=== PATIENT | female | born 1975 | race Caucasian/White ===

== ENCOUNTER 2024-11-01 15:39 | Inpatient (IN) | payer OTHER ==
[~2024-11-01] VITALS: Ht 162.6 cm; Wt 70.1 kg
--- NOTE | 2024-11-01 16:15 | ECG ---
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
--- NOTE | 2024-11-01 16:20 | ED.PDOC ---
History of Present Illness HPI Comments 49F BIBA w/ prior MHx of HTN, GERS and the c/c of generalized weakness. EMS report that the noted on the pt feeling weak for 6 months which was on/off and as the pt was taking a bath today, she had to crawl out of it. When EMS arrived on scene the pt was complaining of lower ABD pain/back pain w/ being A/Ox3 and was given a 12 lead due from missing radio pulse, BS of 89 and given 324mg of aspirin. Pt is also bloated. Denies chills, fever, N/V/D, SOB, CP. Denies any other associated symptom's, modifiers, or recent injuries or sick contact at this time. Chief Complaint: General Weakness Time Seen by MD: 16:15 Reviewed Notes: Nurses Notes, Medications, Allergies Allergies: Coded Allergies: Iodine (Verified Allergy, Unknown, 11/01/24) Penicillins (Verified Allergy, Unknown, 11/01/24) Sulfa Antibiotics (Verified Allergy, Unknown, 11/01/24) Information Source: Patient Severity: Moderate Timing: Months Duration: Since onset Prehospital treatment: None Past Medical History PAST MEDICAL HISTORY: GERD, HTN Surgical History: Denies all surgeries PHYSICIST ASTROPHYSICS History: No Pertinent PHYSICIST ASTROPHYSICS History Family History Family History: Reviewed,noncontributory to illness, Family hx of DM, Family hx of heart janice Social History Smoker: Other (Vape Use) Alcohol: Occasionally Drugs: Denies Drug Use Lives In: Home Constitutional: reports: weakness; denies: chills, diaphoresis, fatigue, fever, malaise, sweats, others EENTM: denies: blurred vision, double vision, ear bleeding, ear discharge, ear drainage, ear pain, ear ringing, eye pain, eye redness, hearing loss, mouth pain, mouth swelling, nasal discharge, nose bleeding, nose congestion, nose pain, photophobia, tearing, throat pain, throat swelling, voice changes, others Respiratory: denies: cough, hemoptysis, orthopnea, SOB at rest, shortness of breath, SOB with excertion, stridor, wheezing, others Cardiovascular: denies: chest pain, dizzy spells, diaphoresis, Dyspnea on exertion, edema, irregular heart beat, left arm pain, lightheadedness, palpitations, PND, syncope, others Gastrointestinal: reports: abdominal pain; denies: abdomen distended, blood streaked bowels, constipated, diarrhea, dysphagia, difficulty swallowing, hematemesis, melena, nausea, poor appetite, poor fluid intake, rectal bleeding, rectal pain, vomiting, others Genitourinary: denies: abnormal vagina bleeding, burning, dyspareunia, dysuria, flank pain, frequency, hematuria, incontinence, pain, , vagina discharge, urgency, others Neurological: denies: dizziness, fainting, headache, left sided numbness, left sided weakness, numbness, paresthesia, pre-existing deficit, right sided numbnes s, right sided weakness, seizure, speech problems, tingling, tremors, weakness, others Musculoskeletal: reports: back pain; denies: gout, joint pain, joint swelling, muscle pain, muscle stiffness, neck pain, others Integumetry: denies: bruises, change in color, change in hair/nails, dryness, laceration, lesions, lumps, rash, wounds, others Allergic/Immunocompromised: denies: Difficulty Healing, Frequent Infections, Hives, Itching, others Hematologic/Lymphatic: denies: anemia, blood clots, easy bleeding, easy bruising, swollen glands, others Endocrine: denies: excessive hunger, excessive sweating, excessive thirst, excessive urination, flushing, intolerance to cold, intolerance to heat, unexplained weight gain, unexplained weight loss, others Psychiatric: denies: anxiety, bipolar disorder, depression, hopeless, panic disorder, schizophrenia, sleepless, suicidal, others All Other Systems: Reviewed and Negative Physical Exam General Appearance: Moderate Distress HEENT: Pale Conjuntivae (L), Pale Conjuntivae (R), Pharynx Normal, TMs Normal Neck: Full Range of Motion, Non-Tender, Normal, Normal Inspection Respiratory: Chest Non-Tender, Lungs Clear, No Accessory Muscle Use, No Respiratory Distress, Normal Breath Sounds Cardiovascular: No Edema, No JVD, No Murmur, No Gallop, Normal Peripheral Pulses, Regular Rate/Rhythm Breast Exam: Deferred Gastrointestinal: Diffuse, No Organomegaly, No Pulsatile Mass, Normal Bowel Sounds, Soft, Tenderness Genitalia: Deferred Pelvic: Deferred Rectal: Deferred Extremities: No calf tenderness, Normal capillary refill, No pedal edema Musculoskeletal : Apperance: Normal Neurologic: Alert, 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 Was a procedure done?: No Differential Dx Considerations may include: Sepsis, metastatic cancer, electrolyte imbalance, dehydration X-Ray, Labs, Meds, VS Vital Signs Date Time Temp Pulse Resp B/P (MAP) Pulse Ox O2 Delivery O2 Flow Rate FiO2 11/01/24 19:00 127 26 84/58 (67) 96 11/01/24 18:00 123 26 94/60 (71) 95 11/01/24 17:08 128 11/01/24 16:41 124 25 96 Nasal Cannula* 2 28 11/01/24 16:41 97.6 124 25 104/66 (79) 96 97.6 11/01/24 15:39 97.7 140 24 90/60 94 97.7 11/01/24 15:39 128 Lab Test 11/01/24 18:58 11/01/24 17:14 11/01/24 16:26 Range/Units Lactic Acid Level 4.2 *H 4.1 *H 0.4-2.0 mmol/L Prothrombin Time 17.2 H 9.3-11.8 sec Prothrombin Time INR 1.71 H 0.9-1.15 Activated Partial Thromboplast Time 49.6 H 24.5-34.5 SEC White Blood Count 21.9 H 4.4-10.8 10^3/uL Red Blood Count 4.26 4.0-5.20 10^6/uL Hemoglobin 9.3 L 12.2-16.2 g/dL Hematocrit 30.0 L 36.0-46.0 % Mean Corpuscular Volume 70.6 L 80.0-100.0 fL Mean Corpuscular Hemoglobin 21.8 L 28.0-32.0 pg Mean Corpuscular Hemoglobin Concent 30.9 L 32.0-36.0 g/dL Red Cell Distribution Width 20.1 H 11.8-14.3 % Platelet Count 889 *H 140-450 10^3/uL Mean Platelet Volume 7.2 6.9-10.8 fL Neutrophils (%) (Auto) 92.6 H 37.0-80.0 % Lymphocytes (%) (Auto) 4.8 L 10.0-50.0 % Monocytes (%) (Auto) 1.9 0.0-12.0 % Eosinophils (%) (Auto) 0.6 0.0-7.0 % Basophils (%) (Auto) 0.1 0.0-2.0 % Neutrophils # (Auto) 20.3 H 1.6-8.6 10 ^3/uL Lymphocytes # (Auto) 1.0 0.4-5.4 10 ^3/uL Monocytes # (Auto) 0.4 0-1.3 10 ^3/uL Eosinophils # (Auto) 0.1 0-0.8 10 ^3/uL Basophils # (Auto) 0 0-0.2 10 ^3/uL Nucleated Red Blood Cells 0.1 % Platelet Estimate Markedly increased Hypochromasia (manual) Moderate Anisocytosis (manual) Slight Microcytosis Moderate Sodium Level 137 136-145 mmol/L Potassium Level 4.8 3.5-5.1 mmol/L Chloride Level 102 98-107 mmol/L Carbon Dioxide Level 22 20-31 mmol/L Anion Gap 13 5-15 Blood Urea Nitrogen 23 9-23 mg/dL Creatinine 2.07 H 0.550-1.02 mg/dL Glomerular Filtration Rate Calc 28 >90 mL/min BUN/Creatinine Ratio 11.1 10.0-20.0 Serum Glucose 68 L 74-106 mg/dL Calcium Level 7.8 L 8.7-10.4 mg/dL Total Bilirubin 0.2 0.2-1.0 mg/dL Aspartate Amino Transferase (AST) 29 13-40 U/L Alanine Aminotransferase (ALT) 13 7-40 U/L Alkaline Phosphatase 113 46-116 U/L Ammonia 13 11-32 umol/L Total Protein 4.1 L 5.7-8.2 g/dL Albumin 1.8 L 3.2-4.8 g/dL Current Medications Medications (Trade) Dose Ordered Sig/Greg Route Start Time Stop Time Status Last Admin Sodium Chloride 500 ml @ 500 mls/hr Q1H ONCE IV 11/01/24 16:15 11/01/24 17:14 DC 11/01/24 16:30 Sodium Chloride 1,650 ml @ 1,650 mls/hr ONCE ONCE IV 11/01/24 17:00 11/01/24 17:59 DC 11/01/24 16:55 Vancomycin HCl 250 ml @ 250 mls/hr ONCE ONCE IV 11/01/24 17:00 11/01/24 17:59 DC 11/01/24 18:08 Levofloxacin/ Dextrose 100 ml @ 100 mls/hr ONCE ONCE IV 11/01/24 17:00 11/01/24 17:59 DC 11/01/24 17:11 Dextrose 50 ml ONCE ONCE IV 11/01/24 18:00 11/01/24 18:01 DC 11/01/24 17:52 Metronidazole 100 ml @ 100 mls/hr ONCE ONCE IV 11/01/24 18:45 11/01/24 19:44 DC 11/01/24 18:45 Phytonadione 10 mg/Sodium Chloride 51 ml @ 204 mls/hr ONCE ONCE IV 11/01/24 19:00 11/01/24 19:14 DC 11/01/24 19:00 Albumin Human 50 ml @ 100 mls/hr ONCE ONCE IV 11/01/24 19:15 11/01/24 19:44 DC 11/01/24 19:10 IV Hep-Lock was established. The patient was given normal saline based on sepsis protocol secondary to the fact that the 1st lactic acid level came back at 4.1 and the 2nd lactic acid level came back at 4.2 The patient was given normal saline based on the sepsis protocol Blood cultures x2 were drawn. The patient was started on vancomycin and Levaquin following blood cultures were done. The CBC shows an elevated white blood cell count of 21.9. The patient is anemic with a hemoglobin of 9.3 and hematocrit of 30 The patient is INR is 1.71 The chemistry panel is within normal limits except for creatinine of 2.07 and BUN of 23 The ammonia level is within normal limits. The patient is hypocalcemic at 7.8 The CAT scan of the abdomen and pelvis shows: IMPRESSION: 1. Significant abnormal soft tissue gas tracking along the left psoas musculature left iliacus, left groin likely compatible with insinuating soft tissue infection. 2. Sequelae of presumed vomiting with fluid distention of the distal esophagus gas located at the gastroesophageal junction with small surgical clip in this region and given the adjacent gas, maintain elevated concern for sequelae of gastroesophageal rupture/leak. 3. Large amount of intraperitoneal free air . [id number] stool burden 4. Indeterminate possible portal venous gas versus marginal gas along the liver. Correlate with lactate levels to exclude bowel ischemia. The chest x-ray indicated no sign of any significant abnormalities. After reading the CAT scan, we did consult with We discussed the findings also with the patient as well as her and brother. We did explain to them that the patient is in more critical condition and we were not able to transfer her to [place] because she has unstable for transfer. They discussed the findings in the plan amongst themselves and wanted us to reach out to [place]. We contacted [facility] and did share the vital signs as well as the results and the patient is deemed unstable for transfer. The authorization number for admission is [id number] Dr. Martinez did come at bedside and will now be the e business consultant on this case. The patient will be admitted to our facility. An NG-tube was placed. We did add albumin as well as Flagyl IV piggyback. The patient will be admitted Critical care time involved bedside management as well as decision making and reviewing of labs and images We will continue to monitor the patient's vital signs. Images Reviewed?: Images reviewed and evaluated by me Time of 1ST Reevaluation: 16:45 Reevaluation 1ST: Unchanged Time of 2ND Reevaluation: 20:00 Reevaluation 2ND: Improved Patient Education/Counseling: Diagnosis, Treatment, Prognosis Family Education/Counseling: No Family Present SEPSIS Sepsis Screen Physician Orders Electrocardigram (11/01/24 16:13) Urinalysis (11/01/24 16:14) Heplock Iv (11/01/24 16:14) Ham Curer (11/01/24 16:14) Blood Pressure (11/01/24 16:14) Pulse Oximetry (11/01/24 16:14) Ct Ab Pel Wo Con-No Oral Or Iv (11/01/24 16:14) Blood Culture (11/01/24 16:50) 2 Large Bore Ivs (20mg Or Larg (11/01/24 16:50) Ngt/Ogt (11/01/24 ) Chest Xray 1 View (11/01/24 18:08) * Surgical Consult (11/01/24 ) Insert Grajeda Catheter QSHIFT (11/01/24 18:33) Ng To Lis (11/01/24 18:36) Type And Screen (11/01/24 18:47) Frozen Plasma (Heart Surgery) (11/01/24 18:48) Sodium Chloride 0.9% (11/01/24 19:15) Packedcell-Noactive Bleeding (11/01/24 19:01) Communication Order (11/01/24 19:03) Vital Signs Date Time Temp Pulse Resp B/P (MAP) Pulse Ox O2 Delivery O2 Flow Rate FiO2 11/01/24 19:00 127 26 84/58 (67) 96 11/01/24 18:00 123 26 94/60 (71) 95 11/01/24 17:08 128 11/01/24 16:41 124 25 96 Nasal Cannula* 2 28 11/01/24 16:41 97.6 124 25 104/66 (79) 96 97.6 11/01/24 15:39 97.7 140 24 90/60 94 97.7 11/01/24 15:39 128 Laboratory Tests Test 11/01/24 16:26 11/01/24 17:14 11/01/24 18:58 White Blood Count 21.9 10^3/uL (4.4-10.8) H Lactic Acid Level 4.1 mmol/L (0.4-2.0) *H 4.2 mmol/L (0.4-2.0) *H Medications Medications Dose Ordered Sig/Greg Route Start Time Stop Time Status Last Admin Dose Admin Albumin Human 50 ml @ 100 mls/hr ONCE ONCE IV 11/01/24 19:15 11/01/24 19:44 DC 11/01/24 19:10 Dextrose 50 ml ONCE ONCE IV 11/01/24 18:00 11/01/24 18:01 DC 11/01/24 17:52 Levofloxacin/ Dextrose 100 ml @ 100 mls/hr ONCE ONCE IV 11/01/24 17:00 11/01/24 17:59 DC 11/01/24 17:11 Metronidazole 100 ml @ 100 mls/hr ONCE ONCE IV 11/01/24 18:45 11/01/24 19:44 DC 11/01/24 18:45 Phytonadione 10 mg/Sodium Chloride 51 ml @ 204 mls/hr ONCE ONCE IV 11/01/24 19:00 11/01/24 19:14 DC 11/01/24 19:00 Sodium Chloride 500 ml @ 500 mls/hr Q1H ONCE IV 11/01/24 16:15 11/01/24 17:14 DC 11/01/24 16:30 Sodium Chloride 1,650 ml @ 1,650 mls/hr ONCE ONCE IV 11/01/24 17:00 11/01/24 17:59 DC 11/01/24 16:55 Vancomycin HCl 250 ml @ 250 mls/hr ONCE ONCE IV 11/01/24 17:00 11/01/24 17:59 DC 11/01/24 18:08 Departure 1 Departure Time of Disposition: 20:05 Impression: Primary Impression: Intractable abdominal pain Additional Impressions: Surgical abdomen Sepsis Qualified Codes: A41.9 - Sepsis, unspecified organism; R65.21 - Severe sepsis with septic shock Disposition: ADMITTED INPATIENT Admit to: Tele Condition: Fair Critical Care Note Critical Care Time?: Yes (55 min-critical care time only) Stability Stability form required: Yes Unstable for transfer: Telemetry monitoring (Telemetry monitoring required), ED Physician Assesment (Clinical assesment) Heart Score Heart Score: Heart Score Response (Comments) Value History N/A 0 EKG N/A 0 Age N/A 0 Risk Factors N/A 0 Troponin N/A 0 Total 0 I personally scribed for VIOLA CARVALHO MD ([email or web address]) on 11/01/24 at 16:20. Electronically submitted by Taj Sy ([email or web address]). VIOLA CARVALHO MD Nov 01, 2024 16:20
[2024-11-01] MEDS: SODIUM CHLORIDE 0.9% 500 ML IV ONE (16:30)
[2024-11-01 16:37] LABS: Hematocrit 30.0 % (36.0-46.0); Hemoglobin 9.3 g/dL (12.2-16.2); Mean Corpuscular Hemoglobin 21.8 pg (28.0-32.0); Mean Corpuscular Volume 70.6 fL (80.0-100.0); Nucleated Red Blood Cells % 0.1 %
[2024-11-01 16:41] VITALS: PULSE 124; RESP 25; O2SAT 96
[2024-11-01 16:48] LABS: Alanine Aminotransferase 13 U/L (7-40); Alkaline Phosphatase 113 U/L (46-116); Anion Gap 13 (5-15); BUN/Creatinine Ratio 11.1 (10.0-20.0); Carbon Dioxide 22 mmol/L (20-31); Chloride 102 mmol/L (98-107); Potassium 4.8 mmol/L (3.5-5.1); Sodium 137 mmol/L (136-145)
[2024-11-01] MEDS: SODIUM CHLORIDE 0.9% 1,650 ML IV ONE (16:55)
[2024-11-01 16:56] LABS: Albumin 1.8 g/dL (3.2-4.8); Bilirubin, Total 0.2 mg/dL (0.2-1.0); Blood Urea Nitrogen 23 mg/dL (9-23); Calcium 7.8 mg/dL (8.7-10.4); Glucose 68 mg/dL (74-106); Total Protein 4.1 g/dL (5.7-8.2)
[2024-11-01 17:11] LABS: Anisocytosis Slight
--- NOTE | 2024-11-01 17:14 | DVH ---
EXAM: CT CT AB PEL WO CON-NO ORAL OR IV INDICATION: pain TECHNIQUE: Volumetric multidetector CT images of the abdomen and pelvis were obtained without contras t. All CT scans at this facility use dose modulation, iterative reconstruction, and/or weight based d osing when appropriate to reduce radiation dose to as low as reasonably achievable. COMPARISON: None FINDINGS: [LOWER CHEST]: Small bilateral pleural effusions. The cardiac size is normal without pericardial effu lydia. [LIVER]: Diffuse hepatic steatosis. Possible portal venous gas. [GALLBLADDER AND BILIARY TREE]: Gallbladder distention. No cholelithiasis. [SPLEEN]: Unremarkable. [PANCREAS]: Unremarkable. [ADRENAL GLANDS]: Unremarkable [KIDNEYS]: No hydronephrosis. No nephroureterolithiasis. Asymmetric left perinephric edema. [BLADDER]: Decompressed [REPRODUCTIVE ORGANS]: Unremarkable. [BOWEL/MESENTERY]: Sequelae of presumed vomiting with fluid distention of the distal esophagus gas lo cated at the gastroesophageal junction with small surgical clip in this region and given the adjacent gas, maintain elevated concern for sequelae of gastroesophageal rupture/leak. Large amount of intrap eritoneal free air [id number] stool burden [ASCITES]: Small volume ascites [LYMPHADENOPATHY]: Multiple likely reactive retroperitoneal lymph nodes. [VASCULATURE]: No aneurysmal dilatation. [ABDOMINAL WALL]: Unremarkable. [MUSCULOSKELETAL]: Significant abnormal soft tissue gas tracking along the left psoas musculature lef t iliacus, left groin likely compatible with insinuating soft tissue infection. Multifocal degenerati ve change of the visualized spine. IMPRESSION: 1. Significant abnormal soft tissue gas tracking along the left psoas musculature left iliacus, left groin likely compatible with insinuating soft tissue infection. 2. Sequelae of presumed vomiting with fluid distention of the distal esophagus gas located at the gas troesophageal junction with small surgical clip in this region and given the adjacent gas, maintain e levated concern for sequelae of gastroesophageal rupture/leak. 3. Large amount of intraperitoneal free air . [id number]-afjwdzch stool burden 4. Indeterminate possible portal venous gas versus marginal gas along the liver. Correlate with lact ate levels to exclude bowel ischemia.
[2024-11-01] MEDS: DEXTROSE 50% SYRINGE 50 ML IV ONE (17:51)
[2024-11-01] MEDS: DEXTROSE (50%) 50ML SYRG IV ONE (17:52)
[2024-11-01] MEDS: VANCOMYCIN 1GM/250ML KIT 250 ML IV ONE (18:08)
[2024-11-01 18:16] LABS: Lactic Acid w/Reflex 4.1 mmol/L (0.4-2.0)
[2024-11-01 18:39] LABS: INR 1.71 (0.9-1.15); Partial Thromboplastin Time 49.6 SEC (24.5-34.5); Prothrombin Time 17.2 sec (9.3-11.8)
--- NOTE | 2024-11-01 18:47 | DVHINCON2 ---
Date of service: Nov 01, 2024 History of Present Illness 49-year-old female with a history of GERD admitted secondary to abdominal pain and back pain. Patient has had this abdominal pain for past three months. Denies any fevers or chills but reports nausea without vomiting. She also has been using Motrin for past couple of weeks for pain. Past Medical History Hypertension. GERD. Past Surgical History Laparoscopic hiatal hernia repair six years ago. Left breast lumpectomy. Family History Noncontributory Social History Denies alcohol, tobacco, IV drug use Allergies: Coded Allergies: Iodine (Verified Allergy, Unknown, 11/01/24) Penicillins (Verified Allergy, Unknown, 11/01/24) Sulfa Antibiotics (Verified Allergy, Unknown, 11/01/24) Vital Signs Vital Signs Date Time Temp Pulse Resp B/P (MAP) Pulse Ox O2 Delivery O2 Flow Rate FiO2 11/01/24 17:08 128 11/01/24 16:41 25 96 Nasal Cannula* 2 28 11/01/24 15:39 97.7 90/60 97.7 Physical Exam GEN: Age-appropriate female in no acute distress. Alert. HEENT: Normocephalic atraumatic. Moist mucous membranes. Anicteric sclerae. NG tube to low intermittent suction CV: Tachycardic but regular rhythm Respiratory: Coarse breath sounds ABD: Diffuse distention with tenderness to palpation with guarding and rebound. CT of the abdomen and pelvis: Diffuse hepatic steatosis with possible portal venous gas. Sequela of presumed vomiting with fluid distention of the distal esophagus gas located at the GE junction with small surgical clips in the region. Given the adjacent gas, concern for possible gastroesophageal rupture/leak. Large amount of intraperitoneal free air. Small volume ascites. Significant abnormal soft tissue gas tracking along the left psoas musculature, left iliacus and left groin likely compatible with soft tissue infection. Labs/Diagnostic Data Labs Test 11/01/24 17:14 11/01/24 16:26 Range/Units Lactic Acid Level 4.1 *H 0.4-2.0 mmol/L White Blood Count 21.9 H 4.4-10.8 10^3/uL Red Blood Count 4.26 4.0-5.20 10^6/uL Hemoglobin 9.3 L 12.2-16.2 g/dL Hematocrit 30.0 L 36.0-46.0 % Mean Corpuscular Volume 70.6 L 80.0-100.0 fL Mean Corpuscular Hemoglobin 21.8 L 28.0-32.0 pg Mean Corpuscular Hemoglobin Concent 30.9 L 32.0-36.0 g/dL Red Cell Distribution Width 20.1 H 11.8-14.3 % Platelet Count 889 *H 140-450 10^3/uL Mean Platelet Volume 7.2 6.9-10.8 fL Neutrophils (%) (Auto) 92.6 H 37.0-80.0 % Lymphocytes (%) (Auto) 4.8 L 10.0-50.0 % Monocytes (%) (Auto) 1.9 0.0-12.0 % Eosinophils (%) (Auto) 0.6 0.0-7.0 % Basophils (%) (Auto) 0.1 0.0-2.0 % Neutrophils # (Auto) 20.3 H 1.6-8.6 10 ^3/uL Lymphocytes # (Auto) 1.0 0.4-5.4 10 ^3/uL Monocytes # (Auto) 0.4 0-1.3 10 ^3/uL Eosinophils # (Auto) 0.1 0-0.8 10 ^3/uL Basophils # (Auto) 0 0-0.2 10 ^3/uL Nucleated Red Blood Cells 0.1 % Platelet Estimate Markedly increased Hypochromasia (manual) Moderate Anisocytosis (manual) Slight Microcytosis Moderate Sodium Level 137 136-145 mmol/L Potassium Level 4.8 3.5-5.1 mmol/L Chloride Level 102 98-107 mmol/L Carbon Dioxide Level 22 20-31 mmol/L Anion Gap 13 5-15 Blood Urea Nitrogen 23 9-23 mg/dL Creatinine 2.07 H 0.550-1.02 mg/dL Glomerular Filtration Rate Calc 28 >90 mL/min BUN/Creatinine Ratio 11.1 10.0-20.0 Serum Glucose 68 L 74-106 mg/dL Calcium Level 7.8 L 8.7-10.4 mg/dL Total Bilirubin 0.2 0.2-1.0 mg/dL Aspartate Amino Transferase (AST) 29 13-40 U/L Alanine Aminotransferase (ALT) 13 7-40 U/L Alkaline Phosphatase 113 46-116 U/L Ammonia 13 11-32 umol/L Total Protein 4.1 L 5.7-8.2 g/dL Albumin 1.8 L 3.2-4.8 g/dL Assessment 1. Perforated viscus 2. Left iliopsoas infection possible abscess 3. Septic shock 4. FLORIN Plan/Recommendation 1. I discussed the patient's condition and concern for perforation to the patient and her and recommended urgent expiratory laparotomy. However they want to discuss the surgery prior to making their final decision. Informed consent: The surgery and its risks including but not limited to infection, bleeding requiring possible blood transfusion with the risk of hepatitis or HIV infection, possible perioperative [place] or stroke, possible bowel resection or colostomy/ileostomy were explained to the patient and her . All questions were answered to her satisfaction. She expressed verbal understanding. At this time she wants to discuss it prior to making a final decision. Plan discussed with: Patient MARIUM CLEMENS MD Nov 01, 2024 18:47
--- NOTE | 2024-11-01 18:58 | DVH ---
EXAM: XY CHEST XRAY 1 VIEW HISTORY: confirm ng placement TECHNIQUE: 1 view of the chest COMPARISON: None FINDINGS/IMPRESSION: LUNGS: No pleural effusion, consolidation, or pneumothorax . Atelectasis in bilateral lung bases. Seq uelae of fluid administration. MEDIASTINUM: Unremarkable BONES: No acute osseous abnormality OTHER: Enteric tube extending into the stomach. Intraperitoneal free air.
[2024-11-01] MEDS: phytonadione 10 MG in SODIUM CHL 0.9% 50 ML IV ONE (19:00)
[2024-11-01] MEDS: ALBUMIN 25% 50 ML IV ONE (19:10)
[2024-11-01] MEDS: SODIUM CHLORIDE 0.9% 1,000 ML IV ONE (19:15)
[2024-11-01] MEDS: phytonadione 1 ML ONE (19:52)
[2024-11-01] MEDS ORDERED: NITROGLYCERIN 0.4 MG SL TAB SL PRN ×2 (20:00)
[2024-11-01] MEDS ORDERED: MORPHINE SULFATE INJ 2 MG/ml SYRG IV PRN ×3 (20:00→21:15)
[2024-11-01 20:45] LABS: Urine Protein, UAD 3+ (Negative); Urine WBC Clumps PRESENT /hpf (None Seen)
[2024-11-01] MEDS ORDERED: ROCURONIUM 10MG/ML 10ML VIAL IV ONE (21:14)
[2024-11-01] MEDS ORDERED: VANCOMYCIN PER PHARMACY 0 MG IV SCH (21:15)
[2024-11-01] MEDS ORDERED: MIDAZOLAM HCL 2MG/2ML 2ml VIAL (1mg/ml) ONE (21:16)
[2024-11-01] MEDS ORDERED: fentaNYL CITRATE 100 MCG/2 ML VL ONE ×3 (21:16→23:40)
[2024-11-01 21:19] VITALS: BP 86/57; PULSE 116; RESP 33; TEMP 97.2
--- NOTE | 2024-11-01 21:21 | DVHHP2 ---
History of Present Illness Reason for Visit: Abdominal pain History of Present Illness 49-year-old female presents for evaluation of abdominal pain. She reports a three month history of intermittent abdominal pain which would normally subside. She she states that over the past two days the pain has been more intense with associated bloating and chills. No nausea or vomiting. Denies diarrhea. Past Medical History Hypertension and GERD Past Surgical History Denies Family History Noncontributory Smoke: No ALCOHOL: occassional Drugs: None Lives: with Family Review of Systems Review of Systems Review of systems are currently negative otherwise addressed in HPI. Allergies: Coded Allergies: Iodine (Verified Allergy, Unknown, 11/01/24) Penicillins (Verified Allergy, Unknown, 11/01/24) Sulfa Antibiotics (Verified Allergy, Unknown, 11/01/24) Medications Current Medications Medications Dose Ordered Sig/Greg Route Start Time Stop Time Status Last Admin Dose Admin Nitroglycerin 0.4 mg Q5MINP PRN SL 11/01/24 20:00 Morphine Sulfate 2 mg Q30M PRN IV 11/01/24 20:00 Levofloxacin/ Dextrose 100 ml @ 100 mls/hr DAILY IV 11/02/24 10:00 UNV Vancomycin HCl 0 ml @ 0 mls/hr UD IV 11/01/24 21:15 UNV Metronidazole 100 ml @ 100 mls/hr Q8HR IV 11/01/24 22:00 UNV Pantoprazole Sodium 40 mg DAILY IV 11/02/24 10:00 UNV Ondansetron HCl 4 mg Q4HP PRN IV 11/01/24 21:15 UNV Morphine Sulfate 2 mg Q4HPRN PRN IV 11/01/24 21:15 UNV Exam Vital Signs Vital Signs Date Time Temp Pulse Resp B/P (MAP) Pulse Ox O2 Delivery O2 Flow Rate FiO2 11/01/24 19:30 Nasal Cannula* 2 28 11/01/24 19:00 127 26 84/58 (67) 96 11/01/24 16:41 97.6 97.6 Exam Gen: 49-year-old female in mild distress Skin: Warm, dry, normal color and texture, no rash. HEENT: Normocephalic atraumatic, mucous membranes moist and pink. Neck: Cervical and supraclavicular nodes normal without enlargement, trachea is midline, thyroid gland is normal without masses. Pulmonary: Clear to auscultation and percussion bilaterally. Cardiac: Sinus tachycardia Abdomen: Soft, diffuse tenderness, distended, absent bowel sounds, no guarding, no rigidity, no organomegaly. Extremities: No cyanosis, clubbing, no edema Neuro: Cranial nerves II through XII grossly intact, normal affect and speech, no focal motor deficits. Labs/Xrays ORDERING PHYSICIAN: VIOLA CARVALHO MD PROCEDURE(s): CXR1 - CHEST XRAY 1 VIEW REASON: confirm ng placement ORDER NUMBER(s): [id number], ACCESSION NUMBER(s): [id number] EXAM: XY CHEST XRAY 1 VIEW HISTORY: confirm ng placement TECHNIQUE: 1 view of the chest COMPARISON: None FINDINGS/IMPRESSION: LUNGS: No pleural effusion, consolidation, or pneumothorax . Atelectasis in bilateral lung bases. Sequelae of fluid administration. MEDIASTINUM: Unremarkable BONES: No acute osseous abnormality OTHER: Enteric tube extending into the stomach. Intraperitoneal free air. RING PHYSICIAN: VIOLA CARVALHO MD PROCEDURE(s): ABPL - CT AB PEL WO CON-NO ORAL OR IV REASON: pain ORDER NUMBER(s): [id number], ACCESSION NUMBER(s): [id number] EXAM: CT CT AB PEL WO CON-NO ORAL OR IV INDICATION: pain TECHNIQUE: Volumetric multidetector CT images of the abdomen and pelvis were obtained without contrast. All CT scans at this facility use dose modulation, iterative reconstruction, and/or weight based dosing when appropriate to reduce radiation dose to as low as reasonably achievable. COMPARISON: None FINDINGS: [LOWER CHEST]: Small bilateral pleural effusions. The cardiac size is normal without pericardial effusion. [LIVER]: Diffuse hepatic steatosis. Possible portal venous gas. [GALLBLADDER AND BILIARY TREE]: Gallbladder distention. No cholelithiasis. [SPLEEN]: Unremarkable. [PANCREAS]: Unremarkable. [ADRENAL GLANDS]: Unremarkable [KIDNEYS]: No hydronephrosis. No nephroureterolithiasis. Asymmetric left perinephric edema. [BLADDER]: Decompressed [REPRODUCTIVE ORGANS]: Unremarkable. [BOWEL/MESENTERY]: Sequelae of presumed vomiting with fluid distention of the d istal esophagus gas located at the gastroesophageal junction with small surgical clip in this region and given the adjacent gas, maintain elevated concern for sequelae of gastroesophageal rupture/leak. Large amount of intraperitoneal free air [id number] stool burden [ASCITES]: Small volume ascites [LYMPHADENOPATHY]: Multiple likely reactive retroperitoneal lymph nodes. [VASCULATURE]: No aneurysmal dilatation. [ABDOMINAL WALL]: Unremarkable. [MUSCULOSKELETAL]: Significant abnormal soft tissue gas tracking along the left psoas musculature left iliacus, left groin likely compatible with insinuating soft tissue infection. Multifocal degenerative change of the visualized spine. IMPRESSION: 1. Significant abnormal soft tissue gas tracking along the left psoas musculature left iliacus, left groin likely compatible with insinuating soft tissue infection. 2. Sequelae of presumed vomiting with fluid distention of the distal esophagus gas located at the gastroesophageal junction with small surgical clip in this region and given the adjacent gas, maintain elevated concern for sequelae of gastroesophageal rupture/leak. 3. Large amount of intraperitoneal free air . [id number] stool burden 4. Indeterminate possible portal venous gas versus marginal gas along the liver. Correlate with lactate levels to exclude bowel ischemia. ATED BY: GODWIN ALVES MD Labs Test 11/01/24 20:15 11/01/24 18:58 11/01/24 17:14 11/01/24 16:26 Range/Units Urine Color Dark-brown Yellow Urine Clarity Ex.turbid Clear Urine pH 6.5 5.0-9.0 Urine Specific [place] 1.012 1.001-1.035 Urine Protein 3+ H Negative Urine Ketones Negative Negative Urine Blood 3+ H Negative /uL Urine Nitrite Negative Negative Urine Bilirubin Negative Negative Urine Urobilinogen Normal Negative mg/dL Urine Leukocyte Esterase 3+ Negative /uL Urine RBC 61 0 - 4 /hpf Urine WBC Clumps Present None Seen /hpf Urine Microscopic WBC 522 H 0-5 /HPF Urine Squamous Epithelial Cells None seen <5 /hpf Urine Bacteria None seen None Seen /hpf Urine Mucus Many None Seen Urine Glucose Normal Normal mg/dL Lactic Acid Level 4.2 *H 0.4-2.0 mmol/L Prothrombin Time 17.2 H 9.3-11.8 sec Prothrombin Time INR 1.71 H 0.9-1.15 Activated Partial Thromboplast Time 49.6 H 24.5-34.5 SEC White Blood Count 21.9 H 4.4-10.8 10^3/uL Red Blood Count 4.26 4.0-5.20 10^6/uL Hemoglobin 9.3 L 12.2-16.2 g/dL Hematocrit 30.0 L 36.0-46.0 % Mean Corpuscular Volume 70.6 L 80.0-100.0 fL Mean Corpuscular Hemoglobin 21.8 L 28.0-32.0 pg Mean Corpuscular Hemoglobin Concent 30.9 L 32.0-36.0 g/dL Red Cell Distribution Width 20.1 H 11.8-14.3 % Platelet Count 889 *H 140-450 10^3/uL Mean Platelet Volume 7.2 6.9-10.8 fL Neutrophils (%) (Auto) 92.6 H 37.0-80.0 % Lymphocytes (%) (Auto) 4.8 L 10.0-50.0 % Monocytes (%) (Auto) 1.9 0.0-12.0 % Eosinophils (%) (Auto) 0.6 0.0-7.0 % Basophils (%) (Auto) 0.1 0.0-2.0 % Neutrophils # (Auto) 20.3 H 1.6-8.6 10 ^3/uL Lymphocytes # (Auto) 1.0 0.4-5.4 10 ^3/uL Monocytes # (Auto) 0.4 0-1.3 10 ^3/uL Eosinophils # (Auto) 0.1 0-0.8 10 ^3/uL Basophils # (Auto) 0 0-0.2 10 ^3/uL Nucleated Red Blood Cells 0.1 % Platelet Estimate Markedly increased Hypochromasia (manual) Moderate Anisocytosis (manual) Slight Microcytosis Moderate Sodium Level 137 136-145 mmol/L Potassium Level 4.8 3.5-5.1 mmol/L Chloride Level 102 98-107 mmol/L Carbon Dioxide Level 22 20-31 mmol/L Anion Gap 13 5-15 Blood Urea Nitrogen 23 9-23 mg/dL Creatinine 2.07 H 0.550-1.02 mg/dL Glomerular Filtration Rate Calc 28 >90 mL/min BUN/Creatinine Ratio 11.1 10.0-20.0 Serum Glucose 68 L 74-106 mg/dL Calcium Level 7.8 L 8.7-10.4 mg/dL Total Bilirubin 0.2 0.2-1.0 mg/dL Aspartate Amino Transferase (AST) 29 13-40 U/L Alanine Aminotransferase (ALT) 13 7-40 U/L Alkaline Phosphatase 113 46-116 U/L Ammonia 13 11-32 umol/L Total Protein 4.1 L 5.7-8.2 g/dL Albumin 1.8 L 3.2-4.8 g/dL SEPSIS Sepsis Screen Date sepsis recognized/suspect: Nov 01, 2024 Time Sepsis recognized/suspect: 1929 Recent Procedure: No On Antibiotic Therapy: No Respiratory Rate >20: Yes Heart Rate >90: Yes Temp<36 C (96.8 F) or >38.3 C: No SBP <90 or MAP <65 mmHG: Yes New Acute Mental Status Change: No Is the patient on CPAP, BIPAP,: No Physician Orders Electrocardigram (11/01/24 16:13) Heplock Iv (11/01/24 16:14) Small Equipment Operator (11/01/24 16:14) Blood Pressure (11/01/24 16:14) Pulse Oximetry (11/01/24 16:14) Ct Ab Pel Wo Con-No Oral Or Iv (11/01/24 16:14) Blood Culture (11/01/24 16:50) 2 Large Bore Ivs (20mg Or Larg (11/01/24 16:50) Ngt/Ogt (11/01/24 ) Chest Xray 1 View (11/01/24 18:08) * Surgical Consult (11/01/24 ) Insert Grajeda Catheter QSHIFT (11/01/24 18:33) Ng To Lis (11/01/24 18:36) Type And Screen (11/01/24 18:47) Frozen Plasma (Heart Surgery) (11/01/24 18:48) Sodium Chloride 0.9% (11/01/24 19:15) Communication Order (11/01/24 19:03) Admit (11/01/24 19:58) Nitroglycerin Sublingual (Ntrostat Subli (11/01/24 20:00) Stat Ekg For Chest Pain (11/01/24 19:58) Notify Of Changes From Base (11/01/24 19:58) Associate Music Professor For 24 Hours (11/01/24 19:58) Emergency Dysrhythmia Protocol (11/01/24 19:58) Rhythm Strips Once Every Shift (11/01/24 19:58) Oxygen By Nasal Cannula (11/01/24 19:58) Admit (11/01/24 19:58) Morphine Sulfate Injection (11/01/24 20:00) Stat Ekg For Chest Pain (11/01/24 19:58) Notify Md Of Changes From Base (11/01/24 19:58) Associate Music Professor For 24 Hours (11/01/24 19:58) Emergency Dysrhythmia Protocol (11/01/24 19:58) Rhythm Strips Once Every Shift (11/01/24 19:58) Oxygen By Nasal Cannula (11/01/24 19:58) Levofloxacin 500mg (Levaquin 500mg/ 100m (11/02/24 10:00) Vancomycin Per Pharmacy (11/01/24 21:15) Metronidazole 500mg/100ml (Flagyl 500mg/ (11/01/24 22:00) Sodium Chloride 0.9% (11/01/24 21:15) Pantoprazole (Protonix) (11/02/24 10:00) Ondansetron Hcl (Zofran) (11/01/24 21:15) Complete Blood Count (11/02/24 04:00) Comprehensive Metabolic Panel (11/02/24 04:00) Npo (Nothing By Mouth) Diet (11/02/24 Breakfast) Condition: Unstable (11/01/24 21:11) Maintain Bed Rest (11/01/24 21:11) Morphine Sulfate Injection (11/01/24 21:15) Sequential Compression Device (11/01/24 ) Vital Signs Date Time Temp Pulse Resp B/P (MAP) Pulse Ox O2 Delivery O2 Flow Rate FiO2 11/01/24 19:30 Nasal Cannula* 2 28 11/01/24 19:00 127 26 84/58 (67) 96 11/01/24 18:00 123 26 94/60 (71) 95 11/01/24 17:08 128 11/01/24 16:41 124 25 96 Nasal Cannula* 2 28 11/01/24 16:41 97.6 124 25 104/66 (79) 96 97.6 11/01/24 15:39 97.7 140 24 90/60 94 97.7 11/01/24 15:39 128 Laboratory Tests Test 11/01/24 16:26 11/01/24 17:14 11/01/24 18:58 White Blood Count 21.9 10^3/uL (4.4-10.8) H Lactic Acid Level 4.1 mmol/L (0.4-2.0) *H 4.2 mmol/L (0.4-2.0) *H Medications Medications Dose Ordered Sig/Greg Route Start Time Stop Time Status Last Admin Dose Admin Albumin Human 50 ml @ 100 mls/hr ONCE ONCE IV 11/01/24 19:15 11/01/24 19:44 DC 11/01/24 19:10 100 MLS/HR Dextrose 50 ml ONCE ONCE IV 11/01/24 18:00 11/01/24 18:01 DC 11/01/24 17:52 50 ML Levofloxacin/ Dextrose 100 ml @ 100 mls/hr ONCE ONCE IV 11/01/24 17:00 11/01/24 17:59 DC 11/01/24 17:11 100 MLS/HR Metronidazole 100 ml @ 100 mls/hr ONCE ONCE IV 11/01/24 18:45 11/01/24 19:44 DC 11/01/24 18:45 100 MLS/HR Phytonadione 10 mg/Sodium Chloride 51 ml @ 204 mls/hr ONCE ONCE IV 11/01/24 19:00 11/01/24 19:14 DC 11/01/24 19:00 204 MLS/HR Sodium Chloride 500 ml @ 500 mls/hr Q1H ONCE IV 11/01/24 16:15 11/01/24 17:14 DC 11/01/24 16:30 500 MLS/HR Sodium Chloride 1,650 ml @ 1,650 mls/hr ONCE ONCE IV 11/01/24 17:00 11/01/24 17:59 DC 11/01/24 16:55 1,650 MLS/HR Vancomycin HCl 250 ml @ 250 mls/hr ONCE ONCE IV 11/01/24 17:00 11/01/24 17:59 DC 11/01/24 18:08 250 MLS/HR Assessment/Plan Assessment/Plan Assessment Perforated this is Septic shock ? Left iliopsoas abscess Acute kidney injury UTI Plan Admit the patient to ICU to the hospitalist Patient is currently taken to the operating room. Levaquin/vancomycin Maintenance IV fluids Surgical consultation Continue treatment per orders. Total critical care time excluding procedures performed this 55 minutes. Plan discussed with: Patient My Orders Orders - BERNARD LEONARDO AGACNP Procedure Category Date Status Time Admit ADMIT 11/01/24 Transmitted 19:58 Nitroglycerin [facility] 11/01/24 In Process Sublingual (Ntrostat 20:00 Stat Ekg For Chest [facility] 11/01/24 In Process Pain 19:58 Notify Md Of Changes [facility] 11/01/24 In Process From Base 19:58 Associate Music Professor For [facility] 11/01/24 In Process 24 Hours 19:58 Emergency Dysrhythmia [facility] 11/01/24 In Process Protocol 19:58 Rhythm Strips Once [facility] 11/01/24 In Process Every Shift 19:58 Oxygen By Nasal RT 11/01/24 Transmitted Cannula 19:58 Admit ADMIT 11/01/24 Transmitted 19:58 Morphine Sulfate [facility] 11/01/24 In Process Injection 20:00 Stat Ekg For Chest [facility] 11/01/24 In Process Pain 19:58 Notify Md Of Changes [facility] 11/01/24 In Process From Base 19:58 Associate Music Professor For [facility] 11/01/24 In Process 24 Hours 19:58 Emergency Dysrhythmia [facility] 11/01/24 In Process Protocol 19:58 Rhythm Strips Once [facility] 11/01/24 In Process Every Shift 19:58 Oxygen By Nasal RT 11/01/24 Transmitted Cannula 19:58 Levofloxacin 500mg [facility] 11/02/24 Logged (Levaquin 500mg/ 100m 10:00 Vancomycin Per [facility] 11/01/24 Logged Pharmacy 21:15 Metronidazole [facility] 11/01/24 Logged 500mg/100ml (Flagyl 22:00 Sodium Chloride 0.9% [facility] 11/01/24 Logged 21:15 Pantoprazole [facility] 11/02/24 Logged (Protonix) 10:00 Ondansetron Hcl [facility] 11/01/24 Logged (Zofran) 21:15 Complete Blood Count LAB 11/02/24 Verified 04:00 Comprehensive LAB 11/02/24 Verified Metabolic Panel 04:00 Npo (Nothing By DIET 11/02/24 Transmitted Mouth) Diet Breakfast Condition: Unstable [facility] 11/01/24 In Process 21:11 Maintain Bed Rest [facility] 11/01/24 In Process 21:11 Morphine Sulfate [facility] 11/01/24 Logged Injection 21:15 Sequential [facility] 11/01/24 In Process Compression Device Date of Service: Nov 01, 2024 Billing Provider: BERNARD LEONARDO Common Visit Codes: [id number] CARE 30-74 MIN BERNARD LEONARDO Nov 01, 2024 21:21
[2024-11-01] MEDS ORDERED: HYDROmorphone HCL 2 MG/ML VL/or syr ONE (22:28)
[2024-11-02] VITALS (114 sets, daily range): BP systolic 72–117; BP diastolic 35–72; PULSE 111–157; RESP 12–49; TEMP 96.3–99.7; O2SAT 94–100
[2024-11-02] MEDS ORDERED: fentaNYL CITRATE 100 MCG/2 ML VL ONE (00:49)
[2024-11-02] MEDS: fentaNYL Drip 2500mCg/250mlNS 250 ML IV SCH (01:15)
[2024-11-02] MEDS: DEXMEDETOMIDINE HCL IN D5W 100 ML IV SCH (01:15)
--- NOTE | 2024-11-02 01:16 | DVHOP2 ---
Operative Report - 2 Report Details Date: 11/02/24 Preop Diagnosis: 1. septic shock with perforated viscus 2. FLORIN Postop Diagnosis: 1. Septic shock from perforation of the rectosigmoid colon with extensive adhesions Surgeon: Marium Martinez MD Garbage Collection Supervisor: None Anesthesiologist: Dr. Sahu Anesthesia: General Drains: 15 [place] Marcos drains x2 Consent: The surgery and its risks including but not limited to infection, bleeding requiring possible blood transfusion with the risk of hepatitis or HIV infection, possible bowel resection with colostomy or ileostomy, possible perioperative DC or stroke were explained to the patient and her . All questions were answered to her satisfaction. She expressed verbal understanding and wished to proceed with the surgery. Complications: None Estimated Blood Loss: 100 mL Fluids: 3700 mL of crystalloid placed 100 mL of 25% albumin plus 2 units of FFP Name of Procedure Performed 1. Exploratory laparotomy with rectosigmoid resection with colostomy 2. Extensive lysis of adhesions 3. Ileal resection with a primary anastomosis Procedure Details Procedure Details: Once the patient was placed into the OR, it was noted that her Grajeda was drain ing fecal material suspicious for possible colovesical fistula. After induction of general anesthesia, patient's abdomen was prepped and draped in standard surgical fashion. A midline incision was made incision was taken through the abdominal wall down to the fascia. The midline fascia was then purulent fluid was then aspirated away as quickly as possible. The stomach appeared very distended. NG tube was palpated in the body of the stomach and was decompressed. There was no obvious perforation of the stomach or the pylorus or the duodenum. The cecum was very dilated and full of rigid stool. The ascending, transverse and descending colon were all appeared viable without obvious perforation. However in the pelvis, the sigmoid colon was fixed to the pelvis and the perforation was noted in the mid sigmoid colon. The terminal ileum was also adherent to the sigmoid colon and there was no identifiable plane of dissection free up the terminal ileum. During the dissection there was a perforation of the ileum. PAUL staplers were used to staple and resect this segment of the ileum. The mesentery was then divided using an energy device. A adry-br-vdbr anastomosis was then performed using a 75 mm PAUL stapler and the newly created enterotomy was then closed using a 60 mm TA stapler. A single 3-0 silk suture was used to reinforce the cross staple line. The anastomosis was w idely patent. The newly created mesenteric defect was then closed using running 2-0 Vicryl sutures. Attention was turned back towards the sigmoid colon. The anti mesenteric portion of the sigmoid colon was basically stuck to pelvis and it was then possible to remove this portion without getting into the bowel. So the sigmoid colon was then opened and the impacted stool was evacuated. This made the dissection somewhat easier. The sigmoid colon was then resected and sent off to pathology. The open end of the rectal stump was then closed using a PAUL stapler. 2-0 Prolene sutures were used to suman the edges of the rectal staple line. Small intestine was then examined from the ligament of Treitz all the way down to the cecum. There was no obvious perforation noted in this area. Abdominal cavity was then irrigated with 7 L of warm irrigation. Fifteen [place] Marcos drains were placed one along the left gutter and placed through the stab incision in the left lower quadrant. This was secured to the skin using 3- 0 nylon sutures. The right-sided 15 [place] Marcos drain was placed 1st into the pelvis and up along the right gutter. This was also secured to the skin using 3-0 nylon sutures. We will circular incision was made in the left side of the abdomen for the colostomy. The descending colon was then mobilized medially by taking down the white line of Toldt. A cruciate incision was made at the colostomy site big enough to place two my fingers easily. In the descending colon stump was then placed through this opening. Midline fascia was then closed using running looped 0 PDS sutures. Surgical site was irrigated and skin incision was then closed using yadira. Colostomy was then matured by taking down the staple line. The mucosa appeared viable. The colostomy was then matured using 2-0 and 3-0 Vicryl sutures. There was no narrowing at the fascial level. The surgical site was cleaned and dried and dressings were applied. Sponge, needle, instrument count at the end of the case were reported to be correct by the nursing staff. The patient remained critical throughout surgery and was transferred to the ICU intubated in critical condition. Specimen: Sigmoid colon and segment of ileum Condition Critical Disposition Still a Patient MARIUM MARTINEZ MD Nov 02, 2024 01:16
[2024-11-02] MEDS: MIDAZOLAM DRIP 50 mg/50mL 50 ML IV SCH (01:50)
[2024-11-02] MEDS: MIDAZOLAM DRIP 50 mg/50mL 50 ML IV ONE (01:51)
[2024-11-02 01:57] LABS: Base Excess -9.6 mmol/L (-2.0-3.0)
[2024-11-02 01:59] LABS: Hematocrit 27.5 % (36.0-46.0); Hemoglobin 8.3 g/dL (12.2-16.2); Mean Corpuscular Hemoglobin 22.2 pg (28.0-32.0); Mean Corpuscular Volume 74.1 fL (80.0-100.0); Nucleated Red Blood Cells % 0.0 %
[2024-11-02 02:16] LABS: INR 1.36 (0.9-1.15); Partial Thromboplastin Time 45.3 SEC (24.5-34.5); Prothrombin Time 14.0 sec (9.3-11.8)
[2024-11-02 02:33] LABS: Alanine Aminotransferase 17 U/L (7-40); Alkaline Phosphatase 81 U/L (46-116); Anion Gap 11 (5-15); BUN/Creatinine Ratio 7.3 (10.0-20.0); Blood Urea Nitrogen 12 mg/dL (9-23); Potassium 4.8 mmol/L (3.5-5.1); Sodium 138 mmol/L (136-145)
[2024-11-02 02:34] LABS: Albumin 2.3 g/dL (3.2-4.8); Bilirubin, Total 0.3 mg/dL (0.2-1.0); Calcium 6.9 mg/dL (8.7-10.4); Carbon Dioxide 17 mmol/L (20-31); Chloride 110 mmol/L (98-107); Glucose 52 mg/dL (74-106); Total Protein 4.2 g/dL (5.7-8.2)
--- NOTE | 2024-11-02 03:09 | DVH ---
CHEST RADIOGRAPH Indication: INTUBATION Technique: Single frontal view of the chest was obtained COMPARISON: XY CHEST XRAY 1 VIEW on DOS: 11/01/24 FINDINGS: Lines and Tubes: Status post interval intubation. Endotracheal tube tip projects approximately 3.1 c m above the level of the jacob. Enteric catheter terminates within the left upper quadrant, presumab ly within the gastric lumen. Lungs: Mildly progressive right basilar pulmonary airspace disease. Pleura: No effusion. No pneumothorax. Interval resolution of pneumoperitoneum. Cardiomediastinal contours: Unremarkable Bones: Unremarkable IMPRESSION: 1. Interval progression in right basilar pulmonary airspace disease. 2. Interval resolution of pneumoperitoneum. 3. Endotracheal tube and enteric catheter as above.
[2024-11-02] MEDS: SODIUM BICARB 8.4% 50Meq/50ml SYR Vial IV ONE (03:20)
[2024-11-02] MEDS: NOREPINEPHRINE 8 MG/250ML KIT 250 ML IV SCH (06:00)
[2024-11-02 07:06] LABS: Base Excess -3.8 mmol/L (-2.0-3.0)
[2024-11-02] MEDS: NOREPINEPHRINE 8 MG/250ML KIT 250 ML IV ONE (08:06)
[2024-11-02] MEDS: ALBUMIN 25% 100 ML IV ONE (08:07)
[2024-11-02] MEDS: SODIUM CHLORIDE 0.9% 1,000 ML IV ONE (08:07)
[2024-11-02 09:08] LABS: Hemoglobin 11.1 g/dL (12.2-16.2); Mean Corpuscular Volume 76.7 fL (80.0-100.0); Nucleated Red Blood Cells % 0.1 %
[2024-11-02 09:09] LABS: Hematocrit 35.5 % (36.0-46.0); Mean Corpuscular Hemoglobin 24.0 pg (28.0-32.0)
[2024-11-02 09:27] LABS: Alanine Aminotransferase 21 U/L (7-40); Alkaline Phosphatase 99 U/L (46-116); Anion Gap 16 (5-15); BUN/Creatinine Ratio 11.8 (10.0-20.0); Bilirubin, Total 0.5 mg/dL (0.2-1.0); Blood Urea Nitrogen 22 mg/dL (9-23); Potassium 4.8 mmol/L (3.5-5.1)
[2024-11-02 09:30] LABS: Albumin 2.4 g/dL (3.2-4.8); Calcium 7.1 mg/dL (8.7-10.4); Carbon Dioxide 20 mmol/L (20-31); Chloride 109 mmol/L (98-107); Sodium 145 mmol/L (136-145); Total Protein 4.4 g/dL (5.7-8.2)
[2024-11-02 09:32] LABS: Glucose 28 mg/dL (74-106)
[2024-11-02 09:40] LABS: Anisocytosis Slight
[2024-11-02] MEDS: DEXTROSE 50% SYRINGE 50 ML IV ONE (09:41)
[2024-11-02 09:43] LABS: Giant Platelets Few
[2024-11-02] MEDS ORDERED: DEXTROSE (50%) 50ML SYRG IV PRN (09:45)
[2024-11-02] MEDS: DEXTROSE (50%) 50ML SYRG IV ONE (09:45)
[2024-11-02] MEDS: PANTOPRAZOLE 40 MG/10 ML VIAL INJ IV SCH (09:49)
[2024-11-02 09:50] LABS: INR 1.31 (0.9-1.15); Partial Thromboplastin Time 37.5 SEC (24.5-34.5); Prothrombin Time 13.5 sec (9.3-11.8)
[2024-11-02] MEDS: CALCIUM GLUC 1,000mg/50ml-NS 50 ML IV ONE (11:04)
[2024-11-02] MEDS: D5W/SOD CHLO 0.9% 1,000 ML IV SCH (11:06)
[2024-11-02] MEDS ORDERED: SUCCINYLCHOLINE 20mg/ml 100mg/5ml SYRINGE IV ONE (11:45)
[2024-11-02] MEDS: ACCU-CHEK COMFORT CURVE STRIP VI SCH (12:53)
--- NOTE | 2024-11-02 13:01 | DVH ---
ULTRASOUND ABDOMEN: REASON FOR EXAM: History of wt loss. Heavy alcohol use. Elevated liver function tests. TECHNIQUE: Real-time sector scans in the transverse and longitudinal planes were obtained through th e abdomen. FINDINGS: The left lobe of the liver and midline structures are not seen due to abdominal bandages. T he liver is borderline enlarged at 17.3 cm in length. The liver is diffusely echogenic. There is hep atopetal flow in the portal vein. There is no intrahepatic biliary ductal dilatation. The common bi le duct measures 15 mm. There is sludge in the gallbladder. No gallstone is identified. There is n o gallbladder wall thickening . There is pericholecystic fluid. There is no sonographic Cisneros's sig n, however, the patient is intubated. The spleen is normal in size. The visualized portion of the pancreas is unremarkable. The right kidney measures 10.0 cm. The left kidney measures 9.1 cm. There is no hydronephrosis or n ephrolithiasis. There is no evidence of focal renal mass or cyst. The visualized portions of the abdominal aorta demonstrate no evidence of aneurysmal dilatation. The visualized inferior vena cava is unremarkable. Trace free fluid in the abdomen. There are small bilateral pleural effusions. IMPRESSION: The liver is diffusely echogenic which may be secondary to steatosis or another diffuse hepatic proce ss. Correlate clinically and with liver function tests. Enlargement of the common bile duct measuring up to 15 mm. Recommend ERCP or MRCP to evaluate the dis ata common bile duct for possible biliary ductal stone or other obstruction. Gallbladder sludge. Small amount of free fluid in the abdomen. Small bilateral pleural effusions.
[2024-11-02] MEDS: THIAMINE 100mg/ml INJ (200mg/2ml VIAL) IV ONE (13:39)
--- NOTE | 2024-11-02 15:43 | DVHPNRES ---
Progress Note Date Seen: Nov 02, 2024 Resident Creating Document: THIAGO NEGRON RESIDENT Medical Necessity Reason Pt with a Central, PICC or Fol: Yes Subjective Review of Systems This is a 49-year-old female with past medical history of hypertension, GERD, ethyl alcohol abuse, status post surgery for hiatal hernia presented to the ED with a chief complaint of severe abdominal pain. The patient states that she has intermittent abdominal pain for last 3 months, altered bowel habit and occasional nausea and vomiting but for past 2 days the pain getting worse with associated bloating and chills that prompted this visit. She also has been using Motrin for past couple weeks for pain. According to the the patient lost significant went about 50 lb in last 10 months, not following with any doctor for last couple of years, last lab was done few years ago and she was almost bed-bound since May 2023. In the ED CT abdomen pelvis without contrast demonstrated . Significant abnormal soft tissue gas tracking along the left psoas musculature left iliacus, left groin likely compatible with insinuating soft tissue infection. Sequelae of presumed vomiting with fluid distention of the distal esophagus gas located at the gastroesophageal junction with small surgical clip in this region and given the adjacent gas, maintain elevated concern for sequelae of gastroesophageal rupture/leak. Large amount of intraperitoneal free air . [id number] stool burden. Indeterminate possible portal venous gas versus marginal gas along the liver. The patient was emergently taken to the OR and underwent Exploratory laparotomy with rectosigmoid resection with colostomy, Extensive lysis of adhesions and Ileal resection with a primary anastomosis. The patient was seen and examined on the bedside ICU. She is on mechanical ventilation with FiO2 30%, tidal volume 450 mL, peep 5 and respiratory rate 16. Overnight T-max is 99.5, tachycardic heart rate raise to 155, blood pressure 110/62 and patient is on Levophed 22, Versed 2 and started fentanyl. Last 12 hours urine output is 100 mL, gastric minimal gastric drainage, drain I, 25 mL, drain II, 50 mL and both are serosanguineous. Patient is not stable for transfer to [place]. Objective vital signs Vital Sign Date Time Temp Pulse Resp B/P (MAP) Pulse Ox O2 Delivery O2 Flow Rate FiO2 11/02/24 14:10 127 16 110/63 (79) 99 30 11/02/24 14:07 99.1 210.4 11/02/24 14:00 Mechanical Ventilator+ 11/01/24 19:30 2 Total Intake and Output 11/01/24 11/01/24 11/02/24 15:00 23:00 07:00 Intake Total 2550 ml 575.00 ml Output Total 200 ml 570 ml Balance 2350 ml 5.00 ml medications Current Medications Medications Dose Ordered Sig/Greg Route Start Time Stop Time Status Last Admin Dose Admin Vancomycin HCl 0 ml @ 0 mls/hr UD IV 11/01/24 21:15 Metronidazole 100 ml @ 100 mls/hr Q8H IV 11/02/24 03:00 11/02/24 11:43 100 MLS/HR Pantoprazole Sodium 40 mg DAILY IV 11/02/24 10:00 11/02/24 09:49 40 MG Ondansetron HCl 4 mg Q4HP PRN IV 11/01/24 21:15 Midazolam HCl 50 ml @ 1 mls/hr Q24H IV 11/02/24 01:15 11/02/24 11:04 2 MLS/HR Fentanyl Citrate 250 ml @ 2.5 mls/hr Q24H IV 11/02/24 01:15 11/02/24 14:00 2.5 MLS/HR Norepinephrine Bitartrate 250 ml @ 3.75 mls/hr Q24H IV 11/02/24 01:45 11/02/24 11:04 41.25 MLS/HR Levofloxacin 50 ml @ 50 mls/hr DAILY IV 11/03/24 10:00 Diagnostic Test (Pha) 1 strip Q6HR 11/02/24 12:00 11/02/24 12:53 1 STRIP Dextrose 50 ml UD PRN IV 11/02/24 09:45 Dextrose/Sodium Chloride 1,000 ml @ 100 mls/hr Q10H IV 11/02/24 10:15 11/02/24 11:06 100 MLS/HR Thiamine HCl 100 mg DAILY IV 11/03/24 10:00 Examination General: RASS -3, afebrile, mucosae are moist Cardiovascular: Normal S1 and S2. No murmurs, gallops or rubs Respiratory: Mechanically assisted ventilation, equal bilateral airway entree. Clear lung sounds on auscultation Abdomen: Soft, nontender, no organomegaly, sluggish bowel sounds, Surgical wound on the midline and colostomy on the left side functioning. MSK/skin: Mobilization of limbs cannot be evaluated. Skin is dry and warm. Neurological: Orientation cannot be assessed. No apparent motor no sensitive deficits. Pupils are isocoric and reactive. laboratory and microbiology Laboratory Tests 11/02/24 08:49 Test 11/02/24 08:49 Range/Units Serum Glucose 28 *L 74-106 mg/dL Microbiology Date/Time Source Procedure Growth Status 11/02/24 01:00 Nose MRSA Screen - Final Complete Labs and/or images reviewed: Labs reviewed by me, Image(s) reviewed by me Problem List/Assessment/Plan Problem List/Assessment/Plan Assessment and plan: NEURO: Acute metabolic encephalopathy secondary to septic shock Status post intubation RASS score: -3 CARDIOVASCULAR: Septic shock secondary to perforation of the hollow viscus Sinus tachycardia secondary to pain versus withdrawal - Patient is on Levophed at 22 - EKG demonstrated sinus tachycardia - Pending echo PULMONARY: Possible right lower lobe pneumonia Mild bilateral pleural effusion. - Chest x-ray showed atelectasis in bilateral lung bases - Blood culture, respiratory cultures are pending - continue IV levofloxacin, IV vancomycin and IV metronidazole GASTROINTESTINAL: Septic shock secondary to perforation of the hollow viscus, status post exploratory laparotomy Rule out colonic malignancy Transaminitis and coagulopathy secondary to hepatic steatosis Rule out cirrhosis Enlarged CBD, rule out choledocholithiasis or biliary stenosis Alcohol abuse disorder - patient is on 5% DA with NS at 100 mL/hours - IV thiamine 100 mg daily - CT abdomen pelvis without contrast showed large amount of intraperitoneal free air . [id number] stool burden. Indeterminate possible portal venous gas versus marginal gas along the liver - U/S of the abdomen showed The liver is diffusely echogenic which may be secondary to steatosis or another diffuse hepatic process. Enlargement of the common bile duct measuring up to 15 mm. Gallbladder sludge. Small amount of free fluid in the abdomen. - Patient underwent Exploratory laparotomy with rectosigmoid resection with colostomy, Extensive lysis of adhesions and Ileal resection with a primary anastomosis. GENITOURINARY: FLORIN secondary to septic shock/ VMN Acute complicated cystitis - U/A was consistent with UTI - Pending urine bacterial culture ENDOCRINE: Hypoglycemia METABOLIC: Moderate protein calorie malnutrition Hypocalcemia Anion gap metabolic acidosis with respiratory compensation HEME: Acute on chronic microcytic hypochromic anemia Reactive thrombocytosis secondary to infection INFECTIOUS DISEASE: Sepsis with septic shock secondary to perforation of the hollow viscus, status post exploratory laparotomy Possible right lower lobe pneumonia Acute complicated cystitis - Pending cultures - Continue IV levofloxacin, IV vancomycin and IV metronidazole DIET: NPO DVT prophylax: SCD GI prophylaxis: Protonix Bowel regimen: Code status: Full Code LINES/DRAINS/ACCESS: ETT: Intubated on 11/01/2024 IV access: Peripheral line Drips: Levophed, Versed, fentanyl Grajeda catheter: Placed on 11/01/2024 DISPOSITION: ICU Patient's status discussed with Critical care time spent more than 86 minutes, including patient care, chart review, and updating the family. Excluding any procedures. Case discussed with Dr. Soto Plan discussed with: Other (, RN) My Orders My Orders Orders - THIAGO NEGRON RESIDENT Procedure Category Date Status Time Levofloxacin 250mg PHA 11/03/24 In Process (Levaquin 250mg) 10:00 Glucose Blood PHA 11/02/24 In Process (Accu-Chek Comfort 12:00 Dextrose 50% Syringe PHA 11/02/24 In Process 09:45 Thiamine Inj PHA 11/03/24 In Process 10:00 Carbohydrate Antigen LAB 11/02/24 In Process 19-9 Ca 125 (Serial) LAB 11/02/24 In Process 11:41 Abdomen Complete US 11/02/24 Resulted Sonogram 11:44 Comprehensive LAB 11/02/24 In Process Hepatitis Panel 11:44 *Dr. [facility] CONS 11/02/24 Transmitted -[place] 14:22 Electrocardigram EKG 11/02/24 Logged 15:00 Echo 2d Mode Cardiac US 11/02/24 Logged DOP 15:21 Dietary Evaluation Review Comments: 1) If patient remains NPO > 7 days, consider EN/TPN to meet at least 75% of estimated energy needs 2) If gut is preferred, consider Jevity 1.2 @ 40 mL/hr goal rate as tolerated. Flush with 200 mL free H2O Q6H. TF regimen will provide 1152 kcals, 53g Pro, and 1575 mL free H2O (including flushes) per 24 hrs. Goal rate matias meet ~90% estimated daily energy needs and ~65% estimated daily protein needs. 3) Advance to 2g Na diet when medically feasible, pending ST approval 4) Follow-up with cardiology and pulmonology 5) Continue to monitor I&O, labs, and skin integrity Expected Outcomes/Goals: 1) patient to receive nutritional support within 7 days of NPO status 2) labs to improve 3) diet to advance 4) f/u in 2-3 dayas THIAGO NEGRON RESIDENT Nov 02, 2024 15:43
[2024-11-02] MEDS: VANCOMYCIN 750MG KIT 100 ML IV ONE (16:57)
[2024-11-02 17:56] LABS: Hepatitis A Total Antibody Positive (Negative); Hepatitis B Surface Antigen Negative (Negative); Hepatitis C Antibody Negative (Negative)
--- NOTE | 2024-11-02 19:16 | DVHSR ---
APPROVED REPORT EXAM: Two-dimensional and M-mode echocardiogram with Doppler and color Doppler. Blood Pressure: 110/63 mmHg INDICATION Septic shock RISK FACTORS Height: 5'4', Weight: 112 DIMENSIONS LVDd3.5 (3.8-5.7cm)LA (2D)1.8 (1.9-4.0cm)Aortic Root2.7 (2.0-3.7cm) LVDs2.2 (2.5-4.0cm)LA (MM) (1.9-4.0cm)Aortic Cusp Exc2.0 (1.5-2.0cm) EF (%) 67.0 (55-70%)Rt. Atrium3.3 (1.9-4.0cm)Asc. Aorta2.5 cm IVSd1.0 (0.7-1.1cm)RV (D) (1.8-2.4cm) PWd0.7 (0.7-1.1cm) Mitral Valve MitralMitral Stenosis E/A ratio0.02D MVAcm2 Aortic Valve Aortic ValveAortic Stenosis LVOT Diameter2.1 (1.8-2.4cm)Doppler AVAcm2 Pulmonic Valve V20.87m/s Tricuspid Valve TR Velocity2.64m/s [id number] Other Information Quality : Technically LimitedRhythm : Technically limited study due to body habitus and on vent. Conclusion Technically good study. Sinus tachycardia. Concentric LVH. Aortic root appears to be within normal limits however there is dilation of the sinu ses of Valsalva. The mitral aortic and tricuspid appear to be structurally normal. The pulmonic is normal. Left ventricular function is preserved at 60% with normal RV function. Doppler reveals mild TR. Mild MR. RVSP of 30 mmHg. No pericardial effusion. There appears to be a echodensity in the RV that is suggestive of a large papillary muscle. Given th e hyperdynamic condition it is unlikely to be a thrombus. Can not rule out vegetation. Clinical cor relation is highly recommended. Consider ROBBIE if clinically indicated.
[2024-11-03] VITALS (117 sets, daily range): BP systolic 58–112; BP diastolic 49–73; PULSE 97–133; RESP 16–59; TEMP 90.9–98.1; O2SAT 96–100
[2024-11-03 04:04] LABS: Hematocrit 28.4 % (36.0-46.0); Hemoglobin 8.8 g/dL (12.2-16.2); Mean Corpuscular Hemoglobin 23.5 pg (28.0-32.0); Mean Corpuscular Volume 76.0 fL (80.0-100.0); Nucleated Red Blood Cells % 0.1 %
[2024-11-03 04:08] LABS: Alanine Aminotransferase 19 U/L (7-40); Alkaline Phosphatase 96 U/L (46-116); Anion Gap 12 (5-15); BUN/Creatinine Ratio 10.6 (10.0-20.0); Potassium 3.9 mmol/L (3.5-5.1); Sodium 145 mmol/L (136-145)
[2024-11-03 04:12] LABS: Albumin 1.7 g/dL (3.2-4.8); Bilirubin, Total 0.2 mg/dL (0.2-1.0); Blood Urea Nitrogen 25 mg/dL (9-23); Calcium 6.7 mg/dL (8.7-10.4); Carbon Dioxide 20 mmol/L (20-31); Chloride 113 mmol/L (98-107); Glucose 156 mg/dL (74-106); Total Protein 3.2 g/dL (5.7-8.2)
--- NOTE | 2024-11-03 05:52 | DVH ---
CHEST RADIOGRAPH Indication: S/P mechanical ventilation Technique: Single frontal view of the chest was obtained Comparison: XY CHEST PORTABLE on DOS: 11/02/24 FINDINGS: Lines and Tubes: The endotracheal tube terminates 5.0 cm above the jacob. There is a left chest tub e overlying the left lower thorax similar to prior study. Enteric tube terminates in the stomach. Lungs: Decreased right basilar opacities. Bilateral perihilar opacities and left basilar opacities n oted. Pleura: No effusion. No pneumothorax. Cardiomediastinal contours: Stable. Bones: No acute osseous abnormality. IMPRESSION: 1. Decreased right basilar opacities. There are perihilar and left basilar opacities which may refle ct atelectasis.
[2024-11-03] MEDS ORDERED: MEROPENEM 500MG IVPB 50 ML IV ONE (07:00)
[2024-11-03 07:13] LABS: Base Excess -5.7 mmol/L (-2.0-3.0)
--- NOTE | 2024-11-03 07:35 | ECG ---
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
--- NOTE | 2024-11-03 08:11 | DVHPN2 ---
Progress Note - Dictate Date Seen: Nov 03, 2024 Medical Necessity Reason Pt with a Central, PICC or Fol: Yes Subjective E: no major events o/n. weaning down on pressors. HR better controlled. vital signs Vital Sign Date Time Temp Pulse Resp B/P (MAP) Pulse Ox O2 Delivery O2 Flow Rate FiO2 11/03/24 07:46 112 16 101/62 (75) 100 30 11/03/24 06:38 97.5 207.5 11/03/24 06:00 Mechanical Ventilator+ 11/01/24 19:30 2 Total Intake and Output 11/02/24 11/02/24 11/03/24 15:00 23:00 07:00 Intake Total 1048.50 ml 1373.50 ml 1090.25 ml Output Total 135 ml 55 ml Balance 1048.50 ml 1238.50 ml 1035.25 ml medications Current Medications Medications Dose Ordered Sig/Greg Route Start Time Stop Time Status Last Admin Dose Admin Vancomycin HCl 0 ml @ 0 mls/hr UD IV 11/01/24 21:15 Metronidazole 100 ml @ 100 mls/hr Q8H IV 11/02/24 03:00 11/03/24 02:42 100 MLS/HR Pantoprazole Sodium 40 mg DAILY IV 11/02/24 10:00 11/02/24 09:49 40 MG Ondansetron HCl 4 mg Q4HP PRN IV 11/01/24 21:15 Midazolam HCl 50 ml @ 1 mls/hr Q24H IV 11/02/24 01:15 11/03/24 06:17 2 MLS/HR Fentanyl Citrate 250 ml @ 2.5 mls/hr Q24H IV 11/02/24 01:15 11/02/24 14:00 2.5 MLS/HR Norepinephrine Bitartrate 250 ml @ 3.75 mls/hr Q24H IV 11/02/24 01:45 11/03/24 04:38 33.75 MLS/HR Diagnostic Test (Pha) 1 strip Q6HR 11/02/24 12:00 11/03/24 06:17 1 STRIP Dextrose 50 ml UD PRN IV 11/02/24 09:45 Dextrose/Sodium Chloride 1,000 ml @ 100 mls/hr Q10H IV 11/02/24 10:15 11/03/24 06:15 100 MLS/HR Thiamine HCl 100 mg DAILY IV 11/03/24 10:00 Meropenem 50 ml @ 17 mls/hr Q12HR IV 11/03/24 22:00 Future Hold objective N: sedated. fentanyl added CV: HR has come down to 100-110s from 130 to 140s. BP holding. levophed down to 18 from 22 RESP: intubated on vent. min settings unchanged. GI: scant output from NGT. colostomy looks edematous but viable. no output yet. min output from 2 drains. : worsening renal function with 50 mL output. urine no longer looking feculent. H/ID: WBC trending down with abx. incision appears clean. laboratory and microbiology Laboratory Tests 11/03/24 03:39 Test 11/03/24 03:39 Range/Units Serum Glucose 156 H 74-106 mg/dL Assessment/Plan A: 1. POD #2 s/p ex lap with sigmoidectomy for perforation and poss colovesicle fistula and ileal resection with anastamosis 2. septic shock slowly improving. 3. FLORIN worsening P: 1. PICC/TPN 2. nephro consult pending 3. start TF once there is colostomy output Dietary Evaluation Review Comments: 1) If patient remains NPO > 7 days, consider EN/TPN to meet at least 75% of estimated energy needs 2) If gut is preferred, consider Jevity 1.2 @ 40 mL/hr goal rate as tolerated. Flush with 200 mL free H2O Q6H. TF regimen will provide 1152 kcals, 53g Pro, and 1575 mL free H2O (including flushes) per 24 hrs. Goal rate matias meet ~90% estimated daily energy needs and ~65% estimated daily protein needs. 3) Advance to 2g Na diet when medically feasible, pending ST approval 4) Follow-up with cardiology and pulmonology 5) Continue to monitor I&O, labs, and skin integrity Expected Outcomes/Goals: 1) patient to receive nutritional support within 7 days of NPO status 2) labs to improve 3) diet to advance 4) f/u in 2-3 dayas Plan discussed with: MARIUM Pollock MD Nov 03, 2024 08:11
[2024-11-03] MEDS: SODIUM BICARB 8.4% 50Meq/50ml SYR Vial IV ONE (09:31)
[2024-11-03] MEDS: ENOXAPARIN SOD 30 MG/0.3 ML SYRINGE SC SCH (09:32)
[2024-11-03] MEDS: THIAMINE 100mg/ml INJ (200mg/2ml VIAL) IV SCH (10:12)
--- NOTE | 2024-11-03 11:48 | DVH ---
Bilateral Upper Extremity Venous Duplex Date: 11/03/2024 10:07 AM Clinical History: arm swelling Comparison: US ECHO 2D MODE CARDIAC DOP on DOS: 11/02/24, MRI UPPER EXT JOINT WO on DOS: 04/16/23 Findings: Duplex Doppler evaluation of the venous systems of the right and left lower neck and upper extremitie s including color Doppler and spectral/pulsed waveform analysis was performed. RIGHT SIDE: The internal jugular vein demonstrates appropriate compressibility and waveform variability. The subclavian vein is patent on color Doppler evaluation without intraluminal thrombus and demonstra jamila waveform variability. The visualized portion of the brachiocephalic vein is patent on color Doppler evaluation without intr aluminal thrombus and demonstrates waveform variability. The axillary vein demonstrates appropriate compressibility and waveform variability. The brachial veins demonstrate appropriate compressibility and patency on Doppler evaluation. The basilic vein demonstrates appropriate compressibility and patency on Doppler evaluation. The cephalic vein demonstrates appropriate compressibility and patency on Doppler evaluation. LEFT SIDE: LEFT INTERNAL JUGULAR VEIN NOT VISUALIZED. The subclavian vein is not visualized due to line in place. Thrombus in the cephalic vein. The axillary vein demonstrates appropriate compressibility and waveform variability. The brachial veins demonstrate appropriate compressibility and patency on Doppler evaluation. The basilic vein demonstrates appropriate compressibility and patency on Doppler evaluation. Cephalic vein and basilic vein are not visualized. IMPRESSION: No right DVT noted. Left upper extremity DVT. END IMPRESSION: If clinical concern/symptoms persist or worsen, short-interval follow-up study is suggested.
[2024-11-03] MEDS: BUMETANIDE 2.5mg/10ml (0.25 mg/ml) INJ IV ONE (12:06)
--- NOTE | 2024-11-03 12:14 | MEDREC ---
[facility] ASP Intervention Section I [facility] ASP Intervention: Duplication of therapy (Please consider D/C metronidazole once meropenem is active at 2200 on 11/03) HEIDI RAMOS [facility] RESIDENT Nov 03, 2024 12:14
[2024-11-03 12:59] LABS: Urine Budding Yeast MANY /hpf (None Seen); Urine Protein, UAD 2+ (Negative); Urine WBC Clumps PRESENT /hpf (None Seen)
[2024-11-03 13:08] LABS: Protein, Urine 460.8 mg/dL (1-14); Protein, Urine 490.8 mg/dL (1-14)
[2024-11-03] MEDS: D5W/SOD CHLO 0.9% 1,000 ML IV SCH (13:30)
--- NOTE | 2024-11-03 14:05 | DVH ---
INDICATION: central line placed TECHNIQUE: Single frontal view of the chest was obtained COMPARISON: XY CHEST PORTABLE on DOS: 11/03/24, XY CHEST PORTABLE on DOS: 11/02/24, XY CHEST XRAY 1 VIEW on DOS: 11/01/24, XY CHEST PORTABLE on DOS: 11/03/24 FINDINGS: Lines and Tubes: The endotracheal tube terminates 5.0 cm above the jacob. There is a left chest tub e overlying the left lower thorax similar to prior study. Enteric tube terminates in the stomach. Lungs: Decreased right basilar opacities. Bilateral perihilar opacities and left basilar opacities n oted. Pleura: No effusion. No pneumothorax. Cardiomediastinal contours: Stable. Bones: No acute osseous abnormality. IMPRESSION: No interval change
[2024-11-03] MEDS: NOREPINEPHRINE BITARTRATE 32 MG in SODIUM CHL 0.9% 218 ML IV SCH (15:20)
--- NOTE | 2024-11-03 16:25 | DVHNC2 ---
Central Line Recorder of insertion practice: Automobile Relocation Engineer Indication: Hypotension, CVP monitoring Room prepared for procedure: Yes Automobile Relocation Engineer performed hand hygien: Yes Maximal sterile barrier precau: Mask/Eye shield, Sterile gown, Cap, Sterlie gloves, Large sterlie drape Skin Preparation: Chlorhexidine gluconate, Providine iodine Skin preparation completely dr: Yes Insertion site: Right, Internal jugular Central line catheter type: [id number] dialysis Number of lumens: 3 Central line exchanged over a: No Antiseptic ointment applied to: Yes Post Assessment: Chest X-Ray, No Pneumothorax Notes A time out was performed. My hands were washed immediately prior to the procedure. I wore a surgical cap, mask with protective eyewear, full gown and sterile gloves throughout the procedure. The patient was placed in Trendelenburg position. RIGHT chest region was prepped using chlorhexidine scrub and draped in sterile fashion using a full drape and sterile probe cover and sterile gel employed. The medial and lateral heads of the sternocleidomastoid muscle were identified as was the carotid pulse. The Internal Jugular vein was identified using the ultrasound. Anesthesia was achieved over the vein using 1% lidocaine. Using real-time out of plane guidance, the introducer needle was inserted into the Internal Jugular vein under direct ultrasound visualization. Venous blood was withdrawn. The syringe was removed and a guidewire was advanced into the introducer needle. The guidewire was visualized in the Internal Jugular Vein by ultrasound. A small incision was made at the skin joana face with a scalpel and the introducer needle was exchanged for a dilator over the guidewire. After appropriate dilation was obtained, the dilator was exchanged over the wire for a _ central venous catheter. The wire was removed and the catheter was sutured in place at _ cm. A sterile sorbaview shield was placed over the catheter at the insertion site. The patient tolerated the procedure without any hemodynamic compromise. At time of procedure completion, all ports aspirated and flushed properly. Post-procedure chest x-ray is pending at this time. Estimated blood loss is 5 ml Date of Service: Nov 03, 2024 Billing Provider: BERNARD ARMAS MD Common Visit Codes: PROCEDURE ONLY Procedure Codes: 21353-UTUMMO NON-TUNNEL CV CATH THIAGO NEGRON RESIDENT Nov 03, 2024 16:25 BERNARD ARMAS MD Nov 04, 2024 14:04
[2024-11-03] MEDS ORDERED: TPN PER PHARMACY 0 ML IV SCH (16:30)
--- NOTE | 2024-11-03 16:36 | DVHPNRES ---
Progress Note Date Seen: Nov 03, 2024 Resident Creating Document: THIAGO NEGRON RESIDENT Medical Necessity Reason Pt with a Central, PICC or Fol: Yes Subjective Review of Systems The patient was seen and examined on the bedside ICU. She is on mechanical ventilation with FiO2 30%, tidal volume 450 mL, peep 5 and respiratory rate 16. Overnight T-max is 98.1, tachycardic heart rate raise to 123, blood pressure 87/61 and patient is on Levophed 20, Versed and fentanyl. Last 12 hours urine output is 45 mL, gastric minimal gastric drainage, drain I, 25 mL, drain II, 25 mL and both are serosanguineous. Patient is not stable for transfer to [place]. Patient is not stable for transfer to [place]. Objective vital signs Vital Sign Date Time Temp Pulse Resp B/P (MAP) Pulse Ox O2 Delivery O2 Flow Rate FiO2 11/03/24 16:00 30 11/03/24 16:00 16 100 Mechanical Ventilator+ 11/03/24 16:00 124 11/03/24 15:52 96/63 (74) 11/03/24 14:38 97.9 208.2 11/01/24 19:30 2 Total Intake and Output 11/02/24 11/02/24 11/03/24 15:00 23:00 07:00 Intake Total 1048.50 ml 1373.50 ml 1228.50 ml Output Total 135 ml 55 ml Balance 1048.50 ml 1238.50 ml 1173.50 ml medications Current Medications Medications Dose Ordered Sig/Greg Route Start Time Stop Time Status Last Admin Dose Admin Vancomycin HCl 0 ml @ 0 mls/hr UD IV 11/01/24 21:15 Pantoprazole Sodium 40 mg DAILY IV 11/02/24 10:00 11/03/24 09:31 40 MG Ondansetron HCl 4 mg Q4HP PRN IV 11/01/24 21:15 Midazolam HCl 50 ml @ 1 mls/hr Q24H IV 11/02/24 01:15 11/03/24 06:17 2 MLS/HR Fentanyl Citrate 250 ml @ 2.5 mls/hr Q24H IV 11/02/24 01:15 11/02/24 14:00 2.5 MLS/HR Diagnostic Test (Pha) 1 strip Q6HR 11/02/24 12:00 11/03/24 18:01 11/03/24 12:06 1 STRIP Dextrose 50 ml UD PRN IV 11/02/24 09:45 11/03/24 18:01 Thiamine HCl 100 mg DAILY IV 11/03/24 10:00 11/03/24 10:12 100 MG Meropenem 50 ml @ 17 mls/hr Q12HR IV 11/03/24 22:00 Future Hold Enoxaparin Sodium 30 mg DAILY SC 11/03/24 10:00 11/03/24 09:32 30 MG Norepinephrine Bitartrate 32 mg/ Sodium Chloride 250 ml @ 0.938 mls/ hr Q24H IV 11/03/24 14:45 11/03/24 15:20 9.375 MLS/HR Sodium Chloride 1,000 ml @ 100 mls/hr Q10H IV 11/03/24 16:30 Amino Acids 0 ml @ 0 mls/hr PER PHARMACY IV 11/03/24 16:30 Amino Acids/ Electrolytes/ Dextrose 1,000 ml @ 41 mls/hr DAILY@2200 IV 11/03/24 22:00 Diagnostic Test (Pha) 1 strip Q6HR 11/04/24 00:00 Insulin Human Regular FOLLOW SLIDING SCALE Q6HR SC 11/04/24 00:00 Dextrose 50 ml UD IV 11/04/24 00:00 Examination Examination General: RASS -3, afebrile, mucosae are moist Cardiovascular: Normal S1 and S2. No murmurs, gallops or rubs Respiratory: Mechanically assisted ventilation, equal bilateral airway entree. Clear lung sounds on auscultation Abdomen: Soft, nontender, no organomegaly, sluggish bowel sounds, Surgical wound on the midline and colostomy on the left side. MSK/skin: Mobilization of limbs cannot be evaluated. Skin is dry and warm. Neurological: Orientation cannot be assessed. No apparent motor no sensitive deficits. Pupils are isocoric and reactive. laboratory and microbiology Laboratory Tests 11/03/24 03:39 Test 11/03/24 03:39 Range/Units Serum Glucose 156 H 74-106 mg/dL Microbiology Date/Time Source Procedure Growth Status 11/02/24 01:14 Trachea Gram Stain - Final Resulted 11/02/24 01:14 Trachea Respiratory Culture - Preliminary Resulted 11/01/24 17:14 Blood Blood Culture - Preliminary Resulted Labs and/or images reviewed: Labs reviewed by me, Image(s) reviewed by me Problem List/Assessment/Plan Problem List/Assessment/Plan Assessment and plan: NEURO: Acute metabolic encephalopathy secondary to septic shock Status post intubation RASS score: -3 CARDIOVASCULAR: Septic shock secondary to perforation of the hollow viscus Sinus tachycardia secondary to pain versus withdrawal - Patient is on Levophed at 22 - EKG demonstrated sinus tachycardia - echo showed EF 60%, echo density in RV suggestive of large papillary muscle, can not rule out vegetation. PULMONARY: Possible right lower lobe pneumonia Mild bilateral pleural effusion. - Chest x-ray showed atelectasis in bilateral lung bases - Blood culture showed Gram-negative rods and respiratory cultures are pending - continue IV vancomycin and IV meropenem GASTROINTESTINAL: Septic shock secondary to perforation of the hollow viscus, status post exploratory laparotomy Rule out colonic malignancy Transaminitis and coagulopathy secondary to hepatic steatosis Rule out cirrhosis Enlarged CBD, rule out choledocholithiasis or biliary stenosis Alcohol abuse disorder - patient is on NS at 100 mL/hours - IV thiamine 100 mg daily - CT abdomen pelvis without contrast showed large amount of intraperitoneal free air . [id number] stool burden. Indeterminate possible portal venous gas versus marginal gas along the liver - U/S of the abdomen showed The liver is diffusely echogenic which may be secondary to steatosis or another diffuse hepatic process. Enlargement of the common bile duct measuring up to 15 mm. Gallbladder sludge. Small amount of free fluid in the abdomen. - Patient underwent Exploratory laparotomy with rectosigmoid resection with colostomy, Extensive lysis of adhesions and Ileal resection with a primary anastomosis. GENITOURINARY: FLORIN secondary to septic shock/ VMN Acute complicated cystitis - U/A was consistent with UTI - Pending urine bacterial culture ENDOCRINE: Hypoglycemia METABOLIC: Moderate protein calorie malnutrition Hypocalcemia metabolic acidosis with respiratory compensation HEME: Acute on chronic microcytic hypochromic anemia Reactive thrombocytosis secondary to infection INFECTIOUS DISEASE: Sepsis with septic shock secondary to perforation of the hollow viscus, status post exploratory laparotomy Possible right lower lobe pneumonia Acute complicated cystitis - Blood culture showed Gram-negative rods, other cultures are pending - continue IV vancomycin and IV meropenem DIET: TPN DVT prophylax: Lovenox GI prophylaxis: Protonix Bowel regimen: Code status: Full Code LINES/DRAINS/ACCESS: ETT: Intubated on 11/01/2024 IV access: Peripheral line Drips: Levophed, Versed, fentanyl Grajeda catheter: Placed on 11/01/2024 DISPOSITION: ICU Patient's status discussed with Critical care time spent more than 86 minutes, including patient care, chart review, and updating the family. Excluding any procedures. Case discussed with Dr. Armas Plan discussed with: Other (, RN) My Orders My Orders Orders - THIAGO NEGRON RESIDENT Procedure Category Date Status Time Meropenem 500mg Ivpb PHA 11/03/24 In Process (Merrem 500mg/Ns) 22:00 Blood Culture ZAFAR 11/03/24 In Process 13:22 Enoxaparin Sodium PHA 11/03/24 In Process (Lovenox) 10:00 Bi Lat Upper Dvt US 11/03/24 Resulted 09:00 Sodium Chloride 0.9% PHA 11/03/24 In Process 16:30 Tpn Per Pharmacy PHA 11/03/24 In Process 16:30 Amino Acid Infusion PHA 11/03/24 In Process In D10w (Clinimix 4. 22:00 Glucose Blood PHA 11/04/24 In Process (Accu-Chek Comfort 00:00 Insulin R (Human) PHA 11/04/24 In Process (Insulin R) 00:00 Dextrose 50% Syringe PHA 11/04/24 In Process 00:00 Dietary Evaluation Review Comments: 1) If patient remains NPO > 7 days, consider EN/TPN to meet at least 75% of estimated energy needs 2) If gut is preferred, consider Jevity 1.2 @ 40 mL/hr goal rate as tolerated. Flush with 200 mL free H2O Q6H. TF regimen will provide 1152 kcals, 53g Pro, and 1575 mL free H2O (including flushes) per 24 hrs. Goal rate matias meet ~90% estimated daily energy needs and ~65% estimated daily protein needs. 3) Advance to 2g Na diet when medically feasible, pending ST approval 4) Follow-up with cardiology and pulmonology 5) Continue to monitor I&O, labs, and skin integrity Expected Outcomes/Goals: 1) patient to receive nutritional support within 7 days of NPO status 2) labs to improve 3) diet to advance 4) f/u in 2-3 dayas Date of Service: Nov 03, 2024 Billing Provider: BERNARD ARMAS MD Common Visit Codes: 46555-[id number] CARE 30-74 MIN, [id number] CARE-EACH +30MIN THIAGO NEGRON RESIDENT Nov 03, 2024 16:36 BERNARD ARMAS MD Nov 04, 2024 14:03
[2024-11-03] MEDS: SODIUM CHLORIDE 0.9% 1,000 ML IV SCH (17:57)
--- NOTE | 2024-11-03 20:04 | DVHCONRES ---
Date Seen: Nov 03, 2024 Resident Creating Document: CHELO WINTER RESIDENT History of Present Illness 49-year-old female with past medical history of hypertension, GERD, alcohol use disorder, hiatal hernia status post surgery presented with complaints of abdominal pain which is severe, associated with nausea and vomiting and chills. Patient had CT scan done in the hospital which revealed Significant abnormal soft tissue gas tracking along the left psoas musculature left iliacus, left groin likely compatible with insinuating soft tissue infection, Sequelae of presumed vomiting with fluid distention of the distal esophagus gas located at the gastroesophageal junction with small surgical clip in this region and given the adjacent gas, maintain elevated concern for sequelae of gastroesophageal rupture/leak, Large amount of intraperitoneal free air, [id number] stool burden and Indeterminate possible portal venous gas versus marginal gas along the liver. The patient was emergently taken to the OR and underwent Exploratory laparotomy with rectosigmoid resection with colostomy, Extensive lysis of adhesions and Ileal resection with a primary anastomosis. Patient was transferred to ICU on ventilator and was found to be in septic shock. Nephrology was consulted for FLORIN and clearance for PICC line insertion Patient seen and examined at bedside Currently sedated and intubated On norepinephrine @ 18 Patient was started on 5% D5 NS at 100 cc/hour. Input output 3630/190 ml with a net positive of + 3.4 lt 30ml urine output since last night Past Medical History As described in the HPI Family History: Patient reports no known family medical history. Allergies: Coded Allergies: Iodine (Verified Allergy, Unknown, 11/01/24) Penicillins (Verified Allergy, Unknown, 11/01/24) Sulfa Antibiotics (Verified Allergy, Unknown, 11/01/24) Current Medications Current Medications Medications (Trade) Dose Ordered Sig/Greg Route PRN Reason Start Time Stop Time Status Last Admin Levofloxacin 50 ml @ 50 mls/hr DAILY IV 11/03/24 10:00 11/03/24 06:44 DC Thiamine HCl 100 mg DAILY IV 11/03/24 10:00 11/03/24 10:12 Meropenem 50 ml @ 17 mls/hr Q12HR IV 11/03/24 22:00 Future Hold Enoxaparin Sodium (Lovenox) 30 mg DAILY SC 11/03/24 10:00 11/03/24 09:32 Dextrose/Sodium Chloride 1,000 ml @ 125 mls/hr Q8H IV 11/03/24 11:30 11/03/24 16:22 DC 11/03/24 13:30 Norepinephrine Bitartrate 32 mg/ Sodium Chloride 250 ml @ 0.938 mls/ hr Q24H IV 11/03/24 14:45 11/03/24 15:20 Sodium Chloride 1,000 ml @ 100 mls/hr Q10H IV 11/03/24 16:30 11/03/24 17:57 Amino Acids 0 ml @ 0 mls/hr PER PHARMACY IV 11/03/24 16:30 Amino Acids/ Electrolytes/ Dextrose 1,000 ml @ 41 mls/hr DAILY@2200 IV 11/03/24 22:00 Diagnostic Test (Pha) (Accu-Chek Comfort Curve T) 1 strip Q6HR 11/04/24 00:00 Insulin Human Regular (InsuLIN R) FOLLOW SLIDING SCALE Q6HR SC 11/04/24 00:00 Dextrose 50 ml UD IV 11/04/24 00:00 Review of Systems ROS could not be done as pt is sedated and intubated Vital Signs Vital Signs Date Time Temp Pulse Resp B/P (MAP) Pulse Ox O2 Delivery O2 Flow Rate FiO2 11/03/24 18:53 98.1 128 16 91/62 (72) 100 208.6 11/03/24 18:32 30 11/03/24 18:00 Mechanical Ventilator+ 11/01/24 19:30 2 Physical Exam Examination General Appearance: Sedated and intubated, lin catheter present HEENT: EOMI Respiratory: Clear to auscultation, Normal air movement Cardiovascular: Regular rate, Normal S1, Normal S2 Abdominal: Normal bowel sounds Extremities: No cyanosis, No edema, Normal pulses, No tenderness/swelling Skin: No rashes, No breakdown Neuro : Sedated and intubated Labs/Diagnostic Data Labs Test 11/03/24 18:09 11/03/24 09:50 11/03/24 07:04 11/03/24 03:39 Range/Units POC Glucose 137 H 70-106 mg/dl Urine Color [place] H Yellow Urine Clarity Ex.turbid Clear Urine pH 6.0 5.0-9.0 Urine Specific [place] 1.017 1.001-1.035 Urine Protein 2+ H Negative Urine Ketones Negative Negative Urine Blood 3+ H Negative /uL Urine Nitrite Negative Negative Urine Bilirubin Negative Negative Urine Urobilinogen Normal Negative mg/dL Urine Leukocyte Esterase 3+ Negative /uL Urine RBC 676 0 - 4 /hpf Urine WBC Clumps Present None Seen /hpf Urine Microscopic WBC 2141 H 0-5 /HPF Urine Squamous Epithelial Cells Few <5 /hpf Urine Bacteria None seen None Seen /hpf Urine Mucus Few None Seen Urine Yeast (Budding) Many None Seen /hpf Urine Creatinine 78.12 30.0-125.0 mg/dL Urine Protein/Creatinine Ratio 5.90 Urine Sodium 83 40-220 mmol/L Urine Glucose Normal Normal mg/dL Urine Total Protein 460.8 H 1-14 mg/dL Blood Gas Specimen Type Arterial Blood Gas Sample Site Right radial Blood Gas Patient Temperature 37.0 Arterial Blood Date Drawn [id number] Arterial Blood pH 7.337 L 7.350-7.450 Arterial Blood Partial Pressure CO2 37.4 32.0-45.0 mmHg Arterial Blood Partial Pressure O2 99.3 83.0-108.0 mmHg Arterial Blood HCO3 19.6 L 21.0-28.0 mmol/L Arterial Blood Oxygen Saturation 96.7 94.0-98.0 % Arterial Blood Base Excess -5.7 L -2.0-3.0 mmol/L Arterial Blood Oxyhemoglobin 95.2 94.0-98.0 % Arterial Blood Carboxyhemoglobin 1.3 0.5-1.5 % Arterial Blood Methemoglobin 0.3 0.0-1.5 % Renard Test Yes Blood Gas Total Hemoglobin 8.60 L 12.0-16.0 g/dL Blood Gas Set Respiration Rate 16.0 Blood Gas Modality Vent - ac FiO2 % 30.0 Blood Gas Tidal Volume 450.0 Blood Gas PEEP or CPAP 5.0 White Blood Count 17.2 H 4.4-10.8 10^3/uL Red Blood Count 3.74 L 4.0-5.20 10^6/uL Hemoglobin 8.8 #L 12.2-16.2 g/dL Hematocrit 28.4 #L 36.0-46.0 % Mean Corpuscular Volume 76.0 L 80.0-100.0 fL Mean Corpuscular Hemoglobin 23.5 L 28.0-32.0 pg Mean Corpuscular Hemoglobin Concent 30.9 L 32.0-36.0 g/dL Red Cell Distribution Width 21.3 H 11.8-14.3 % Platelet Count 286 140-450 10^3/uL Mean Platelet Volume 7.5 6.9-10.8 fL Neutrophils (%) (Auto) 87.8 H 37.0-80.0 % Lymphocytes (%) (Auto) 9.2 L 10.0-50.0 % Monocytes (%) (Auto) 2.7 0.0-12.0 % Eosinophils (%) (Auto) 0.3 0.0-7.0 % Basophils (%) (Auto) 0.0 0.0-2.0 % Neutrophils # (Auto) 15.1 H 1.6-8.6 10 ^3/uL Lymphocytes # (Auto) 1.6 0.4-5.4 10 ^3/uL Monocytes # (Auto) 0.5 0-1.3 10 ^3/uL Eosinophils # (Auto) 0 0-0.8 10 ^3/uL Basophils # (Auto) 0 0-0.2 10 ^3/uL Nucleated Red Blood Cells 0.1 % Sodium Level 145 136-145 mmol/L Potassium Level 3.9 3.5-5.1 mmol/L Chloride Level 113 H 98-107 mmol/L Carbon Dioxide Level 20 20-31 mmol/L Anion Gap 12 5-15 Blood Urea Nitrogen 25 H 9-23 mg/dL Creatinine 2.36 H 0.550-1.02 mg/dL Glomerular Filtration Rate Calc 24 >90 mL/min BUN/Creatinine Ratio 10.6 10.0-20.0 Serum Glucose 156 H 74-106 mg/dL Calcium Level 6.7 L 8.7-10.4 mg/dL Total Bilirubin 0.2 0.2-1.0 mg/dL Aspartate Amino Transferase (AST) 56 H 13-40 U/L Alanine Aminotransferase (ALT) 19 7-40 U/L Alkaline Phosphatase 96 46-116 U/L Total Protein 3.2 L 5.7-8.2 g/dL Albumin 1.7 L 3.2-4.8 g/dL Random Vancomycin Level 21.4 H 5-10 ug/mL Test 11/02/24 13:24 11/02/24 08:49 11/02/24 01:44 11/01/24 18:58 Range/Units Plasma/Serum Blood Alcohol 3.2 <10 mg/dL Hepatitis A Antibody Total Positive H Negative Hepatitis B Surface Antigen Negative Negative Hepatitis B Surface Antibody Positive H Negative Hepatitis B Core Total Antibody Negative Negative Hepatitis C Antibody Negative Negative Platelet Estimate Marked Large Platelets Moderate Giant Platelets Few Hypochromasia (manual) Slight Anisocytosis (manual) Slight Microcytosis Slight Prothrombin Time 13.5 H 9.3-11.8 sec Prothrombin Time INR 1.31 H 0.9-1.15 Activated Partial Thromboplast Time 37.5 H 24.5-34.5 SEC Carcinoembryonic Antigen 11.30 <=5.0 ng/mL Lactic Acid Level 4.2 *H 0.4-2.0 mmol/L Test 11/01/24 16:26 Range/Units Ammonia 13 11-32 umol/L Microbiology Date/Time Source Procedure Growth Status 11/02/24 01:14 Trachea Gram Stain - Final Resulted 11/02/24 01:14 Trachea Respiratory Culture - Preliminary Resulted 11/01/24 17:14 Blood Blood Culture - Preliminary Resulted Assessment Assessment/plan # Acute kidney injury, unknown baseline function , hemodynamically mediated, ?ATN due to septic shock -Input output 3630/190 ml with a net positive of + 3.4 lt 30ml urine output since last night FeNA 1.7% worsening creatinine levels from 1.86 to 2.36 # asymptomatic hypocalcemia Corrected calcium 8.5 # Septic Shock # Perforation of the hollow viscus, status post exploratory laparotomy # Acute complicated cystitis Plan/Recommendation Plan Monitor kidney function including electrolytes Strict input and output Continue IV fluids 5% D5 NS at 100 cc/hour Ordered urine studies including urine sodium, urine creatinine, urine protein Bumex 3 mg IV once to evaluate response of kidneys to diuretics. Patient is cleared to have PICC line placement from Nephrology standpoint of view Patient's family updated about the patient's condition and possible need for dialysis if kidney function deteriorates further. Case discussion with Dr Huerta Plan discussed with: Patient, Other CHELO WINTER RESIDENT Nov 03, 2024 20:04
[2024-11-03] MEDS: ALBUMIN 25% 100 ML IV ONE (21:49)
[2024-11-03] MEDS ORDERED: MEROPENEM 500MG IVPB 50 ML IV SCH (22:00)
[2024-11-03] MEDS: AMINO ACID INFUSION IN D10W 1,000 ML IV SCH (22:13)
[2024-11-04] VITALS (122 sets, daily range): BP systolic 93–117; BP diastolic 60–76; PULSE 87–121; RESP 15–17; TEMP 97.2–98.2; O2SAT 97–100
[2024-11-04] MEDS: InsuLIN REG 1unit/0.01ml Soln (100units/ml) SC SCH
[2024-11-04] MEDS ORDERED: DEXTROSE (50%) 50ML SYRG IV SCH
[2024-11-04] MEDS: ACCU-CHEK COMFORT CURVE STRIP VI SCH (00:01)
[2024-11-04 03:40] LABS: Hematocrit 22.6 % (36.0-46.0); Hemoglobin 7.1 g/dL (12.2-16.2); Mean Corpuscular Hemoglobin 23.8 pg (28.0-32.0); Mean Corpuscular Volume 75.2 fL (80.0-100.0); Nucleated Red Blood Cells % 0.0 %
[2024-11-04 04:02] LABS: Alanine Aminotransferase 16 U/L (7-40); Alkaline Phosphatase 92 U/L (46-116); Anion Gap 11 (5-15); BUN/Creatinine Ratio 12.1 (10.0-20.0); Carbon Dioxide 22 mmol/L (20-31); Potassium 3.5 mmol/L (3.5-5.1); Triglycerides 128 mg/dL (< 150)
[2024-11-04 04:03] LABS: Bilirubin, Total 0.3 mg/dL (0.2-1.0)
[2024-11-04 04:06] LABS: Albumin 1.9 g/dL (3.2-4.8); Blood Urea Nitrogen 31 mg/dL (9-23); Calcium 7.1 mg/dL (8.7-10.4); Chloride 116 mmol/L (98-107); Glucose 134 mg/dL (74-106); Magnesium 1.6 mg/dL (1.6-2.6); Sodium 149 mmol/L (136-145); Total Protein 3.4 g/dL (5.7-8.2)
--- NOTE | 2024-11-04 05:44 | DVH ---
CHEST RADIOGRAPH Indication: On mechanical ventilation Technique: Single frontal view of the chest was obtained COMPARISON: XY CHEST PORTABLE on DOS: 11/03/24, XY CHEST PORTABLE on DOS: 11/03/24, XY CHEST PORTABLE on DOS: 11/02/24, XY CHEST XRAY 1 VIEW on DOS: 11/01/24 FINDINGS: Lines and Tubes: Endotracheal tube, enteric catheter and right central venous catheter in satisfactor y position Lungs: Congestion Pleura: No effusion. No pneumothorax. Cardiomediastinal contours: Unremarkable Bones: Unremarkable IMPRESSION: Lines and tubes in satisfactory position. No significant interval change.
[2024-11-04] MEDS: ALBUMIN 25% 100 ML IV SCH (06:08)
[2024-11-04 07:19] LABS: Base Excess -6.7 mmol/L (-2.0-3.0)
--- NOTE | 2024-11-04 09:29 | DVHPN2 ---
Progress Note Date Seen: Nov 04, 2024 Medical Necessity Reason Pt with a Central, PICC or Fol: Yes Objective vital signs Vital Sign Date Time Temp Pulse Resp B/P (MAP) Pulse Ox O2 Delivery O2 Flow Rate FiO2 11/04/24 07:24 99 16 99/65 (76) 100 30 11/04/24 06:39 97.5 207.5 11/04/24 06:00 Mechanical Ventilator+ Total Intake and Output 11/03/24 11/03/24 11/04/24 15:00 23:00 07:00 Intake Total 1212.25 ml 891.928 ml 786.815 ml Output Total 120 ml 310 ml Balance 1212.25 ml 771.928 ml 476.815 ml medications Current Medications Medications Dose Ordered Sig/Greg Route Start Time Stop Time Status Last Admin Dose Admin Vancomycin HCl 0 ml @ 0 mls/hr UD IV 11/01/24 21:15 Ondansetron HCl 4 mg Q4HP PRN IV 11/01/24 21:15 Midazolam HCl 50 ml @ 1 mls/hr Q24H IV 11/02/24 01:15 11/03/24 06:17 2 MLS/HR Fentanyl Citrate 250 ml @ 2.5 mls/hr Q24H IV 11/02/24 01:15 11/02/24 14:00 2.5 MLS/HR Thiamine HCl 100 mg DAILY IV 11/03/24 10:00 11/03/24 10:12 100 MG Meropenem 50 ml @ 17 mls/hr Q12HR IV 11/03/24 22:00 Hold Norepinephrine Bitartrate 32 mg/ Sodium Chloride 250 ml @ 0.938 mls/ hr Q24H IV 11/03/24 14:45 11/03/24 15:20 9.375 MLS/HR Sodium Chloride 1,000 ml @ 100 mls/hr Q10H IV 11/03/24 16:30 11/04/24 02:33 100 MLS/HR Amino Acids 0 ml @ 0 mls/hr PER PHARMACY IV 11/03/24 16:30 Amino Acids/ Electrolytes/ Dextrose 1,000 ml @ 41 mls/hr DAILY@2200 IV 11/03/24 22:00 11/03/24 22:13 41 MLS/HR Diagnostic Test (Pha) 1 strip Q6HR 11/04/24 00:00 11/04/24 06:08 1 STRIP Insulin Human Regular FOLLOW SLIDING SCALE Q6HR SC 11/04/24 00:00 Dextrose 50 ml UD IV 11/04/24 00:00 Albumin Human 100 ml @ 100 mls/hr Q8H IV 11/04/24 05:00 11/04/24 13:59 11/04/24 06:08 100 MLS/HR Furosemide 60 mg BIDD IV 11/04/24 08:45 Pantoprazole Sodium 40 mg BID IV 11/04/24 09:15 Fat Emulsion Intravenous 50 ml/ Potassium Acetate 20 meq/Calcium Gluconate 4.65 meq/Magnesium Sulfate 8 meq/ Multivitamins 10 ml/Chromium/ Copper/Manganese/ Zinc 1 ml/Amino Acids/Dextrose 783 ml @ 33 mls/hr [id number] IV 11/04/24 22:00 11/05/24 21:59 laboratory and microbiology Laboratory Tests 11/04/24 03:06 Test 11/04/24 03:06 Range/Units Serum Glucose 134 H 74-106 mg/dL Problem List/Assessment/Plan Problem List/Assessment/Plan 11/04/[address] CLEMENS, COLOSTOMY VIABLE AND WITHOUT FUNCTION, WOUND CLEAN AND WELL APPROXIMATED, RAMBO DRAINAGE SEROUS, ANEMIC, ABDOMEN NON DISTENDED, Plan discussed with: Other Dietary Evaluation Review Comments: 1) If patient remains NPO > 7 days, consider EN/TPN to meet at least 75% of estimated energy needs 2) If gut is preferred, consider Jevity 1.2 @ 40 mL/hr goal rate as tolerated. Flush with 200 mL free H2O Q6H. TF regimen will provide 1152 kcals, 53g Pro, and 1575 mL free H2O (including flushes) per 24 hrs. Goal rate matias meet ~90% estimated daily energy needs and ~65% estimated daily protein needs. 3) Advance to 2g Na diet when medically feasible, pending ST approval 4) Follow-up with cardiology and pulmonology 5) Continue to monitor I&O, labs, and skin integrity Expected Outcomes/Goals: 1) patient to receive nutritional support within 7 days of NPO status 2) labs to improve 3) diet to advance 4) f/u in 2-3 dayas CIRO REYNA MD Nov 04, 2024 09:29
[2024-11-04] MEDS: FUROSEMIDE 100 MG/10ML VIAL IV SCH (09:44)
[2024-11-04] MEDS: PANTOPRAZOLE 40 MG/10 ML VIAL INJ IV SCH (09:45)
[2024-11-04] MEDS: MAGNESIUM SULFATE 1GM/100ML 100 ML IV ONE (09:46)
--- NOTE | 2024-11-04 10:04 | DVHPN2 ---
Progress Note Date Seen: Nov 04, 2024 Resident Creating Document: CHELO WINTER RESIDENT Medical Necessity Reason Pt with a Central, PICC or Fol: Yes Subjective Review of Systems History of Present Illness 49-year-old female with past medical history of hypertension, GERD, alcohol use disorder, hiatal hernia status post surgery presented with complaints of abdominal pain which is severe, associated with nausea and vomiting and chills. Patient had CT scan done in the hospital which revealed Significant abnormal soft tissue gas tracking along the left psoas musculature left iliacus, left groin likely compatible with insinuating soft tissue infection, Sequelae of presumed vomiting with fluid distention of the distal esophagus gas located at the gastroesophageal junction with small surgical clip in this region and given the adjacent gas, maintain elevated concern for sequelae of gastroesophageal rupture/leak, Large amount of intraperitoneal free air, [id number] stool burden and Indeterminate possible portal venous gas versus marginal gas along the liver. The patient was emergently taken to the OR and underwent Exploratory laparotomy with rectosigmoid resection with colostomy, Extensive lysis of adhesions and Ileal resection with a primary anastomosis. Patient was transferred to ICU on ventilator and was found to be in septic shock. Nephrology was consulted for FLORIN and clearance for PICC line insertion 11/04/24 Patient seen and examined at bedside Currently sedated and intubated On norepinephrine @ 13 Input output +3L/0.43lt with a net positive of +2.59 lt Objective vital signs Vital Sign Date Time Temp Pulse Resp B/P (MAP) Pulse Ox O2 Delivery O2 Flow Rate FiO2 11/04/24 07:24 99 16 99/65 (76) 100 30 11/04/24 06:39 97.5 207.5 11/04/24 06:00 Mechanical Ventilator+ Total Intake and Output 11/03/24 11/03/24 11/04/24 15:00 23:00 07:00 Intake Total 1212.25 ml 891.928 ml 786.815 ml Output Total 120 ml 310 ml Balance 1212.25 ml 771.928 ml 476.815 ml medications Current Medications Medications Dose Ordered Sig/Greg Route Start Time Stop Time Status Last Admin Dose Admin Vancomycin HCl 0 ml @ 0 mls/hr UD IV 11/01/24 21:15 Ondansetron HCl 4 mg Q4HP PRN IV 11/01/24 21:15 Midazolam HCl 50 ml @ 1 mls/hr Q24H IV 11/02/24 01:15 11/03/24 06:17 2 MLS/HR Fentanyl Citrate 250 ml @ 2.5 mls/hr Q24H IV 11/02/24 01:15 11/02/24 14:00 2.5 MLS/HR Thiamine HCl 100 mg DAILY IV 11/03/24 10:00 11/03/24 10:12 100 MG Meropenem 50 ml @ 17 mls/hr Q12HR IV 11/03/24 22:00 Hold Norepinephrine Bitartrate 32 mg/ Sodium Chloride 250 ml @ 0.938 mls/ hr Q24H IV 11/03/24 14:45 11/03/24 15:20 9.375 MLS/HR Sodium Chloride 1,000 ml @ 100 mls/hr Q10H IV 11/03/24 16:30 11/04/24 02:33 100 MLS/HR Amino Acids 0 ml @ 0 mls/hr PER PHARMACY IV 11/03/24 16:30 Amino Acids/ Electrolytes/ Dextrose 1,000 ml @ 41 mls/hr DAILY@2200 IV 11/03/24 22:00 11/03/24 22:13 41 MLS/HR Diagnostic Test (Pha) 1 strip Q6HR 11/04/24 00:00 11/04/24 06:08 1 STRIP Insulin Human Regular FOLLOW SLIDING SCALE Q6HR SC 11/04/24 00:00 Dextrose 50 ml UD IV 11/04/24 00:00 Albumin Human 100 ml @ 100 mls/hr Q8H IV 11/04/24 05:00 11/04/24 13:59 11/04/24 06:08 100 MLS/HR Furosemide 60 mg BIDD IV 11/04/24 08:45 Pantoprazole Sodium 40 mg BID IV 11/04/24 09:15 Fat Emulsion Intravenous 50 ml/ Potassium Acetate 20 meq/Calcium Gluconate 4.65 meq/Magnesium Sulfate 8 meq/ Multivitamins 10 ml/Chromium/ Copper/Manganese/ Zinc 1 ml/Amino Acids/Dextrose 783 ml @ 33 mls/hr [id number] IV 11/04/24 22:00 11/05/24 21:59 Examination Physical Exam Examination General Appearance: Sedated and intubated, lin catheter present HEENT: EOMI Respiratory: Clear to auscultation, Normal air movement Cardiovascular: Regular rate, Normal S1, Normal S2 Abdominal: Normal bowel sounds Extremities: bilateral pedal edema Skin: No rashes, No breakdown Neuro : Sedated and intubated laboratory and microbiology Laboratory Tests 11/04/24 03:06 Test 11/04/24 03:06 Range/Units Serum Glucose 134 H 74-106 mg/dL Microbiology Date/Time Source Procedure Growth Status 11/02/24 01:14 Trachea Gram Stain - Final Resulted 11/02/24 01:14 Trachea Respiratory Culture - Preliminary Resulted 11/01/24 17:14 Blood Blood Culture - Preliminary Resulted Labs and/or images reviewed: Labs reviewed by me, Image(s) reviewed by me Problem List/Assessment/Plan Problem List/Assessment/Plan Assessment Assessment/plan # Acute kidney injury, unknown baseline function , hemodynamically mediated, ?ATN due to septic shock -Input output urine output improved to 430 ml in last 24 hrs FeNA 1.7% worsening creatinine levels from 2.36 to 2.57 # asymptomatic hypocalcemia # Septic Shock # Perforation of the hollow viscus, status post exploratory laparotomy # Acute complicated cystitis Plan/Recommendation Plan Monitor kidney function including electrolytes Strict input and output Ordered urine studies including urine sodium, urine creatinine, urine protein IV lasix 60mg BID as patient is diuretic responsive consider adding IV albumin considering patient is having 3rd space loss of fluids. Patient's family updated about the patient's condition and possible need for dialysis if kidney function deteriorates further. Case discussion with Dr Huerta Plan discussed with: Other Dietary Evaluation Review Comments: 1) If patient remains NPO > 7 days, consider EN/TPN to meet at least 75% of estimated energy needs 2) If gut is preferred, consider Jevity 1.2 @ 40 mL/hr goal rate as tolerated. Flush with 200 mL free H2O Q6H. TF regimen will provide 1152 kcals, 53g Pro, and 1575 mL free H2O (including flushes) per 24 hrs. Goal rate matias meet ~90% estimated daily energy needs and ~65% estimated daily protein needs. 3) Advance to 2g Na diet when medically feasible, pending ST approval 4) Follow-up with cardiology and pulmonology 5) Continue to monitor I&O, labs, and skin integrity Expected Outcomes/Goals: 1) patient to receive nutritional support within 7 days of NPO status 2) labs to improve 3) diet to advance 4) f/u in 2-3 dayas CHELO WINTER RESIDENT Nov 04, 2024 10:04
[2024-11-04 10:37] LABS: Nucleated Red Blood Cells % 0.0 %
[2024-11-04 10:40] LABS: Hematocrit 22.3 % (36.0-46.0); Mean Corpuscular Hemoglobin 23.3 pg (28.0-32.0); Mean Corpuscular Volume 76.0 fL (80.0-100.0)
[2024-11-04 10:49] LABS: Hemoglobin 6.8 g/dL (12.2-16.2)
[2024-11-04 12:05] LABS: INR 1.41 (0.9-1.15); Prothrombin Time 14.4 sec (9.3-11.8)
[2024-11-04 12:07] LABS: Partial Thromboplastin Time 90.3 SEC (24.5-34.5)
[2024-11-04] MEDS: SODIUM CHLORIDE 0.9% 1,000 ML IV SCH (14:34)
[2024-11-04] MEDS: VANCOMYCIN 500mg/100mL 100 ML IV ONE (15:13)
--- NOTE | 2024-11-04 17:04 | DVHPNRES ---
Progress Note Date Seen: Nov 04, 2024 Resident Creating Document: THIAGO NEGRON RESIDENT Medical Necessity Reason Pt with a Central, PICC or Fol: Yes Subjective Review of Systems The patient was seen and examined on the bedside ICU. She is on mechanical ventilation with FiO2 30%, tidal volume 450 mL, peep 5 and respiratory rate 16. Overnight T-max is 98.1, tachycardic heart rate raise to 123, blood pressure 87/61 and patient is on Levophed , Versed and fentanyl. Last 12 hours urine output is 45o mL, gastric minimal gastric drainage, drain I, 25 mL, drain II, 25 mL and both are serosanguineous. CBC showed dropped hemoglobin to 6.8 and 1 unit PRBC given. Patient is not stable for transfer to [place]. Objective vital signs Vital Sign Date Time Temp Pulse Resp B/P (MAP) Pulse Ox O2 Delivery O2 Flow Rate FiO2 11/04/24 16:34 98.1 95 16 107/72 98.1 11/04/24 16:09 100 30 11/04/24 06:00 Mechanical Ventilator+ Total Intake and Output 11/03/24 11/03/24 11/04/24 15:00 23:00 07:00 Intake Total 1212.25 ml 891.928 ml 786.815 ml Output Total 120 ml 310 ml Balance 1212.25 ml 771.928 ml 476.815 ml medications Current Medications Medications Dose Ordered Sig/Greg Route Start Time Stop Time Status Last Admin Dose Admin Vancomycin HCl 0 ml @ 0 mls/hr UD IV 11/01/24 21:15 Ondansetron HCl 4 mg Q4HP PRN IV 11/01/24 21:15 Midazolam HCl 50 ml @ 1 mls/hr Q24H IV 11/02/24 01:15 11/04/24 15:38 2 MLS/HR Fentanyl Citrate 250 ml @ 2.5 mls/hr Q24H IV 11/02/24 01:15 11/04/24 09:49 2.5 MLS/HR Thiamine HCl 100 mg DAILY IV 11/03/24 10:00 11/04/24 09:45 100 MG Meropenem 50 ml @ 17 mls/hr Q12HR IV 11/03/24 22:00 Hold Norepinephrine Bitartrate 32 mg/ Sodium Chloride 250 ml @ 0.938 mls/ hr Q24H IV 11/03/24 14:45 11/03/24 15:20 9.375 MLS/HR Amino Acids 0 ml @ 0 mls/hr PER PHARMACY IV 11/03/24 16:30 Amino Acids/ Electrolytes/ Dextrose 1,000 ml @ 41 mls/hr DAILY@2200 IV 11/03/24 22:00 11/04/24 21:59 11/03/24 22:13 41 MLS/HR Diagnostic Test (Pha) 1 strip Q6HR 11/04/24 00:00 11/04/24 11:29 1 STRIP Insulin Human Regular FOLLOW SLIDING SCALE Q6HR SC 11/04/24 00:00 Dextrose 50 ml UD IV 11/04/24 00:00 Furosemide 60 mg BIDD IV 11/04/24 08:45 11/04/24 09:44 60 MG Pantoprazole Sodium 40 mg BID IV 11/04/24 09:15 11/04/24 09:45 40 MG Fat Emulsion Intravenous 50 ml/ Potassium Acetate 20 meq/Calcium Gluconate 4.65 meq/Magnesium Sulfate 8 meq/ Multivitamins 10 ml/Chromium/ Copper/Manganese/ Zinc 1 ml/Amino Acids/Dextrose 783 ml @ 33 mls/hr [id number] IV 11/04/24 22:00 11/05/24 21:59 Sodium Chloride 1,000 ml @ 60 mls/hr [id number] IV 11/04/24 14:00 Examination Examination General: RASS -3, afebrile, mucosae are moist Cardiovascular: Normal S1 and S2. No murmurs, gallops or rubs Respiratory: Mechanically assisted ventilation, equal bilateral airway entree. Clear lung sounds on auscultation Abdomen: Soft, nontender, no organomegaly, sluggish bowel sounds, Surgical wound on the midline and colostomy on the left side. MSK/skin: Mobilization of limbs cannot be evaluated. Skin is dry and warm. Neurological: Orientation cannot be assessed. No apparent motor no sensitive deficits. Pupils are isocoric and reactive. laboratory and microbiology Laboratory Tests 11/04/24 10:13 11/04/24 03:06 Test 11/04/24 03:06 Range/Units Serum Glucose 134 H 74-106 mg/dL Microbiology Date/Time Source Procedure Growth Status 11/03/24 14:05 Blood Blood Culture - Preliminary NO GROWTH AFTER 24 HOURS OF INCUBATION. Resulted 11/02/24 01:14 Trachea Gram Stain - Final Resulted 11/02/24 01:14 Trachea Respiratory Culture - Preliminary Resulted Labs and/or images reviewed: Labs reviewed by me, Image(s) reviewed by me Problem List/Assessment/Plan Problem List/Assessment/Plan Assessment and plan: NEURO: Acute metabolic encephalopathy secondary to septic shock Status post intubation RASS score: -3 CARDIOVASCULAR: Septic shock secondary to perforation of the hollow viscus Sinus tachycardia secondary to pain versus withdrawal - Patient is on Levophed at 22 - EKG demonstrated sinus tachycardia - echo showed EF 60%, echo density in RV suggestive of large papillary muscle, can not rule out vegetation. PULMONARY: Possible right lower lobe pneumonia Mild bilateral pleural effusion. - Chest x-ray showed atelectasis in bilateral lung bases - Blood culture showed Gram-negative rods and respiratory cultures are pending - continue IV vancomycin and IV meropenem GASTROINTESTINAL: Septic shock secondary to perforation of the hollow viscus, status post exploratory laparotomy Rule out colonic malignancy Transaminitis and coagulopathy secondary to hepatic steatosis Rule out cirrhosis Enlarged CBD, rule out choledocholithiasis or biliary stenosis Alcohol abuse disorder - patient is on NS at 100 mL/hours - IV thiamine 100 mg daily - CT abdomen pelvis without contrast showed large amount of intraperitoneal free air . [id number] stool burden. Indeterminate possible portal venous gas versus marginal gas along the liver - U/S of the abdomen showed The liver is diffusely echogenic which may be secondary to steatosis or another diffuse hepatic process. Enlargement of the common bile duct measuring up to 15 mm. Gallbladder sludge. Small amount of free fluid in the abdomen. - Patient underwent Exploratory laparotomy with rectosigmoid resection with colostomy, Extensive lysis of adhesions and Ileal resection with a primary anastomosis. GENITOURINARY: FLORIN secondary to septic shock/ VMN Acute complicated cystitis - U/A was consistent with UTI - Pending urine bacterial culture ENDOCRINE: Hypoglycemia METABOLIC: Moderate protein calorie malnutrition Hypocalcemia metabolic acidosis with respiratory compensation HEME: Acute on chronic microcytic hypochromic anemia Reactive thrombocytosis secondary to infection Coagulopathy Acute DVT of left upper arm - Hold anticoagulant due to low hemoglobin - 2 unit PRBC and 1 FFP given since surgery - monitor H&H INFECTIOUS DISEASE: Sepsis with septic shock secondary to perforation of the hollow viscus, status post exploratory laparotomy Possible right lower lobe pneumonia Acute complicated cystitis - Blood culture showed Gram-negative rods, other cultures are pending - continue IV vancomycin and IV meropenem DIET: TPN DVT prophylax: Hold lovenox GI prophylaxis: Protonix Bowel regimen: Code status: Full Code LINES/DRAINS/ACCESS: ETT: Intubated on 11/01/2024 IV access: Peripheral line Drips: Levophed, Versed, fentanyl Grajeda catheter: Placed on 11/01/2024 DISPOSITION: ICU Patient's status discussed with Critical care time spent more than 81 minutes, including patient care, chart review, and updating the family. Excluding any procedures. Case discussed with Dr. Armas Plan discussed with: Spouse, Other (RN) My Orders My Orders Orders - THIAGO NEGRON RESIDENT Procedure Category Date Status Time Chest Portable XY 11/04/24 Resulted 04:00 Abg W/ Co-Ox RT 11/04/24 Logged 04:00 Pantoprazole PHA 11/04/24 In Process (Protonix) 09:15 Amino Acid PHA 11/04/24 In Process Infusion... W/Fat 22:00 Comprehensive LAB 11/05/24 Verified Metabolic Panel 05:00 Phosphorus LAB 11/05/24 Verified 05:00 Magnesium LAB 11/05/24 Verified 05:00 Tpn Per Pharmacy [facility] 11/04/24 In Process 22:00 Hemoglobin & LAB 11/04/24 Logged Hematocrit 18:30 PTPTT LAB 11/04/24 Logged 18:30 Dietary Evaluation Review Comments: 1) If patient remains NPO > 7 days, consider EN/TPN to meet at least 75% of estimated energy needs 2) If gut is preferred, consider Jevity 1.2 @ 40 mL/hr goal rate as tolerated. Flush with 200 mL free H2O Q6H. TF regimen will provide 1152 kcals, 53g Pro, and 1575 mL free H2O (including flushes) per 24 hrs. Goal rate matias meet ~90% estimated daily energy needs and ~65% estimated daily protein needs. 3) Advance to 2g Na diet when medically feasible, pending ST approval 4) Follow-up with cardiology and pulmonology 5) Continue to monitor I&O, labs, and skin integrity Expected Outcomes/Goals: 1) patient to receive nutritional support within 7 days of NPO status 2) labs to improve 3) diet to advance 4) f/u in 2-3 dayas Date of Service: Nov 04, 2024 Billing Provider: BERNARD ARMAS MD Common Visit Codes: 92991-BIIBWOJF CARE 30-74 MIN, 73699-[id number] CARE-EACH +30MIN THIAGO NEGRON RESIDENT Nov 04, 2024 17:04 BERNARD ARMAS MD Nov 05, 2024 10:39
[2024-11-04 18:43] LABS: Hematocrit 27.3 % (36.0-46.0); Hemoglobin 8.8 g/dL (12.2-16.2)
[2024-11-04 19:04] LABS: INR 1.36 (0.9-1.15); Prothrombin Time 14.0 sec (9.3-11.8)
[2024-11-04 19:06] LABS: Partial Thromboplastin Time 81.6 SEC (24.5-34.5)
--- NOTE | 2024-11-04 21:18 | PRN ---
Misceleneous Note Note Note evaluated the patient at the request of ICU nursing staff. s/p PRBC massive drop in platelet ?pancreatic cancer +ve 19-9 elevated possible hypercoagulable state Urine Culture can be considered ? stool contamination DIC to rule out high risk of dic, rule out persistant sepsis/bacterimia ?uremia causing coagulupathy poor renal clearance of lovenox consumptive coagulopathy HIT likely clinically PF4 might help No heparin or lmw heparin strictly peripheral schistocytes LDH high h haptoglobin low follow ptt/inr/apt t (consider deranged apt due to lmw heparin ) fibrinogen low d dimer high close follow up hnh transfuse threshold 7 or higher if active bleeding. RENEE LEIGH RESIDENT Nov 04, 2024 21:18
[2024-11-04 21:33] LABS: INR 1.35 (0.9-1.15); Prothrombin Time 13.9 sec (9.3-11.8)
[2024-11-04 21:39] LABS: Partial Thromboplastin Time 76.9 SEC (24.5-34.5)
[2024-11-04] MEDS: TPN PER PHARMACY IV NR (21:46)
[2024-11-04 23:21] LABS: INR 1.33 (0.9-1.15); Prothrombin Time 13.7 sec (9.3-11.8)
[2024-11-05] VITALS (119 sets, daily range): BP systolic 80–115; BP diastolic 49–77; PULSE 86–102; RESP 15–35; TEMP 97.7–99.1; O2SAT 96–100
[2024-11-05 00:32] LABS: Fibrinogen 208.0 mg/dL (177-375)
[2024-11-05] MEDS: SODIUM CHLORIDE 0.9% 500 ML IV ONE (01:40)
--- NOTE | 2024-11-05 02:59 | DVH ---
Bilateral lower extremity venous duplex Clinical History: r/o DVT Comparison: US BI LAT UPPER DVT on DOS: 11/03/24 Technique: Duplex Doppler evaluation of the deep venous systems of both lower extremities from the common femora l veins to the popliteal veins including color Doppler and spectral/pulsed waveform analysis was perf ormed. Findings: RIGHT SIDE: The common femoral vein demonstrates appropriate compressibility and waveform variability. There is compressibility/patency of the great saphenous vein at the proximal thigh. The femoral vein demonstrates appropriate compressibility and waveform variability. The deep femoral vein demonstrates appropriate compressibility and waveform variability. The popliteal vein demonstrates appropriate compressibility and waveform variability. There is normal compressibility at the tibioperoneal trunk. LEFT SIDE: The common femoral vein demonstrates appropriate compressibility and waveform variability. There is compressibility/patency of the great saphenous vein at the proximal thigh. The femoral vein demonstrates appropriate compressibility and waveform variability. The deep femoral vein demonstrates appropriate compressibility and waveform variability. The popliteal vein demonstrates appropriate compressibility and waveform variability. There is normal compressibility at the tibioperoneal trunk. Impression: 1. No right or left femoropopliteal venous thrombosis.
[2024-11-05 03:27] LABS: Hemoglobin 9.2 g/dL (12.2-16.2); Mean Corpuscular Volume 79.5 fL (80.0-100.0); Nucleated Red Blood Cells % 0.0 %
[2024-11-05 03:32] LABS: Hematocrit 28.6 % (36.0-46.0); Mean Corpuscular Hemoglobin 25.6 pg (28.0-32.0)
[2024-11-05 03:47] LABS: Alanine Aminotransferase 13 U/L (7-40); Alkaline Phosphatase 88 U/L (46-116); Anion Gap 8 (5-15); BUN/Creatinine Ratio 10.6 (10.0-20.0); Bilirubin, Total 0.4 mg/dL (0.2-1.0); Blood Urea Nitrogen 22 mg/dL (9-23); Carbon Dioxide 24 mmol/L (20-31)
[2024-11-05 03:53] LABS: Albumin 2.2 g/dL (3.2-4.8); Calcium 7.4 mg/dL (8.7-10.4); Chloride 115 mmol/L (98-107); Glucose 126 mg/dL (74-106); Magnesium 1.5 mg/dL (1.6-2.6); Potassium 2.8 mmol/L (3.5-5.1); Sodium 147 mmol/L (136-145); Total Protein 3.7 g/dL (5.7-8.2)
[2024-11-05] MEDS: POTASSIUM CHL 20MEQ/100ML 100 ML IV SCH (04:55)
[2024-11-05] MEDS: MAGNESIUM SULFATE 1GM/100ML 100 ML IV ONE (05:00)
--- NOTE | 2024-11-05 05:49 | DVH ---
CHEST RADIOGRAPH Indication: On mechanical ventilation Technique: Single frontal view of the chest was obtained Comparison: XY CHEST PORTABLE on DOS: 11/04/24 FINDINGS: Lines and Tubes: The endotracheal tube terminates 4.8 cm above the jacob. The enteric tube terminate s in the stomach. There is a right central venous catheter with its tip terminating in the superior v micha cava. Left chest tube is unchanged. Lungs: Pulmonary vascular congestion is unchanged. Pleura: No effusion. No pneumothorax. Cardiomediastinal contours: Unremarkable Bones: No acute osseous abnormality. IMPRESSION: 1. Support tubes, unchanged. 2. Pulmonary vascular congestion is unchanged.
[2024-11-05] MEDS ORDERED: POTASSIUM CHL 20MEQ/100ML 100 ML IV ONE (07:30)
[2024-11-05 07:34] LABS: Base Excess -4.9 mmol/L (-2.0-3.0)
[2024-11-05] MEDS ORDERED: MAGNESIUM SULFATE 1GM/100ML 100 ML IV ONE (09:00)
[2024-11-05] MEDS ORDERED: POTASSIUM PHOSPHATE 44 MEQ in D5W 5% 250 ML IV ONE (09:00)
[2024-11-05 09:22] LABS: INR 1.3 (0.9-1.15); Partial Thromboplastin Time 61.6 SEC (24.5-34.5); Prothrombin Time 13.4 sec (9.3-11.8)
[2024-11-05] MEDS ORDERED: VASOPRESSIN 20 UNITS in SODIUM CHL 0.9% 99 ML IV SCH (10:30)
[2024-11-05] MEDS: FUROSEMIDE 100 MG/10ML VIAL IV SCH (10:43)
[2024-11-05 10:49] LABS: Potassium 2.8 mmol/L (3.5-5.1)
[2024-11-05] MEDS: MEROPENEM 500MG IVPB 50 ML IV SCH (10:52)
[2024-11-05 10:54] LABS: Magnesium 1.5 mg/dL (1.6-2.6)
--- NOTE | 2024-11-05 12:12 | DVHCONRES ---
Date Seen: Nov 05, 2024 Resident Creating Document: KAELYN OLIVAREZ Jr., MD Referring Physician nicolette Reason for Consultation ischemic toes on pressors History of Present Illness 49-year-old female with past medical history of hypertension, GERD, alcohol use disorder, hiatal hernia status post surgery presented with complaints of abdominal pain which is severe, associated with nausea and vomiting and chills. Patient had CT scan done in the hospital which revealed Significant abnormal soft tissue gas tracking along the left psoas musculature left iliacus, left groin likely compatible with insinuating soft tissue infection, Sequelae of presumed vomiting with fluid distention of the distal esophagus gas located at the gastroesophageal junction with small surgical clip in this region and given the adjacent gas, maintain elevated concern for sequelae of gastroesophageal rupture/leak, Large amount of intraperitoneal free air, [id number] stool burden and Indeterminate possible portal venous gas versus marginal gas along the liver. The patient was emergently taken to the OR and underwent Exploratory laparotomy with rectosigmoid resection with colostomy, Extensive lysis of adhesions and Ileal resection with a primary anastomosis. Postoperatively the patient remains on pressors and ventilator in critical condition. Asked to see the patient today due to ischemic changes bluish discoloration of the distal toes. Past Medical History hypertension, GERD, alcohol use disorder, hiatal hernia Past Surgical History Exploratory laparotomy bowel resection, hiatal hernia repair Family History: Patient reports no known family medical history. Social History History of smoking and alcohol use Allergies: Coded Allergies: Iodine (Verified Allergy, Unknown, 11/01/24) Penicillins (Verified Allergy, Unknown, 11/01/24) Sulfa Antibiotics (Verified Allergy, Unknown, 11/01/24) Current Medications Current Medications Medications (Trade) Dose Ordered Sig/Greg Route PRN Reason Start Time Stop Time Status Last Admin Fat Emulsion Intravenous 50 ml/ Potassium Acetate 20 meq/Calcium Gluconate 4.65 meq/Magnesium Sulfate 8 meq/ Multivitamins 10 ml/Chromium/ Copper/Manganese/ Zinc 1 ml/Amino Acids/Dextrose 783 ml @ 33 mls/hr [id number] IV 11/04/24 22:00 11/05/24 21:59 11/04/24 21:46 Sodium Chloride 1,000 ml @ 60 mls/hr [id number] IV 11/04/24 14:00 11/05/24 06:35 Potassium Chloride 100 ml @ 50 mls/hr Q2H IV 11/05/24 04:15 11/05/24 10:14 DC 11/05/24 06:35 Meropenem 50 ml @ 17 mls/hr Q12HR IV 11/05/24 10:00 11/05/24 10:52 Furosemide (Lasix Injection) 40 mg DAILY IV 11/05/24 10:00 11/05/24 10:43 Fat Emulsion Intravenous 100 ml/Potassium Acetate 30 meq/ Potassium Phosphate 22 meq/ Calcium Gluconate 4.65 meq/ Magnesium Sulfate 16 meq/ Multivitamins 10 ml/Chromium/ Copper/Manganese/ Zinc 1 ml/Amino Acids/Dextrose 995 ml @ 42 mls/hr [id number] IV 11/05/24 22:00 11/06/24 21:59 Vasopressin 20 units/Sodium Chloride 100 ml @ 9 mls/hr [id number] IV 11/05/24 10:30 11/05/24 11:43 DC Dextrose 1,000 ml @ 30 mls/hr Q24H IV 11/05/24 11:15 Review of Systems Chart reviewed Vital Signs Vital Signs Date Time Temp Pulse Resp B/P (MAP) Pulse Ox O2 Delivery O2 Flow Rate FiO2 11/05/24 10:43 94/60 11/05/24 10:10 93 16 100 30 11/05/24 09:54 98.4 209.1 11/05/24 08:20 Mechanical Ventilator+ 11/05/24 01:18 30.0 Physical Exam Patient is intubated. Lower extremities palpable femoral pulses, Doppler signals in the popliteal arteries bilaterally, weakly dopplerable signals in bilateral posterior tibials. The toes are bluish in discoloration throughout both sides. Discoloration extends to the metatarsophalangeal joints bilaterally. Feet are warm otherwise Labs/Diagnostic Data Labs Test 11/05/24 07:29 11/05/24 07:26 11/05/24 05:46 11/05/24 02:53 Range/Units Prothrombin Time 13.4 H 9.3-11.8 sec Prothrombin Time INR 1.30 H 0.9-1.15 Activated Partial Thromboplast Time 61.6 H 24.5-34.5 SEC Blood Gas Specimen Type Arterial Blood Gas Sample Site Left radial Blood Gas Patient Temperature 37.0 Arterial Blood Date Drawn [id number] Arterial Blood pH 7.339 L 7.350-7.450 Arterial Blood Partial Pressure CO2 38.8 32.0-45.0 mmHg Arterial Blood Partial Pressure O2 109.9 H 83.0-108.0 mmHg Arterial Blood HCO3 20.4 L 21.0-28.0 mmol/L Arterial Blood Oxygen Saturation 97.6 94.0-98.0 % Arterial Blood Base Excess -4.9 L -2.0-3.0 mmol/L Arterial Blood Oxyhemoglobin 97.0 94.0-98.0 % Arterial Blood Carboxyhemoglobin 0.3 L 0.5-1.5 % Arterial Blood Methemoglobin 0.3 0.0-1.5 % Renard Test Modified Blood Gas Total Hemoglobin 10.50 L 12.0-16.0 g/dL Blood Gas Set Respiration Rate 16.0 Blood Gas Modality Vent - ac Blood Gas Spontaneous Rate 16 FiO2 % 30.0 Blood Gas Tidal Volume 450.0 Blood Gas PEEP or CPAP 5.0 POC Glucose 129 H 70-106 mg/dl White Blood Count 13.5 H 4.4-10.8 10^3/uL Red Blood Count 3.60 L 4.0-5.20 10^6/uL Hemoglobin 9.2 L 12.2-16.2 g/dL Hematocrit 28.6 L 36.0-46.0 % Mean Corpuscular Volume 79.5 #L 80.0-100.0 fL Mean Corpuscular Hemoglobin 25.6 L 28.0-32.0 pg Mean Corpuscular Hemoglobin Concent 32.2 32.0-36.0 g/dL Red Cell Distribution Width 22.4 H 11.8-14.3 % Platelet Count 62 L 140-450 10^3/uL Mean Platelet Volume 8.2 6.9-10.8 fL Neutrophils (%) (Auto) 86.2 H 37.0-80.0 % Lymphocytes (%) (Auto) 10.9 10.0-50.0 % Monocytes (%) (Auto) 1.7 0.0-12.0 % Eosinophils (%) (Auto) 1.1 0.0-7.0 % Basophils (%) (Auto) 0.1 0.0-2.0 % Neutrophils # (Auto) 11.6 H 1.6-8.6 10 ^3/uL Lymphocytes # (Auto) 1.5 0.4-5.4 10 ^3/uL Monocytes # (Auto) 0.2 0-1.3 10 ^3/uL Eosinophils # (Auto) 0.1 0-0.8 10 ^3/uL Basophils # (Auto) 0 0-0.2 10 ^3/uL Nucleated Red Blood Cells 0.0 % Sodium Level 147 H 136-145 mmol/L Potassium Level 2.8 L 3.5-5.1 mmol/L Chloride Level 115 H 98-107 mmol/L Carbon Dioxide Level 24 20-31 mmol/L Anion Gap 8 5-15 Blood Urea Nitrogen 22 9-23 mg/dL Creatinine 2.07 H 0.550-1.02 mg/dL Glomerular Filtration Rate Calc 28 >90 mL/min BUN/Creatinine Ratio 10.6 10.0-20.0 Serum Glucose 126 H 74-106 mg/dL Calcium Level 7.4 L 8.7-10.4 mg/dL Phosphorus Level 1.8 L 2.4-5.1 mg/dL Magnesium Level 1.5 L 1.6-2.6 mg/dL Total Bilirubin 0.4 0.2-1.0 mg/dL Aspartate Amino Transferase (AST) 36 13-40 U/L Alanine Aminotransferase (ALT) 13 7-40 U/L Alkaline Phosphatase 88 46-116 U/L Total Protein 3.7 L 5.7-8.2 g/dL Albumin 2.2 L 3.2-4.8 g/dL Random Vancomycin Level 17.0 H 5-10 ug/mL Test 11/04/24 22:41 11/04/24 03:06 11/03/24 09:50 11/02/24 13:24 Range/Units Fibrinogen 208 177-375 mg/dL D-Dimer, Quantitative 6.93 H 0.0-0.49 mg/L FEU Lactate Dehydrogenase 163 120-246 U/L Triglycerides Level 128 < 150 mg/dL Urine Color [place] H Yellow Urine Clarity Ex.turbid Clear Urine pH 6.0 5.0-9.0 Urine Specific [place] 1.017 1.001-1.035 Urine Protein 2+ H Negative Urine Ketones Negative Negative Urine Blood 3+ H Negative /uL Urine Nitrite Negative Negative Urine Bilirubin Negative Negative Urine Urobilinogen Normal Negative mg/dL Urine Leukocyte Esterase 3+ Negative /uL Urine RBC 676 0 - 4 /hpf Urine WBC Clumps Present None Seen /hpf Urine Microscopic WBC 2141 H 0-5 /HPF Urine Squamous Epithelial Cells Few <5 /hpf Urine Bacteria None seen None Seen /hpf Urine Mucus Few None Seen Urine Yeast (Budding) Many None Seen /hpf Urine Creatinine 78.12 30.0-125.0 mg/dL Urine Protein/Creatinine Ratio 5.90 Urine Sodium 83 40-220 mmol/L Urine Glucose Normal Normal mg/dL Urine Total Protein 460.8 H 1-14 mg/dL CA 19-9 Antigen 36 H 0-35 U/mL CA 125 Antigen 24.2 0.0-38.1 U/mL Plasma/Serum Blood Alcohol 3.2 <10 mg/dL Hepatitis A Antibody Total Positive H Negative Hepatitis B Surface Antigen Negative Negative Hepatitis B Surface Antibody Positive H Negative Hepatitis B Core Total Antibody Negative Negative Hepatitis C Antibody Negative Negative Test 11/02/24 08:49 11/02/24 01:44 11/01/24 18:58 11/01/24 16:26 Range/Units Platelet Estimate Marked Large Platelets Moderate Giant Platelets Few Hypochromasia (manual) Slight Anisocytosis (manual) Slight Microcytosis Slight Carcinoembryonic Antigen 11.30 <=5.0 ng/mL Lactic Acid Level 4.2 *H 0.4-2.0 mmol/L Ammonia 13 11-32 umol/L Microbiology Date/Time Source Procedure Growth Status 11/03/24 14:05 Blood Blood Culture - Preliminary NO GROWTH AFTER 24 HOURS OF INCUBATION. Resulted 11/02/24 01:14 Trachea Gram Stain - Final Complete 11/02/24 01:14 Respiratory Culture - Final Staphylococcus aureus Presumptive Cherelle albicans Complete Assessment 49-year-old female critically ill and septic shock status post exploratory laparotomy bowel resection on pressors. At this point supportive care weaning off pressors as possible. Keep feet warm at all times. Discussed with family at length regarding prognosis as well as possibility of amputations of toes in the future at this point in time we will continue to monitor very closely. No acute indication for surgical intervention. Arterial Doppler had been ordered. Plan/Recommendation 49-year-old female critically ill and septic shock status post exploratory laparotomy bowel resection on pressors. At this point supportive care weaning off pressors as possible. Keep feet warm at all times. Discussed with family at length regarding prognosis as well as possibility of amputations of toes in the future at this point in time we will continue to monitor very closely. No acute indication for surgical intervention. Arterial Doppler had been ordered. Plan discussed with: Spouse KAELYN OLIVAREZ Jr., MD Nov 05, 2024 12:12
[2024-11-05] MEDS: D5W 5% 1,000 ML IV SCH (12:27)
[2024-11-05] MEDS ORDERED: ARTIFICIAL TEARS 15ml EACHEYE ONE (12:30)
[2024-11-05] MEDS: POTASSIUM PHOSPHATE 22 MEQ in SODIUM CHL 0.9% 100 ML IV ONE (12:42)
[2024-11-05 13:13] LABS: Potassium 3.8 mmol/L (3.5-5.1)
[2024-11-05 13:20] LABS: Magnesium 1.7 mg/dL (1.6-2.6)
--- NOTE | 2024-11-05 13:56 | DVH ---
Indication: Rule out PAD Technique: Real- time ultrasound images of the bilateral lower extremity with grayscale, color, and spectral wave Doppler. 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 Triphasic waveform mid right SFA. Monophasic waveform right poplitea l artery. Biphasic waveform right posterior tibial artery. Triphasic waveform in the left SFA stent. Monophasic waveform left popliteal artery. Monophasic waveform left anterior tibial artery. Bilateral lower extremity soft tissue edema. Peak systolic velocities are as follows (in cm/s): Right: Common femoral artery: 77 Profunda femoris: 67 Proximal superficial femoral: 87 Mid superficial femoral artery: 89 Distal superficial femoral artery: 59 Popliteal artery: 53 Posterior tibial artery: 26 Dorsalis pedis artery: 36 Left: Common femoral artery: 98 Profunda femoris: 59 Proximal superficial femoral: 101 Mid superficial femoral artery: 104 Distal superficial femoral artery: 106 Popliteal artery: 65 Posterior tibial artery: 33 Anterior tibial artery: 53 Dorsalis pedis artery: 12 Impression: Monophasic waveform with diminished velocity in the left dorsalis pedis artery consistent with hemody namically significant stenosis. Monophasic waveform in the right popliteal artery may indicate hemodynamically significant stenosis.
--- NOTE | 2024-11-05 15:47 | DVHPNRES ---
Progress Note Date Seen: Nov 05, 2024 Resident Creating Document: THIAGO NEGRON RESIDENT Medical Necessity Reason Pt with a Central, PICC or Fol: Yes Subjective Review of Systems Patient was seen and examined on the bedside ICU. She is on mechanical ventilation with FiO2 30%, tidal volume 450 mL, peep 5 and respiratory rate 16. Overnight T-max is 98.8, tachycardic , blood pressure 87/61 and patient is on Levophed , Versed and fentanyl. Last 12 hours urine output is 1700 mL, gastric minimal gastric drainage, drain I,5 mL, drain II,10 mL and both are serosanguineous. H&H is stable . Bilateral peripheral ischemic toes in the lower limb and duplex arterial scan demonstrated bilateral hemodynamically significant stenosis in left dorsalis pedis and right popliteal artery. Patient is unstable for transfer to [place]. Objective vital signs Vital Sign Date Time Temp Pulse Resp B/P (MAP) Pulse Ox O2 Delivery O2 Flow Rate FiO2 11/05/24 14:01 95 16 91/59 (70) 100 30 11/05/24 09:54 98.4 209.1 11/05/24 08:20 Mechanical Ventilator+ 11/05/24 01:18 30.0 Total Intake and Output 11/04/24 11/04/24 11/05/24 15:00 23:00 07:00 Intake Total 1336.504 ml 869.063 ml 512.814 ml Output Total 45 ml 1715 ml Balance 1336.504 ml 824.063 ml -1202.186 ml medications Current Medications Medications Dose Ordered Sig/Greg Route Start Time Stop Time Status Last Admin Dose Admin Vancomycin HCl 0 ml @ 0 mls/hr UD IV 11/01/24 21:15 Ondansetron HCl 4 mg Q4HP PRN IV 11/01/24 21:15 Midazolam HCl 50 ml @ 1 mls/hr Q24H IV 11/02/24 01:15 11/05/24 02:35 2 MLS/HR Fentanyl Citrate 250 ml @ 2.5 mls/hr Q24H IV 11/02/24 01:15 11/04/24 09:49 2.5 MLS/HR Thiamine HCl 100 mg DAILY IV 11/03/24 10:00 11/05/24 10:42 100 MG Norepinephrine Bitartrate 32 mg/ Sodium Chloride 250 ml @ 0.938 mls/ hr Q24H IV 11/03/24 14:45 11/04/24 18:03 5.625 MLS/HR Amino Acids 0 ml @ 0 mls/hr PER PHARMACY IV 11/03/24 16:30 Diagnostic Test (Pha) 1 strip Q6HR 11/04/24 00:00 11/05/24 12:43 1 STRIP Insulin Human Regular FOLLOW SLIDING SCALE Q6HR SC 11/04/24 00:00 Dextrose 50 ml UD IV 11/04/24 00:00 Pantoprazole Sodium 40 mg BID IV 11/04/24 09:15 11/05/24 10:31 40 MG Fat Emulsion Intravenous 50 ml/ Potassium Acetate 20 meq/Calcium Gluconate 4.65 meq/Magnesium Sulfate 8 meq/ Multivitamins 10 ml/Chromium/ Copper/Manganese/ Zinc 1 ml/Amino Acids/Dextrose 783 ml @ 33 mls/hr [id number] IV 11/04/24 22:00 11/05/24 21:59 11/04/24 21:46 33 MLS/HR Sodium Chloride 1,000 ml @ 60 mls/hr [id number] IV 11/04/24 14:00 11/05/24 06:35 60 MLS/HR Meropenem 50 ml @ 17 mls/hr Q12HR IV 11/05/24 10:00 11/05/24 10:52 17 MLS/HR Furosemide 40 mg DAILY IV 11/05/24 10:00 11/05/24 10:43 40 MG Fat Emulsion Intravenous 100 ml/Potassium Acetate 30 meq/ Potassium Phosphate 22 meq/ Calcium Gluconate 4.65 meq/ Magnesium Sulfate 16 meq/ Multivitamins 10 ml/Chromium/ Copper/Manganese/ Zinc 1 ml/Amino Acids/Dextrose 995 ml @ 42 mls/hr [id number] IV 11/05/24 22:00 11/06/24 21:59 Dextrose 1,000 ml @ 30 mls/hr Q24H IV 11/05/24 11:15 11/05/24 12:27 30 MLS/HR Artificial Tears 1 drop Q6HP PRN EACHEYE 11/05/24 12:30 Examination Examination General: RASS -3, afebrile, mucosae are moist Cardiovascular: Normal S1 and S2. No murmurs, gallops or rubs Respiratory: Mechanically assisted ventilation, equal bilateral airway entree. Clear lung sounds on auscultation Abdomen: Soft, nontender, no organomegaly, sluggish bowel sounds, Surgical wound on the midline and colostomy on the left side. MSK/skin: Mobilization of limbs cannot be evaluated. Skin is dry and cold. Bilateral ischemic toes in the lower extremities Neurological: Orientation cannot be assessed. No apparent motor no sensitive deficits. Pupils are isocoric and reactive. laboratory and microbiology Laboratory Tests 11/05/24 10:21 11/05/24 02:53 Test 11/05/24 02:53 Range/Units Serum Glucose 126 H 74-106 mg/dL Microbiology Date/Time Source Procedure Growth Status 11/03/24 14:05 Blood Blood Culture - Preliminary NO GROWTH AFTER 48 HOURS OF INCUBATION. Resulted 11/02/24 01:14 Trachea Gram Stain - Final Complete 11/02/24 01:14 Respiratory Culture - Final Staphylococcus aureus Presumptive Cherelle albicans Complete Labs and/or images reviewed: Labs reviewed by me, Image(s) reviewed by me Problem List/Assessment/Plan Problem List/Assessment/Plan Assessment and plan: NEURO: Acute metabolic encephalopathy secondary to septic shock Status post intubation RASS score: -3 CARDIOVASCULAR: Septic shock secondary to perforation of the hollow viscus Sinus tachycardia secondary to pain versus withdrawal Bilateral peripheral arterial disease - Patient is on Levophed - EKG demonstrated sinus tachycardia - echo showed EF 60%, echo density in RV suggestive of large papillary muscle, can not rule out vegetation. - Duplex scan of the lower extremity revealed bilateral hemodynamically significant stenosis in left dorsalis pedis and right popliteal artery PULMONARY: Possible right lower lobe pneumonia Mild bilateral pleural effusion. - Chest x-ray showed atelectasis in bilateral lung bases - Blood culture showed Bacteroides and respiratory cultures Staph aureus and presumptive Cherelle albicans - Follow up blood culture revealed no growth in 24 hours of incubation. - continue IV vancomycin and IV meropenem GASTROINTESTINAL: Septic shock secondary to perforation of the hollow viscus, status post exploratory laparotomy Rule out colonic malignancy Transaminitis and coagulopathy secondary to hepatic steatosis Rule out cirrhosis Enlarged CBD, rule out choledocholithiasis or biliary stenosis Alcohol abuse disorder - TPN as per pharmacy - IV thiamine 100 mg daily - CT abdomen pelvis without contrast showed large amount of intraperitoneal free air . [id number] stool burden. Indeterminate possible portal venous gas versus marginal gas along the liver - U/S of the abdomen showed The liver is diffusely echogenic which may be secondary to steatosis or another diffuse hepatic process. Enlargement of the common bile duct measuring up to 15 mm. Gallbladder sludge. Small amount of free fluid in the abdomen. - Patient underwent Exploratory laparotomy with rectosigmoid resection with colostomy, Extensive lysis of adhesions and Ileal resection with a primary anastomosis. - Abdominal fluid culture demonstrated, prevotella, Pseudomonas, E coli, Streptococcus mitis - continue IV vancomycin and IV meropenem GENITOURINARY: FLORIN secondary to septic shock/ VMN Acute complicated cystitis - U/A was consistent with UTI - Pending urine bacterial culture ENDOCRINE: Hypoglycemia METABOLIC: Moderate protein calorie malnutrition Hypocalcemia metabolic acidosis with respiratory compensation HEME: Acute on chronic microcytic hypochromic anemia Reactive thrombocytosis secondary to infection Coagulopathy Acute DVT of left upper arm - Hold anticoagulant due to low hemoglobin - 2 unit PRBC and 1 FFP given since surgery - monitor H&H INFECTIOUS DISEASE: Sepsis with septic shock secondary to perforation of the hollow viscus, status post exploratory laparotomy Possible right lower lobe pneumonia Acute complicated cystitis - Blood culture showed Gram-negative rods, other cultures are pending - continue IV vancomycin and IV meropenem DIET: TPN DVT prophylax: Hold lovenox GI prophylaxis: Protonix Bowel regimen: Code status: Full Code LINES/DRAINS/ACCESS: ETT: Intubated on 11/01/2024 IV access: Right IJ placed on 04/12/2024 Drips: Levophed, Versed, fentanyl Grajeda catheter: Placed on 11/01/2024 DISPOSITION: ICU Patient's status discussed with Critical care time spent more than 81 minutes, including patient care, chart review, and updating the family. Excluding any procedures. Case discussed with Dr. Armas Plan discussed with: Spouse, Other (RN) My Orders My Orders Orders - THIAGO NEGRON RESIDENT Procedure Category Date Status Time Communication Order ORDERS 11/04/24 Transmitted 19:08 Chest Portable XY 11/05/24 Resulted 04:00 Abg W/ Co-Ox RT 11/05/24 Logged 04:00 Communication Order ORDERS 11/05/24 Transmitted 07:11 Meropenem 500mg Ivpb PHA 11/05/24 In Process (Merrem 500mg/50ml 10:00 Comprehensive LAB 11/06/24 Verified Metabolic Panel 04:00 Magnesium LAB 11/06/24 Verified 04:00 Phosphorus LAB 11/06/24 Verified 04:00 Amino Acid PHA 11/05/24 In Process Infusion... W/Fat 22:00 Tpn Per Pharmacy EDISON 11/05/24 In Process 22:00 D5w 5% (Dextrose 5%) PHA 11/05/24 In Process 11:15 Bilat Low Ext Art US 11/05/24 Resulted Duplex 11:19 Artificial Tear 15ml PHA 11/05/24 In Process Opthalmic (Tears Na 12:30 Dietary Evaluation Review Comments: 1) If patient remains NPO > 7 days, consider EN/TPN to meet at least 75% of estimated energy needs 2) If gut is preferred, consider Jevity 1.2 @ 40 mL/hr goal rate as tolerated. Flush with 200 mL free H2O Q6H. TF regimen will provide 1152 kcals, 53g Pro, and 1575 mL free H2O (including flushes) per 24 hrs. Goal rate matias meet ~90% estimated daily energy needs and ~65% estimated daily protein needs. 3) Advance to 2g Na diet when medically feasible, pending ST approval 4) Follow-up with cardiology and pulmonology 5) Continue to monitor I&O, labs, and skin integrity Expected Outcomes/Goals: 1) patient to receive nutritional support within 7 days of NPO status 2) labs to improve 3) diet to advance 4) f/u in 2-3 dayas Date of Service: Nov 05, 2024 Billing Provider: BERNARD ARMAS MD Common Visit Codes: 04840-[id number] CARE 30-74 MIN, [id number] CARE-EACH +30MIN THIAGO NEGRON RESIDENT Nov 05, 2024 15:47 BERNARD ARMAS MD Nov 07, 2024 15:36
[2024-11-05] MEDS: LACTATED RINGER'S 1,000 ML IV ONE (16:04)
--- NOTE | 2024-11-05 16:23 | DVHPN2 ---
Progress Note Date Seen: Nov 05, 2024 Medical Necessity Reason Pt with a Central, PICC or Fol: Yes Objective vital signs Vital Sign Date Time Temp Pulse Resp B/P (MAP) Pulse Ox O2 Delivery O2 Flow Rate FiO2 11/05/24 16:17 30 11/05/24 16:16 16 100 Mechanical Ventilator+ 11/05/24 16:04 97 92/60 (71) 11/05/24 09:54 98.4 209.1 11/05/24 01:18 30.0 Total Intake and Output 11/04/24 11/04/24 11/05/24 14:59 22:59 06:59 Intake Total 1376.504 ml 936.438 ml 452.814 ml Output Total 45 ml 1715 ml Balance 1376.504 ml 891.438 ml -1262.186 ml medications Current Medications Medications Dose Ordered Sig/Greg Route Start Time Stop Time Status Last Admin Dose Admin Vancomycin HCl 0 ml @ 0 mls/hr UD IV 11/01/24 21:15 Ondansetron HCl 4 mg Q4HP PRN IV 11/01/24 21:15 Midazolam HCl 50 ml @ 1 mls/hr Q24H IV 11/02/24 01:15 11/05/24 02:35 2 MLS/HR Fentanyl Citrate 250 ml @ 2.5 mls/hr Q24H IV 11/02/24 01:15 11/04/24 09:49 2.5 MLS/HR Thiamine HCl 100 mg DAILY IV 11/03/24 10:00 11/05/24 10:42 100 MG Norepinephrine Bitartrate 32 mg/ Sodium Chloride 250 ml @ 0.938 mls/ hr Q24H IV 11/03/24 14:45 11/04/24 18:03 5.625 MLS/HR Amino Acids 0 ml @ 0 mls/hr PER PHARMACY IV 11/03/24 16:30 Diagnostic Test (Pha) 1 strip Q6HR 11/04/24 00:00 11/05/24 12:43 1 STRIP Insulin Human Regular FOLLOW SLIDING SCALE Q6HR SC 11/04/24 00:00 Dextrose 50 ml UD IV 11/04/24 00:00 Pantoprazole Sodium 40 mg BID IV 11/04/24 09:15 11/05/24 10:31 40 MG Fat Emulsion Intravenous 50 ml/ Potassium Acetate 20 meq/Calcium Gluconate 4.65 meq/Magnesium Sulfate 8 meq/ Multivitamins 10 ml/Chromium/ Copper/Manganese/ Zinc 1 ml/Amino Acids/Dextrose 783 ml @ 33 mls/hr [id number] IV 11/04/24 22:00 11/05/24 21:59 11/04/24 21:46 33 MLS/HR Sodium Chloride 1,000 ml @ 60 mls/hr [id number] IV 11/04/24 14:00 11/05/24 06:35 60 MLS/HR Meropenem 50 ml @ 17 mls/hr Q12HR IV 11/05/24 10:00 11/05/24 10:52 17 MLS/HR Furosemide 40 mg DAILY IV 11/05/24 10:00 11/05/24 10:43 40 MG Fat Emulsion Intravenous 100 ml/Potassium Acetate 30 meq/ Potassium Phosphate 22 meq/ Calcium Gluconate 4.65 meq/ Magnesium Sulfate 16 meq/ Multivitamins 10 ml/Chromium/ Copper/Manganese/ Zinc 1 ml/Amino Acids/Dextrose 995 ml @ 42 mls/hr [id number] IV 11/05/24 22:00 11/06/24 21:59 Dextrose 1,000 ml @ 30 mls/hr Q24H IV 11/05/24 11:15 11/05/24 12:27 30 MLS/HR Artificial Tears 1 drop Q6HP PRN EACHEYE 11/05/24 12:30 laboratory and microbiology Laboratory Tests 11/05/24 10:21 11/05/24 02:53 Test 11/05/24 02:53 Range/Units Serum Glucose 126 H 74-106 mg/dL Problem List/Assessment/Plan Problem List/Assessment/Plan 11/04/[address] CLEMENS, COLOSTOMY VIABLE AND WITHOUT FUNCTION, WOUND CLEAN AND WELL APPROXIMATED, RAMBO DRAINAGE SEROUS, ANEMIC, ABDOMEN NON DISTENDED, 11/05/24 family members at bedside, wound clean and well approximated, stoma viable without function, drain clear serous, husbands questions answered. remains sedated and intubated on levophed and is tachycardic, ordered bolus of LR over next hour, needs more IV fluid Plan discussed with: Other Dietary Evaluation Review Comments: 1) If patient remains NPO > 7 days, consider EN/TPN to meet at least 75% of estimated energy needs 2) If gut is preferred, consider Jevity 1.2 @ 40 mL/hr goal rate as tolerated. Flush with 200 mL free H2O Q6H. TF regimen will provide 1152 kcals, 53g Pro, and 1575 mL free H2O (including flushes) per 24 hrs. Goal rate matias meet ~90% estimated daily energy needs and ~65% estimated daily protein needs. 3) Advance to 2g Na diet when medically feasible, pending ST approval 4) Follow-up with cardiology and pulmonology 5) Continue to monitor I&O, labs, and skin integrity Expected Outcomes/Goals: 1) patient to receive nutritional support within 7 days of NPO status 2) labs to improve 3) diet to advance 4) f/u in 2-3 dayCIRO Lopes MD Nov 05, 2024 16:23
[2024-11-05] MEDS: ARTIFICIAL TEARS 15ml EACHEYE PRN (16:41)
--- NOTE | 2024-11-05 18:44 | DVHPN2 ---
Progress Note Date Seen: Nov 05, 2024 Resident Creating Document: CHELO WINTER RESIDENT Medical Necessity Reason Pt with a Central, PICC or Fol: Yes Subjective Review of Systems Subjective Review of Systems History of Present Illness 49-year-old female with past medical history of hypertension, GERD, alcohol use disorder, hiatal hernia status post surgery presented with complaints of abdominal pain which is severe, associated with nausea and vomiting and chills. Patient had CT scan done in the hospital which revealed Significant abnormal soft tissue gas tracking along the left psoas musculature left iliacus, left groin likely compatible with insinuating soft tissue infection, Sequelae of presumed vomiting with fluid distention of the distal esophagus gas located at the gastroesophageal junction with small surgical clip in this region and given the adjacent gas, maintain elevated concern for sequelae of gastroesophageal rupture/leak, Large amount of intraperitoneal free air, [id number] stool burden and Indeterminate possible portal venous gas versus marginal gas along the liver. The patient was emergently taken to the OR and underwent Exploratory laparotomy with rectosigmoid resection with colostomy, Extensive lysis of adhesions and Ileal resection with a primary anastomosis. Patient was transferred to ICU on ventilator and was found to be in septic shock. Nephrology was consulted for FLORIN and clearance for PICC line insertion 11/05/24 Patient seen and examined at bedside Currently sedated and intubated On norepinephrine drip Input output +2.7LtL/1,7lt with a net positive of +1 lt Objective vital signs Vital Sign Date Time Temp Pulse Resp B/P (MAP) Pulse Ox O2 Delivery O2 Flow Rate FiO2 11/05/24 18:21 30 11/05/24 18:20 16 99 Mechanical Ventilator+ 11/05/24 18:20 92 11/05/24 17:30 98.4 94/65 (75) 209.1 11/05/24 01:18 30.0 Total Intake and Output 11/04/24 11/04/24 11/05/24 15:00 23:00 07:00 Intake Total 1336.504 ml 869.063 ml 512.814 ml Output Total 45 ml 1715 ml Balance 1336.504 ml 824.063 ml -1202.186 ml medications Current Medications Medications Dose Ordered Sig/Greg Route Start Time Stop Time Status Last Admin Dose Admin Vancomycin HCl 0 ml @ 0 mls/hr UD IV 11/01/24 21:15 Ondansetron HCl 4 mg Q4HP PRN IV 11/01/24 21:15 Midazolam HCl 50 ml @ 1 mls/hr Q24H IV 11/02/24 01:15 11/05/24 02:35 2 MLS/HR Fentanyl Citrate 250 ml @ 2.5 mls/hr Q24H IV 11/02/24 01:15 11/04/24 09:49 2.5 MLS/HR Thiamine HCl 100 mg DAILY IV 11/03/24 10:00 11/05/24 10:42 100 MG Norepinephrine Bitartrate 32 mg/ Sodium Chloride 250 ml @ 0.938 mls/ hr Q24H IV 11/03/24 14:45 11/05/24 16:43 5.625 MLS/HR Amino Acids 0 ml @ 0 mls/hr PER PHARMACY IV 11/03/24 16:30 Diagnostic Test (Pha) 1 strip Q6HR 11/04/24 00:00 11/05/24 17:52 1 STRIP Insulin Human Regular FOLLOW SLIDING SCALE Q6HR SC 11/04/24 00:00 11/05/24 17:56 2 UNITS Dextrose 50 ml UD IV 11/04/24 00:00 Pantoprazole Sodium 40 mg BID IV 11/04/24 09:15 11/05/24 10:31 40 MG Fat Emulsion Intravenous 50 ml/ Potassium Acetate 20 meq/Calcium Gluconate 4.65 meq/Magnesium Sulfate 8 meq/ Multivitamins 10 ml/Chromium/ Copper/Manganese/ Zinc 1 ml/Amino Acids/Dextrose 783 ml @ 33 mls/hr [id number] IV 11/04/24 22:00 11/05/24 21:59 11/04/24 21:46 33 MLS/HR Meropenem 50 ml @ 17 mls/hr Q12HR IV 11/05/24 10:00 11/05/24 10:52 17 MLS/HR Furosemide 40 mg DAILY IV 11/05/24 10:00 11/05/24 10:43 40 MG Fat Emulsion Intravenous 100 ml/Potassium Acetate 30 meq/ Potassium Phosphate 22 meq/ Calcium Gluconate 4.65 meq/ Magnesium Sulfate 16 meq/ Multivitamins 10 ml/Chromium/ Copper/Manganese/ Zinc 1 ml/Amino Acids/Dextrose 995 ml @ 42 mls/hr [id number] IV 11/05/24 22:00 9/5/25 21:59 Dextrose 1,000 ml @ 30 mls/hr Q24H IV 11/05/24 11:15 11/05/24 12:27 30 MLS/HR Artificial Tears 1 drop Q6HP PRN EACHEYE 11/05/24 12:30 11/05/24 16:41 1 DROP Examination Examination General Appearance: Sedated and intubated, lin catheter present HEENT: EOMI Respiratory: Clear to auscultation, Normal air movement Cardiovascular: Regular rate, Normal S1, Normal S2 Abdominal: Normal bowel sounds Extremities: bilateral pedal edema Skin: No rashes, No breakdown Neuro : Sedated and intubated laboratory and microbiology Laboratory Tests 11/05/24 10:21 11/05/24 02:53 Test 11/05/24 02:53 Range/Units Serum Glucose 126 H 74-106 mg/dL Microbiology Date/Time Source Procedure Growth Status 11/03/24 14:05 Blood Blood Culture - Preliminary NO GROWTH AFTER 48 HOURS OF INCUBATION. Resulted 11/02/24 01:14 Trachea Gram Stain - Final Complete 11/02/24 01:14 Respiratory Culture - Final Staphylococcus aureus Presumptive Cherelle albicans Complete Labs and/or images reviewed: Labs reviewed by me, Image(s) reviewed by me Problem List/Assessment/Plan Problem List/Assessment/Plan Assessment Assessment/plan # Acute kidney injury, unknown baseline function , hemodynamically mediated, ?ATN due to septic shock Input output +2.7LtL/1,7lt with a net positive of +1 lt FeNA 1.7% improving creatinine levels from 2.57 to 2.07 POCUS IVC done : size of 1.3 cm # hypernatremia # asymptomatic hypocalcemia # Septic Shock # Perforation of the hollow viscus, status post exploratory laparotomy # Acute complicated cystitis Plan Monitor kidney function including electrolytes Strict input and output Ordered urine studies including urine sodium, urine creatinine, urine protein Discontinue IV Lasix continue IV fluids through TPN as per primary team We agree with continuing D5 @ 30 cc/hr. Improving Kidney function. Patient's family updated about the patient's condition and possible need for dialysis if kidney function deteriorates further. Case discussion with Dr Huerta Plan discussed with: Patient, Other Dietary Evaluation Review Comments: 1) If patient remains NPO > 7 days, consider EN/TPN to meet at least 75% of estimated energy needs 2) If gut is preferred, consider Jevity 1.2 @ 40 mL/hr goal rate as tolerated. Flush with 200 mL free H2O Q6H. TF regimen will provide 1152 kcals, 53g Pro, and 1575 mL free H2O (including flushes) per 24 hrs. Goal rate matias meet ~90% estimated daily energy needs and ~65% estimated daily protein needs. 3) Advance to 2g Na diet when medically feasible, pending ST approval 4) Follow-up with cardiology and pulmonology 5) Continue to monitor I&O, labs, and skin integrity Expected Outcomes/Goals: 1) patient to receive nutritional support within 7 days of NPO status 2) labs to improve 3) diet to advance 4) f/u in 2-3 dayCHELO Wesley RESIDENT Nov 05, 2024 18:44
[2024-11-05] MEDS: TPN PER PHARMACY IV NR (22:06)
[2024-11-06] VITALS (117 sets, daily range): BP systolic 79–108; BP diastolic 52–73; PULSE 93–108; RESP 16–23; TEMP 98.2–99.3; O2SAT 99–100
[2024-11-06 03:58] LABS: Nucleated Red Blood Cells % 0.1 %
[2024-11-06 04:00] LABS: Hematocrit 29.7 % (36.0-46.0); Hemoglobin 9.9 g/dL (12.2-16.2); Mean Corpuscular Hemoglobin 26.0 pg (28.0-32.0); Mean Corpuscular Volume 78.3 fL (80.0-100.0)
[2024-11-06 04:11] LABS: INR 1.29 (0.9-1.15); Partial Thromboplastin Time 48.7 SEC (24.5-34.5); Prothrombin Time 13.3 sec (9.3-11.8)
[2024-11-06 04:57] LABS: Alanine Aminotransferase 13 U/L (7-40); Alkaline Phosphatase 100 U/L (46-116); Anion Gap 8 (5-15); BUN/Creatinine Ratio 14.2 (10.0-20.0); Bilirubin, Total 0.3 mg/dL (0.2-1.0); Carbon Dioxide 24 mmol/L (20-31); Magnesium 1.6 mg/dL (1.6-2.6)
[2024-11-06 04:58] LABS: Albumin 2.3 g/dL (3.2-4.8); Blood Urea Nitrogen 25 mg/dL (9-23); Calcium 7.9 mg/dL (8.7-10.4); Chloride 113 mmol/L (98-107); Glucose 141 mg/dL (74-106); Potassium 3.4 mmol/L (3.5-5.1); Sodium 145 mmol/L (136-145); Total Protein 4.0 g/dL (5.7-8.2)
[2024-11-06] MEDS: MAGNESIUM SULFATE 1GM/100ML 100 ML IV ONE (05:44)
--- NOTE | 2024-11-06 05:50 | DVH ---
CHEST RADIOGRAPH Indication: On mechanical ventilation Technique: Single frontal view of the chest was obtained COMPARISON: XY CHEST PORTABLE on DOS: 11/05/24, XY CHEST PORTABLE on DOS: 11/04/24, XY CHEST PORTABLE on DOS: 11/03/24, XY CHEST PORTABLE on DOS: 11/03/24, XY CHEST PORTABLE on DOS: 11/02/24, XY CHEST PORTABLE on DOS: 11/04/24 FINDINGS: Lines and Tubes: Endotracheal tube, enteric catheter and right central venous catheter in satisfactor y position Lungs: Congestion Pleura: No effusion. No pneumothorax. Cardiomediastinal contours: Unremarkable Bones: Unremarkable IMPRESSION: Lines and tubes in satisfactory position. No significant interval change.
[2024-11-06] MEDS: POTASSIUM CHL 20MEQ/100ML 100 ML IV ONE (05:51)
[2024-11-06 07:06] LABS: Base Excess -4.4 mmol/L (-2.0-3.0)
[2024-11-06] MEDS: POTASSIUM PHOSPHATE 26.4 MEQ in SODIUM CHL 0.9% 100 ML IV ONE (08:28)
[2024-11-06] MEDS ORDERED: POTASSIUM PHOSPHATE 22 MEQ in SODIUM CHL 0.9% 100 ML IV ONE (09:00)
--- NOTE | 2024-11-06 09:16 | DVHPN2 ---
Progress Note Date Seen: Nov 06, 2024 Medical Necessity Reason Pt with a Central, PICC or Fol: Yes Objective vital signs Vital Sign Date Time Temp Pulse Resp B/P (MAP) Pulse Ox O2 Delivery O2 Flow Rate FiO2 11/06/24 09:10 98.6 98 16 86/57 (67) 100 209.5 11/06/24 08:27 30 11/06/24 08:00 Mechanical Ventilator+ 11/05/24 01:18 30.0 Total Intake and Output 11/05/24 11/05/24 11/06/24 15:00 23:00 07:00 Intake Total 814.814 ml 590.000 ml 710.504 ml Output Total 1200 ml 560 ml Balance 814.814 ml -610.000 ml 150.504 ml medications Current Medications Medications Dose Ordered Sig/Greg Route Start Time Stop Time Status Last Admin Dose Admin Vancomycin HCl 0 ml @ 0 mls/hr UD IV 11/01/24 21:15 Ondansetron HCl 4 mg Q4HP PRN IV 11/01/24 21:15 Midazolam HCl 50 ml @ 1 mls/hr Q24H IV 11/02/24 01:15 11/05/24 02:35 2 MLS/HR Fentanyl Citrate 250 ml @ 2.5 mls/hr Q24H IV 11/02/24 01:15 11/05/24 22:04 5 MLS/HR Thiamine HCl 100 mg DAILY IV 11/03/24 10:00 11/06/24 08:08 100 MG Norepinephrine Bitartrate 32 mg/ Sodium Chloride 250 ml @ 0.938 mls/ hr Q24H IV 11/03/24 14:45 11/05/24 16:43 5.625 MLS/HR Amino Acids 0 ml @ 0 mls/hr PER PHARMACY IV 11/03/24 16:30 Diagnostic Test (Pha) 1 strip Q6HR 11/04/24 00:00 11/06/24 05:43 1 STRIP Insulin Human Regular FOLLOW SLIDING SCALE Q6HR SC 11/04/24 00:00 11/06/24 05:43 2 UNITS Dextrose 50 ml UD IV 11/04/24 00:00 Pantoprazole Sodium 40 mg BID IV 11/04/24 09:15 11/06/24 08:07 40 MG Meropenem 50 ml @ 17 mls/hr Q12HR IV 11/05/24 10:00 11/06/24 08:08 17 MLS/HR Fat Emulsion Intravenous 100 ml/Potassium Acetate 30 meq/ Potassium Phosphate 22 meq/ Calcium Gluconate 4.65 meq/ Magnesium Sulfate 16 meq/ Multivitamins 10 ml/Chromium/ Copper/Manganese/ Zinc 1 ml/Amino Acids/Dextrose 995 ml @ 42 mls/hr [id number] IV 11/05/24 22:00 11/06/24 21:59 11/05/24 22:06 42 MLS/HR Dextrose 1,000 ml @ 30 mls/hr Q24H IV 11/05/24 11:15 11/05/24 12:27 30 MLS/HR Artificial Tears 1 drop Q6HP PRN EACHEYE 11/05/24 12:30 11/05/24 16:41 1 DROP laboratory and microbiology Laboratory Tests 11/06/24 03:00 Test 11/06/24 03:00 Range/Units Serum Glucose 141 H 74-106 mg/dL Problem List/Assessment/Plan Problem List/Assessment/Plan 11/04/[address] CLEMENS, COLOSTOMY VIABLE AND WITHOUT FUNCTION, WOUND CLEAN AND WELL APPROXIMATED, RAMBO DRAINAGE SEROUS, ANEMIC, ABDOMEN NON DISTENDED, 11/05/24 family members at bedside, wound clean and well approximated, stoma viable without function, drain clear serous, husbands questions answered. remains sedated and intubated on levophed and is tachycardic, ordered bolus of LR over next hour, needs more IV fluid 11/06/24 wound clean and well approximated, abdomen non distended soft, drainage clear serous. colostomy viable with flatus present in appliance. remains intubated and sedated Plan discussed with: Patient Dietary Evaluation Review Comments: 1) If patient remains NPO > 7 days, consider EN/TPN to meet at least 75% of estimated energy needs 2) If gut is preferred, consider Jevity 1.2 @ 40 mL/hr goal rate as tolerated. Flush with 200 mL free H2O Q6H. TF regimen will provide 1152 kcals, 53g Pro, and 1575 mL free H2O (including flushes) per 24 hrs. Goal rate matias meet ~90% estimated daily energy needs and ~65% estimated daily protein needs. 3) Advance to 2g Na diet when medically feasible, pending ST approval 4) Follow-up with cardiology and pulmonology 5) Continue to monitor I&O, labs, and skin integrity Expected Outcomes/Goals: 1) patient to receive nutritional support within 7 days of NPO status 2) labs to improve 3) diet to advance 4) f/u in 2-3 dayas CIRO REYNA MD Nov 06, 2024 09:16
[2024-11-06] MEDS: VANCOMYCIN 500mg/100mL 100 ML IV ONE (10:40)
--- NOTE | 2024-11-06 11:56 | DVHPN2 ---
Progress Note Date Seen: Nov 06, 2024 Resident Creating Document: CHELO WINTER RESIDENT Medical Necessity Reason Pt with a Central, PICC or Fol: Yes Subjective Review of Systems Review of Systems History of Present Illness 49-year-old female with past medical history of hypertension, GERD, alcohol use disorder, hiatal hernia status post surgery presented with complaints of abdominal pain which is severe, associated with nausea and vomiting and chills. Patient had CT scan done in the hospital which revealed Significant abnormal soft tissue gas tracking along the left psoas musculature left iliacus, left groin likely compatible with insinuating soft tissue infection, Sequelae of presumed vomiting with fluid distention of the distal esophagus gas located at the gastroesophageal junction with small surgical clip in this region and given the adjacent gas, maintain elevated concern for sequelae of gastroesophageal rupture/leak, Large amount of intraperitoneal free air, [id number] stool burden and Indeterminate possible portal venous gas versus marginal gas along the liver. The patient was emergently taken to the OR and underwent Exploratory laparotomy with rectosigmoid resection with colostomy, Extensive lysis of adhesions and Ileal resection with a primary anastomosis. Patient was transferred to ICU on ventilator and was found to be in septic shock. Nephrology was consulted for FLORIN and clearance for PICC line insertion 11/05/24 Patient seen and examined at bedside Currently sedated and intubated On norepinephrine drip Input output +2.1LtL/1.7lt with a net positive of +375 ml Objective vital signs Vital Sign Date Time Temp Pulse Resp B/P (MAP) Pulse Ox O2 Delivery O2 Flow Rate FiO2 11/06/24 11:39 30 11/06/24 11:39 98 11/06/24 11:39 16 100 Mechanical Ventilator+ 11/06/24 11:25 98.6 98/68 (78) 209.5 11/05/24 01:18 30.0 Total Intake and Output 11/05/24 11/05/24 11/06/24 15:00 23:00 07:00 Intake Total 814.814 ml 590.000 ml 710.504 ml Output Total 1200 ml 560 ml Balance 814.814 ml -610.000 ml 150.504 ml medications Current Medications Medications Dose Ordered Sig/Greg Route Start Time Stop Time Status Last Admin Dose Admin Vancomycin HCl 0 ml @ 0 mls/hr UD IV 11/01/24 21:15 Ondansetron HCl 4 mg Q4HP PRN IV 11/01/24 21:15 Midazolam HCl 50 ml @ 1 mls/hr Q24H IV 11/02/24 01:15 11/05/24 02:35 2 MLS/HR Fentanyl Citrate 250 ml @ 2.5 mls/hr Q24H IV 11/02/24 01:15 11/05/24 22:04 5 MLS/HR Thiamine HCl 100 mg DAILY IV 11/03/24 10:00 11/06/24 08:08 100 MG Norepinephrine Bitartrate 32 mg/ Sodium Chloride 250 ml @ 0.938 mls/ hr Q24H IV 11/03/24 14:45 11/05/24 16:43 5.625 MLS/HR Amino Acids 0 ml @ 0 mls/hr PER PHARMACY IV 11/03/24 16:30 Diagnostic Test (Pha) 1 strip Q6HR 11/04/24 00:00 11/06/24 10:42 1 STRIP Insulin Human Regular FOLLOW SLIDING SCALE Q6HR SC 11/04/24 00:00 11/06/24 10:53 2 UNITS Dextrose 50 ml UD IV 11/04/24 00:00 Pantoprazole Sodium 40 mg BID IV 11/04/24 09:15 11/06/24 08:07 40 MG Meropenem 50 ml @ 17 mls/hr Q12HR IV 11/05/24 10:00 11/06/24 08:08 17 MLS/HR Fat Emulsion Intravenous 100 ml/Potassium Acetate 30 meq/ Potassium Phosphate 22 meq/ Calcium Gluconate 4.65 meq/ Magnesium Sulfate 16 meq/ Multivitamins 10 ml/Chromium/ Copper/Manganese/ Zinc 1 ml/Amino Acids/Dextrose 995 ml @ 42 mls/hr [id number] IV 11/05/24 22:00 11/06/24 21:59 11/05/24 22:06 42 MLS/HR Dextrose 1,000 ml @ 30 mls/hr Q24H IV 11/05/24 11:15 11/05/24 12:27 30 MLS/HR Artificial Tears 1 drop Q6HP PRN EACHEYE 11/05/24 12:30 11/05/24 16:41 1 DROP Fat Emulsion Intravenous 150 ml/Potassium Acetate 30 meq/ Potassium Phosphate 30 meq/ Calcium Gluconate 2.3 meq/Magnesium Sulfate 20 meq/ Multivitamins 10 ml/Chromium/ Copper/Manganese/ Zinc 1 ml/Amino Acids/Dextrose 1,192.7644 ml @ 49 mls/hr [id number] IV 11/06/24 22:00 11/07/24 21:59 Examination Examination General Appearance: Sedated and intubated, lin catheter present HEENT: EOMI Respiratory: Clear to auscultation, Normal air movement Cardiovascular: Regular rate, Normal S1, Normal S2 Abdominal: Normal bowel sounds Extremities: bilateral pedal edema Skin: No rashes, No breakdown Neuro : Sedated and intubated laboratory and microbiology Laboratory Tests 11/06/24 03:00 Test 11/06/24 03:00 Range/Units Serum Glucose 141 H 74-106 mg/dL Microbiology Date/Time Source Procedure Growth Status 11/03/24 14:05 Blood Blood Culture - Preliminary NO GROWTH AFTER 48 HOURS OF INCUBATION. Resulted 11/02/24 01:14 Trachea Gram Stain - Final Complete 11/02/24 01:14 Respiratory Culture - Final Staphylococcus aureus Presumptive Cherelle albicans Complete Labs and/or images reviewed: Labs reviewed by me, Image(s) reviewed by me Problem List/Assessment/Plan Problem List/Assessment/Plan Assessment Assessment/plan # Acute kidney injury, unknown baseline function , hemodynamically mediated, ?ATN due to septic shock Input output +2.1LtL/1.7lt with a net positive of +375 ml FeNA 1.7% improving creatinine levels from 2.07 to 1.76 # Hypernatremia, improving # Hypophosphatemia # Asymptomatic hypocalcemia # Septic Shock # Perforation of the hollow viscus, status post exploratory laparotomy # Acute complicated cystitis Plan Monitor kidney function including electrolytes Strict input and output Ordered urine studies including urine sodium, urine creatinine, urine protein Discontinue IV Lasix continue IV fluids through TPN as per primary team We agree with continuing D5 @ 30 cc/hr. Improving Kidney function. Potassium replacement IV done by the primary team Patient's family updated about the patient's condition and possible need for dialysis if kidney function deteriorates further. Case discussion with Dr Huerta Plan discussed with: Patient, Other Dietary Evaluation Review Comments: 1) If patient remains NPO > 7 days, consider EN/TPN to meet at least 75% of estimated energy needs 2) If gut is preferred, consider Jevity 1.2 @ 40 mL/hr goal rate as tolerated. Flush with 200 mL free H2O Q6H. TF regimen will provide 1152 kcals, 53g Pro, and 1575 mL free H2O (including flushes) per 24 hrs. Goal rate matias meet ~90% estimated daily energy needs and ~65% estimated daily protein needs. 3) Advance to 2g Na diet when medically feasible, pending ST approval 4) Follow-up with cardiology and pulmonology 5) Continue to monitor I&O, labs, and skin integrity Expected Outcomes/Goals: 1) patient to receive nutritional support within 7 days of NPO status 2) labs to improve 3) diet to advance 4) f/u in 2-3 dayCHELO Wesley RESIDENT Nov 06, 2024 11:56
--- NOTE | 2024-11-06 17:49 | DVHPNRES ---
Progress Note Date Seen: Nov 06, 2024 Resident Creating Document: THIAGO NEGRON RESIDENT Medical Necessity Reason Pt with a Central, PICC or Fol: Yes Subjective Review of Systems Patient was seen and examined on the bedside ICU. She is on mechanical ventilation with FiO2 30%, tidal volume 450 mL, peep 5 and respiratory rate 16. Overnight T-max is 98.8, tachycardic , blood pressure 87/61 and patient is on Levophed , Versed and fentanyl. Last 12 hours urine output is 2600 mL, gastric minimal gastric drainage, drain I,5 mL, drain II,10 mL and both are serosanguineous. H&H is stable . Bilateral peripheral ischemic toes in the lower limb and duplex arterial scan demonstrated bilateral hemodynamically significant stenosis in left dorsalis pedis and right popliteal artery. Patient is unstable for transfer to [place]. Objective vital signs Vital Sign Date Time Temp Pulse Resp B/P (MAP) Pulse Ox O2 Delivery O2 Flow Rate FiO2 11/06/24 17:32 30 11/06/24 17:32 97 11/06/24 17:32 16 100 Mechanical Ventilator+ 11/06/24 17:25 98.8 93/61 (72) 209.8 11/05/24 01:18 30.0 Total Intake and Output 11/05/24 11/05/24 11/06/24 15:00 23:00 07:00 Intake Total 814.814 ml 590.000 ml 710.504 ml Output Total 1200 ml 560 ml Balance 814.814 ml -610.000 ml 150.504 ml medications Current Medications Medications Dose Ordered Sig/Greg Route Start Time Stop Time Status Last Admin Dose Admin Vancomycin HCl 0 ml @ 0 mls/hr UD IV 11/01/24 21:15 Ondansetron HCl 4 mg Q4HP PRN IV 11/01/24 21:15 Midazolam HCl 50 ml @ 1 mls/hr Q24H IV 11/02/24 01:15 11/05/24 02:35 2 MLS/HR Fentanyl Citrate 250 ml @ 2.5 mls/hr Q24H IV 11/02/24 01:15 11/05/24 22:04 5 MLS/HR Thiamine HCl 100 mg DAILY IV 11/03/24 10:00 11/06/24 08:08 100 MG Norepinephrine Bitartrate 32 mg/ Sodium Chloride 250 ml @ 0.938 mls/ hr Q24H IV 11/03/24 14:45 11/05/24 16:43 5.625 MLS/HR Amino Acids 0 ml @ 0 mls/hr PER PHARMACY IV 11/03/24 16:30 Diagnostic Test (Pha) 1 strip Q6HR 11/04/24 00:00 11/06/24 17:11 1 STRIP Insulin Human Regular FOLLOW SLIDING SCALE Q6HR SC 11/04/24 00:00 11/06/24 17:18 2 UNITS Dextrose 50 ml UD IV 11/04/24 00:00 Pantoprazole Sodium 40 mg BID IV 11/04/24 09:15 11/06/24 08:07 40 MG Meropenem 50 ml @ 17 mls/hr Q12HR IV 11/05/24 10:00 11/06/24 08:08 17 MLS/HR Fat Emulsion Intravenous 100 ml/Potassium Acetate 30 meq/ Potassium Phosphate 22 meq/ Calcium Gluconate 4.65 meq/ Magnesium Sulfate 16 meq/ Multivitamins 10 ml/Chromium/ Copper/Manganese/ Zinc 1 ml/Amino Acids/Dextrose 995 ml @ 42 mls/hr [id number] IV 11/05/24 22:00 11/06/24 21:59 11/05/24 22:06 42 MLS/HR Dextrose 1,000 ml @ 30 mls/hr Q24H IV 11/05/24 11:15 11/05/24 12:27 30 MLS/HR Artificial Tears 1 drop Q6HP PRN EACHEYE 11/05/24 12:30 11/05/24 16:41 1 DROP Fat Emulsion Intravenous 150 ml/Potassium Acetate 30 meq/ Potassium Phosphate 30 meq/ Calcium Gluconate 2.3 meq/Magnesium Sulfate 20 meq/ Multivitamins 10 ml/Chromium/ Copper/Manganese/ Zinc 1 ml/Amino Acids/Dextrose 1,192.7644 ml @ 49 mls/hr [id number] IV 11/06/24 22:00 11/07/24 21:59 Examination Examination General: RASS -3, afebrile, mucosae are moist Cardiovascular: Normal S1 and S2. No murmurs, gallops or rubs Respiratory: Mechanically assisted ventilation, equal bilateral airway entree. Clear lung sounds on auscultation Abdomen: Soft, nontender, no organomegaly, sluggish bowel sounds, Surgical wound on the midline and colostomy on the left side. MSK/skin: Mobilization of limbs cannot be evaluated. Skin is dry and cold. Bilateral ischemic toes in the lower extremities Neurological: Orientation cannot be assessed. No apparent motor no sensitive deficits. Pupils are isocoric and reactive. laboratory and microbiology Laboratory Tests 11/06/24 03:00 Test 11/06/24 03:00 Range/Units Serum Glucose 141 H 74-106 mg/dL Microbiology Date/Time Source Procedure Growth Status 11/03/24 14:05 Blood Blood Culture - Preliminary NO GROWTH AFTER 72 HOURS OF INCUBATION. Resulted 11/02/24 01:14 Trachea Gram Stain - Final Complete 11/02/24 01:14 Respiratory Culture - Final Staphylococcus aureus Presumptive Cherelle albicans Complete Labs and/or images reviewed: Labs reviewed by me, Image(s) reviewed by me Problem List/Assessment/Plan Problem List/Assessment/Plan Assessment and plan: NEURO: Acute metabolic encephalopathy secondary to septic shock Status post intubation RASS score: -3 CARDIOVASCULAR: Septic shock secondary to perforation of the hollow viscus Sinus tachycardia secondary to pain versus withdrawal Bilateral peripheral arterial disease - Patient is on Levophed - EKG demonstrated sinus tachycardia - echo showed EF 60%, echo density in RV suggestive of large papillary muscle, can not rule out vegetation. - Duplex scan of the lower extremity revealed bilateral hemodynamically significant stenosis in left dorsalis pedis and right popliteal artery PULMONARY: Possible right lower lobe pneumonia Mild bilateral pleural effusion. - Chest x-ray showed atelectasis in bilateral lung bases - Blood culture showed Bacteroides and respiratory cultures Staph aureus and presumptive Cherelle albicans - Follow up blood culture revealed no growth in 24 hours of incubation. - continue IV vancomycin and IV meropenem GASTROINTESTINAL: Septic shock secondary to perforation of the hollow viscus, status post exploratory laparotomy Rule out colonic malignancy Transaminitis and coagulopathy secondary to hepatic steatosis Rule out cirrhosis Enlarged CBD, rule out choledocholithiasis or biliary stenosis Alcohol abuse disorder - TPN as per pharmacy - IV thiamine 100 mg daily - CT abdomen pelvis without contrast showed large amount of intraperitoneal free air . egof-bo-ismntibm stool burden. Indeterminate possible portal venous gas versus marginal gas along the liver - U/S of the abdomen showed The liver is diffusely echogenic which may be secondary to steatosis or another diffuse hepatic process. Enlargement of the common bile duct measuring up to 15 mm. Gallbladder sludge. Small amount of free fluid in the abdomen. - Patient underwent Exploratory laparotomy with rectosigmoid resection with colostomy, Extensive lysis of adhesions and Ileal resection with a primary anastomosis. - Abdominal fluid culture demonstrated, prevotella, Pseudomonas, E coli, Streptococcus mitis - continue IV vancomycin and IV meropenem GENITOURINARY: FLORIN secondary to septic shock/ VMN Acute complicated cystitis - U/A was consistent with UTI - Pending urine bacterial culture ENDOCRINE: Hypoglycemia METABOLIC: Moderate protein calorie malnutrition Hypocalcemia metabolic acidosis with respiratory compensation HEME: Acute on chronic microcytic hypochromic anemia Reactive thrombocytosis secondary to infection Coagulopathy Acute DVT of left upper arm - Hold anticoagulant due to low hemoglobin - 2 unit PRBC and 1 FFP given since surgery - monitor H&H INFECTIOUS DISEASE: Sepsis with septic shock secondary to perforation of the hollow viscus, status post exploratory laparotomy Possible right lower lobe pneumonia Acute complicated cystitis - Blood culture showed Gram-negative rods, other cultures are pending - continue IV vancomycin and IV meropenem DIET: TPN DVT prophylax: Hold lovenox GI prophylaxis: Protonix Bowel regimen: Code status: Full Code LINES/DRAINS/ACCESS: ETT: Intubated on 11/01/2024 IV access: Right IJ placed on 04/12/2024 Drips: Levophed, Versed, fentanyl Grajeda catheter: Placed on 11/01/2024 DISPOSITION: ICU Patient's status discussed with Critical care time spent more than 81 minutes, including patient care, chart review, and updating the family. Excluding any procedures. Case discussed with Dr. Soto Plan discussed with: Spouse, Daughter, Other (RN) My Orders My Orders Orders - THIAGO NEGRON RESIDENT Procedure Category Date Status Time Chest Portable XY 11/06/24 Resulted 04:00 Abg W/ Co-Ox RT 11/06/24 Logged 04:00 Amino Acid PHA 11/06/24 In Process Infusion... W/Fat 22:00 Comprehensive LAB 11/07/24 Verified Metabolic Panel 04:00 Magnesium LAB 11/07/24 Verified 04:00 Phosphorus LAB 11/07/24 Verified 04:00 Tpn Per Pharmacy [facility] 11/06/24 In Process 22:00 Complete Blood Count LAB 11/07/24 Verified 04:00 Chest Portable XY 11/07/24 Logged 04:00 Dietary Evaluation Review Comments: 1) If patient remains NPO > 7 days, consider EN/TPN to meet at least 75% of estimated energy needs 2) If gut is preferred, consider Jevity 1.2 @ 40 mL/hr goal rate as tolerated. Flush with 200 mL free H2O Q6H. TF regimen will provide 1152 kcals, 53g Pro, and 1575 mL free H2O (including flushes) per 24 hrs. Goal rate matias meet ~90% estimated daily energy needs and ~65% estimated daily protein needs. 3) Advance to 2g Na diet when medically feasible, pending ST approval 4) Follow-up with cardiology and pulmonology 5) Continue to monitor I&O, labs, and skin integrity Expected Outcomes/Goals: 1) patient to receive nutritional support within 7 days of NPO status 2) labs to improve 3) diet to advance 4) f/u in 2-3 THIAGO Celaya RESIDENT Nov 06, 2024 17:49
[2024-11-06] MEDS: TPN PER PHARMACY IV NR (22:25)
[2024-11-07] VITALS (115 sets, daily range): BP systolic 78–126; BP diastolic 46–86; PULSE 84–122; RESP 14–47; TEMP 84–99; O2SAT 99–100
[2024-11-07 04:03] LABS: Hematocrit 30.0 % (36.0-46.0); Hemoglobin 10.0 g/dL (12.2-16.2); Mean Corpuscular Hemoglobin 26.0 pg (28.0-32.0); Mean Corpuscular Volume 78.1 fL (80.0-100.0); Nucleated Red Blood Cells % 0.3 %
[2024-11-07 04:58] LABS: Alanine Aminotransferase 11 U/L (7-40); Alkaline Phosphatase 91 U/L (46-116); Anion Gap 7 (5-15); BUN/Creatinine Ratio 19.0 (10.0-20.0); Carbon Dioxide 25 mmol/L (20-31); Magnesium 1.8 mg/dL (1.6-2.6); Potassium 3.8 mmol/L (3.5-5.1); Sodium 143 mmol/L (136-145)
[2024-11-07 05:14] LABS: Albumin 2.2 g/dL (3.2-4.8); Bilirubin, Total 0.2 mg/dL (0.2-1.0); Blood Urea Nitrogen 28 mg/dL (9-23); Calcium 8.1 mg/dL (8.7-10.4); Chloride 111 mmol/L (98-107); Glucose 147 mg/dL (74-106); Total Protein 4.0 g/dL (5.7-8.2)
--- NOTE | 2024-11-07 05:49 | DVH ---
CHEST RADIOGRAPH Indication: intubated Technique: Single frontal view of the chest was obtained COMPARISON: XY CHEST PORTABLE on DOS: 11/06/24, XY CHEST PORTABLE on DOS: 11/05/24, XY CHEST PORTABLE on DOS: 11/04/24, XY CHEST PORTABLE on DOS: 11/03/24, XY CHEST PORTABLE on DOS: 11/03/24 FINDINGS: Lines and Tubes: Unchanged. Lungs: Stable mild diffuse increased prominence of the pulmonary vasculature. Pleura: No effusion. No pneumothorax. Cardiomediastinal contours: Unremarkable Bones: Unremarkable IMPRESSION: 1. Stable mild pulmonary vascular congestion. 2. Lines and tubes unchanged.
[2024-11-07] MEDS: VANCOMYCIN 500mg/100mL 100 ML IV ONE (09:35)
--- NOTE | 2024-11-07 10:35 | DVHPN2 ---
Progress Note Date Seen: Nov 07, 2024 Medical Necessity Reason Pt with a Central, PICC or Fol: Yes Objective vital signs Vital Sign Date Time Temp Pulse Resp B/P (MAP) Pulse Ox O2 Delivery O2 Flow Rate FiO2 11/07/24 10:01 97 16 90/57 (68) 100 30 11/07/24 09:37 Mechanical Ventilator+ 11/07/24 09:25 98.6 209.5 Total Intake and Output 11/06/24 11/06/24 11/07/24 15:00 23:00 07:00 Intake Total 744.900 ml 515.503 ml 789.063 ml Output Total 510 ml 465 ml Balance 744.900 ml 5.503 ml 324.063 ml medications Current Medications Medications Dose Ordered Sig/Greg Route Start Time Stop Time Status Last Admin Dose Admin Vancomycin HCl 0 ml @ 0 mls/hr UD IV 11/01/24 21:15 Ondansetron HCl 4 mg Q4HP PRN IV 11/01/24 21:15 Midazolam HCl 50 ml @ 1 mls/hr Q24H IV 11/02/24 01:15 11/06/24 20:09 1 MLS/HR Fentanyl Citrate 250 ml @ 2.5 mls/hr Q24H IV 11/02/24 01:15 11/05/24 22:04 5 MLS/HR Thiamine HCl 100 mg DAILY IV 11/03/24 10:00 11/07/24 07:32 100 MG Norepinephrine Bitartrate 32 mg/ Sodium Chloride 250 ml @ 0.938 mls/ hr Q24H IV 11/03/24 14:45 11/05/24 16:43 5.625 MLS/HR Amino Acids 0 ml @ 0 mls/hr PER PHARMACY IV 11/03/24 16:30 Diagnostic Test (Pha) 1 strip Q6HR 11/04/24 00:00 11/07/24 05:44 1 STRIP Insulin Human Regular FOLLOW SLIDING SCALE Q6HR SC 11/04/24 00:00 11/07/24 05:52 2 UNITS Dextrose 50 ml UD IV 11/04/24 00:00 Pantoprazole Sodium 40 mg BID IV 11/04/24 09:15 11/07/24 07:32 40 MG Meropenem 50 ml @ 17 mls/hr Q12HR IV 11/05/24 10:00 11/07/24 07:32 17 MLS/HR Dextrose 1,000 ml @ 30 mls/hr Q24H IV 11/05/24 11:15 11/06/24 22:45 30 MLS/HR Artificial Tears 1 drop Q6HP PRN EACHEYE 11/05/24 12:30 11/05/24 16:41 1 DROP Fat Emulsion Intravenous 150 ml/Potassium Acetate 30 meq/ Potassium Phosphate 30 meq/ Calcium Gluconate 2.3 meq/Magnesium Sulfate 20 meq/ Multivitamins 10 ml/Chromium/ Copper/Manganese/ Zinc 1 ml/Amino Acids/Dextrose 1,192.7644 ml @ 49 mls/hr [id number] IV 11/06/24 22:00 11/07/24 21:59 11/06/24 22:25 49 MLS/HR laboratory and microbiology Laboratory Tests 11/07/24 03:08 Test 11/07/24 03:08 Range/Units Serum Glucose 147 H 74-106 mg/dL Problem List/Assessment/Plan Problem List/Assessment/Plan 11/04/[address] CLEMENS, COLOSTOMY VIABLE AND WITHOUT FUNCTION, WOUND CLEAN AND WELL APPROXIMATED, RAMBO DRAINAGE SEROUS, ANEMIC, ABDOMEN NON DISTENDED, 11/05/24 family members at bedside, wound clean and well approximated, stoma viable without function, drain clear serous, husbands questions answered. remains sedated and intubated on levophed and is tachycardic, ordered bolus of LR over next hour, needs more IV fluid 11/06/24 wound clean and well approximated, abdomen non distended soft, drainage clear serous. colostomy viable with flatus present in appliance. remains intubated and sedated 11/07/24 unchanged clinically, remains intubated and sedated wound ok, drainage clear, stoma viable no stool. Plan discussed with: Other Dietary Evaluation Review Comments: 1) If patient remains NPO > 7 days, consider EN/TPN to meet at least 75% of estimated energy needs 2) If gut is preferred, consider Jevity 1.2 @ 40 mL/hr goal rate as tolerated. Flush with 200 mL free H2O Q6H. TF regimen will provide 1152 kcals, 53g Pro, and 1575 mL free H2O (including flushes) per 24 hrs. Goal rate matias meet ~90% estimated daily energy needs and ~65% estimated daily protein needs. 3) Advance to 2g Na diet when medically feasible, pending ST approval 4) Follow-up with cardiology and pulmonology 5) Continue to monitor I&O, labs, and skin integrity Expected Outcomes/Goals: 1) patient to receive nutritional support within 7 days of NPO status 2) labs to improve 3) diet to advance 4) f/u in 2-3 dayas CIRO REYNA MD Nov 07, 2024 10:35
--- NOTE | 2024-11-07 13:41 | DVHPN2 ---
Progress Note - Dictate Date Seen: Nov 07, 2024 Medical Necessity Reason Pt with a Central, PICC or Fol: Yes vital signs Vital Sign Date Time Temp Pulse Resp B/P (MAP) Pulse Ox O2 Delivery O2 Flow Rate FiO2 11/07/24 12:41 99.0 99 16 95/63 (74) 100 210.2 11/07/24 11:47 30 11/07/24 11:47 Mechanical Ventilator+ Total Intake and Output 11/06/24 11/06/24 11/07/24 15:00 23:00 07:00 Intake Total 744.900 ml 515.503 ml 789.063 ml Output Total 510 ml 465 ml Balance 744.900 ml 5.503 ml 324.063 ml medications Current Medications Medications Dose Ordered Sig/Greg Route Start Time Stop Time Status Last Admin Dose Admin Vancomycin HCl 0 ml @ 0 mls/hr UD IV 11/01/24 21:15 Ondansetron HCl 4 mg Q4HP PRN IV 11/01/24 21:15 Midazolam HCl 50 ml @ 1 mls/hr Q24H IV 11/02/24 01:15 11/06/24 20:09 1 MLS/HR Fentanyl Citrate 250 ml @ 2.5 mls/hr Q24H IV 11/02/24 01:15 11/05/24 22:04 5 MLS/HR Thiamine HCl 100 mg DAILY IV 11/03/24 10:00 11/07/24 07:32 100 MG Norepinephrine Bitartrate 32 mg/ Sodium Chloride 250 ml @ 0.938 mls/ hr Q24H IV 11/03/24 14:45 11/05/24 16:43 5.625 MLS/HR Amino Acids 0 ml @ 0 mls/hr PER PHARMACY IV 11/03/24 16:30 Diagnostic Test (Pha) 1 strip Q6HR 11/04/24 00:00 11/07/24 12:17 1 STRIP Insulin Human Regular FOLLOW SLIDING SCALE Q6HR SC 11/04/24 00:00 11/07/24 12:18 2 UNITS Dextrose 50 ml UD IV 11/04/24 00:00 Pantoprazole Sodium 40 mg BID IV 11/04/24 09:15 11/07/24 07:32 40 MG Meropenem 50 ml @ 17 mls/hr Q12HR IV 11/05/24 10:00 11/07/24 07:32 17 MLS/HR Dextrose 1,000 ml @ 30 mls/hr Q24H IV 11/05/24 11:15 11/06/24 22:45 30 MLS/HR Artificial Tears 1 drop Q6HP PRN EACHEYE 11/05/24 12:30 11/05/24 16:41 1 DROP Fat Emulsion Intravenous 150 ml/Potassium Acetate 30 meq/ Potassium Phosphate 30 meq/ Calcium Gluconate 2.3 meq/Magnesium Sulfate 20 meq/ Multivitamins 10 ml/Chromium/ Copper/Manganese/ Zinc 1 ml/Amino Acids/Dextrose 1,192.7644 ml @ 49 mls/hr [id number] IV 11/06/24 22:00 11/07/24 21:59 11/06/24 22:25 49 MLS/HR Fat Emulsion Intravenous 150 ml/Potassium Acetate 30 meq/ Potassium Phosphate 22 meq/ Calcium Gluconate 2.3 meq/Magnesium Sulfate 20 meq/ Multivitamins 10 ml/Chromium/ Copper/Manganese/ Zinc 1 ml/Amino Acids/Dextrose 1,340.9462 ml @ 56 mls/hr [id number] IV 11/07/24 22:00 11/08/24 21:59 laboratory and microbiology Laboratory Tests 11/07/24 03:08 Test 11/07/24 03:08 Range/Units Serum Glucose 147 H 74-106 mg/dL Assessment/Plan Covering for Dr. Coe Impression Acute hypoxemic respiratory failure S/p exploratory laparotomy Perforated bowel S/p colostomy Patient seen and examined in ICU Events On mechanical ventilation S/p intubation PEEP 5, FiO2 30% S/p ex lap and colostomy Labs and imaging reviewed BUN/Creatinine mildly elevated ABG reviewed pH 7.32, pCO2 40, pO2 107 Management Vent support Titrate to maintain sats 90% or above Sedation holiday daily If patient follows commands, proceed to weaning trial Pressure support 09/05, extubate when ready Continue antibiotics F/u cultures Bronchodilators Monitor renal function Monitor electrolytes Supplement as needed Pressors as needed for hemodynamic support To maintain a mean arterial pressure of 65 mmHg DVT prophylaxis Critical care time 35 minutes Dietary Evaluation Review Comments: 1) If patient remains NPO > 7 days, consider EN/TPN to meet at least 75% of estimated energy needs 2) If gut is preferred, consider Jevity 1.2 @ 40 mL/hr goal rate as tolerated. Flush with 200 mL free H2O Q6H. TF regimen will provide 1152 kcals, 53g Pro, and 1575 mL free H2O (including flushes) per 24 hrs. Goal rate matias meet ~90% estimated daily energy needs and ~65% estimated daily protein needs. 3) Advance to 2g Na diet when medically feasible, pending ST approval 4) Follow-up with cardiology and pulmonology 5) Continue to monitor I&O, labs, and skin integrity Expected Outcomes/Goals: 1) patient to receive nutritional support within 7 days of NPO status 2) labs to improve 3) diet to advance 4) f/u in 2-3 dayas Plan discussed with: Other (Rn) MICHAEL TOMPKINS MD Nov 07, 2024 13:41
--- NOTE | 2024-11-07 15:02 | DVHPN2 ---
Progress Note Date Seen: Nov 07, 2024 Medical Necessity Reason Pt with a Central, PICC or Fol: Yes Subjective Review of Systems: Deferred Objective vital signs Vital Sign Date Time Temp Pulse Resp B/P (MAP) Pulse Ox O2 Delivery O2 Flow Rate FiO2 11/07/24 14:11 100 16 87/58 (68) 100 30 11/07/24 13:47 Mechanical Ventilator+ 11/07/24 13:41 99.0 210.2 Total Intake and Output 11/06/24 11/06/24 11/07/24 15:00 23:00 07:00 Intake Total 744.900 ml 515.503 ml 789.063 ml Output Total 510 ml 465 ml Balance 744.900 ml 5.503 ml 324.063 ml medications Current Medications Medications Dose Ordered Sig/Greg Route Start Time Stop Time Status Last Admin Dose Admin Vancomycin HCl 0 ml @ 0 mls/hr UD IV 11/01/24 21:15 Ondansetron HCl 4 mg Q4HP PRN IV 11/01/24 21:15 Midazolam HCl 50 ml @ 1 mls/hr Q24H IV 11/02/24 01:15 11/06/24 20:09 1 MLS/HR Fentanyl Citrate 250 ml @ 2.5 mls/hr Q24H IV 11/02/24 01:15 11/05/24 22:04 5 MLS/HR Thiamine HCl 100 mg DAILY IV 11/03/24 10:00 11/07/24 07:32 100 MG Norepinephrine Bitartrate 32 mg/ Sodium Chloride 250 ml @ 0.938 mls/ hr Q24H IV 11/03/24 14:45 11/05/24 16:43 5.625 MLS/HR Amino Acids 0 ml @ 0 mls/hr PER PHARMACY IV 11/03/24 16:30 Diagnostic Test (Pha) 1 strip Q6HR 11/04/24 00:00 11/07/24 12:17 1 STRIP Insulin Human Regular FOLLOW SLIDING SCALE Q6HR SC 11/04/24 00:00 11/07/24 12:18 2 UNITS Dextrose 50 ml UD IV 11/04/24 00:00 Pantoprazole Sodium 40 mg BID IV 11/04/24 09:15 11/07/24 07:32 40 MG Meropenem 50 ml @ 17 mls/hr Q12HR IV 11/05/24 10:00 9/6/25 07:32 17 MLS/HR Dextrose 1,000 ml @ 30 mls/hr Q24H IV 11/05/24 11:15 11/06/24 22:45 30 MLS/HR Artificial Tears 1 drop Q6HP PRN EACHEYE 11/05/24 12:30 11/05/24 16:41 1 DROP Fat Emulsion Intravenous 150 ml/Potassium Acetate 30 meq/ Potassium Phosphate 30 meq/ Calcium Gluconate 2.3 meq/Magnesium Sulfate 20 meq/ Multivitamins 10 ml/Chromium/ Copper/Manganese/ Zinc 1 ml/Amino Acids/Dextrose 1,192.7644 ml @ 49 mls/hr [id number] IV 11/06/24 22:00 11/07/24 21:59 11/06/24 22:25 49 MLS/HR Fat Emulsion Intravenous 150 ml/Potassium Acetate 30 meq/ Potassium Phosphate 22 meq/ Calcium Gluconate 2.3 meq/Magnesium Sulfate 20 meq/ Multivitamins 10 ml/Chromium/ Copper/Manganese/ Zinc 1 ml/Amino Acids/Dextrose 1,340.9462 ml @ 56 mls/hr [id number] IV 11/07/24 22:00 11/08/24 21:59 Examination: GENERAL:Abnormal, LUNGS:Abnormal laboratory and microbiology Laboratory Tests 11/07/24 03:08 Test 11/07/24 03:08 Range/Units Serum Glucose 147 H 74-106 mg/dL Microbiology Date/Time Source Procedure Growth Status 11/03/24 14:05 Blood Blood Culture - Preliminary NO GROWTH AFTER 72 HOURS OF INCUBATION. Resulted 11/02/24 01:14 Trachea Gram Stain - Final Complete 11/02/24 01:14 Respiratory Culture - Final Staphylococcus aureus Presumptive Cherelle albicans Complete Problem List/Assessment/Plan Problem List/Assessment/Plan Acute kidney injury due to shock hemodynamic acute gastric perforation s/p exlap acute respiratory failure sepsis anemia hypernatremia Lei resolving UOP improved keep monitor fluid balances avoid hypotension replace electrolytes rest of care per primary team Plan discussed with: Other Dietary Evaluation Review Comments: 1) If patient remains NPO > 7 days, consider EN/TPN to meet at least 75% of estimated energy needs 2) If gut is preferred, consider Jevity 1.2 @ 40 mL/hr goal rate as tolerated. Flush with 200 mL free H2O Q6H. TF regimen will provide 1152 kcals, 53g Pro, and 1575 mL free H2O (including flushes) per 24 hrs. Goal rate matias meet ~90% estimated daily energy needs and ~65% estimated daily protein needs. 3) Advance to 2g Na diet when medically feasible, pending ST approval 4) Follow-up with cardiology and pulmonology 5) Continue to monitor I&O, labs, and skin integrity Expected Outcomes/Goals: 1) patient to receive nutritional support within 7 days of NPO status 2) labs to improve 3) diet to advance 4) f/u in 2-3 dayas Critical Care Time (mins): 33 MARIA ANTONIA KRISHNAMURTHY MD Nov 07, 2024 15:02
--- NOTE | 2024-11-07 16:11 | DVHPN2 ---
Progress Note Date Seen: Nov 07, 2024 Medical Necessity Reason Pt with a Central, PICC or Fol: Yes Subjective Patient reports: No new complaints (Remain intubated and sedated) Changes from previous H/P or p: No Changes Objective vital signs Vital Sign Date Time Temp Pulse Resp B/P (MAP) Pulse Ox O2 Delivery O2 Flow Rate FiO2 11/07/24 16:03 94 16 92/59 (70 100 30 11/07/24 15:46 Mechanical Ventilator+ 11/07/24 15:41 98.4 209.1 Total Intake and Output 11/06/24 11/06/24 11/07/24 15:00 23:00 07:00 Intake Total 744.900 ml 515.503 ml 789.063 ml Output Total 510 ml 465 ml Balance 744.900 ml 5.503 ml 324.063 ml medications Current Medications Medications Dose Ordered Sig/Greg Route Start Time Stop Time Status Last Admin Dose Admin Vancomycin HCl 0 ml @ 0 mls/hr UD IV 11/01/24 21:15 Ondansetron HCl 4 mg Q4HP PRN IV 11/01/24 21:15 Midazolam HCl 50 ml @ 1 mls/hr Q24H IV 11/02/24 01:15 11/06/24 20:09 1 MLS/HR Fentanyl Citrate 250 ml @ 2.5 mls/hr Q24H IV 11/02/24 01:15 11/05/24 22:04 5 MLS/HR Thiamine HCl 100 mg DAILY IV 11/03/24 10:00 11/07/24 07:32 100 MG Norepinephrine Bitartrate 32 mg/ Sodium Chloride 250 ml @ 0.938 mls/ hr Q24H IV 11/03/24 14:45 11/05/24 16:43 5.625 MLS/HR Amino Acids 0 ml @ 0 mls/hr PER PHARMACY IV 11/03/24 16:30 Diagnostic Test (Pha) 1 strip Q6HR 11/04/24 00:00 11/07/24 12:17 1 STRIP Insulin Human Regular FOLLOW SLIDING SCALE Q6HR SC 11/04/24 00:00 11/07/24 12:18 2 UNITS Dextrose 50 ml UD IV 11/04/24 00:00 Pantoprazole Sodium 40 mg BID IV 11/04/24 09:15 11/07/24 07:32 40 MG Meropenem 50 ml @ 17 mls/hr Q12HR IV 11/05/24 10:00 11/07/24 07:32 17 MLS/HR Artificial Tears 1 drop Q6HP PRN EACHEYE 11/05/24 12:30 11/05/24 16:41 1 DROP Fat Emulsion Intravenous 150 ml/Potassium Acetate 30 meq/ Potassium Phosphate 30 meq/ Calcium Gluconate 2.3 meq/Magnesium Sulfate 20 meq/ Multivitamins 10 ml/Chromium/ Copper/Manganese/ Zinc 1 ml/Amino Acids/Dextrose 1,192.7644 ml @ 49 mls/hr [id number] IV 11/06/24 22:00 11/07/24 21:59 11/06/24 22:25 49 MLS/HR Fat Emulsion Intravenous 150 ml/Potassium Acetate 30 meq/ Potassium Phosphate 22 meq/ Calcium Gluconate 2.3 meq/Magnesium Sulfate 20 meq/ Multivitamins 10 ml/Chromium/ Copper/Manganese/ Zinc 1 ml/Amino Acids/Dextrose 1,340.9462 ml @ 56 mls/hr [id number] IV 11/07/24 22:00 11/08/24 21:59 Examination: GENERAL:Normal, HEENT:Normal, NECK:Normal, CVS:Normal, ABDOMEN:Abnormal (Positive colostomy with a clear liquid), MSK:Normal, SKIN:Normal, NEURO:Abnormal (TBI nondistended) laboratory and microbiology Laboratory Tests 11/07/24 03:08 Test 11/07/24 03:08 Range/Units Serum Glucose 147 H 74-106 mg/dL Microbiology Date/Time Source Procedure Growth Status 11/03/24 14:05 Blood Blood Culture - Preliminary NO GROWTH AFTER 72 HOURS OF INCUBATION. Resulted 11/02/24 01:14 Trachea Gram Stain - Final Complete 11/02/24 01:14 Respiratory Culture - Final Staphylococcus aureus Presumptive Cherelle albicans Complete Labs and/or images reviewed: Labs reviewed by me, Image(s) reviewed by me Problem List/Assessment/Plan Plan discussed with: Spouse My Orders My Orders NEURO: Acute metabolic encephalopathy secondary to septic shock Status post intubation RASS score: -3 CARDIOVASCULAR: Septic shock secondary to perforation of the hollow viscus Sinus tachycardia secondary to pain versus withdrawal Bilateral peripheral arterial disease - Patient is on Levophed - EKG demonstrated sinus tachycardia - echo showed EF 60%, echo density in RV suggestive of large papillary muscle, can not rule out vegetation. - Duplex scan of the lower extremity revealed bilateral hemodynamically significant stenosis in left dorsalis pedis and right popliteal artery - patient will need eventual vascular surgery evaluation for angiogram PULMONARY: Possible right lower lobe pneumonia Mild bilateral pleural effusion. - Chest x-ray showed atelectasis in bilateral lung bases - Blood culture showed Bacteroides and respiratory cultures Staph aureus and presumptive Cherelle albicans - no growth to date - continue IV vancomycin and IV meropenem GASTROINTESTINAL: Septic shock secondary to perforation of the hollow viscus, status post exploratory laparotomy Rule out colonic malignancy Transaminitis and coagulopathy secondary to hepatic steatosis Rule out cirrhosis Enlarged CBD, rule out choledocholithiasis or biliary stenosis Alcohol abuse disorder - TPN as per pharmacy - IV thiamine 100 mg daily - CT abdomen pelvis without contrast showed large amount of intraperitoneal free air . [id number] stool burden. Indeterminate possible portal venous gas versus marginal gas along the liver - U/S of the abdomen showed The liver is diffusely echogenic which may be secondary to steatosis or another diffuse hepatic process. Enlargement of the common bile duct measuring up to 15 mm. Gallbladder sludge. Small amount of free fluid in the abdomen. - Patient underwent Exploratory laparotomy with rectosigmoid resection with colostomy, Extensive lysis of adhesions and Ileal resection with a primary anastomosis. - Abdominal fluid culture demonstrated, prevotella, Pseudomonas, E coli, Streptococcus mitis - continue IV vancomycin and IV meropenem GENITOURINARY: FLORIN secondary to septic shock/ VMN Acute complicated cystitis - U/A was consistent with UTI - waiting for ucx ENDOCRINE: Hypoglycemia METABOLIC: Moderate protein calorie malnutrition Hypocalcemia metabolic acidosis with respiratory compensation HEME: Acute on chronic microcytic hypochromic anemia Reactive thrombocytosis secondary to infection Coagulopathy Acute DVT of left upper arm - Hold anticoagulant due to low hemoglobin - 2 unit PRBC and 1 FFP given since surgery - hemoglobin 10 stable - monitor H&H INFECTIOUS DISEASE: Sepsis with septic shock secondary to perforation of the hollow viscus, status post exploratory laparotomy Possible right lower lobe pneumonia Acute complicated cystitis - Blood culture showed Gram-negative rods, other cultures are pending - continue IV vancomycin and IV meropenem DIET: TPN DVT prophylax: Hold lovenox GI prophylaxis: Protonix Bowel regimen: Code status: Full Code LINES/DRAINS/ACCESS: ETT: Intubated on 11/01/2024 IV access: Right IJ placed on 04/12/2024 Drips: Levophed, Versed, fentanyl Grajeda catheter: Placed on 11/01/2024 Dietary Evaluation Review Comments: 1) If patient remains NPO > 7 days, consider EN/TPN to meet at least 75% of estimated energy needs 2) If gut is preferred, consider Jevity 1.2 @ 40 mL/hr goal rate as tolerated. Flush with 200 mL free H2O Q6H. TF regimen will provide 1152 kcals, 53g Pro, and 1575 mL free H2O (including flushes) per 24 hrs. Goal rate matias meet ~90% estimated daily energy needs and ~65% estimated daily protein needs. 3) Advance to 2g Na diet when medically feasible, pending ST approval 4) Follow-up with cardiology and pulmonology 5) Continue to monitor I&O, labs, and skin integrity Expected Outcomes/Goals: 1) patient to receive nutritional support within 7 days of NPO status 2) labs to improve 3) diet to advance 4) f/u in 2-3 dayas Date of Service: Nov 07, 2024 Billing Provider: ALEKSANDRA LÓPEZ MD Common Visit Codes: [id number] CARE 30-74 MIN ALEKSANDRA LÓPEZ MD Nov 07, 2024 16:11
--- NOTE | 2024-11-07 17:21 | DVH ---
Date: 11/07/2024 05:00 PM Examination: XY KUB ABDOMEN SINGLE VIEW History: post x lap Comparison: US ABDOMEN COMPLETE SONOGRAM on DOS: 11/02/24, CT CT AB PEL WO CON-NO ORAL OR IV on DOS: TECHNIQUE: Frontal views of the abdomen was obtained. FINDINGS: Postop changes of the abdomen are noted closure yadira in the right paramidline. Drainage catheters are noted in the right pelvis along the left pericolic gutter. Enteric tube is noted in the stomach below the left diaphragm Bowel gas pattern is unremarkable. No findings of obstruction. The lung bases are unremarkable. No acute osseous abnormality identified. IMPRESSION: 1. Postoperative changes as above. 2. No findings of obstruction.
[2024-11-07] MEDS: TPN PER PHARMACY IV NR (21:23)
[2024-11-08] VITALS (114 sets, daily range): BP systolic 72–117; BP diastolic 41–76; PULSE 91–116; RESP 13–39; TEMP 98.4–99; O2SAT 97–100
[2024-11-08 04:24] LABS: Alanine Aminotransferase 11 U/L (7-40); Alkaline Phosphatase 88 U/L (46-116); Anion Gap 6 (5-15); BUN/Creatinine Ratio 28.1 (10.0-20.0); Carbon Dioxide 26 mmol/L (20-31); Magnesium 1.9 mg/dL (1.6-2.6); Potassium 4.1 mmol/L (3.5-5.1); Sodium 143 mmol/L (136-145)
[2024-11-08 04:33] LABS: Hematocrit 27.0 % (36.0-46.0); Nucleated Red Blood Cells % 0.1 %
[2024-11-08 04:34] LABS: Hemoglobin 8.8 g/dL (12.2-16.2); Mean Corpuscular Hemoglobin 25.6 pg (28.0-32.0); Mean Corpuscular Volume 78.4 fL (80.0-100.0)
[2024-11-08 04:45] LABS: Albumin 1.8 g/dL (3.2-4.8); Bilirubin, Total 0.2 mg/dL (0.2-1.0); Blood Urea Nitrogen 34 mg/dL (9-23); Calcium 7.9 mg/dL (8.7-10.4); Chloride 111 mmol/L (98-107); Glucose 145 mg/dL (74-106); Total Protein 3.4 g/dL (5.7-8.2)
[2024-11-08 05:25] LABS: Anisocytosis Slight
--- NOTE | 2024-11-08 05:36 | DVH ---
CHEST RADIOGRAPH Indication: intubated Technique: Single frontal view of the chest was obtained Comparison: XY CHEST PORTABLE on DOS: 11/07/24, XY CHEST PORTABLE on DOS: 11/06/24, XY CHEST PORTABLE on DOS: 11/05/24 IMPRESSION: Endotracheal tube approximately 3 cm from the jacob. Enteric tube tip within the region of the stom ach. Right IJ catheter tip in the region of the superior vena cava. Postsurgical changes left upper a bdomen. Likely small bilateral pleural effusions. No pneumothorax.
--- NOTE | 2024-11-08 11:02 | DVHPN2 ---
Progress Note Date Seen: Nov 08, 2024 Medical Necessity Reason Pt with a Central, PICC or Fol: Yes Objective vital signs Vital Sign Date Time Temp Pulse Resp B/P (MAP) Pulse Ox O2 Delivery O2 Flow Rate FiO2 11/08/24 10:07 103 16 103/65 (78) 100 30 11/08/24 09:41 98.8 209.8 11/08/24 09:40 Mechanical Ventilator+ 11/08/24 00:21 30.0 Total Intake and Output 11/07/24 11/07/24 11/08/24 15:00 23:00 07:00 Intake Total 758.063 ml 353.000 ml 554.940 ml Output Total 435 ml 525 ml Balance 758.063 ml -82.000 ml 29.940 ml medications Current Medications Medications Dose Ordered Sig/Greg Route Start Time Stop Time Status Last Admin Dose Admin Vancomycin HCl 0 ml @ 0 mls/hr UD IV 11/01/24 21:15 Ondansetron HCl 4 mg Q4HP PRN IV 11/01/24 21:15 Midazolam HCl 50 ml @ 1 mls/hr Q24H IV 11/02/24 01:15 11/07/24 23:55 2 MLS/HR Fentanyl Citrate 250 ml @ 2.5 mls/hr Q24H IV 11/02/24 01:15 11/07/24 16:19 5 MLS/HR Thiamine HCl 100 mg DAILY IV 11/03/24 10:00 11/08/24 07:14 100 MG Norepinephrine Bitartrate 32 mg/ Sodium Chloride 250 ml @ 0.938 mls/ hr Q24H IV 11/03/24 14:45 11/08/24 06:52 5.625 MLS/HR Amino Acids 0 ml @ 0 mls/hr PER PHARMACY IV 11/03/24 16:30 Diagnostic Test (Pha) 1 strip Q6HR 11/04/24 00:00 11/08/24 10:58 1 STRIP Insulin Human Regular FOLLOW SLIDING SCALE Q6HR SC 11/04/24 00:00 11/08/24 10:58 2 UNITS Dextrose 50 ml UD IV 11/04/24 00:00 Pantoprazole Sodium 40 mg BID IV 11/04/24 09:15 11/08/24 07:14 40 MG Meropenem 50 ml @ 17 mls/hr Q12HR IV 11/05/24 10:00 11/08/24 07:14 17 MLS/HR Artificial Tears 1 drop Q6HP PRN EACHEYE 11/05/24 12:30 11/05/24 16:41 1 DROP Fat Emulsion Intravenous 150 ml/Potassium Acetate 30 meq/ Potassium Phosphate 22 meq/ Calcium Gluconate 2.3 meq/Magnesium Sulfate 20 meq/ Multivitamins 10 ml/Chromium/ Copper/Manganese/ Zinc 1 ml/Amino Acids/Dextrose 1,340.9462 ml @ 56 mls/hr [id number] IV 11/07/24 22:00 11/08/24 21:59 11/07/24 21:23 56 MLS/HR laboratory and microbiology Laboratory Tests 11/08/24 03:40 Test 11/08/24 03:40 Range/Units Serum Glucose 145 H 74-106 mg/dL Problem List/Assessment/Plan Problem List/Assessment/Plan 11/04/[address] CLEMENS, COLOSTOMY VIABLE AND WITHOUT FUNCTION, WOUND CLEAN AND WELL APPROXIMATED, RAMBO DRAINAGE SEROUS, ANEMIC, ABDOMEN NON DISTENDED, 11/05/24 family members at bedside, wound clean and well approximated, stoma viable without function, drain clear serous, husbands questions answered. remains sedated and intubated on levophed and is tachycardic, ordered bolus of LR over next hour, needs more IV fluid 11/06/24 wound clean and well approximated, abdomen non distended soft, drainage clear serous. colostomy viable with flatus present in appliance. remains intubated and sedated 11/07/24 unchanged clinically, remains intubated and sedated wound ok, drainage clear, stoma viable no stool.discussed with office executive to initiate weaning, stop sedation, Plan discussed with: Spouse Dietary Evaluation Review Comments: 1) If patient remains NPO > 7 days, consider EN/TPN to meet at least 75% of estimated energy needs 2) If gut is preferred, consider Jevity 1.2 @ 40 mL/hr goal rate as tolerated. Flush with 200 mL free H2O Q6H. TF regimen will provide 1152 kcals, 53g Pro, and 1575 mL free H2O (including flushes) per 24 hrs. Goal rate matias meet ~90% estimated daily energy needs and ~65% estimated daily protein needs. 3) Advance to 2g Na diet when medically feasible, pending ST approval 4) Follow-up with cardiology and pulmonology 5) Continue to monitor I&O, labs, and skin integrity Expected Outcomes/Goals: 1) patient to receive nutritional support within 7 days of NPO status 2) labs to improve 3) diet to advance 4) f/u in 2-3 dayas CIRO REYNA MD Nov 08, 2024 11:02
--- NOTE | 2024-11-08 11:48 | DVHPN2 ---
Progress Note Date Seen: Nov 08, 2024 Medical Necessity Reason Pt with a Central, PICC or Fol: Yes The following are medically ne: PICC Line Subjective Review of Systems: Deferred Objective vital signs Vital Sign Date Time Temp Pulse Resp B/P (MAP) Pulse Ox O2 Delivery O2 Flow Rate FiO2 11/08/24 11:46 102 11/08/24 11:46 16 100 Mechanical Ventilator+ 30 30 11/08/24 11:41 99.0 92/58 (69) 210.2 11/08/24 00:21 30.0 Total Intake and Output 11/07/24 11/07/24 11/08/24 15:00 23:00 07:00 Intake Total 758.063 ml 353.000 ml 554.940 ml Output Total 435 ml 525 ml Balance 758.063 ml -82.000 ml 29.940 ml medications Current Medications Medications Dose Ordered Sig/Greg Route Start Time Stop Time Status Last Admin Dose Admin Vancomycin HCl 0 ml @ 0 mls/hr UD IV 11/01/24 21:15 Ondansetron HCl 4 mg Q4HP PRN IV 11/01/24 21:15 Midazolam HCl 50 ml @ 1 mls/hr Q24H IV 11/02/24 01:15 11/07/24 23:55 2 MLS/HR Fentanyl Citrate 250 ml @ 2.5 mls/hr Q24H IV 11/02/24 01:15 11/07/24 16:19 5 MLS/HR Thiamine HCl 100 mg DAILY IV 11/03/24 10:00 11/08/24 07:14 100 MG Norepinephrine Bitartrate 32 mg/ Sodium Chloride 250 ml @ 0.938 mls/ hr Q24H IV 11/03/24 14:45 11/08/24 06:52 5.625 MLS/HR Amino Acids 0 ml @ 0 mls/hr PER PHARMACY IV 11/03/24 16:30 Diagnostic Test (Pha) 1 strip Q6HR 11/04/24 00:00 11/08/24 10:58 1 STRIP Insulin Human Regular FOLLOW SLIDING SCALE Q6HR SC 11/04/24 00:00 11/08/24 10:58 2 UNITS Dextrose 50 ml UD IV 11/04/24 00:00 Pantoprazole Sodium 40 mg BID IV 11/04/24 09:15 11/08/24 07:14 40 MG Meropenem 50 ml @ 17 mls/hr Q12HR IV 11/05/24 10:00 11/08/24 07:14 17 MLS/HR Artificial Tears 1 drop Q6HP PRN EACHEYE 11/05/24 12:30 11/05/24 16:41 1 DROP Fat Emulsion Intravenous 150 ml/Potassium Acetate 30 meq/ Potassium Phosphate 22 meq/ Calcium Gluconate 2.3 meq/Magnesium Sulfate 20 meq/ Multivitamins 10 ml/Chromium/ Copper/Manganese/ Zinc 1 ml/Amino Acids/Dextrose 1,340.9462 ml @ 56 mls/hr [id number] IV 11/07/24 22:00 11/08/24 21:59 11/07/24 21:23 56 MLS/HR Examination: GENERAL:Abnormal, LUNGS:Abnormal laboratory and microbiology Laboratory Tests 11/08/24 03:40 Test 11/08/24 03:40 Range/Units Serum Glucose 145 H 74-106 mg/dL Microbiology Date/Time Source Procedure Growth Status 11/03/24 14:05 Blood Blood Culture - Preliminary NO GROWTH AFTER 72 HOURS OF INCUBATION. Resulted 11/02/24 01:14 Trachea Gram Stain - Final Complete 11/02/24 01:14 Respiratory Culture - Final Staphylococcus aureus Presumptive Cherelle albicans Complete Problem List/Assessment/Plan Problem List/Assessment/Plan Acute kidney injury due to shock hemodynamic acute gastric perforation s/p exlap acute respiratory failure sepsis anemia hypernatremia Lei resolving will sign off case no new recs UOP improved keep monitor fluid balances avoid hypotension replace electrolytes rest of care per primary team Plan discussed with: Other (nurse) Dietary Evaluation Review Comments: 1) If patient remains NPO > 7 days, consider EN/TPN to meet at least 75% of estimated energy needs 2) If gut is preferred, consider Jevity 1.2 @ 40 mL/hr goal rate as tolerated. Flush with 200 mL free H2O Q6H. TF regimen will provide 1152 kcals, 53g Pro, and 1575 mL free H2O (including flushes) per 24 hrs. Goal rate matias meet ~90% estimated daily energy needs and ~65% estimated daily protein needs. 3) Advance to 2g Na diet when medically feasible, pending ST approval 4) Follow-up with cardiology and pulmonology 5) Continue to monitor I&O, labs, and skin integrity Expected Outcomes/Goals: 1) patient to receive nutritional support within 7 days of NPO status 2) labs to improve 3) diet to advance 4) f/u in 2-3 dayMARIA ANTONIA Bolanos MD Nov 08, 2024 11:48
--- NOTE | 2024-11-08 13:17 | DVHPN2 ---
Progress Note - Dictate Date Seen: Nov 08, 2024 Medical Necessity Reason Pt with a Central, PICC or Fol: Yes The following are medically ne: PICC Line vital signs Vital Sign Date Time Temp Pulse Resp B/P (MAP) Pulse Ox O2 Delivery O2 Flow Rate FiO2 11/08/24 12:41 99.0 101 16 108/69 (82) 100 210.2 11/08/24 11:46 Mechanical Ventilator+ 30 30 11/08/24 00:21 30.0 Total Intake and Output 11/07/24 11/07/24 11/08/24 15:00 23:00 07:00 Intake Total 758.063 ml 353.000 ml 554.940 ml Output Total 435 ml 525 ml Balance 758.063 ml -82.000 ml 29.940 ml medications Current Medications Medications Dose Ordered Sig/Greg Route Start Time Stop Time Status Last Admin Dose Admin Vancomycin HCl 0 ml @ 0 mls/hr UD IV 11/01/24 21:15 Ondansetron HCl 4 mg Q4HP PRN IV 11/01/24 21:15 Midazolam HCl 50 ml @ 1 mls/hr Q24H IV 11/02/24 01:15 11/07/24 23:55 2 MLS/HR Fentanyl Citrate 250 ml @ 2.5 mls/hr Q24H IV 11/02/24 01:15 11/07/24 16:19 5 MLS/HR Thiamine HCl 100 mg DAILY IV 11/03/24 10:00 11/08/24 07:14 100 MG Norepinephrine Bitartrate 32 mg/ Sodium Chloride 250 ml @ 0.938 mls/ hr Q24H IV 11/03/24 14:45 11/08/24 06:52 5.625 MLS/HR Amino Acids 0 ml @ 0 mls/hr PER PHARMACY IV 11/03/24 16:30 Diagnostic Test (Pha) 1 strip Q6HR 11/04/24 00:00 11/08/24 10:58 1 STRIP Insulin Human Regular FOLLOW SLIDING SCALE Q6HR SC 11/04/24 00:00 11/08/24 10:58 2 UNITS Dextrose 50 ml UD IV 11/04/24 00:00 Pantoprazole Sodium 40 mg BID IV 11/04/24 09:15 11/08/24 07:14 40 MG Meropenem 50 ml @ 17 mls/hr Q12HR IV 11/05/24 10:00 11/08/24 07:14 17 MLS/HR Artificial Tears 1 drop Q6HP PRN EACHEYE 11/05/24 12:30 11/05/24 16:41 1 DROP Fat Emulsion Intravenous 150 ml/Potassium Acetate 30 meq/ Potassium Phosphate 22 meq/ Calcium Gluconate 2.3 meq/Magnesium Sulfate 20 meq/ Multivitamins 10 ml/Chromium/ Copper/Manganese/ Zinc 1 ml/Amino Acids/Dextrose 1,340.9462 ml @ 56 mls/hr [id number] IV 11/07/24 22:00 11/08/24 21:59 11/07/24 21:23 56 MLS/HR laboratory and microbiology Laboratory Tests 11/08/24 03:40 Test 11/08/24 03:40 Range/Units Serum Glucose 145 H 74-106 mg/dL Assessment/Plan Covering for Dr. Coe Impression Acute hypoxemic respiratory failure S/p exploratory laparotomy Perforated bowel S/p colostomy Patient seen and examined in ICU Events On mechanical ventilation S/p intubation PEEP 5, FiO2 30% S/p ex lap and colostomy Labs and imaging reviewed BUN/Creatinine mildly elevated ABG reviewed Management Vent support Titrate to maintain sats 90% or above Sedation holiday daily If patient follows commands, proceed to weaning trial Pressure support 09/05, extubate when ready Continue antibiotics F/u cultures Bronchodilators Monitor renal function Monitor electrolytes Supplement as needed Pressors as needed for hemodynamic support To maintain a mean arterial pressure of 65 mmHg DVT prophylaxis Critical care time 35 minutes Dietary Evaluation Review Comments: 1) If patient remains NPO > 7 days, consider EN/TPN to meet at least 75% of estimated energy needs 2) If gut is preferred, consider Jevity 1.2 @ 40 mL/hr goal rate as tolerated. Flush with 200 mL free H2O Q6H. TF regimen will provide 1152 kcals, 53g Pro, and 1575 mL free H2O (including flushes) per 24 hrs. Goal rate matias meet ~90% estimated daily energy needs and ~65% estimated daily protein needs. 3) Advance to 2g Na diet when medically feasible, pending ST approval 4) Follow-up with cardiology and pulmonology 5) Continue to monitor I&O, labs, and skin integrity Expected Outcomes/Goals: 1) patient to receive nutritional support within 7 days of NPO status 2) labs to improve 3) diet to advance 4) f/u in 2-3 dayas Plan discussed with: Other (Rn) MICHAEL TOMPKINS MD Nov 08, 2024 13:17
--- NOTE | 2024-11-08 13:40 | DVHPN2 ---
Progress Note Date Seen: Nov 08, 2024 Medical Necessity Reason Pt with a Central, PICC or Fol: Yes The following are medically ne: PICC Line Subjective Patient reports: No new complaints (Patient is intubated sedated on pressor support. Patient is is at bedside. Updated) Changes from previous H/P or p: Changes Objective vital signs Vital Sign Date Time Temp Pulse Resp B/P (MAP) Pulse Ox O2 Delivery O2 Flow Rate FiO2 11/08/24 12:41 99.0 101 16 108/69 (82) 100 210.2 11/08/24 11:46 Mechanical Ventilator+ 30 30 11/08/24 00:21 30.0 Total Intake and Output 11/07/24 11/07/24 11/08/24 15:00 23:00 07:00 Intake Total 758.063 ml 353.000 ml 554.940 ml Output Total 435 ml 525 ml Balance 758.063 ml -82.000 ml 29.940 ml medications Current Medications Medications Dose Ordered Sig/Greg Route Start Time Stop Time Status Last Admin Dose Admin Vancomycin HCl 0 ml @ 0 mls/hr UD IV 11/01/24 21:15 Ondansetron HCl 4 mg Q4HP PRN IV 11/01/24 21:15 Midazolam HCl 50 ml @ 1 mls/hr Q24H IV 11/02/24 01:15 11/07/24 23:55 2 MLS/HR Fentanyl Citrate 250 ml @ 2.5 mls/hr Q24H IV 11/02/24 01:15 11/07/24 16:19 5 MLS/HR Thiamine HCl 100 mg DAILY IV 11/03/24 10:00 11/08/24 07:14 100 MG Norepinephrine Bitartrate 32 mg/ Sodium Chloride 250 ml @ 0.938 mls/ hr Q24H IV 11/03/24 14:45 11/08/24 06:52 5.625 MLS/HR Amino Acids 0 ml @ 0 mls/hr PER PHARMACY IV 11/03/24 16:30 Diagnostic Test (Pha) 1 strip Q6HR 11/04/24 00:00 11/08/24 10:58 1 STRIP Insulin Human Regular FOLLOW SLIDING SCALE Q6HR SC 11/04/24 00:00 11/08/24 10:58 2 UNITS Dextrose 50 ml UD IV 11/04/24 00:00 Pantoprazole Sodium 40 mg BID IV 11/04/24 09:15 11/08/24 07:14 40 MG Meropenem 50 ml @ 17 mls/hr Q12HR IV 11/05/24 10:00 11/08/24 07:14 17 MLS/HR Artificial Tears 1 drop Q6HP PRN EACHEYE 11/05/24 12:30 11/05/24 16:41 1 DROP Fat Emulsion Intravenous 150 ml/Potassium Acetate 30 meq/ Potassium Phosphate 22 meq/ Calcium Gluconate 2.3 meq/Magnesium Sulfate 20 meq/ Multivitamins 10 ml/Chromium/ Copper/Manganese/ Zinc 1 ml/Amino Acids/Dextrose 1,340.9462 ml @ 56 mls/hr [id number] IV 11/07/24 22:00 11/08/24 21:59 11/07/24 21:23 56 MLS/HR Examination Patient is 49 years old woman, well nourished well developed. Intubated and sedated HEENT-atraumatic, normocephalic Heart-regular rate and rhythm Lungs-Clear to auscultate bilaterally Abdomen soft, nontender, nondistended. Positive sedative colostomy. Surgical site healing Skeletal-no edema cyanosis Neuro-intermittent distended laboratory and microbiology Laboratory Tests 11/08/24 03:40 Test 11/08/24 03:40 Range/Units Serum Glucose 145 H 74-106 mg/dL Microbiology Date/Time Source Procedure Growth Status 11/03/24 14:05 Blood Blood Culture - Preliminary NO GROWTH AFTER 72 HOURS OF INCUBATION. Resulted 11/02/24 01:14 Trachea Gram Stain - Final Complete 11/02/24 01:14 Respiratory Culture - Final Staphylococcus aureus Presumptive Cherelle albicans Complete Problem List/Assessment/Plan Problem List/Assessment/Plan NEURO: Acute metabolic encephalopathy secondary to septic shock Status post intubation PULM regular appreciated Ventilator management per pulmonology Daily SAT, SBT CARDIOVASCULAR: Septic shock secondary to perforation of the hollow viscus Sinus tachycardia secondary to pain versus withdrawal Bilateral peripheral arterial disease - Patient is on Levophed - EKG demonstrated sinus tachycardia - echo showed EF 60%, echo density in RV suggestive of large papillary muscle, can not rule out vegetation. - Duplex scan of the lower extremity revealed bilateral hemodynamically significant stenosis in left dorsalis pedis and right popliteal artery - patient will need eventual vascular surgery evaluation for angiogram PULMONARY: Possible right lower lobe pneumonia Mild bilateral pleural effusion. - Chest x-ray showed atelectasis in bilateral lung bases - Blood culture showed Bacteroides and respiratory cultures Staph aureus and presumptive Cherelle albicans - repeat blood culture no growth to date - continue IV vancomycin and IV meropenem GASTROINTESTINAL: Septic shock secondary to perforation of the hollow viscus, status post exploratory laparotomy Rule out colonic malignancy Transaminitis and coagulopathy secondary to hepatic steatosis Rule out cirrhosis Enlarged CBD, rule out choledocholithiasis or biliary stenosis Alcohol abuse disorder - TPN as per pharmacy - IV thiamine 100 mg daily - CT abdomen pelvis without contrast showed large amount of intraperitoneal free air . [id number] stool burden. Indeterminate possible portal venous gas versus marginal gas along the liver - U/S of the abdomen showed The liver is diffusely echogenic which may be secondary to steatosis or another diffuse hepatic process. Enlargement of the common bile duct measuring up to 15 mm. Gallbladder sludge. Small amount of free fluid in the abdomen. - Patient underwent Exploratory laparotomy with rectosigmoid resection with colostomy, Extensive lysis of adhesions and Ileal resection with a primary anastomosis. - Abdominal fluid culture demonstrated, prevotella, Pseudomonas, E coli, Streptococcus mitis - continue IV vancomycin and IV meropenem GENITOURINARY: FLORIN secondary to septic shock/ VMN Acute complicated cystitis - U/A was consistent with UTI - waiting for ucx FLORIN has resolving ENDOCRINE: Hypoglycemia METABOLIC: Moderate protein calorie malnutrition Hypocalcemia metabolic acidosis with respiratory compensation HEME: Acute on chronic microcytic hypochromic anemia Reactive thrombocytosis secondary to infection Coagulopathy Acute DVT of left upper arm - Hold anticoagulant due to low hemoglobin - 2 unit PRBC and 1 FFP given since surgery - hemoglobin slight drop today. No gross bleeding - monitor H&H INFECTIOUS DISEASE: Sepsis with septic shock secondary to perforation of the hollow viscus, status post exploratory laparotomy Possible right lower lobe pneumonia Acute complicated cystitis - Blood culture showed Gram-negative rods, other cultures are pending - continue IV vancomycin and IV meropenem DIET: TPN DVT prophylax: Hold lovenox GI prophylaxis: Protonix Bowel regimen: Code status: Full Code Plan discussed with: Spouse Dietary Evaluation Review Comments: 1) If patient remains NPO > 7 days, consider EN/TPN to meet at least 75% of estimated energy needs 2) If gut is preferred, consider Jevity 1.2 @ 40 mL/hr goal rate as tolerated. Flush with 200 mL free H2O Q6H. TF regimen will provide 1152 kcals, 53g Pro, and 1575 mL free H2O (including flushes) per 24 hrs. Goal rate matias meet ~90% estimated daily energy needs and ~65% estimated daily protein needs. 3) Advance to 2g Na diet when medically feasible, pending ST approval 4) Follow-up with cardiology and pulmonology 5) Continue to monitor I&O, labs, and skin integrity Expected Outcomes/Goals: 1) patient to receive nutritional support within 7 days of NPO status 2) labs to improve 3) diet to advance 4) f/u in 2-3 dayas Date of Service: Nov 08, 2024 Billing Provider: ALEKSANDRA LÓPEZ MD Common Visit Codes: 80636-[id number] CARE 30-74 MIN ALEKSANDRA LÓPEZ MD Nov 08, 2024 13:40
[2024-11-08] MEDS: MEROPENEM 1GM IVPB 50 ML IV SCH (15:37)
[2024-11-08] MEDS: VANCOMYCIN 750MG KIT 100 ML IV ONE (16:45)
[2024-11-08] MEDS: TPN PER PHARMACY IV NR (21:27)
[2024-11-09] VITALS (116 sets, daily range): BP systolic 71–117; BP diastolic 41–75; PULSE 96–117; RESP 15–18; TEMP 97.3–99; O2SAT 89–100
[2024-11-09 03:48] LABS: Hematocrit 26.6 % (36.0-46.0); Hemoglobin 8.8 g/dL (12.2-16.2); Mean Corpuscular Hemoglobin 25.8 pg (28.0-32.0); Mean Corpuscular Volume 78.4 fL (80.0-100.0); Nucleated Red Blood Cells % 0.0 %
[2024-11-09 04:13] LABS: Alanine Aminotransferase 12 U/L (7-40); Alkaline Phosphatase 105 U/L (46-116); Anion Gap 6 (5-15); BUN/Creatinine Ratio 34.2 (10.0-20.0); Carbon Dioxide 26 mmol/L (20-31); Magnesium 2.1 mg/dL (1.6-2.6); Potassium 4.3 mmol/L (3.5-5.1); Sodium 143 mmol/L (136-145)
[2024-11-09 04:21] LABS: Albumin 2.0 g/dL (3.2-4.8); Bilirubin, Total 0.2 mg/dL (0.2-1.0); Blood Urea Nitrogen 38 mg/dL (9-23); Calcium 8.5 mg/dL (8.7-10.4); Chloride 111 mmol/L (98-107); Glucose 137 mg/dL (74-106); Total Protein 3.8 g/dL (5.7-8.2)
--- NOTE | 2024-11-09 05:02 | DVH ---
CHEST RADIOGRAPH Indication: Intubated Technique: Single frontal view of the chest was obtained COMPARISON: XY CHEST PORTABLE on DOS: 11/08/24, XY CHEST PORTABLE on DOS: 11/07/24, XY CHEST PORTABLE on DOS: 11/06/24, XY CHEST PORTABLE on DOS: 11/05/24, XY CHEST PORTABLE on DOS: 11/04/24 FINDINGS: Lines and Tubes: Endotracheal tube, enteric catheter right central venous catheter in satisfactory po sition. Lungs: Bilateral lower lobe airspace disease Pleura: No effusion. No pneumothorax. Cardiomediastinal contours: Unremarkable Bones: Unremarkable IMPRESSION: Lines and tubes in satisfactory position. No significant interval change.
[2024-11-09 08:09] LABS: Base Excess -2.0 mmol/L (-2.0-3.0)
--- NOTE | 2024-11-09 08:18 | DVHPN2 ---
Progress Note Date Seen: Nov 09, 2024 Medical Necessity Reason Pt with a Central, PICC or Fol: Yes The following are medically ne: PICC Line Objective vital signs Vital Sign Date Time Temp Pulse Resp B/P (MAP) Pulse Ox O2 Delivery O2 Flow Rate FiO2 11/09/24 07:27 98.4 106 16 117/75 (89) 100 209.1 11/09/24 06:30 30 11/09/24 06:00 Mechanical Ventilator+ 11/08/24 00:21 30.0 Total Intake and Output 11/08/24 11/08/24 11/09/24 15:00 23:00 07:00 Intake Total 612.188 ml 367.504 ml 530.816 ml Output Total 695 ml 555 ml Balance 612.188 ml -327.496 ml -24.184 ml medications Current Medications Medications Dose Ordered Sig/Greg Route Start Time Stop Time Status Last Admin Dose Admin Vancomycin HCl 0 ml @ 0 mls/hr UD IV 11/01/24 21:15 Ondansetron HCl 4 mg Q4HP PRN IV 11/01/24 21:15 Midazolam HCl 50 ml @ 1 mls/hr Q24H IV 11/02/24 01:15 11/07/24 23:55 2 MLS/HR Fentanyl Citrate 250 ml @ 2.5 mls/hr Q24H IV 11/02/24 01:15 11/07/24 16:19 5 MLS/HR Thiamine HCl 100 mg DAILY IV 11/03/24 10:00 11/08/24 07:14 100 MG Norepinephrine Bitartrate 32 mg/ Sodium Chloride 250 ml @ 0.938 mls/ hr Q24H IV 11/03/24 14:45 11/08/24 06:52 5.625 MLS/HR Amino Acids 0 ml @ 0 mls/hr PER PHARMACY IV 11/03/24 16:30 Diagnostic Test (Pha) 1 strip Q6HR 11/04/24 00:00 11/09/24 05:54 1 STRIP Insulin Human Regular FOLLOW SLIDING SCALE Q6HR SC 11/04/24 00:00 11/09/24 05:36 2 UNITS Dextrose 50 ml UD IV 11/04/24 00:00 Pantoprazole Sodium 40 mg BID IV 11/04/24 09:15 11/08/24 21:27 40 MG Artificial Tears 1 drop Q6HP PRN EACHEYE 11/05/24 12:30 11/09/24 07:48 1 DROP Meropenem 50 ml @ 17 mls/hr Q8H IV 11/08/24 16:00 11/09/24 07:48 17 MLS/HR Fat Emulsion Intravenous 150 ml/Potassium Acetate 20 meq/ Potassium Phosphate 22 meq/ Magnesium Sulfate 22 meq/ Multivitamins 10 ml/Chromium/ Copper/Manganese/ Zinc 1 ml/Amino Acids/Dextrose/ Purified Water 1,531.5 ml @ 64 mls/hr [id number] IV 11/08/24 22:00 11/09/24 21:59 11/08/24 21:27 64 MLS/HR laboratory and microbiology Laboratory Tests 11/09/24 03:18 Test 11/09/24 03:18 Range/Units Serum Glucose 137 H 74-106 mg/dL Problem List/Assessment/Plan Problem List/Assessment/Plan 11/04/[address] CLEMENS, COLOSTOMY VIABLE AND WITHOUT FUNCTION, WOUND CLEAN AND WELL APPROXIMATED, RAMBO DRAINAGE SEROUS, ANEMIC, ABDOMEN NON DISTENDED, 11/05/24 family members at bedside, wound clean and well approximated, stoma viable without function, drain clear serous, husbands questions answered. remains sedated and intubated on levophed and is tachycardic, ordered bolus of LR over next hour, needs more IV fluid 11/06/24 wound clean and well approximated, abdomen non distended soft, drainage clear serous. colostomy viable with flatus present in appliance. remains intubated and sedated 11/07/24 unchanged clinically, remains intubated and sedated wound ok, drainage clear, stoma viable no stool.discussed with carpet winder to initiate weaning, stop sedation, 11/09/24 hemodynamically stable, sedation was stopped yesterday, abdomen non distended, soft, RAMBO drainage clear, OK to wean off ventilator Plan discussed with: Patient Dietary Evaluation Review Comments: 1) If patient remains NPO > 7 days, consider EN/TPN to meet at least 75% of estimated energy needs 2) If gut is preferred, consider Jevity 1.2 @ 40 mL/hr goal rate as tolerated. Flush with 200 mL free H2O Q6H. TF regimen will provide 1152 kcals, 53g Pro, and 1575 mL free H2O (including flushes) per 24 hrs. Goal rate matias meet ~90% estimated daily energy needs and ~65% estimated daily protein needs. 3) Advance to 2g Na diet when medically feasible, pending ST approval 4) Follow-up with cardiology and pulmonology 5) Continue to monitor I&O, labs, and skin integrity Expected Outcomes/Goals: 1) patient to receive nutritional support within 7 days of NPO status 2) labs to improve 3) diet to advance 4) f/u in 2-3 dayCIRO Lopes MD Nov 09, 2024 08:18
--- NOTE | 2024-11-09 11:23 | DVHPN2 ---
Progress Note - Dictate Date Seen: Nov 09, 2024 Medical Necessity Reason Pt with a Central, PICC or Fol: Yes The following are medically ne: PICC Line Subjective E: no major events o/n. weaning down on pressors. HR better controlled. vital signs Vital Sign Date Time Temp Pulse Resp B/P (MAP) Pulse Ox O2 Delivery O2 Flow Rate FiO2 11/09/24 10:13 106 16 104/67 (79) 100 30 11/09/24 10:00 Mechanical Ventilator+ 11/09/24 07:27 98.4 209.1 11/08/24 00:21 30.0 Total Intake and Output 11/08/24 11/08/24 11/09/24 15:00 23:00 07:00 Intake Total 612.188 ml 367.504 ml 530.816 ml Output Total 695 ml 555 ml Balance 612.188 ml -327.496 ml -24.184 ml medications Current Medications Medications Dose Ordered Sig/Greg Route Start Time Stop Time Status Last Admin Dose Admin Vancomycin HCl 0 ml @ 0 mls/hr UD IV 11/01/24 21:15 Ondansetron HCl 4 mg Q4HP PRN IV 11/01/24 21:15 Midazolam HCl 50 ml @ 1 mls/hr Q24H IV 11/02/24 01:15 11/07/24 23:55 2 MLS/HR Fentanyl Citrate 250 ml @ 2.5 mls/hr Q24H IV 11/02/24 01:15 11/07/24 16:19 5 MLS/HR Thiamine HCl 100 mg DAILY IV 11/03/24 10:00 11/09/24 10:28 100 MG Norepinephrine Bitartrate 32 mg/ Sodium Chloride 250 ml @ 0.938 mls/ hr Q24H IV 11/03/24 14:45 11/08/24 06:52 5.625 MLS/HR Amino Acids 0 ml @ 0 mls/hr PER PHARMACY IV 11/03/24 16:30 Diagnostic Test (Pha) 1 strip Q6HR 11/04/24 00:00 11/09/24 05:54 1 STRIP Insulin Human Regular FOLLOW SLIDING SCALE Q6HR SC 11/04/24 00:00 11/09/24 05:36 2 UNITS Dextrose 50 ml UD IV 11/04/24 00:00 Pantoprazole Sodium 40 mg BID IV 11/04/24 09:15 11/09/24 10:28 40 MG Artificial Tears 1 drop Q6HP PRN EACHEYE 11/05/24 12:30 11/09/24 07:48 1 DROP Meropenem 50 ml @ 17 mls/hr Q8H IV 11/08/24 16:00 11/09/24 07:48 17 MLS/HR Fat Emulsion Intravenous 150 ml/Potassium Acetate 20 meq/ Potassium Phosphate 22 meq/ Magnesium Sulfate 22 meq/ Multivitamins 10 ml/Chromium/ Copper/Manganese/ Zinc 1 ml/Amino Acids/Dextrose/ Purified Water 1,531.5 ml @ 64 mls/hr [id number] IV 11/08/24 22:00 11/09/24 21:59 11/08/24 21:27 64 MLS/HR Fat Emulsion Intravenous 150 ml/Potassium Acetate 20 meq/ Potassium Phosphate 22 meq/ Magnesium Sulfate 22 meq/ Multivitamins 10 ml/Chromium/ Copper/Manganese/ Zinc 1 ml/Amino Acids/Dextrose/ Purified Water 1,581.5 ml @ 66 mls/hr [id number] IV 11/09/24 22:00 11/10/24 21:59 objective N: sedation turned off. CV: levophed down to 8. RESP: intubated on vent. min settings unchanged. GI: scant output from NGT. colostomy looks edematous but viable. no output yet. min output from 2 drains. removed L drain. mild erythema of lower abdominal wall/anasarca. will start TF. : renal function improving and with good UOP. H/ID: WBC trending down with abx. incision appears clean. laboratory and microbiology Laboratory Tests 11/09/24 03:18 Test 11/09/24 03:18 Range/Units Serum Glucose 137 H 74-106 mg/dL Assessment/Plan A: 1. POD #7 s/p ex lap with sigmoidectomy for perforation and poss colovesicle fistula and ileal resection with anastamosis 2. showing slow improvement P: 1. start TF. Dietary Evaluation Review Comments: 1) If patient remains NPO > 7 days, consider EN/TPN to meet at least 75% of estimated energy needs 2) If gut is preferred, consider Jevity 1.2 @ 40 mL/hr goal rate as tolerated. Flush with 200 mL free H2O Q6H. TF regimen will provide 1152 kcals, 53g Pro, and 1575 mL free H2O (including flushes) per 24 hrs. Goal rate matias meet ~90% estimated daily energy needs and ~65% estimated daily protein needs. 3) Advance to 2g Na diet when medically feasible, pending ST approval 4) Follow-up with cardiology and pulmonology 5) Continue to monitor I&O, labs, and skin integrity Expected Outcomes/Goals: 1) patient to receive nutritional support within 7 days of NPO status 2) labs to improve 3) diet to advance 4) f/u in 2-3 dayas Plan discussed with: Spouse MARIUM CLEMENS MD Nov 09, 2024 11:23
[2024-11-09] MEDS: FUROSEMIDE 20 MG/2 ML VIAL IV ONE (12:17)
[2024-11-09] MEDS: VANCOMYCIN 500mg/100mL 100 ML IV ONE (16:00)
--- NOTE | 2024-11-09 19:26 | DVHPNRES ---
Progress Note Date Seen: Nov 09, 2024 Resident Creating Document: THIAGO NEGRON RESIDENT Medical Necessity Reason Pt with a Central, PICC or Fol: Yes The following are medically ne: PICC Line Subjective Review of Systems Patient was seen and examined on the bedside ICU. She is on mechanical ventilation with FiO2 30%, tidal volume 450 mL, peep 5 and respiratory rate 16. Overnight T-max is 99.0, and patient is on Levophed , Versed and fentanyl. Last 12 hours urine output is 900 mL, minimal gastric drainage, drainage total 20 ml and serosanguineous. H&H is stable . Bilateral peripheral ischemic toes in the lower limb and duplex arterial scan demonstrated bilateral hemodynamically significant stenosis in left dorsalis pedis and right popliteal artery. Dr. Martinez started tube feeding at 20 mL/hours and pending histopathology report. P atient is unstable for transfer to [place]. Objective vital signs Vital Sign Date Time Temp Pulse Resp B/P (MAP) Pulse Ox O2 Delivery O2 Flow Rate FiO2 11/09/24 18:57 97.5 109 16 95/64 (74) 91 207.5 11/09/24 18:06 30 11/09/24 17:35 Mechanical Ventilator+ 11/08/24 00:21 30.0 Total Intake and Output 11/08/24 11/08/24 11/09/24 15:00 23:00 07:00 Intake Total 612.188 ml 367.504 ml 599.516 ml Output Total 695 ml 555 ml Balance 612.188 ml -327.496 ml 44.516 ml medications Current Medications Medications Dose Ordered Sig/Greg Route Start Time Stop Time Status Last Admin Dose Admin Vancomycin HCl 0 ml @ 0 mls/hr UD IV 11/01/24 21:15 Ondansetron HCl 4 mg Q4HP PRN IV 11/01/24 21:15 Midazolam HCl 50 ml @ 1 mls/hr Q24H IV 11/02/24 01:15 11/07/24 23:55 2 MLS/HR Fentanyl Citrate 250 ml @ 2.5 mls/hr Q24H IV 11/02/24 01:15 11/07/24 16:19 5 MLS/HR Thiamine HCl 100 mg DAILY IV 11/03/24 10:00 11/09/24 10:28 100 MG Norepinephrine Bitartrate 32 mg/ Sodium Chloride 250 ml @ 0.938 mls/ hr Q24H IV 11/03/24 14:45 11/08/24 06:52 5.625 MLS/HR Amino Acids 0 ml @ 0 mls/hr PER PHARMACY IV 11/03/24 16:30 Diagnostic Test (Pha) 1 strip Q6HR 11/04/24 00:00 11/09/24 17:53 1 STRIP Insulin Human Regular FOLLOW SLIDING SCALE Q6HR SC 11/04/24 00:00 11/09/24 18:00 2 UNITS Dextrose 50 ml UD IV 11/04/24 00:00 Pantoprazole Sodium 40 mg BID IV 11/04/24 09:15 11/09/24 10:28 40 MG Artificial Tears 1 drop Q6HP PRN EACHEYE 11/05/24 12:30 11/09/24 07:48 1 DROP Meropenem 50 ml @ 17 mls/hr Q8H IV 11/08/24 16:00 11/09/24 17:06 17 MLS/HR Fat Emulsion Intravenous 150 ml/Potassium Acetate 20 meq/ Potassium Phosphate 22 meq/ Magnesium Sulfate 22 meq/ Multivitamins 10 ml/Chromium/ Copper/Manganese/ Zinc 1 ml/Amino Acids/Dextrose/ Purified Water 1,531.5 ml @ 64 mls/hr [id number] IV 11/08/24 22:00 11/09/24 21:59 11/08/24 21:27 64 MLS/HR Fat Emulsion Intravenous 150 ml/Potassium Acetate 20 meq/ Potassium Phosphate 22 meq/ Magnesium Sulfate 22 meq/ Multivitamins 10 ml/Chromium/ Copper/Manganese/ Zinc 1 ml/Amino Acids/Dextrose/ Purified Water 1,581.5 ml @ 66 mls/hr [id number] IV 11/09/24 22:00 11/10/24 21:59 Enteral Nutritional Formula 1,000 ml 20ML/HR GT 11/09/24 11:30 Examination Examination General: RASS -3, afebrile, mucosae are moist Cardiovascular: Normal S1 and S2. No murmurs, gallops or rubs Respiratory: Mechanically assisted ventilation, equal bilateral airway entree. Clear lung sounds on auscultation Abdomen: Soft, nontender, no organomegaly, sluggish bowel sounds, Surgical wound on the midline and colostomy on the left side. MSK/skin: Mobilization of limbs cannot be evaluated. Skin is dry and cold. Bilateral ischemic toes in the lower extremities Neurological: Orientation cannot be assessed. No apparent motor no sensitive deficits. Pupils are isocoric and reactive. laboratory and microbiology Laboratory Tests 11/09/24 03:18 Test 11/09/24 03:18 Range/Units Serum Glucose 137 H 74-106 mg/dL Microbiology Date/Time Source Procedure Growth Status 11/03/24 14:05 Blood Blood Culture - Final NO GROWTH AFTER 5 DAYS OF INCUBATION. Complete 11/02/24 01:14 Trachea Gram Stain - Final Complete 11/02/24 01:14 Respiratory Culture - Final Staphylococcus aureus Presumptive Chreelle albicans Complete Labs and/or images reviewed: Labs reviewed by me, Image(s) reviewed by me Problem List/Assessment/Plan Problem List/Assessment/Plan Assessment and plan: NEURO: Acute metabolic encephalopathy secondary to septic shock Status post intubation RASS score: -3 CARDIOVASCULAR: Septic shock secondary to perforation of the hollow viscus Sinus tachycardia secondary to pain versus withdrawal Bilateral peripheral arterial disease - Patient is on Levophed - EKG demonstrated sinus tachycardia - echo showed EF 60%, echo density in RV suggestive of large papillary muscle, can not rule out vegetation. - Duplex scan of the lower extremity revealed bilateral hemodynamically significant stenosis in left dorsalis pedis and right popliteal artery PULMONARY: Possible right lower lobe pneumonia Mild bilateral pleural effusion. - Chest x-ray showed atelectasis in bilateral lung bases - Blood culture showed Bacteroides and respiratory cultures Staph aureus and presumptive Cherelle albicans - Follow up blood culture revealed no growth in 24 hours of incubation. - continue IV vancomycin and IV meropenem GASTROINTESTINAL: Septic shock secondary to perforation of the hollow viscus, status post exploratory laparotomy Rule out colonic malignancy Transaminitis and coagulopathy secondary to hepatic steatosis Rule out cirrhosis Enlarged CBD, rule out choledocholithiasis or biliary stenosis Alcohol abuse disorder - TPN as per pharmacy - IV thiamine 100 mg daily - CT abdomen pelvis without contrast showed large amount of intraperitoneal free air . [id number] stool burden. Indeterminate possible portal venous gas versus marginal gas along the liver - U/S of the abdomen showed The liver is diffusely echogenic which may be secondary to steatosis or another diffuse hepatic process. Enlargement of the common bile duct measuring up to 15 mm. Gallbladder sludge. Small amount of free fluid in the abdomen. - Patient underwent Exploratory laparotomy with rectosigmoid resection with colostomy, Extensive lysis of adhesions and Ileal resection with a primary anastomosis. - Abdominal fluid culture demonstrated, prevotella, Pseudomonas, E coli, Streptococcus mitis - continue IV vancomycin and IV meropenem GENITOURINARY: FLORIN secondary to septic shock/ VMN Acute complicated cystitis - U/A was consistent with UTI - Pending urine bacterial culture ENDOCRINE: Hypoglycemia METABOLIC: Moderate protein calorie malnutrition Hypocalcemia metabolic acidosis with respiratory compensation HEME: Acute on chronic microcytic hypochromic anemia Thrombocytopenia improving Coagulopathy Acute DVT of left upper arm - Hold anticoagulant due to low hemoglobin - 2 unit PRBC and 1 FFP given since surgery - monitor H&H INFECTIOUS DISEASE: Sepsis with septic shock secondary to perforation of the hollow viscus, status post exploratory laparotomy Possible right lower lobe pneumonia Acute complicated cystitis - Blood culture showed Gram-negative rods, other cultures are pending - continue IV vancomycin and IV meropenem DIET: TPN, tube feeding DVT prophylax: Hold lovenox GI prophylaxis: Protonix Bowel regimen: Code status: Full Code LINES/DRAINS/ACCESS: ETT: Intubated on 11/01/2024 IV access: Right IJ placed on 04/12/2024 Drips: Levophed, Versed, fentanyl Grajeda catheter: Placed on 11/01/2024 DISPOSITION: ICU Patient's status discussed with Critical care time spent more than 81 minutes, including patient care, chart review, and updating the family. Excluding any procedures. Case discussed with Dr. Armas Plan discussed with: Spouse, Other (Sister, RN) My Orders My Orders Orders - THIAGO NEGRON RESIDENT Procedure Category Date Status Time Chest Portable XY 11/09/24 Resulted 04:00 Amino Acid PHA 11/09/24 In Process Infusion... W/Fat 22:00 Comprehensive LAB 11/10/24 Verified Metabolic Panel 04:00 Magnesium LAB 11/10/24 Verified 04:00 Phosphorus LAB 11/10/24 Verified 04:00 Tpn Per Pharmacy [facility] 11/09/24 In Process 22:00 Cpap Trial For Am ORDERS 11/09/24 Transmitted 13:56 Dietary Evaluation Review Comments: 1) If patient remains NPO > 7 days, consider EN/TPN to meet at least 75% of estimated energy needs 2) If gut is preferred, consider Jevity 1.2 @ 40 mL/hr goal rate as tolerated. Flush with 200 mL free H2O Q6H. TF regimen will provide 1152 kcals, 53g Pro, and 1575 mL free H2O (including flushes) per 24 hrs. Goal rate matias meet ~90% estimated daily energy needs and ~65% estimated daily protein needs. 3) Advance to 2g Na diet when medically feasible, pending ST approval 4) Follow-up with cardiology and pulmonology 5) Continue to monitor I&O, labs, and skin integrity Expected Outcomes/Goals: 1) patient to receive nutritional support within 7 days of NPO status 2) labs to improve 3) diet to advance 4) f/u in 2-3 dayas Date of Service: Nov 09, 2024 Billing Provider: BERNARD ARMAS MD Common Visit Codes: [id number] CARE 30-74 MIN, [id number] CARE-EACH +30MIN THIAGO NEGRON RESIDENT Nov 09, 2024 19:26 BERNARD ARMAS MD Nov 10, 2024 14:19
[2024-11-09] MEDS: TPN PER PHARMACY IV NR (21:44)
[2024-11-10] VITALS (121 sets, daily range): BP systolic 84–125; BP diastolic 49–86; PULSE 107–125; RESP 12–56; TEMP 97.7–99.7; O2SAT 90–100
[2024-11-10 04:11] LABS: Nucleated Red Blood Cells % 0.0 %
[2024-11-10 04:13] LABS: Hematocrit 25.0 % (36.0-46.0); Hemoglobin 8.2 g/dL (12.2-16.2); Mean Corpuscular Hemoglobin 25.9 pg (28.0-32.0); Mean Corpuscular Volume 78.7 fL (80.0-100.0)
[2024-11-10 04:27] LABS: Alanine Aminotransferase 16 U/L (7-40); Anion Gap 7 (5-15); BUN/Creatinine Ratio 39.8 (10.0-20.0); Calcium 9.3 mg/dL (8.7-10.4); Carbon Dioxide 26 mmol/L (20-31); Magnesium 2.1 mg/dL (1.6-2.6); Potassium 4.0 mmol/L (3.5-5.1); Sodium 142 mmol/L (136-145)
[2024-11-10 04:44] LABS: Albumin 2.5 g/dL (3.2-4.8); Alkaline Phosphatase 132 U/L (46-116); Bilirubin, Total < 0.2 mg/dL (0.2-1.0); Blood Urea Nitrogen 37 mg/dL (9-23); Chloride 109 mmol/L (98-107); Glucose 136 mg/dL (74-106); Total Protein 4.8 g/dL (5.7-8.2)
[2024-11-10 05:16] LABS: Anisocytosis Slight
--- NOTE | 2024-11-10 05:29 | DVH ---
CHEST RADIOGRAPH Indication: On mechanical ventilation Technique: Single frontal view of the chest was obtained COMPARISON: XY CHEST PORTABLE on DOS: 11/09/24, XY CHEST PORTABLE on DOS: 11/08/24, XY CHEST PORTABLE on DOS: 11/07/24, XY CHEST PORTABLE on DOS: 11/06/24, XY CHEST PORTABLE on DOS: 11/05/24, XY CHEST PORTABLE on DOS: 11/09/24 FINDINGS: Lines and Tubes: Endotracheal tube, enteric catheter right central venous catheter in satisfactory po sition. Lungs: Bilateral lower lobe airspace disease Pleura: No effusion. No pneumothorax. Cardiomediastinal contours: Unremarkable Bones: Unremarkable IMPRESSION: Lines and tubes in satisfactory position. No significant interval change.
[2024-11-10 07:33] LABS: Base Excess 0.4 mmol/L (-2.0-3.0)
[2024-11-10] MEDS: VANCOMYCIN 500mg/100mL 100 ML IV ONE (17:52)
[2024-11-10] MEDS: METOCLOPRAMIDE HCL 5MG/ml INJ 2ml VIAL IV SCH (17:52)
--- NOTE | 2024-11-10 19:09 | DVHPNRES ---
Progress Note Date Seen: Nov 10, 2024 Resident Creating Document: THIAGO NEGRON RESIDENT Medical Necessity Reason Pt with a Central, PICC or Fol: Yes The following are medically ne: PICC Line Subjective Review of Systems Patient was seen and examined on the bedside ICU. She is on mechanical ventilation with FiO2 30%, tidal volume 450 mL, peep 5 and respiratory rate 16. Overnight T-max is 98.6, and patient is on Levophed , Versed and fentanyl. Last 12 hours urine output is 900 mL, minimal gastric drainage, drainage total 20 ml and serosanguineous. H&H is stable . Dr. Martinez started tube feeding at 20 mL/hours today but the patient was not able to tolerate tube feeding, started scheduled dose of Reglan. Patient is off sedation since last 2 days but still not ready for CPAP trial just opening eyes not following any commands, breathing exercise done today. scheduled for CPAP trial again tomorrow. If the patient is not waking up by tomorrow we will do CT head without contrast to rule out acute intracranial pathology. Patient is unstable for transfer to [place]. Objective vital signs Vital Sign Date Time Temp Pulse Resp B/P (MAP) Pulse Ox O2 Delivery O2 Flow Rate FiO2 11/10/24 18:00 115 11/10/24 18:00 30 11/10/24 18:00 16 100 Mechanical Ventilator+ 11/10/24 16:07 100/63 (75) 11/10/24 14:58 98.8 209.8 Total Intake and Output 11/09/24 11/09/24 11/10/24 15:00 23:00 07:00 Intake Total 584.65 ml 507.178 ml 650.504 ml Output Total 750 ml 635 ml Balance 584.65 ml -242.822 ml 15.504 ml medications Current Medications Medications Dose Ordered Sig/Greg Route Start Time Stop Time Status Last Admin Dose Admin Vancomycin HCl 0 ml @ 0 mls/hr UD IV 11/01/24 21:15 Ondansetron HCl 4 mg Q4HP PRN IV 11/01/24 21:15 Midazolam HCl 50 ml @ 1 mls/hr Q24H IV 11/02/24 01:15 11/07/24 23:55 2 MLS/HR Fentanyl Citrate 250 ml @ 2.5 mls/hr Q24H IV 11/02/24 01:15 11/07/24 16:19 5 MLS/HR Thiamine HCl 100 mg DAILY IV 11/03/24 10:00 11/10/24 09:16 100 MG Norepinephrine Bitartrate 32 mg/ Sodium Chloride 250 ml @ 0.938 mls/ hr Q24H IV 11/03/24 14:45 11/10/24 05:50 2.813 MLS/HR Amino Acids 0 ml @ 0 mls/hr PER PHARMACY IV 11/03/24 16:30 Diagnostic Test (Pha) 1 strip Q6HR 11/04/24 00:00 11/10/24 18:19 1 STRIP Insulin Human Regular FOLLOW SLIDING SCALE Q6HR SC 11/04/24 00:00 11/10/24 18:19 2 UNITS Dextrose 50 ml UD IV 11/04/24 00:00 Pantoprazole Sodium 40 mg BID IV 11/04/24 09:15 11/10/24 09:16 40 MG Artificial Tears 1 drop Q6HP PRN EACHEYE 11/05/24 12:30 11/09/24 07:48 1 DROP Meropenem 50 ml @ 17 mls/hr Q8H IV 11/08/24 16:00 11/10/24 17:53 17 MLS/HR Fat Emulsion Intravenous 150 ml/Potassium Acetate 20 meq/ Potassium Phosphate 22 meq/ Magnesium Sulfate 22 meq/ Multivitamins 10 ml/Chromium/ Copper/Manganese/ Zinc 1 ml/Amino Acids/Dextrose/ Purified Water 1,581.5 ml @ 66 mls/hr [id number] IV 11/09/24 22:00 11/10/24 21:59 11/09/24 21:44 66 MLS/HR Enteral Nutritional Formula 1,000 ml 20ML/HR GT 11/09/24 11:30 Fat Emulsion Intravenous 200 ml/Potassium Acetate 24 meq/ Potassium Phosphate 13.2 meq/Magnesium Sulfate 22 meq/ Multivitamins 10 ml/Chromium/ Copper/Manganese/ Zinc 1 ml/Amino Acids/Dextrose/ Purified Water 1,631.5 ml @ 67 mls/hr [id number] IV 11/10/24 22:00 11/11/24 21:59 Metoclopramide HCl 5 mg Q8H IV 11/10/24 15:30 11/10/24 17:52 5 MG Enoxaparin Sodium 70 mg Q12HR SC 11/10/24 22:00 Examination Examination General: RASS -3, afebrile, mucosae are moist Cardiovascular: Normal S1 and S2. No murmurs, gallops or rubs Respiratory: Mechanically assisted ventilation, equal bilateral airway entree. Clear lung sounds on auscultation Abdomen: Soft, nontender, no organomegaly, sluggish bowel sounds, Surgical wound on the midline and colostomy on the left side. MSK/skin: Mobilization of limbs cannot be evaluated. Skin is dry and cold. Bilateral ischemic toes in the lower extremities Neurological: Orientation cannot be assessed. No apparent motor no sensitive deficits. Pupils are isocoric and reactive. laboratory and microbiology Laboratory Tests 11/10/24 03:28 Test 11/10/24 03:28 Range/Units Serum Glucose 136 H 74-106 mg/dL Microbiology Date/Time Source Procedure Growth Status 11/03/24 14:05 Blood Blood Culture - Final NO GROWTH AFTER 5 DAYS OF INCUBATION. Complete 11/02/24 01:14 Trachea Gram Stain - Final Complete 11/02/24 01:14 Respiratory Culture - Final Staphylococcus aureus Presumptive Cherelle albicans Complete Labs and/or images reviewed: Labs reviewed by me, Image(s) reviewed by me Problem List/Assessment/Plan Problem List/Assessment/Plan Assessment and plan: NEURO: Acute metabolic encephalopathy secondary to septic shock Status post intubation RASS score: -3 CARDIOVASCULAR: Septic shock secondary to perforation of the hollow viscus Sinus tachycardia secondary to pain versus withdrawal Bilateral peripheral arterial disease - Patient is on Levophed - EKG demonstrated sinus tachycardia - echo showed EF 60%, echo density in RV suggestive of large papillary muscle, can not rule out vegetation. - Duplex scan of the lower extremity revealed bilateral hemodynamically significant stenosis in left dorsalis pedis and right popliteal artery PULMONARY: Possible right lower lobe pneumonia Mild bilateral pleural effusion. - Chest x-ray showed atelectasis in bilateral lung bases - Blood culture showed Bacteroides and respiratory cultures Staph aureus and presumptive Cherelle albicans - Follow up blood culture revealed no growth in 24 hours of incubation. - continue IV vancomycin and IV meropenem GASTROINTESTINAL: Septic shock secondary to perforation of the hollow viscus, status post exploratory laparotomy Rule out colonic malignancy Transaminitis and coagulopathy secondary to hepatic steatosis Rule out cirrhosis Enlarged CBD, rule out choledocholithiasis or biliary stenosis Alcohol abuse disorder - TPN as per pharmacy - IV thiamine 100 mg daily - CT abdomen pelvis without contrast showed large amount of intraperitoneal free air . [id number] stool burden. Indeterminate possible portal venous gas versus marginal gas along the liver - U/S of the abdomen showed The liver is diffusely echogenic which may be secondary to steatosis or another diffuse hepatic process. Enlargement of the common bile duct measuring up to 15 mm. Gallbladder sludge. Small amount of free fluid in the abdomen. - Patient underwent Exploratory laparotomy with rectosigmoid resection with colostomy, Extensive lysis of adhesions and Ileal resection with a primary anastomosis. - Abdominal fluid culture demonstrated, prevotella, Pseudomonas, E coli, Streptococcus mitis - continue IV vancomycin and IV meropenem GENITOURINARY: FLORIN secondary to septic shock/ VMN Acute complicated cystitis - U/A was consistent with UTI - Pending urine bacterial culture ENDOCRINE: Hypoglycemia METABOLIC: Moderate protein calorie malnutrition Hypocalcemia metabolic acidosis with respiratory compensation HEME: Acute on chronic microcytic hypochromic anemia Thrombocytopenia improving Coagulopathy Acute DVT of left upper arm - Hold anticoagulant due to low hemoglobin - 2 unit PRBC and 1 FFP given since surgery - monitor H&H INFECTIOUS DISEASE: Sepsis with septic shock secondary to perforation of the hollow viscus, status post exploratory laparotomy Possible right lower lobe pneumonia Acute complicated cystitis - Blood culture showed Gram-negative rods, other cultures are pending - continue IV vancomycin and IV meropenem DIET: TPN, tube feeding DVT prophylax: Hold lovenox GI prophylaxis: Protonix Bowel regimen: Code status: Full Code LINES/DRAINS/ACCESS: ETT: Intubated on 11/01/2024 IV access: Right IJ placed on 04/12/2024 Drips: Levophed, Versed, fentanyl Grajeda catheter: Placed on 11/01/2024 DISPOSITION: ICU Patient's status discussed with Critical care time spent more than 81 minutes, including patient care, chart review, and updating the family. Excluding any procedures. Case discussed with Dr. Armas Plan discussed with: Spouse, Other (RN) My Orders My Orders Orders - THIAGO NEGRON RESIDENT Procedure Category Date Status Time Chest Portable XY 11/10/24 Resulted 04:00 Abg W/ Co-Ox RT 11/10/24 Logged 04:00 Respiratory Misc. RT 11/10/24 Transmitted Order 08:00 Amino Acid PHA 11/10/24 In Process Infusion... W/Fat 22:00 Comprehensive LAB 11/11/24 Verified Metabolic Panel 04:00 Magnesium LAB 11/11/24 Verified 04:00 Phosphorus LAB 11/11/24 Verified 04:00 Tpn Per Pharmacy [facility] 11/10/24 In Process 22:00 Metoclopramide PHA 11/10/24 In Process Injection (Reglan 15:30 Enoxaparin Sodium PHA 11/10/24 In Process (Lovenox) 22:00 Dietary Evaluation Review Comments: 1) If patient remains NPO > 7 days, consider EN/TPN to meet at least 75% of estimated energy needs 2) If gut is preferred, consider Jevity 1.2 @ 40 mL/hr goal rate as tolerated. Flush with 200 mL free H2O Q6H. TF regimen will provide 1152 kcals, 53g Pro, and 1575 mL free H2O (including flushes) per 24 hrs. Goal rate matias meet ~90% estimated daily energy needs and ~65% estimated daily protein needs. 3) Advance to 2g Na diet when medically feasible, pending ST approval 4) Follow-up with cardiology and pulmonology 5) Continue to monitor I&O, labs, and skin integrity Expected Outcomes/Goals: 1) patient to receive nutritional support within 7 days of NPO status 2) labs to improve 3) diet to advance 4) f/u in 2-3 dayas Date of Service: Nov 10, 2024 Billing Provider: BERNARD ARMAS MD Common Visit Codes: [id number] CARE 30-74 MIN, [id number] CARE-EACH +30MIN THIAGO NEGRON RESIDENT Nov 10, 2024 19:08 BERNARD ARMAS MD Nov 11, 2024 14:38
--- NOTE | 2024-11-10 19:34 | DVH ---
ABDOMEN, (KUB) ONE VIEW REASON FOR EXAM: R/O OBSTRUCTION COMPARISON: XY KUB ABDOMEN SINGLE VIEW on DOS: 11/07/24, US ABDOMEN COMPLETE SONOGRAM on DOS: 11/02/24, C T CT AB PEL WO CON-NO ORAL OR IV on DOS: 11/01/24 TECHNIQUE: A single view of the abdomen is obtained. FINDINGS: Surgical clips project over the epigastric region. Skin yadira project over the midline of the abdomen and pelvis. There is an enteric tube with the tip and side hole projecting over the st omach. The bowel gas pattern is nonobstructive. The colonic stool burden is small. There is no supine evidence of pneumoperitoneum. IMPRESSION: Nonobstructive bowel gas pattern.
[2024-11-10] MEDS: ENOXAPARIN SOD 80 MG/0.8ML SYRINGE SC SCH (21:44)
[2024-11-10] MEDS: TPN PER PHARMACY IV NR (21:45)
[2024-11-11] VITALS (114 sets, daily range): BP systolic 91–129; BP diastolic 54–85; PULSE 103–131; RESP 16–26; TEMP 97.7–99.7; O2SAT 98–100
[2024-11-11 04:27] LABS: Nucleated Red Blood Cells % 0.0 %
[2024-11-11 04:33] LABS: Hematocrit 23.5 % (36.0-46.0); Hemoglobin 7.8 g/dL (12.2-16.2); Mean Corpuscular Hemoglobin 26.0 pg (28.0-32.0); Mean Corpuscular Volume 78.4 fL (80.0-100.0)
[2024-11-11 04:35] LABS: Alanine Aminotransferase 22 U/L (7-40); Anion Gap 7 (5-15); BUN/Creatinine Ratio 48.5 (10.0-20.0); Calcium 9.1 mg/dL (8.7-10.4); Carbon Dioxide 26 mmol/L (20-31); Magnesium 2.1 mg/dL (1.6-2.6); Potassium 4.0 mmol/L (3.5-5.1); Sodium 143 mmol/L (136-145)
[2024-11-11 05:01] LABS: Albumin 2.5 g/dL (3.2-4.8); Alkaline Phosphatase 169 U/L (46-116); Bilirubin, Total < 0.2 mg/dL (0.2-1.0); Blood Urea Nitrogen 33 mg/dL (9-23); Chloride 110 mmol/L (98-107); Glucose 134 mg/dL (74-106); Total Protein 4.8 g/dL (5.7-8.2)
[2024-11-11 05:47] LABS: Anisocytosis Slight
--- NOTE | 2024-11-11 07:04 | DVH ---
CHEST RADIOGRAPH Indication: Mechanical ventilation Technique: Single frontal view of the chest was obtained Comparison: XY CHEST PORTABLE on DOS: 11/10/24 FINDINGS: Lines and Tubes: The endotracheal tube terminates 3.6 cm above the jacob. Right central venous hesham ter terminates in the superior vena cava. The enteric tube courses below the left hemidiaphragm and tip terminates in the stomach. Lungs: Similar bilateral lower lobe airspace disease. Pleura: No effusion. No pneumothorax. Cardiomediastinal contours: Unremarkable Bones: No acute osseous abnormality. IMPRESSION: 1. Support tubes in appropriate position. 2. Bilateral lower lobe airspace disease.
[2024-11-11 07:06] LABS: Base Excess -0.5 mmol/L (-2.0-3.0)
--- NOTE | 2024-11-11 09:17 | MEDREC ---
[facility] ASP Intervention Section I [facility] ASP Intervention: Deescalate AB based on CS (MRSA nares negative. Trachea culture shows susceptibility to oxacillin, which confirms MSSA infection. In addition, vancomycin ZAFAR is 2 g/mL the upper limit of vancomycins efficacy. Please consider verifying penicillin allergy, then de-escalate vancomycin to beta-lactams (like nafcillin, or cefazolin) as they are more effective than vancomycin for MSSA infections ), Duplication of therapy (Please consider D/C metronidazole once meropenem is active at 2200 on 11/03) HEIDI RAMOS HAZARD [facility] RESIDENT Nov 11, 2024 09:17
--- NOTE | 2024-11-11 11:48 | DVH ---
EXAM: CT HEAD WITHOUT CONTRAST INDICATION: rule out stroke TECHNIQUE: CT of the head without intravenous contrast. Coronal and sagittal reformatted images are s ubmitted. Radiation Dose : 1. Head: CT Dose: CTDI volume is 53.72 mGy. Dose-length product is 1185.29 mGy*cm The dose indicators for CT are the volume Computed Tomography (CT) Dose Index (CTDIvol) and the Dose Length Product (DLP), and are measured in units of mGy and mGy-cm, respectively. These indicators are not patient dose, but values generated from the CT scanner acquisition factors. The report includes radiation exposure data for exposures received during this examination. All CT scans at this medical facility are performed using dose modulation techniques as appropriate to a performed exam including the following: Automated exposure control was utilized; adjustment of the MA and/or KV according to patient size; and use of iterative reconstruction technique. COMPARISON: None FINDINGS: There some beam hardening artifact in the posterior fossa which limits evaluation. There is no evidence of acute intracranial hemorrhage, extra-axial collection, mass effect, midline s hift, herniation or hydrocephalus. The ventricles, sulci and cisterns are age appropriate. The campbell-white differentiation is intact. The visualized paranasal sinuses and mastoid air cells are clear. No depressed calvarial fracture. The surrounding soft tissues are unremarkable. Partially imaged life-support tubes noted. IMPRESSION: 1. No evidence of acute intracranial abnormality.
[2024-11-11] MEDS: VANCOMYCIN 500mg/100mL 100 ML IV SCH (12:00)
--- NOTE | 2024-11-11 18:05 | DVHPNRES ---
Progress Note Date Seen: Nov 11, 2024 Resident Creating Document: THIAGO NEGRON RESIDENT Medical Necessity Reason Pt with a Central, PICC or Fol: Yes The following are medically ne: PICC Line Subjective Review of Systems Patient was seen and examined on the bedside ICU. She is on mechanical ventilation with FiO2 30%, tidal volume 450 mL, peep 5 and respiratory rate 16. Overnight T-max is 98.6, and patient is on Levophed , Versed and fentanyl. Last 12 hours urine output is 900 mL, minimal gastric drainage, drainage total 20 ml and serosanguineous. H&H is stable . Dr. Martinez started tube feeding at 20 mL/hours today but the patient was not able to tolerate tube feeding, started scheduled dose of Reglan. Patient is off sedation since last 2 days but still not ready for CPAP trial just opening eyes not following any commands, breathing exercise done today. scheduled for CPAP trial again tomorrow. If the patient is not waking up by tomorrow we will do CT head without contrast to rule out acute intracranial pathology. Patient is unstable for transfer to [place]. 11/11/24: Patient was seen and examined on the bedside ICU. She is on mechanical ventilation with FiO2 30%, tidal volume 450 mL, peep 5 and respiratory rate 16. No overnight events, minimal drain and good urine output. Of sedation since last 3 days but patient still not waking up. CT head without contrast was unremarkable, ordered MRI of the head without contrast and consulted Neurology. Histopathology of the resected bowel showed moderately differentiated adenocarcinoma of the ileum, rectum and rectosigmoid junction. P atient is unstable for transfer to [place]. Objective vital signs Vital Sign Date Time Temp Pulse Resp B/P (MAP) Pulse Ox O2 Delivery O2 Flow Rate FiO2 11/11/24 16:22 97.9 111 23 116/74 (88) 100 208.2 11/11/24 16:00 30 11/11/24 16:00 Mechanical Ventilator+ Total Intake and Output 11/10/24 11/10/24 11/11/24 15:00 23:00 07:00 Intake Total 543.938 ml 493.000 ml 686.315 ml Output Total 650 ml 805 ml Balance 543.938 ml -157.000 ml -118.685 ml medications Current Medications Medications Dose Ordered Sig/Greg Route Start Time Stop Time Status Last Admin Dose Admin Vancomycin HCl 0 ml @ 0 mls/hr UD IV 11/01/24 21:15 Ondansetron HCl 4 mg Q4HP PRN IV 11/01/24 21:15 Midazolam HCl 50 ml @ 1 mls/hr Q24H IV 11/02/24 01:15 11/07/24 23:55 2 MLS/HR Fentanyl Citrate 250 ml @ 2.5 mls/hr Q24H IV 11/02/24 01:15 11/07/24 16:19 5 MLS/HR Thiamine HCl 100 mg DAILY IV 11/03/24 10:00 11/11/24 09:05 100 MG Norepinephrine Bitartrate 32 mg/ Sodium Chloride 250 ml @ 0.938 mls/ hr Q24H IV 11/03/24 14:45 11/10/24 05:50 2.813 MLS/HR Amino Acids 0 ml @ 0 mls/hr PER PHARMACY IV 11/03/24 16:30 Diagnostic Test (Pha) 1 strip Q6HR 11/04/24 00:00 11/11/24 12:01 1 STRIP Insulin Human Regular FOLLOW SLIDING SCALE Q6HR SC 11/04/24 00:00 11/11/24 12:01 2 UNITS Dextrose 50 ml UD IV 11/04/24 00:00 Pantoprazole Sodium 40 mg BID IV 11/04/24 09:15 11/11/24 09:06 40 MG Artificial Tears 1 drop Q6HP PRN EACHEYE 11/05/24 12:30 11/09/24 07:48 1 DROP Meropenem 50 ml @ 17 mls/hr Q8H IV 11/08/24 16:00 11/11/24 15:55 17 MLS/HR Enteral Nutritional Formula 1,000 ml 20ML/HR GT 11/09/24 11:30 Fat Emulsion Intravenous 200 ml/Potassium Acetate 24 meq/ Potassium Phosphate 13.2 meq/Magnesium Sulfate 22 meq/ Multivitamins 10 ml/Chromium/ Copper/Manganese/ Zinc 1 ml/Amino Acids/Dextrose/ Purified Water 1,631.5 ml @ 67 mls/hr [id number] IV 11/10/24 22:00 11/11/24 21:59 11/10/24 21:45 67 MLS/HR Metoclopramide HCl 5 mg Q8H IV 11/10/24 15:30 11/11/24 15:55 5 MG Enoxaparin Sodium 70 mg Q12HR SC 11/10/24 22:00 11/11/24 09:05 70 MG Fat Emulsion Intravenous 100 ml/Potassium Acetate 24 meq/ Potassium Phosphate 8.8 meq/ Magnesium Sulfate 22 meq/ Multivitamins 10 ml/Chromium/ Copper/Manganese/ Zinc 1 ml/Amino Acids/Dextrose/ Purified Water 1,480.5 ml @ 62 mls/hr [id number] IV 11/11/24 22:00 11/12/24 21:59 Vancomycin HCl 100 ml @ 200 mls/hr Q12H IV 11/11/24 12:00 11/11/24 12:00 200 MLS/HR Examination Examination General: RASS -3, afebrile, mucosae are moist Cardiovascular: Normal S1 and S2. No murmurs, gallops or rubs Respiratory: Mechanically assisted ventilation, equal bilateral airway entree. Clear lung sounds on auscultation Abdomen: Soft, nontender, no organomegaly, sluggish bowel sounds, Surgical wound on the midline and colostomy on the left side. MSK/skin: Mobilization of limbs cannot be evaluated. Skin is dry and cold. Bilateral ischemic toes in the lower extremities Neurological: Orientation cannot be assessed. No apparent motor no sensitive deficits. Pupils are isocoric and reactive. laboratory and microbiology Laboratory Tests 11/11/24 03:45 Test 11/11/24 03:45 Range/Units Serum Glucose 134 H 74-106 mg/dL Microbiology Date/Time Source Procedure Growth Status 11/03/24 14:05 Blood Blood Culture - Final NO GROWTH AFTER 5 DAYS OF INCUBATION. Complete 11/02/24 01:14 Trachea Gram Stain - Final Complete 11/02/24 01:14 Respiratory Culture - Final Staphylococcus aureus Presumptive Cherelle albicans Complete Labs and/or images reviewed: Labs reviewed by me, Image(s) reviewed by me Problem List/Assessment/Plan Problem List/Assessment/Plan Assessment and plan: NEURO: Acute metabolic encephalopathy secondary to septic shock Status post intubation RASS score: -2 CARDIOVASCULAR: Septic shock secondary to perforation of the hollow viscus Sinus tachycardia secondary to pain versus withdrawal Bilateral peripheral arterial disease - Patient is on Levophed - EKG demonstrated sinus tachycardia - echo showed EF 60%, echo density in RV suggestive of large papillary muscle, can not rule out vegetation. - Duplex scan of the lower extremity revealed bilateral hemodynamically significant stenosis in left dorsalis pedis and right popliteal artery PULMONARY: Possible right lower lobe pneumonia Mild bilateral pleural effusion. - Chest x-ray showed atelectasis in bilateral lung bases - Blood culture showed Bacteroides and respiratory cultures Staph aureus and presumptive Cherelle albicans - Follow up blood culture revealed no growth in 24 hours of incubation. - continue IV vancomycin and IV meropenem GASTROINTESTINAL: Septic shock secondary to perforation of the hollow viscus, status post exploratory laparotomy Rule out colonic malignancy Transaminitis and coagulopathy secondary to hepatic steatosis Rule out cirrhosis Enlarged CBD, rule out choledocholithiasis or biliary stenosis Alcohol abuse disorder Colon cancer - Histopathology of the resected bowel showed moderately differentiated adenocarcinoma of the ileum, rectum and rectosigmoid junction. - TPN as per pharmacy - IV thiamine 100 mg daily - CT abdomen pelvis without contrast showed large amount of intraperitoneal free air . [id number] stool burden. Indeterminate possible portal venous gas versus marginal gas along the liver - U/S of the abdomen showed The liver is diffusely echogenic which may be secondary to steatosis or another diffuse hepatic process. Enlargement of the common bile duct measuring up to 15 mm. Gallbladder sludge. Small amount of free fluid in the abdomen. - Patient underwent Exploratory laparotomy with rectosigmoid resection with colostomy, Extensive lysis of adhesions and Ileal resection with a primary anastomosis. - Abdominal fluid culture demonstrated, prevotella, Pseudomonas, E coli, Streptococcus mitis - continue IV vancomycin and IV meropenem GENITOURINARY: FLORIN secondary to septic shock/ VMN Acute complicated cystitis - U/A was consistent with UTI ENDOCRINE: Hypoglycemia METABOLIC: Moderate protein calorie malnutrition Hypocalcemia metabolic acidosis with respiratory compensation HEME: Acute on chronic microcytic hypochromic anemia Thrombocytopenia improving Coagulopathy Acute DVT of left upper arm - Therapeutic Lovenox 1 milligram/kg b.i.d. - 2 unit PRBC and 1 FFP given since surgery - monitor H&H INFECTIOUS DISEASE: Sepsis with septic shock secondary to perforation of the hollow viscus, status post exploratory laparotomy Possible right lower lobe pneumonia Acute complicated cystitis - Blood culture showed Gram-negative rods, other cultures are pending - continue IV vancomycin and IV meropenem DIET: TPN, tube feeding DVT prophylax: Hold lovenox GI prophylaxis: Protonix Bowel regimen: Code status: Full Code LINES/DRAINS/ACCESS: ETT: Intubated on 11/01/2024 IV access: Right IJ placed on 04/12/2024 Drips: Levophed Grajeda catheter: Placed on 11/01/2024 DISPOSITION: ICU Patient's status discussed with Critical care time spent more than 66 minutes, including patient care, chart review, and updating the family. Excluding any procedures. Case discussed with Dr. Armas Plan discussed with: Spouse, Other (Sister, RN) My Orders My Orders Orders - THIAGO NEGRON Procedure Category Date Status Time Chest Portable XY 11/11/24 Resulted 04:00 Abg W/ Co-Ox RT 11/11/24 Logged 04:00 Amino Acid PHA 11/11/24 In Process Infusion... W/Fat 22:00 Tpn Per Pharmacy [facility] 11/11/24 In Process 22:00 Comprehensive LAB 11/12/24 Verified Metabolic Panel 04:00 Phosphorus LAB 11/12/24 Verified 04:00 Magnesium LAB 11/12/24 Verified 04:[address] 11/11/24 Resulted 09:22 Brain Head Wo Contrast MRI 11/11/24 Logged 16:57 * Neurology Consult CONS 11/11/24 Transmitted 16:57 Dietary Evaluation Review Comments: 1) If patient remains NPO > 7 days, consider EN/TPN to meet at least 75% of estimated energy needs 2) If gut is preferred, consider Jevity 1.2 @ 40 mL/hr goal rate as tolerated. Flush with 200 mL free H2O Q6H. TF regimen will provide 1152 kcals, 53g Pro, and 1575 mL free H2O (including flushes) per 24 hrs. Goal rate matias meet ~90% estimated daily energy needs and ~65% estimated daily protein needs. 3) Advance to 2g Na diet when medically feasible, pending ST approval 4) Follow-up with cardiology and pulmonology 5) Continue to monitor I&O, labs, and skin integrity Expected Outcomes/Goals: 1) patient to receive nutritional support within 7 days of NPO status 2) labs to improve 3) diet to advance 4) f/u in 2-3 dayas Date of Service: Nov 11, 2024 Billing Provider: BERNARD ARMAS MD Common Visit Codes: [id number] CARE 30-74 MIN THIAGO NEGRON Nov 11, 2024 18:05 BERNARD ARMAS MD Nov 12, 2024 11:25
[2024-11-11] MEDS: TPN PER PHARMACY IV NR (21:59)
--- NOTE | 2024-11-11 22:08 | DVHINCON2 ---
Date of service: Nov 11, [address] Mg Reason for Consultation Off sedation, on mechanical ventilation History of Present Illness Ms. Osei is a 49 years old female with a history of hypertension, GERD, she was admitted to the [facility] on 11/01/2024 with a chief company of general weakness for six months of time, according to ER note, the patient was alert oriented x3 when she came to the hospital, but in the hospital, the patient was found to have perforated viscus, metabolic acidosis, sepsis, septic shock, peritonitis, on 11/02/2024, she went through 1. Exploratory laparotomy with rectosigmoid resection with colostomy 2. Extensive lysis of adhesions 3. Ileal resection with a primary anastomosis. Since then the patient has been intubated, mentally altered. With appropriate management, the patient has been improving, she has been wean off sedation, however she is not mentally improving as anticipated At this time, her eyes are open, but he is nonresponsive to sudden loud noise, visual threat or verbal stimuli Blood culture, 10/3124: Bacteroides fragilis Hepatitis panel, 11/02/2024: Hepatitis-A antibody, HbsAg Urinalysis, 11/01/2024: WBC: 522, WBC clumps: Present, urine leukocyte esterase: 3+ ABG 11/02/2024: Metabolic acidosis, 11/03/2024: Metabolic acidosis, 11/04/2024: Metabolic acidosis WBC/HB/PLT/MCV, 11/11/2024: 11.6/7.8/200/87.4 PT/INR/PTT, 11/04/2024: 14/1.36/81.6, 11/06/2024: 13.3/1.29/48.7 BUN/CR, 11/11/2024: 33/0.68 TBI/AST/ALT/AP, 11/11/2024: 0.2/67/22/169 Extremity venous study, 11/03/2024: Left upper extremity DVT Chest x-ray, 11/01/24: LUNGS: No pleural effusion, consolidation, or pneumothorax . Atelectasis in bilateral lung bases. Sequelae of fluid administration. MEDIASTINUM: Unremarkable BONES: No acute osseous abnormality OTHER: Enteric tube extending into the stomach. Intraperitoneal free air Chest x-ray, 11/02/2024: 1. Interval progression in right basilar pulmonary airspace disease. 2. Interval resolution of pneumoperitoneum. 3. Endotracheal tube and enteric catheter as above. CT head, 11/11/2024: No evidence of acute intracranial abnormality. Past Medical History Hypertension, GERD Past Surgical History Laparotomy Family History: Patient reports no known family medical history. Family History Diabetes, heart disease Social History Smoker: Other (Vape Use) Alcohol: Occasionally Drugs: Denies Drug Use Lives In: Home Allergies: Coded Allergies: Iodine (Verified Allergy, Unknown, 11/01/24) Penicillins (Verified Allergy, Unknown, 11/01/24) Sulfa Antibiotics (Verified Allergy, Unknown, 11/01/24) Current Medications Current Medications Medications (Trade) Dose Ordered Sig/Greg Route PRN Reason Start Time Stop Time Status Last Admin Fat Emulsion Intravenous 200 ml/Potassium Acetate 24 meq/ Potassium Phosphate 13.2 meq/Magnesium Sulfate 22 meq/ Multivitamins 10 ml/Chromium/ Copper/Manganese/ Zinc 1 ml/Amino Acids/Dextrose/ Purified Water 1,631.5 ml @ 67 mls/hr [id number] IV 11/10/24 22:00 11/11/24 21:59 11/10/24 21:45 Enoxaparin Sodium (Lovenox) 70 mg Q12HR SC 11/10/24 22:00 11/11/24 09:05 Fat Emulsion Intravenous 100 ml/Potassium Acetate 24 meq/ Potassium Phosphate 8.8 meq/ Magnesium Sulfate 22 meq/ Multivitamins 10 ml/Chromium/ Copper/Manganese/ Zinc 1 ml/Amino Acids/Dextrose/ Purified Water 1,480.5 ml @ 62 mls/hr [id number] IV 11/11/24 22:00 11/12/24 21:59 Vancomycin HCl 100 ml @ 200 mls/hr Q12H IV 11/11/24 12:00 11/11/24 12:00 Review of Systems Unobtainable Vital Signs Vital Signs Date Time Temp Pulse Resp B/P (MAP) Pulse Ox O2 Delivery O2 Flow Rate FiO2 11/11/24 20:22 98.4 109 20 110/67 (81) 100 209.1 11/11/24 20:00 30 11/11/24 20:00 Mechanical Ventilator+ Physical Exam The patient is well-nourished and well-developed with no distress. The patient is intubated HEENT: Normocephalic, neck supple, no carotid bruits Lungs: Clear to auscultation Cardiovascular: Regular rate and region, S1, S2, no murmurs Abdomen: Soft, nontender, normal bowel sounds, status post laparotomy MENTAL STATUS: HPI CRANIAL NERVES: Pupils are equal, round and reactive. Eyes are open, there are corneal reflexes and doll's eyes phenomenon. No signs of facial weakness. There are gagging or coughing reflexes SENSATION: No responses to pain stimuli. MOTOR: Normal tone in the upper and lower extremity. Normal muscle bulk. No fasciculations. No spontaneous movement. REFLEXES: Deep tendon reflexes are symmetrical. No pathological reflexes. CEREBELLAR/COORDINATION: Deferred GAIT/STATION: deferred. Labs/Diagnostic Data Labs Test 11/11/24 18:36 11/11/24 06:50 11/11/24 03:45 11/06/24 03:00 Range/Units POC Glucose 138 H 70-106 mg/dl Blood Gas Specimen Type Arterial Blood Gas Sample Site Right radial Blood Gas Patient Temperature 37.0 Arterial Blood Date Drawn [id number] Arterial Blood pH 7.421 7.350-7.450 Arterial Blood Partial Pressure CO2 37.4 32.0-45.0 mmHg Arterial Blood Partial Pressure O2 88.1 83.0-108.0 mmHg Arterial Blood HCO3 23.8 21.0-28.0 mmol/L Arterial Blood Oxygen Saturation 95.9 94.0-98.0 % Arterial Blood Base Excess -0.5 -2.0-3.0 mmol/L Arterial Blood Oxyhemoglobin 95.3 94.0-98.0 % Arterial Blood Carboxyhemoglobin 0.3 L 0.5-1.5 % Arterial Blood Methemoglobin 0.3 0.0-1.5 % Renard Test Modified Blood Gas Total Hemoglobin 9.40 L 12.0-16.0 g/dL Blood Gas Set Respiration Rate 16.0 Blood Gas Modality Vent - ac FiO2 % 30.0 Blood Gas Tidal Volume 450.0 Blood Gas PEEP or CPAP 5.0 White Blood Count 11.6 H 4.4-10.8 10^3/uL Red Blood Count 2.99 L 4.0-5.20 10^6/uL Hemoglobin 7.8 L 12.2-16.2 g/dL Hematocrit 23.5 L 36.0-46.0 % Mean Corpuscular Volume 78.4 L 80.0-100.0 fL Mean Corpuscular Hemoglobin 26.0 L 28.0-32.0 pg Mean Corpuscular Hemoglobin Concent 33.1 32.0-36.0 g/dL Red Cell Distribution Width 25.7 H 11.8-14.3 % Platelet Count 200 140-450 10^3/uL Mean Platelet Volume 9.6 6.9-10.8 fL Neutrophils (%) (Auto) 82.5 H 37.0-80.0 % Lymphocytes (%) (Auto) 10.1 10.0-50.0 % Monocytes (%) (Auto) 3.8 0.0-12.0 % Eosinophils (%) (Auto) 3.1 0.0-7.0 % Basophils (%) (Auto) 0.5 0.0-2.0 % Neutrophils # (Auto) 9.6 H 1.6-8.6 10 ^3/uL Lymphocytes # (Auto) 1.2 0.4-5.4 10 ^3/uL Monocytes # (Auto) 0.4 0-1.3 10 ^3/uL Eosinophils # (Auto) 0.4 0-0.8 10 ^3/uL Basophils # (Auto) 0.1 0-0.2 10 ^3/uL Nucleated Red Blood Cells 0.0 % Platelet Estimate Adequate Large Platelets Few Basophilic Stippling Anisocytosis (manual) Slight Microcytosis Slight Sodium Level 143 136-145 mmol/L Potassium Level 4.0 3.5-5.1 mmol/L Chloride Level 110 H 98-107 mmol/L Carbon Dioxide Level 26 20-31 mmol/L Anion Gap 7 5-15 Blood Urea Nitrogen 33 H 9-23 mg/dL Creatinine 0.68 0.550-1.02 mg/dL Glomerular Filtration Rate Calc 105 >90 mL/min BUN/Creatinine Ratio 48.5 H 10.0-20.0 Serum Glucose 134 H 74-106 mg/dL Calcium Level 9.1 8.7-10.4 mg/dL Phosphorus Level 4.1 2.4-5.1 mg/dL Magnesium Level 2.1 1.6-2.6 mg/dL Total Bilirubin < 0.2 L 0.2-1.0 mg/dL Aspartate Amino Transferase (AST) 67 H 13-40 U/L Alanine Aminotransferase (ALT) 22 7-40 U/L Alkaline Phosphatase 169 H 46-116 U/L Total Protein 4.8 L 5.7-8.2 g/dL Albumin 2.5 L 3.2-4.8 g/dL Random Vancomycin Level 15.5 H 5-10 ug/mL Prothrombin Time 13.3 H 9.3-11.8 sec Prothrombin Time INR 1.29 H 0.9-1.15 Activated Partial Thromboplast Time 48.7 H 24.5-34.5 SEC Test 11/05/24 07:26 11/04/24 22:41 11/04/24 03:06 11/03/24 09:50 Range/Units Blood Gas Spontaneous Rate 16 Haptoglobin 166 33-346 mg/dL Fibrinogen 208 177-375 mg/dL D-Dimer, Quantitative 6.93 H 0.0-0.49 mg/L FEU Lactate Dehydrogenase 163 120-246 U/L Triglycerides Level 128 < 150 mg/dL Urine Color [place] H Yellow Urine Clarity Ex.turbid Clear Urine pH 6.0 5.0-9.0 Urine Specific [place] 1.017 1.001-1.035 Urine Protein 2+ H Negative Urine Ketones Negative Negative Urine Blood 3+ H Negative /uL Urine Nitrite Negative Negative Urine Bilirubin Negative Negative Urine Urobilinogen Normal Negative mg/dL Urine Leukocyte Esterase 3+ Negative /uL Urine RBC 676 0 - 4 /hpf Urine WBC Clumps Present None Seen /hpf Urine Microscopic WBC 2141 H 0-5 /HPF Urine Squamous Epithelial Cells Few <5 /hpf Urine Bacteria None seen None Seen /hpf Urine Mucus Few None Seen Urine Yeast (Budding) Many None Seen /hpf Urine Creatinine 78.12 30.0-125.0 mg/dL Urine Protein/Creatinine Ratio 5.90 Urine Sodium 83 40-220 mmol/L Urine Glucose Normal Normal mg/dL Urine Total Protein 460.8 H 1-14 mg/dL Test 11/02/24 13:24 11/02/24 08:49 11/02/24 01:44 11/01/24 18:58 Range/Units CA 19-9 Antigen 36 H 0-35 U/mL CA 125 Antigen 24.2 0.0-38.1 U/mL Plasma/Serum Blood Alcohol 3.2 <10 mg/dL Hepatitis A Antibody Total Positive H Negative Hepatitis B Surface Antigen Negative Negative Hepatitis B Surface Antibody Positive H Negative Hepatitis B Core Total Antibody Negative Negative Hepatitis C Antibody Negative Negative Giant Platelets Few Hypochromasia (manual) Slight Carcinoembryonic Antigen 11.30 <=5.0 ng/mL Lactic Acid Level 4.2 *H 0.4-2.0 mmol/L Test 11/01/24 16:26 Range/Units Ammonia 13 11-32 umol/L Microbiology Date/Time Source Procedure Growth Status 11/03/24 14:05 Blood Blood Culture - Final NO GROWTH AFTER 5 DAYS OF INCUBATION. Complete 11/02/24 01:14 Trachea Gram Stain - Final Complete 11/02/24 01:14 Respiratory Culture - Final Staphylococcus aureus Presumptive Cherelle albicans Complete Assessment Altered mental status Metabolic encephalopathy Toxic encephalopathy Hypoxic encephalopathy Sepsis Septic shock Peritonitis Viscus perforation Acute respiratory failure Pneumonia Acute kidney failure Different thrombosis Plan/Recommendation Monitoring Supportive treatment ICU care EEG Follow-up labs Stabilize vitals/pressor drip Respiratory support/vent management Oxygen Antibiotics Lovenox 70 mg subQ b.i.d. TPN More recommendation per clinical course Prognosis: Guarded Critical care time spent is 45 minutes This medical document was created using an electronic medical record system with G-[employer] dictation system. Although this document has been carefully reviewed, there may still be some phonetic and typographical errors. These areas are purely typographical due to imperfections of the software programs, and do not reflect any compromise in the patient's medical care. Plan discussed with: Other HOLLY BENSON MD Nov 11, 2024 22:08
[2024-11-12] VITALS (116 sets, daily range): BP systolic 96–131; BP diastolic 59–82; PULSE 88–118; RESP 0–59; TEMP 93–99.7; O2SAT 100
[2024-11-12 03:59] LABS: Alanine Aminotransferase 26 U/L (7-40); Anion Gap 6 (5-15); BUN/Creatinine Ratio 73.3 (10.0-20.0); Calcium 8.8 mg/dL (8.7-10.4); Carbon Dioxide 27 mmol/L (20-31); Magnesium 2.1 mg/dL (1.6-2.6); Potassium 3.8 mmol/L (3.5-5.1); Sodium 143 mmol/L (136-145)
[2024-11-12 04:05] LABS: Albumin 2.4 g/dL (3.2-4.8); Alkaline Phosphatase 172 U/L (46-116); Bilirubin, Total 0.2 mg/dL (0.2-1.0); Blood Urea Nitrogen 33 mg/dL (9-23); Chloride 110 mmol/L (98-107); Glucose 114 mg/dL (74-106); Total Protein 4.7 g/dL (5.7-8.2)
[2024-11-12 04:08] LABS: Hematocrit 20.2 % (36.0-46.0); Mean Corpuscular Hemoglobin 25.8 pg (28.0-32.0); Mean Corpuscular Volume 78.0 fL (80.0-100.0); Nucleated Red Blood Cells % 0.0 %
[2024-11-12 04:15] LABS: Hemoglobin 6.7 g/dL (12.2-16.2)
--- NOTE | 2024-11-12 06:09 | DVH ---
CHEST RADIOGRAPH Indication: Mechanical Ventilation Technique: Single frontal view of the chest was obtained Comparison: XY CHEST PORTABLE on DOS: 11/11/24 FINDINGS: Lines and Tubes: The endotracheal tube terminates 1.3 cm above the jacob. There is a right central v enous catheter with its tip terminating in the superior vena cava. The enteric tube terminates in the stomach. Lungs: Decreased bibasilar airspace disease since prior study. Pleura: No effusion. No pneumothorax. Cardiomediastinal contours: Unremarkable Bones: No acute osseous abnormality. IMPRESSION: 1. Improved aeration at the lung bases since prior study. 2. Stable position of the support lines and tubes.
[2024-11-12 07:54] LABS: Base Excess 2.1 mmol/L (-2.0-3.0)
--- NOTE | 2024-11-12 09:49 | DVHPN2 ---
Progress Note Date Seen: Nov 12, 2024 Medical Necessity Reason Pt with a Central, PICC or Fol: Yes The following are medically ne: PICC Line Objective vital signs Vital Sign Date Time Temp Pulse Resp B/P (MAP) Pulse Ox O2 Delivery O2 Flow Rate FiO2 11/12/24 09:33 24 100 Mechanical Ventilator+ 30 30 11/12/24 09:33 100 11/12/24 09:30 93.0 199.4 Total Intake and Output 11/11/24 11/11/24 11/12/24 15:00 23:00 07:00 Intake Total 693.504 ml 716.066 ml 727 ml Output Total 850 ml 925 ml Balance 693.504 ml -133.934 ml -198 ml medications Current Medications Medications Dose Ordered Sig/Greg Route Start Time Stop Time Status Last Admin Dose Admin Vancomycin HCl 0 ml @ 0 mls/hr UD IV 11/01/24 21:15 Ondansetron HCl 4 mg Q4HP PRN IV 11/01/24 21:15 Midazolam HCl 50 ml @ 1 mls/hr Q24H IV 11/02/24 01:15 11/07/24 23:55 2 MLS/HR Fentanyl Citrate 250 ml @ 2.5 mls/hr Q24H IV 11/02/24 01:15 11/07/24 16:19 5 MLS/HR Thiamine HCl 100 mg DAILY IV 11/03/24 10:00 11/12/24 08:43 100 MG Norepinephrine Bitartrate 32 mg/ Sodium Chloride 250 ml @ 0.938 mls/ hr Q24H IV 11/03/24 14:45 11/10/24 05:50 2.813 MLS/HR Amino Acids 0 ml @ 0 mls/hr PER PHARMACY IV 11/03/24 16:30 Diagnostic Test (Pha) 1 strip Q6HR 11/04/24 00:00 11/12/24 05:43 1 STRIP Insulin Human Regular FOLLOW SLIDING SCALE Q6HR SC 11/04/24 00:00 11/11/24 23:50 2 UNITS Dextrose 50 ml UD IV 11/04/24 00:00 Pantoprazole Sodium 40 mg BID IV 11/04/24 09:15 11/12/24 08:43 40 MG Artificial Tears 1 drop Q6HP PRN EACHEYE 11/05/24 12:30 11/09/24 07:48 1 DROP Meropenem 50 ml @ 17 mls/hr Q8H IV 11/08/24 16:00 11/12/24 08:43 17 MLS/HR Enteral Nutritional Formula 1,000 ml 20ML/HR GT 11/09/24 11:30 Metoclopramide HCl 5 mg Q8H IV 11/10/24 15:30 11/12/24 07:50 5 MG Fat Emulsion Intravenous 100 ml/Potassium Acetate 24 meq/ Potassium Phosphate 8.8 meq/ Magnesium Sulfate 22 meq/ Multivitamins 10 ml/Chromium/ Copper/Manganese/ Zinc 1 ml/Amino Acids/Dextrose/ Purified Water 1,480.5 ml @ 62 mls/hr [id number] IV 11/11/24 22:00 11/12/24 21:59 11/11/24 21:59 62 MLS/HR Vancomycin HCl 100 ml @ 200 mls/hr Q12H IV 11/11/24 12:00 11/11/24 23:40 200 MLS/HR Fat Emulsion Intravenous 100 ml/Potassium Acetate 28 meq/ Potassium Phosphate 8.8 meq/ Magnesium Sulfate 22 meq/ Multivitamins 10 ml/Chromium/ Copper/Manganese/ Zinc 1 ml/Amino Acids/Dextrose/ Purified Water 1,482.5 ml @ 62 mls/hr [id number] IV 11/12/24 22:00 11/13/24 21:59 laboratory and microbiology Laboratory Tests 11/12/24 02:48 Test 11/12/24 02:48 Range/Units Serum Glucose 114 H 74-106 mg/dL Problem List/Assessment/Plan Problem List/Assessment/Plan 11/04/[address] CLEMENS, COLOSTOMY VIABLE AND WITHOUT FUNCTION, WOUND CLEAN AND WELL APPROXIMATED, RAMBO DRAINAGE SEROUS, ANEMIC, ABDOMEN NON DISTENDED, 11/05/24 family members at bedside, wound clean and well approximated, stoma viable without function, drain clear serous, husbands questions answered. remains sedated and intubated on levophed and is tachycardic, ordered bolus of LR over next hour, needs more IV fluid 11/06/24 wound clean and well approximated, abdomen non distended soft, drainage clear serous. colostomy viable with flatus present in appliance. remains intubated and sedated 11/07/24 unchanged clinically, remains intubated and sedated wound ok, drainage clear, stoma viable no stool.discussed with mammography supervisor to initiate weaning, stop sedation, 11/09/24 hemodynamically stable, sedation was stopped yesterday, abdomen non distended, soft, RAMBO drainage clear, OK to wean off ventilator 11/12/24 some voluntary movements, moved leg and head on command, wound clean and well approximated, abdomen soft and non distended, drainage per RAMBO drain clear serous. Sister and brother in law at bedside: questions answered Plan discussed with: Other Dietary Evaluation Review Comments: 1) If patient remains NPO > 7 days, consider EN/TPN to meet at least 75% of estimated energy needs 2) If gut is preferred, consider Jevity 1.2 @ 40 mL/hr goal rate as tolerated. Flush with 200 mL free H2O Q6H. TF regimen will provide 1152 kcals, 53g Pro, and 1575 mL free H2O (including flushes) per 24 hrs. Goal rate matias meet ~90% estimated daily energy needs and ~65% estimated daily protein needs. 3) Advance to 2g Na diet when medically feasible, pending ST approval 4) Follow-up with cardiology and pulmonology 5) Continue to monitor I&O, labs, and skin integrity Expected Outcomes/Goals: 1) patient to receive nutritional support within 7 days of NPO status 2) labs to improve 3) diet to advance 4) f/u in 2-3 dayCIRO Lopes MD Nov 12, 2024 09:49
[2024-11-12] MEDS: FUROSEMIDE 20 MG/2 ML VIAL IV ONE (12:37)
--- NOTE | 2024-11-12 15:42 | DVH ---
EXAMINATION: MRI BRAIN HEAD WO CONTRAST INDICATION: Rule out stroke COMPARISON: CT HEAD WITHOUT CONTRAST on DOS: 11/11/24, MRI LOWER EXT JOINT WO on DOS: 04/16/23, MRI UPP ER EXT JOINT WO on DOS: 04/16/23 TECHNIQUE: Multiplanar, multisequence magnetic resonance imaging of the brain was performed without the use of i ntravenous contrast. FINDINGS: No evidence of acute or remote infarct. No intracranial hemorrhage. No mass effect. There is periventricular/deep white matter T2/FLAIR hyperintensity is nonspecific, but most commonly associated with chronic microvascular disease. The ventricles and sulci are normal in size for age. Clear basal cisterns. Flow voids in the major intracranial vessels are maintained. No abnormality of the orbits. Paranasal sinuses and mastoid air cells are clear. No abnormality of the visualized osseous structures and extracranial soft tissues. IMPRESSION: No acute infarct, intracranial hemorrhage, mass effect, or hydrocephalus.
--- NOTE | 2024-11-12 18:02 | DVHPNRES ---
Progress Note Date Seen: Nov 12, 2024 Resident Creating Document: THIAGO NEGRON RESIDENT Medical Necessity Reason Pt with a Central, PICC or Fol: Yes The following are medically ne: PICC Line Subjective Review of Systems Patient was seen and examined on the bedside ICU. She is on mechanical ventilation with FiO2 30%, tidal volume 450 mL, peep 5 and respiratory rate 16. Overnight T-max is 98.6, and patient is on Levophed , Versed and fentanyl. Last 12 hours urine output is 900 mL, minimal gastric drainage, drainage total 20 ml and serosanguineous. H&H is stable . Dr. Martinez started tube feeding at 20 mL/hours today but the patient was not able to tolerate tube feeding, started scheduled dose of Reglan. Patient is off sedation since last 2 days but still not ready for CPAP trial just opening eyes not following any commands, breathing exercise done today. scheduled for CPAP trial again tomorrow. If the patient is not waking up by tomorrow we will do CT head without contrast to rule out acute intracranial pathology. Patient is unstable for transfer to [facility]. 11/11/24: Patient was seen and examined on the bedside ICU. She is on mechanical ventilation with FiO2 30%, tidal volume 450 mL, peep 5 and respiratory rate 16. No overnight events, minimal drain and good urine output. Off sedation and pressors and patient is more alert, following commands. CPAP trial tomorrow. CT head without contrast and MRI were unremarkable. Histopathology of the resected bowel showed moderately differentiated adenocarcinoma of the ileum, rectum and rectosigmoid junction. Patient is unstable for transfer to [facility]. Objective vital signs Vital Sign Date Time Temp Pulse Resp B/P (MAP) Pulse Ox O2 Delivery O2 Flow Rate FiO2 11/12/24 17:32 24 100 Mechanical Ventilator+ 30 30 11/12/24 17:32 99 11/12/24 16:45 99.3 210.7 Total Intake and Output 11/11/24 11/11/24 11/12/24 15:00 23:00 07:00 Intake Total 693.504 ml 716.066 ml 727 ml Output Total 850 ml 925 ml Balance 693.504 ml -133.934 ml -198 ml medications Current Medications Medications Dose Ordered Sig/Greg Route Start Time Stop Time Status Last Admin Dose Admin Vancomycin HCl 0 ml @ 0 mls/hr UD IV 11/01/24 21:15 Ondansetron HCl 4 mg Q4HP PRN IV 11/01/24 21:15 Midazolam HCl 50 ml @ 1 mls/hr Q24H IV 11/02/24 01:15 11/07/24 23:55 2 MLS/HR Fentanyl Citrate 250 ml @ 2.5 mls/hr Q24H IV 11/02/24 01:15 11/07/24 16:19 5 MLS/HR Thiamine HCl 100 mg DAILY IV 11/03/24 10:00 11/12/24 08:43 100 MG Norepinephrine Bitartrate 32 mg/ Sodium Chloride 250 ml @ 0.938 mls/ hr Q24H IV 11/03/24 14:45 11/10/24 05:50 2.813 MLS/HR Amino Acids 0 ml @ 0 mls/hr PER PHARMACY IV 11/03/24 16:30 Diagnostic Test (Pha) 1 strip Q6HR 11/04/24 00:00 11/12/24 12:35 1 STRIP Insulin Human Regular FOLLOW SLIDING SCALE Q6HR SC 11/04/24 00:00 11/12/24 12:00 2 UNITS Dextrose 50 ml UD IV 11/04/24 00:00 Pantoprazole Sodium 40 mg BID IV 11/04/24 09:15 11/12/24 08:43 40 MG Artificial Tears 1 drop Q6HP PRN EACHEYE 11/05/24 12:30 11/09/24 07:48 1 DROP Meropenem 50 ml @ 17 mls/hr Q8H IV 11/08/24 16:00 11/12/24 07:50 17 MLS/HR Enteral Nutritional Formula 1,000 ml 20ML/HR GT 11/09/24 11:30 Metoclopramide HCl 5 mg Q8H IV 11/10/24 15:30 11/12/24 07:50 5 MG Fat Emulsion Intravenous 100 ml/Potassium Acetate 24 meq/ Potassium Phosphate 8.8 meq/ Magnesium Sulfate 22 meq/ Multivitamins 10 ml/Chromium/ Copper/Manganese/ Zinc 1 ml/Amino Acids/Dextrose/ Purified Water 1,480.5 ml @ 62 mls/hr [id number] IV 11/11/24 22:00 11/12/24 21:59 11/11/24 21:59 62 MLS/HR Vancomycin HCl 100 ml @ 200 mls/hr Q12H IV 11/11/24 12:00 11/12/24 12:00 200 MLS/HR Fat Emulsion Intravenous 100 ml/Potassium Acetate 28 meq/ Potassium Phosphate 8.8 meq/ Magnesium Sulfate 22 meq/ Multivitamins 10 ml/Chromium/ Copper/Manganese/ Zinc 1 ml/Amino Acids/Dextrose/ Purified Water 1,482.5 ml @ 62 mls/hr [id number] IV 11/12/24 22:00 11/13/24 21:59 Examination Examination General: RASS -3, afebrile, mucosae are moist Cardiovascular: Normal S1 and S2. No murmurs, gallops or rubs Respiratory: Mechanically assisted ventilation, equal bilateral airway entree. Clear lung sounds on auscultation Abdomen: Soft, nontender, no organomegaly, sluggish bowel sounds, Surgical wound on the midline and colostomy on the left side. MSK/skin: Mobilization of limbs cannot be evaluated. Skin is dry and cold. Bilateral ischemic toes in the lower extremities Neurological: Orientation cannot be assessed. No apparent motor no sensitive deficits. Pupils are isocoric and reactive. laboratory and microbiology Laboratory Tests 11/12/24 02:48 Test 11/12/24 02:48 Range/Units Serum Glucose 114 H 74-106 mg/dL Microbiology Date/Time Source Procedure Growth Status 11/03/24 14:05 Blood Blood Culture - Final NO GROWTH AFTER 5 DAYS OF INCUBATION. Complete 11/02/24 01:14 Trachea Gram Stain - Final Complete 11/02/24 01:14 Respiratory Culture - Final Staphylococcus aureus Presumptive Cherelle albicans Complete Labs and/or images reviewed: Labs reviewed by me, Image(s) reviewed by me Problem List/Assessment/Plan Problem List/Assessment/Plan Assessment and plan: NEURO: Acute metabolic encephalopathy secondary to septic shock Status post intubation RASS score: -1 CARDIOVASCULAR: Septic shock secondary to perforation of the hollow viscus Sinus tachycardia secondary to pain versus withdrawal Bilateral peripheral arterial disease - Patient is on Levophed - EKG demonstrated sinus tachycardia - echo showed EF 60%, echo density in RV suggestive of large papillary muscle, can not rule out vegetation. - Duplex scan of the lower extremity revealed bilateral hemodynamically significant stenosis in left dorsalis pedis and right popliteal artery PULMONARY: Possible right lower lobe pneumonia Mild bilateral pleural effusion. - Chest x-ray showed atelectasis in bilateral lung bases - Blood culture showed Bacteroides and respiratory cultures Staph aureus and presumptive Cherelle albicans - Follow up blood culture revealed no growth in 24 hours of incubation. - continue IV vancomycin and IV meropenem GASTROINTESTINAL: Septic shock secondary to perforation of the hollow viscus, status post exploratory laparotomy Rule out colonic malignancy Transaminitis and coagulopathy secondary to hepatic steatosis Rule out cirrhosis Enlarged CBD, rule out choledocholithiasis or biliary stenosis Alcohol abuse disorder Colon cancer - Histopathology of the resected bowel showed moderately differentiated adenocarcinoma of the ileum, rectum and rectosigmoid junction. - TPN as per pharmacy - IV thiamine 100 mg daily - CT abdomen pelvis without contrast showed large amount of intraperitoneal free air . [id number] stool burden. Indeterminate possible portal venous gas versus marginal gas along the liver - U/S of the abdomen showed The liver is diffusely echogenic which may be secondary to steatosis or another diffuse hepatic process. Enlargement of the common bile duct measuring up to 15 mm. Gallbladder sludge. Small amount of free fluid in the abdomen. - Patient underwent Exploratory laparotomy with rectosigmoid resection with colostomy, Extensive lysis of adhesions and Ileal resection with a primary anastomosis. - Abdominal fluid culture demonstrated, prevotella, Pseudomonas, E coli, Streptococcus mitis - continue IV vancomycin and IV meropenem GENITOURINARY: FLORIN secondary to septic shock/ VMN Acute complicated cystitis - U/A was consistent with UTI ENDOCRINE: Hypoglycemia METABOLIC: Moderate protein calorie malnutrition Hypocalcemia metabolic acidosis with respiratory compensation HEME: Acute on chronic microcytic hypochromic anemia Thrombocytopenia improving Coagulopathy Acute DVT of left upper arm - Hold Lovenox - 3 unit PRBC and 1 FFP given since surgery - monitor H&H INFECTIOUS DISEASE: Sepsis with septic shock secondary to perforation of the hollow viscus, status post exploratory laparotomy Possible right lower lobe pneumonia Acute complicated cystitis - Blood culture showed Gram-negative rods, other cultures are pending - continue IV vancomycin and IV meropenem DIET: TPN, tube feeding DVT prophylax: Hold lovenox GI prophylaxis: Protonix Bowel regimen: Code status: Full Code LINES/DRAINS/ACCESS: ETT: Intubated on 11/01/2024 IV access: Right IJ placed on 04/12/2024 Drips: Levophed Grajeda catheter: Placed on 11/01/2024 DISPOSITION: ICU Patient's status discussed with Critical care time spent more than 82 minutes, including patient care, chart review, and updating the family. Excluding any procedures. Case discussed with Dr. Armas Plan discussed with: Spouse (Sister, RN) My Orders My Orders Orders - THIAGO NEGRON Procedure Category Date Status Time Chest Portable XY 11/12/24 Resulted 04:00 Abg W/ Co-Ox RT 11/12/24 Logged 04:00 Comprehensive LAB 11/13/24 Verified Metabolic Panel 04:00 Magnesium LAB 11/13/24 Verified 04:00 Phosphorus LAB 11/13/24 Verified 04:00 Tpn Per Pharmacy EDISON 11/12/24 In Process 22:00 Amino Acid PHA 11/12/24 In Process Infusion... W/Fat 22:00 * [employer] CONS 11/12/24 Transmitted Consult Cpap/Sed Vacation Med ORDERS 11/12/24 Transmitted Weaning 10:08 Triglycerides LAB 11/13/24 Verified 04:00 Dietary Evaluation Review Comments: 1) If patient remains NPO > 7 days, consider EN/TPN to meet at least 75% of estimated energy needs 2) If gut is preferred, consider Jevity 1.2 @ 40 mL/hr goal rate as tolerated. Flush with 200 mL free H2O Q6H. TF regimen will provide 1152 kcals, 53g Pro, and 1575 mL free H2O (including flushes) per 24 hrs. Goal rate matias meet ~90% estimated daily energy needs and ~65% estimated daily protein needs. 3) Advance to 2g Na diet when medically feasible, pending ST approval 4) Follow-up with cardiology and pulmonology 5) Continue to monitor I&O, labs, and skin integrity Expected Outcomes/Goals: 1) patient to receive nutritional support within 7 days of NPO status 2) labs to improve 3) diet to advance 4) f/u in 2-3 dayas Date of Service: Nov 12, 2024 Billing Provider: BERNARD ARMAS MD Common Visit Codes: 35428-[id number] CARE 30-74 MIN, 36237-[id number] CARE-EACH +30MIN THIAGO NEGRON Nov 12, 2024 18:02 BERNARD ARMAS MD Nov 14, 2024 12:02
[2024-11-12] MEDS: TPN PER PHARMACY IV NR (21:42)
--- NOTE | 2024-11-12 22:07 | DVHPN2 ---
Progress Note - Dictate Date Seen: Nov 12, 2024 Medical Necessity Reason Pt with a Central, PICC or Fol: Yes The following are medically ne: PICC Line Subjective Ms. Osei is a 49 years old female with a history of hypertension, GERD, she was admitted to the [facility] on 11/01/2024 with a chief company of general weakness for six months of time, according to ER note, the patient was alert oriented x3 when she came to the hospital, but in the hospital, the patient was found to have perforated viscus, metabolic acidosis, sepsis, septic shock, peritonitis, on 11/02/2024, she went through 1. Exploratory laparotomy with rectosigmoid resection with colostomy 2. Extensive lysis of adhesions 3. Ileal resection with a primary anastomosis. Since then the patient has been intubated, mentally altered. I have seen and examined the patient, discussed with her nurse and the medical staff, she is intubated, awake, she follows verbal commands, he moves the arms and the legs Blood culture, 10/3124: Bacteroides fragilis Hepatitis panel, 11/02/2024: Hepatitis-A antibody, HbsAg Urinalysis, 11/01/2024: WBC: 522, WBC clumps: Present, urine leukocyte esterase: 3+ ABG 11/02/2024: Metabolic acidosis, 11/03/2024: Metabolic acidosis, 11/04/2024: Metabolic acidosis WBC/HB/PLT/MCV, 11/11/2024: 11.6/7.8/200/87.4 PT/INR/PTT, 11/04/2024: 14/1.36/81.6, 11/06/2024: 13.3/1.29/48.7 BUN/CR, 11/11/2024: 33/0.68 TBI/AST/ALT/AP, 11/11/2024: 0.2/67/22/169 Extremity venous study, 11/03/2024: Left upper extremity DVT Chest x-ray, 11/01/24: LUNGS: No pleural effusion, consolidation, or pneumothorax . Atelectasis in bilateral lung bases. Sequelae of fluid administration. MEDIASTINUM: Unremarkable BONES: No acute osseous abnormality OTHER: Enteric tube extending into the stomach. Intraperitoneal free air Chest x-ray, 11/02/2024: 1. Interval progression in right basilar pulmonary airspace disease. 2. Interval resolution of pneumoperitoneum. 3. Endotracheal tube and enteric catheter as above. CT head, 11/11/2024: No evidence of acute intracranial abnormality MRI, headache, 11/11/2024: No acute infarct, intracranial hemorrhage, mass effect, or hydrocephalus. vital signs Vital Sign Date Time Temp Pulse Resp B/P (MAP) Pulse Ox O2 Delivery O2 Flow Rate FiO2 11/12/24 21:10 99.3 88 0 97/67 (77) 100 210.7 11/12/24 20:13 30 11/12/24 20:00 Mechanical Ventilator+ Total Intake and Output 11/11/24 11/11/24 11/12/24 15:00 23:00 07:00 Intake Total 693.504 ml 716.066 ml 727 ml Output Total 850 ml 925 ml Balance 693.504 ml -133.934 ml -198 ml medications Current Medications Medications Dose Ordered Sig/Greg Route Start Time Stop Time Status Last Admin Dose Admin Vancomycin HCl 0 ml @ 0 mls/hr UD IV 11/01/24 21:15 Ondansetron HCl 4 mg Q4HP PRN IV 11/01/24 21:15 Midazolam HCl 50 ml @ 1 mls/hr Q24H IV 11/02/24 01:15 11/07/24 23:55 2 MLS/HR Fentanyl Citrate 250 ml @ 2.5 mls/hr Q24H IV 11/02/24 01:15 11/07/24 16:19 5 MLS/HR Thiamine HCl 100 mg DAILY IV 11/03/24 10:00 11/12/24 08:43 100 MG Norepinephrine Bitartrate 32 mg/ Sodium Chloride 250 ml @ 0.938 mls/ hr Q24H IV 11/03/24 14:45 11/10/24 05:50 2.813 MLS/HR Amino Acids 0 ml @ 0 mls/hr PER PHARMACY IV 11/03/24 16:30 Diagnostic Test (Pha) 1 strip Q6HR 11/04/24 00:00 11/12/24 12:35 1 STRIP Insulin Human Regular FOLLOW SLIDING SCALE Q6HR SC 11/04/24 00:00 11/12/24 12:00 2 UNITS Dextrose 50 ml UD IV 11/04/24 00:00 Pantoprazole Sodium 40 mg BID IV 11/04/24 09:15 11/12/24 21:33 40 MG Artificial Tears 1 drop Q6HP PRN EACHEYE 11/05/24 12:30 11/09/24 07:48 1 DROP Meropenem 50 ml @ 17 mls/hr Q8H IV 11/08/24 16:00 11/12/24 18:08 17 MLS/HR Enteral Nutritional Formula 1,000 ml 20ML/HR GT 11/09/24 11:30 Metoclopramide HCl 5 mg Q8H IV 11/10/24 15:30 11/12/24 07:50 5 MG Vancomycin HCl 100 ml @ 200 mls/hr Q12H IV 11/11/24 12:00 11/12/24 12:00 200 MLS/HR Fat Emulsion Intravenous 100 ml/Potassium Acetate 28 meq/ Potassium Phosphate 8.8 meq/ Magnesium Sulfate 22 meq/ Multivitamins 10 ml/Chromium/ Copper/Manganese/ Zinc 1 ml/Amino Acids/Dextrose/ Purified Water 1,482.5 ml @ 62 mls/hr [id number] IV 11/12/24 22:00 11/13/24 21:59 11/12/24 21:42 62 MLS/HR objective The patient is well-nourished and well-developed with no distress. The patient is intubated MENTAL STATUS: Subjective CRANIAL NERVES: Pupils are equal, round and reactive. Eyes are open, there are corneal reflexes and doll's eyes phenomenon. No signs of facial weakness. There are gagging or coughing reflexes SENSATION: No responses to pain stimuli. MOTOR: Normal tone in the upper and lower extremity. Normal muscle bulk. No fasciculations. No spontaneous movement. REFLEXES: Deep tendon reflexes are symmetrical. No pathological reflexes. CEREBELLAR/COORDINATION: Deferred GAIT/STATION: deferred. laboratory and microbiology Laboratory Tests 11/12/24 02:48 Test 11/12/24 02:48 Range/Units Serum Glucose 114 H 74-106 mg/dL Problem List Altered mental status Metabolic encephalopathy Toxic encephalopathy Hypoxic encephalopathy Sepsis Septic shock Peritonitis Viscus perforation Acute respiratory failure Pneumonia Acute kidney failure Different thrombosis Assessment/Plan Monitoring Supportive treatment ICU care EEG Follow-up labs Stabilize vitals/pressor drip Respiratory support/vent management Oxygen Antibiotics Lovenox 70 mg subQ b.i.d. TPN More recommendation per clinical course This medical document was created using an electronic medical record system with unrival dictation system. Although this document has been carefully reviewed, there may still be some phonetic and typographical errors. These areas are purely typographical due to imperfections of the software programs, and do not reflect any compromise in the patient's medical care. Prognosis Guarded Dietary Evaluation Review Comments: 1) If patient remains NPO > 7 days, consider EN/TPN to meet at least 75% of estimated energy needs 2) If gut is preferred, consider Jevity 1.2 @ 40 mL/hr goal rate as tolerated. Flush with 200 mL free H2O Q6H. TF regimen will provide 1152 kcals, 53g Pro, and 1575 mL free H2O (including flushes) per 24 hrs. Goal rate matias meet ~90% estimated daily energy needs and ~65% estimated daily protein needs. 3) Advance to 2g Na diet when medically feasible, pending ST approval 4) Follow-up with cardiology and pulmonology 5) Continue to monitor I&O, labs, and skin integrity Expected Outcomes/Goals: 1) patient to receive nutritional support within 7 days of NPO status 2) labs to improve 3) diet to advance 4) f/u in 2-3 dayas Plan discussed with: Other Critical Care Time(min): 35 HOLLY BENSON MD Nov 12, 2024 22:07
[2024-11-13] VITALS (104 sets, daily range): BP systolic 82–136; BP diastolic 55–83; PULSE 74–130; RESP 11–48; TEMP 98.4–100.8; O2SAT 88–100
[2024-11-13 03:51] LABS: Hematocrit 25.9 % (36.0-46.0); Hemoglobin 8.7 g/dL (12.2-16.2); Mean Corpuscular Hemoglobin 26.6 pg (28.0-32.0); Mean Corpuscular Volume 79.2 fL (80.0-100.0); Nucleated Red Blood Cells % 0.4 %
[2024-11-13 04:06] LABS: Alanine Aminotransferase 35 U/L (7-40); Anion Gap 8 (5-15); BUN/Creatinine Ratio 80.6 (10.0-20.0); Calcium 8.7 mg/dL (8.7-10.4); Carbon Dioxide 28 mmol/L (20-31); Glucose 105 mg/dL (74-106); Magnesium 1.9 mg/dL (1.6-2.6)
[2024-11-13 04:08] LABS: Albumin 2.4 g/dL (3.2-4.8); Alkaline Phosphatase 177 U/L (46-116); Bilirubin, Total 0.2 mg/dL (0.2-1.0); Blood Urea Nitrogen 29 mg/dL (9-23); Chloride 109 mmol/L (98-107); Potassium 3.3 mmol/L (3.5-5.1); Sodium 145 mmol/L (136-145); Total Protein 4.8 g/dL (5.7-8.2)
[2024-11-13] MEDS: POTASSIUM CHL 20MEQ/100ML 100 ML IV ONE (04:43)
[2024-11-13] MEDS: MAGNESIUM SULFATE 1GM/100ML 100 ML IV ONE (04:44)
--- NOTE | 2024-11-13 05:38 | DVH ---
CHEST RADIOGRAPH Indication: Mechanical ventilation Technique: Single frontal view of the chest was obtained COMPARISON: XY CHEST PORTABLE on DOS: 11/12/24, XY CHEST PORTABLE on DOS: 11/11/24, XY CHEST PORTABLE o n DOS: 11/10/24, XY CHEST PORTABLE on DOS: 11/09/24, XY CHEST PORTABLE on DOS: 11/08/24 FINDINGS: Lines and Tubes: Unchanged. Lungs: Stable appearing left pleural effusion and basilar pulmonary airspace disease. Pleura: No effusion. No pneumothorax. Cardiomediastinal contours: Unremarkable Bones: Unremarkable IMPRESSION: 1. Stable appearing left basilar pulmonary airspace disease and pleural effusion. 2. Lines and tubes unchanged.
[2024-11-13 09:19] LABS: Base Excess 3.3 mmol/L (-2.0-3.0)
--- NOTE | 2024-11-13 09:50 | DVHPN2 ---
Progress Note Date Seen: Nov 13, 2024 Medical Necessity Reason Pt with a Central, PICC or Fol: Yes The following are medically ne: PICC Line Objective vital signs Vital Sign Date Time Temp Pulse Resp B/P (MAP) Pulse Ox O2 Delivery O2 Flow Rate FiO2 11/13/24 08:15 99.0 97 26 100 210.2 11/13/24 07:31 Mechanical Ventilator+ 30 30 Total Intake and Output 11/12/24 11/12/24 11/13/24 15:00 23:00 07:00 Intake Total 526 ml 877 ml 842 ml Output Total 1225 ml 1050 ml Balance 526 ml -348 ml -208 ml medications Current Medications Medications Dose Ordered Sig/Greg Route Start Time Stop Time Status Last Admin Dose Admin Ondansetron HCl 4 mg Q4HP PRN IV 11/01/24 21:15 Midazolam HCl 50 ml @ 1 mls/hr Q24H IV 11/02/24 01:15 11/07/24 23:55 2 MLS/HR Fentanyl Citrate 250 ml @ 2.5 mls/hr Q24H IV 11/02/24 01:15 11/07/24 16:19 5 MLS/HR Thiamine HCl 100 mg DAILY IV 11/03/24 10:00 11/12/24 08:43 100 MG Norepinephrine Bitartrate 32 mg/ Sodium Chloride 250 ml @ 0.938 mls/ hr Q24H IV 11/03/24 14:45 11/10/24 05:50 2.813 MLS/HR Amino Acids 0 ml @ 0 mls/hr PER PHARMACY IV 11/03/24 16:30 Diagnostic Test (Pha) 1 strip Q6HR 11/04/24 00:00 11/13/24 05:24 1 STRIP Insulin Human Regular FOLLOW SLIDING SCALE Q6HR SC 11/04/24 00:00 11/12/24 12:00 2 UNITS Dextrose 50 ml UD IV 11/04/24 00:00 Pantoprazole Sodium 40 mg BID IV 11/04/24 09:15 11/12/24 21:33 40 MG Artificial Tears 1 drop Q6HP PRN EACHEYE 11/05/24 12:30 11/09/24 07:48 1 DROP Meropenem 50 ml @ 17 mls/hr Q8H IV 11/08/24 16:00 11/12/24 23:23 17 MLS/HR Enteral Nutritional Formula 1,000 ml 20ML/HR GT 11/09/24 11:30 Metoclopramide HCl 5 mg Q8H IV 11/10/24 15:30 11/12/24 23:23 5 MG Vancomycin HCl 100 ml @ 200 mls/hr Q12H IV 11/11/24 12:00 11/12/24 23:24 200 MLS/HR Fat Emulsion Intravenous 100 ml/Potassium Acetate 28 meq/ Potassium Phosphate 8.8 meq/ Magnesium Sulfate 22 meq/ Multivitamins 10 ml/Chromium/ Copper/Manganese/ Zinc 1 ml/Amino Acids/Dextrose/ Purified Water 1,482.5 ml @ 62 mls/hr [id number] IV 11/12/24 22:00 11/13/24 21:59 11/12/24 21:42 62 MLS/HR laboratory and microbiology Laboratory Tests 11/13/24 03:02 Test 11/13/24 03:02 Range/Units Serum Glucose 105 74-106 mg/dL Problem List/Assessment/Plan Problem List/Assessment/Plan 11/04/[address] CLEMENS, COLOSTOMY VIABLE AND WITHOUT FUNCTION, WOUND CLEAN AND WELL APPROXIMATED, RAMBO DRAINAGE SEROUS, ANEMIC, ABDOMEN NON DISTENDED, 11/05/24 family members at bedside, wound clean and well approximated, stoma viable without function, drain clear serous, husbands questions answered. remains sedated and intubated on levophed and is tachycardic, ordered bolus of LR over next hour, needs more IV fluid 11/06/24 wound clean and well approximated, abdomen non distended soft, drainage clear serous. colostomy viable with flatus present in appliance. remains intubated and sedated 11/07/24 unchanged clinically, remains intubated and sedated wound ok, drainage clear, stoma viable no stool.discussed with cocktail waitress to initiate weaning, stop sedation, 11/09/24 hemodynamically stable, sedation was stopped yesterday, abdomen non distended, soft, RAMBO drainage clear, OK to wean off ventilator 11/12/24 some voluntary movements, moved leg and head on command, wound clean and well approximated, abdomen soft and non distended, drainage per RAMBO drain clear serous. Sister and brother in law at bedside: questions answered 11.13.24 awake,cooperative, appears ready to be extubated, sister at bedside Plan discussed with: Other Dietary Evaluation Review Comments: 1) If patient remains NPO > 7 days, consider EN/TPN to meet at least 75% of estimated energy needs 2) If gut is preferred, consider Jevity 1.2 @ 40 mL/hr goal rate as tolerated. Flush with 200 mL free H2O Q6H. TF regimen will provide 1152 kcals, 53g Pro, and 1575 mL free H2O (including flushes) per 24 hrs. Goal rate matias meet ~90% estimated daily energy needs and ~65% estimated daily protein needs. 3) Advance to 2g Na diet when medically feasible, pending ST approval 4) Follow-up with cardiology and pulmonology 5) Continue to monitor I&O, labs, and skin integrity Expected Outcomes/Goals: 1) patient to receive nutritional support within 7 days of NPO status 2) labs to improve 3) diet to advance 4) f/u in 2-3 dayCIRO Lopes MD Nov 13, 2024 09:50
--- NOTE | 2024-11-13 16:45 | DVHDSRES ---
Discharge Summary Date of Admission Resident Creating Document: THIAGO NEGRON RESIDENT Nov 01, 2024 at 19:58 Date of Discharge: Nov 13, 2024 Admitting Diagnosis Acute metabolic encephalopathy secondary to septic shock Wounds: Stage 1 sacral erythema on the back. Labs/Diagnostic Data: Laboratory Results Test 11/13/24 11:53 11/13/24 08:55 11/13/24 03:02 11/12/24 22:45 POC Glucose 91 mg/dl (70-106) Blood Gas Specimen Type Arterial Blood Gas Sample Site Right radial Blood Gas Patient Temperature 37.0 Arterial Blood Date Drawn [id number] Arterial Blood pH 7.511 (7.350-7.450) Arterial Blood Partial Pressure CO2 33.5 mmHg (32.0-45.0) Arterial Blood Partial Pressure O2 93.5 mmHg (83.0-108.0) Arterial Blood HCO3 26.2 mmol/L (21.0-28.0) Arterial Blood Oxygen Saturation 96.9 % (94.0-98.0) Arterial Blood Base Excess 3.3 mmol/L (-2.0-3.0) Arterial Blood Oxyhemoglobin 96.4 % (94.0-98.0) Arterial Blood Carboxyhemoglobin 0.2 % (0.5-1.5) Arterial Blood Methemoglobin 0.3 % (0.0-1.5) Renard Test Modified Blood Gas Total Hemoglobin 9.80 g/dL (12.0-16.0) Blood Gas Modality Vent - cpap Blood Gas Spontaneous Rate 28 FiO2 % 30.0 Blood Gas Spontaneous Tidal Volume 430 Blood Gas Pressure Support 8 Blood Gas PEEP or CPAP 5.0 White Blood Count 8.5 10^3/uL (4.4-10.8) Red Blood Count 3.27 10^6/uL (4.0-5.20) Hemoglobin 8.7 g/dL (12.2-16.2) Hematocrit 25.9 % (36.0-46.0) Mean Corpuscular Volume 79.2 fL (80.0-100.0) Mean Corpuscular Hemoglobin 26.6 pg (28.0-32.0) Mean Corpuscular Hemoglobin Concent 33.6 g/dL (32.0-36.0) Red Cell Distribution Width 22.8 % (11.8-14.3) Platelet Count 265 10^3/uL (140-450) Mean Platelet Volume 9.0 fL (6.9-10.8) Neutrophils (%) (Auto) 79.8 % (37.0-80.0) Lymphocytes (%) (Auto) 9.0 % (10.0-50.0) Monocytes (%) (Auto) 4.5 % (0.0-12.0) Eosinophils (%) (Auto) 5.9 % (0.0-7.0) Basophils (%) (Auto) 0.8 % (0.0-2.0) Neutrophils # (Auto) 6.8 10 ^3/uL (1.6-8.6) Lymphocytes # (Auto) 0.8 10 ^3/uL (0.4-5.4) Monocytes # (Auto) 0.4 10 ^3/uL (0-1.3) Eosinophils # (Auto) 0.5 10 ^3/uL (0-0.8) Basophils # (Auto) 0.1 10 ^3/uL (0-0.2) Nucleated Red Blood Cells 0.4 % Sodium Level 145 mmol/L (136-145) Potassium Level 3.3 mmol/L (3.5-5.1) Chloride Level 109 mmol/L (98-107) Carbon Dioxide Level 28 mmol/L (20-31) Anion Gap 8 (5-15) Blood Urea Nitrogen 29 mg/dL (9-23) Creatinine 0.36 mg/dL (0.550-1.02) Glomerular Filtration Rate Calc 123 mL/min (>90) BUN/Creatinine Ratio 80.6 (10.0-20.0) Serum Glucose 105 mg/dL (74-106) Calcium Level 8.7 mg/dL (8.7-10.4) Phosphorus Level 2.5 mg/dL (2.4-5.1) Magnesium Level 1.9 mg/dL (1.6-2.6) Total Bilirubin 0.2 mg/dL (0.2-1.0) Aspartate Amino Transferase (AST) 78 U/L (13-40) Alanine Aminotransferase (ALT) 35 U/L (7-40) Alkaline Phosphatase 177 U/L (46-116) Total Protein 4.8 g/dL (5.7-8.2) Albumin 2.4 g/dL (3.2-4.8) Triglycerides Level 142 mg/dL (< 150) Vancomycin Level Trough 12.9 ug/mL (5-10) Test 11/12/24 07:12 11/11/24 03:45 11/06/24 03:00 11/04/24 22:41 Blood Gas Set Respiration Rate 16.0 Blood Gas Tidal Volume 450.0 Platelet Estimate Adequate Large Platelets Few Basophilic Stippling Anisocytosis (manual) Slight Microcytosis Slight Random Vancomycin Level 15.5 ug/mL (5-10) Prothrombin Time 13.3 sec (9.3-11.8) Prothrombin Time INR 1.29 (0.9-1.15) Activated Partial Thromboplast Time 48.7 SEC (24.5-34.5) Haptoglobin 166 mg/dL (33-346) Fibrinogen 208 mg/dL (177-375) D-Dimer, Quantitative 6.93 mg/L FEU (0.0-0.49) Lactate Dehydrogenase 163 U/L (120-246) Test 11/03/24 09:50 11/02/24 13:24 11/02/24 08:49 11/02/24 01:44 Urine Color [place] (Yellow) Urine Clarity Ex.turbid (Clear) Urine pH 6.0 (5.0-9.0) Urine Specific Ransom 1.017 (1.001-1.035) Urine Protein 2+ (Negative) Urine Ketones Negative (Negative) Urine Blood 3+ /uL (Negative) Urine Nitrite Negative (Negative) Urine Bilirubin Negative (Negative) Urine Urobilinogen Normal mg/dL (Negative) Urine Leukocyte Esterase 3+ /uL (Negative) Urine RBC 676 /hpf (0 - 4) Urine WBC Clumps Present /hpf (None Seen) Urine Microscopic WBC 2141 /HPF (0-5) Urine Squamous Epithelial Cells Few /hpf (<5) Urine Bacteria None seen /hpf (None Seen) Urine Mucus Few (None Seen) Urine Yeast (Budding) Many /hpf (None Seen) Urine Creatinine 78.12 mg/dL (30.0-125.0) Urine Protein/Creatinine Ratio 5.90 Urine Sodium 83 mmol/L (40-220) Urine Glucose Normal mg/dL (Normal) Urine Total Protein 460.8 mg/dL (1-14) CA 19-9 Antigen 36 U/mL (0-35) CA 125 Antigen 24.2 U/mL (0.0-38.1) Plasma/Serum Blood Alcohol 3.2 mg/dL (<10) Hepatitis A Antibody Total Positive (Negative) Hepatitis B Surface Antigen Negative (Negative) Hepatitis B Surface Antibody Positive (Negative) Hepatitis B Core Total Antibody Negative (Negative) Hepatitis C Antibody Negative (Negative) Giant Platelets Few Hypochromasia (manual) Slight Carcinoembryonic Antigen 11.30 ng/mL (<=5.0) Test 11/01/24 18:58 11/01/24 16:26 Lactic Acid Level 4.2 mmol/L (0.4-2.0) Ammonia 13 umol/L (11-32) Other Laboratory Tests 11/13/24 03:02 Brief Hx & Hospital Course: Hospital course: This is a 49-year-old female with past medical history of hypertension, GERD, ethyl alcohol abuse, status post surgery for hiatal hernia presented to the ED with a chief complaint of severe abdominal pain. The patient states that she has intermittent abdominal pain for last 3 months, altered bowel habit and occasional nausea and vomiting but for past 2 days the pain getting worse with associated bloating and chills that prompted this visit. She also has been using Motrin for past couple weeks for pain. According to the the patient lost significant went about 50 lb in last 10 months, not following with any doctor for last couple of years, last lab was done few years ago and she was almost bed-bound since May 2023. In the ED CT abdomen pelvis without contrast demonstrated . Significant abnormal soft tissue gas tracking along the left psoas musculature left iliacus, left groin likely compatible with insinuating soft tissue infection. Sequelae of presumed vomiting with fluid distention of the distal esophagus gas located at the gastroesophageal junction with small surgical clip in this region and given the adjacent gas, maintain elevated concern for sequelae of gastroesophageal rupture/leak. Large amount of intraperitoneal free air . [id number] stool burden. Indeterminate possible portal venous gas versus marginal gas along the liver. The patient was emergently taken to the OR and underwent Exploratory laparotomy with rectosigmoid resection with colostomy, Extensive lysis of adhesions and Ileal resection with a primary anastomosis. She is on mechanical ventilation with FiO2 30%, tidal volume 450 mL, peep 5 and respiratory rate 16. Overnight T-max is 99.5, tachycardic heart rate raise to 155, blood pressure 110/62 and patient is on Levophed 22, Versed 2 and started fentanyl. Last 12 hours urine output is 100 mL, gastric minimal gastric drainage, drain I, 25 mL, drain II, 50 mL and both are serosanguineous. Patient was not stable for transfer to [facility]. initially patient was developed FLORIN due to sepsis and the shock and later resolved. Blood culture demonstrated bacteroids fragilis and peritoneal fluid culture demonstrated Pseudomonas, E coli Streptococcus mitis, Cherelle albicans and respiratory culture was positive for staph aureus and Cherelle albicans. patient was treated with IV vancomycin and IV meropenem and follow up blood culture was negative. Bilateral peripheral ischemic toes in the lower limb and duplex arterial scan demonstrated bilateral hemodynamically significant stenosis in left dorsalis pedis and right popliteal artery. Vascular Surgery was consulted and mentioned Discussed with family at length regarding prognosis as well as possibility of amputations of toes in the future at this point in time we will continue to monitor very closely. No acute indication for surgical intervention.Continued TPN and started feeding at 20 mL/hours. Histopathology of the resected bowel demonstrated moderately differentiated adenocarcinoma. After surgery the patient platelet count was dropped to 47, coagulation abnormalities and later resolved. Upper extremity Doppler venous scan demonstrated left brachial vein thrombus. After improvement of platelet count to 150 patient was started on therapeutic Lovenox b.i d. Later Lovenox needed to hold because hemoglobin dropped to 6.7. She received 3 units of PRBC and 1 unit of FFP since surgery. Patient was off sedation for 3 days but was not waking up than neurology was consulted and CT head and MRI without contrast were unremarkable. Later she became more alert and and CPAP trial was done. the patient extubated on 11/13/2024 and stable for transfer to [facility]. social services was consulted regarding transfer. patient is being discharged to [facility]. Physical examination: General Appearance: Alert, Oriented X2, Cooperative, No resp distress, on nasal canula HEENT: Atraumatic, PERRLA, EOMI, Mucous membrane moist/pink Respiratory: Clear to auscultation, Normal air movement Cardiovascular: Regular rate, Normal S1, Normal S2, No murmurs, no chest wall tenderness Abdominal: Soft, nontender, no organomegaly, sluggish bowel sounds, Surgical wound on the midline and colostomy on the left side. Extremities: Skin is dry and cold. Bilateral ischemic toes in the lower extremities No clubbing. Skin: No rashes, No breakdown, No significant lesion Neuro: Normal speech Sensation intact, Cranial nerves 3-12 NL, Reflexes 2+ Psych/Mental Status: Could not be assessed Diagnosis: Acute metabolic encephalopathy secondary to septic shock Possible right lower lobe pneumonia Gram-positive/Gram-negative community-acquired pneumonia Mild bilateral pleural effusion. Septic shock secondary to perforation of the hollow viscus, status post exploratory laparotomy Transaminitis and coagulopathy secondary to hepatic steatosis Enlarged CBD Alcohol abuse disorder Moderately differentiated adenocarcinoma of the colon FLORIN secondary to septic shock/ VMN resolved Acute complicated cystitis Hypoglycemia Moderate protein calorie malnutrition Hypocalcemia metabolic acidosis with respiratory compensation Acute on chronic microcytic hypochromic anemia Acute DVT of left upper arm Thrombocytopenia and coagulopathy, status post surgery Consults/Reason for consult General Surgery, Nephrology, vascular surgery and Neurology were consulted Operations or Procedures EXAMINATION: MRI BRAIN HEAD WO CONTRAST INDICATION: Rule out stroke COMPARISON: CT HEAD WITHOUT CONTRAST on DOS: 11/11/24, MRI LOWER EXT JOINT WO on DOS: 04/16/23, MRI UPPER EXT JOINT WO on DOS: 04/16/23 TECHNIQUE: Multiplanar, multisequence magnetic resonance imaging of the brain was performed without the use of intravenous contrast. FINDINGS: No evidence of acute or remote infarct. No intracranial hemorrhage. No mass effect. There is periventricular/deep white matter T2/FLAIR hyperintensity is nonspecific, but most commonly associated with chronic microvascular disease. The ventricles and sulci are normal in size for age. Clear basal cisterns. Flow voids in the major intracranial vessels are maintained. No abnormality of the orbits. Paranasal sinuses and mastoid air cells are clear. No abnormality of the visualized osseous structures and extracranial soft tissues. IMPRESSION: No acute infarct, intracranial hemorrhage, mass effect, or hydrocephalus. CHEST RADIOGRAPH Indication: On mechanical ventilation Technique: Single frontal view of the chest was obtained COMPARISON: XY CHEST PORTABLE on DOS: 11/09/24, XY CHEST PORTABLE on DOS: 11/08/24, XY CHEST PORTABLE on DOS: 11/07/24, XY CHEST PORTABLE on DOS: 11/06/24, XY CHEST PORTABLE on DOS: 11/05/24, XY CHEST PORTABLE on DOS: 11/09/24 FINDINGS: Lines and Tubes: Endotracheal tube, enteric catheter right central venous catheter in satisfactory position. Lungs: Bilateral lower lobe airspace disease Pleura: No effusion. No pneumothorax. Cardiomediastinal contours: Unremarkable Bones: Unremarkable IMPRESSION: Lines and tubes in satisfactory position. No significant interval change. Indication: Rule out PAD Technique: Real- time ultrasound images of the bilateral lower extremity with grayscale, color, and spectral wave Doppler. Comparison: None Findings: Monophasic waveforms right [employer]. Triphasic waveform mid right SFA. Monophasic waveform right popliteal artery. Biphasic waveform right posterior tibial artery. Triphasic waveform in the left SFA stent. Monophasic waveform left popliteal artery. Monophasic waveform left anterior tibial artery. Bilateral lower extremity soft tissue edema. Peak systolic velocities are as follows (in cm/s): Right: Common femoral artery: 77 Profunda femoris: 67 Proximal superficial femoral: 87 Mid superficial femoral artery: 89 Distal superficial femoral artery: 59 Popliteal artery: 53 Posterior tibial artery: 26 Dorsalis pedis artery: 36 Left: Common femoral artery: 98 Profunda femoris: 59 Proximal superficial femoral: 101 Mid superficial femoral artery: 104 Distal superficial femoral artery: 106 Popliteal artery: 65 Posterior tibial artery: 33 Anterior tibial artery: 53 Dorsalis pedis artery: 12 Impression: Monophasic waveform with diminished velocity in the left dorsalis pedis artery consistent with hemodynamically significant stenosis. Monophasic waveform in the right popliteal artery may indicate hemodynamically significant stenosis. Bilateral Upper Extremity Venous Duplex Date: 11/03/2024 10:07 AM Clinical History: arm swelling Comparison: US ECHO 2D MODE CARDIAC DOP on DOS: 11/02/24, MRI UPPER EXT JOINT WO on DOS: 04/16/23 Findings: Duplex Doppler evaluation of the venous systems of the right and left lower neck and upper extremities including color Doppler and spectral/pulsed waveform analysis was performed. RIGHT SIDE: The internal jugular vein demonstrates appropriate compressibility and waveform variability. The subclavian vein is patent on color Doppler evaluation without intraluminal thrombus and demonstrates waveform variability. The visualized portion of the brachiocephalic vein is patent on color Doppler evaluation without intraluminal thrombus and demonstrates waveform variability. The axillary vein demonstrates appropriate compressibility and waveform variability. The brachial veins demonstrate appropriate compressibility and patency on Doppler evaluation. The basilic vein demonstrates appropriate compressibility and patency on Doppler evaluation. The cephalic vein demonstrates appropriate compressibility and patency on Doppler evaluation. LEFT SIDE: LEFT INTERNAL JUGULAR VEIN NOT VISUALIZED. The subclavian vein is not visualized due to line in place. Thrombus in the cephalic vein. The axillary vein demonstrates appropriate compressibility and waveform variability. The brachial veins demonstrate appropriate compressibility and patency on Doppler evaluation. The basilic vein demonstrates appropriate compressibility and patency on Doppler evaluation. Cephalic vein and basilic vein are not visualized. IMPRESSION: No right DVT noted. Left upper extremity DVT. EXAM: CT CT AB PEL WO CON-NO ORAL OR IV INDICATION: pain TECHNIQUE: Volumetric multidetector CT images of the abdomen and pelvis were obtained without contrast. All CT scans at this facility use dose modulation, iterative reconstruction, and/or weight based dosing when appropriate to reduce radiation dose to as low as reasonably achievable. COMPARISON: None FINDINGS: [LOWER CHEST]: Small bilateral pleural effusions. The cardiac size is normal without pericardial effusion. [LIVER]: Diffuse hepatic steatosis. Possible portal venous gas. [GALLBLADDER AND BILIARY TREE]: Gallbladder distention. No cholelithiasis. [SPLEEN]: Unremarkable. [PANCREAS]: Unremarkable. [ADRENAL GLANDS]: Unremarkable [KIDNEYS]: No hydronephrosis. No nephroureterolithiasis. Asymmetric left perinephric edema. [BLADDER]: Decompressed [REPRODUCTIVE ORGANS]: Unremarkable. [BOWEL/MESENTERY]: Sequelae of presumed vomiting with fluid distention of the distal esophagus gas located at the gastroesophageal junction with small surgical clip in this region and given the adjacent gas, maintain elevated concern for sequelae of gastroesophageal rupture/leak. Large amount of intraperitoneal free air [id number] stool burden [ASCITES]: Small volume ascites [LYMPHADENOPATHY]: Multiple likely reactive retroperitoneal lymph nodes. [VASCULATURE]: No aneurysmal dilatation. [ABDOMINAL WALL]: Unremarkable. [MUSCULOSKELETAL]: Significant abnormal soft tissue gas tracking along the left psoas musculature left iliacus, left groin likely compatible with insinuating soft tissue infection. Multifocal degenerative change of the visualized spine. IMPRESSION: 1. Significant abnormal soft tissue gas tracking along the left psoas musculature left iliacus, left groin likely compatible with insinuating soft tissue infection. 2. Sequelae of presumed vomiting with fluid distention of the distal esophagus gas located at the gastroesophageal junction with small surgical clip in this region and given the adjacent gas, maintain elevated concern for sequelae of gastroesophageal rupture/leak. 3. Large amount of intraperitoneal free air . [id number] stool burden 4. Indeterminate possible portal venous gas versus marginal gas along the liver. Correlate with lactate levels to exclude bowel ischemia. Condition at Discharge: Critical Final Diagnosis/Problems List Acute metabolic encephalopathy secondary to septic shock Possible right lower lobe pneumonia Gram-positive/Gram-negative community-acquired pneumonia Mild bilateral pleural effusion. Septic shock secondary to perforation of the hollow viscus, status post exploratory laparotomy Transaminitis and coagulopathy secondary to hepatic steatosis Enlarged CBD Alcohol abuse disorder Moderately differentiated adenocarcinoma of the colon FLORIN secondary to septic shock/ VMN resolved Acute complicated cystitis Hypoglycemia Moderate protein calorie malnutrition Hypocalcemia metabolic acidosis with respiratory compensation Acute on chronic microcytic hypochromic anemia Acute DVT of left upper arm Thrombocytopenia and coagulopathy, status post surgery Discharge Disposition: Acute Care Facility Discharge Instruct/Medications Diet: Regular Diet comment: TPN and tube feeding Activity: No Restrictions, As Tolerated No Active Prescriptions or Reported Meds Discharge Statement: "Patient was advised to return to the ER or call 911 if any headaches, dizziness, shortness of breath, chest pain, abdominal pain, bleeding, fevers, or worsening of medical condition. Patient was counseled about treatment plan, medications, possible side effects, patientverbalized understanding. All questions were answered to the best of my ability. This discharge took greater then 30 minutes in planning, reviewing documentation, counseling the patient, and discussing with other team members." ASSESSMENT ASSESSMENT Assessment Septic shock from perforation of the rectosigmoid colon with extensive adhesions S/P exploratory laparotomy THIAGO NEGRON RESIDENT Nov 13, 2024 16:45
[2024-11-13] MEDS: ACETAMINOPHEN 325 MG TAB PO PRN (17:46)
--- NOTE | 2024-11-13 19:11 | DVHPN2 ---
Progress Note - Dictate Date Seen: Nov 13, 2024 Medical Necessity Reason Pt with a Central, PICC or Fol: Yes The following are medically ne: PICC Line Subjective Ms. Osei is a 49 years old female with a history of hypertension, GERD, she was admitted to the [facility] on 11/01/2024 with a chief company of general weakness for six months of time, according to ER note, the patient was alert oriented x3 when she came to the hospital, but in the hospital, the patient was found to have perforated viscus, metabolic acidosis, sepsis, septic shock, peritonitis, on 11/02/2024, she went through 1. Exploratory laparotomy with rectosigmoid resection with colostomy 2. Extensive lysis of adhesions 3. Ileal resection with a primary anastomosis. Since then the patient has been intubated, mentally altered. I have seen and examined the patient, discussed with her nurse and the medical staff, her in the room with her. She is extubated, awake, she talks a little bit, she follows verbal commands, he moves the arms and legs Blood culture, 11/01/24: Bacteroides fragilis Hepatitis panel, 11/02/2024: Hepatitis-A antibody, HbsAg Urinalysis, 11/01/2024: WBC: 522, WBC clumps: Present, urine leukocyte esterase: 3+ ABG 11/02/2024: Metabolic acidosis, 11/03/2024: Metabolic acidosis, 11/04/2024: Metabolic acidosis WBC/HB/PLT/MCV, 11/11/2024: 11.6/7.8/200/87.4 PT/INR/PTT, 11/04/2024: 14/1.36/81.6, 11/06/2024: 13.3/1.29/48.7 BUN/CR, 11/11/2024: 33/0.68 TBI/AST/ALT/AP, 11/11/2024: 0.2/67/22/169 Extremity venous study, 11/03/2024: Left upper extremity DVT Chest x-ray, 11/01/24: LUNGS: No pleural effusion, consolidation, or pneumothorax . Atelectasis in bilateral lung bases. Sequelae of fluid administration. MEDIASTINUM: Unremarkable BONES: No acute osseous abnormality OTHER: Enteric tube extending into the stomach. Intraperitoneal free air Chest x-ray, 11/02/2024: 1. Interval progression in right basilar pulmonary airspace disease. 2. Interval resolution of pneumoperitoneum. 3. Endotracheal tube and enteric catheter as above. CT head, 11/11/2024: No evidence of acute intracranial abnormality MRI, headache, 11/11/2024: No acute infarct, intracranial hemorrhage, mass effect, or hydrocephalus. vital signs Vital Sign Date Time Temp Pulse Resp B/P (MAP) Pulse Ox O2 Delivery O2 Flow Rate FiO2 11/13/24 18:44 100.4 11/13/24 18:30 123 22 98 11/13/24 18:00 Simple Mask* 6 50 Total Intake and Output 11/12/24 11/12/24 11/13/24 15:00 23:00 07:00 Intake Total 526 ml 877 ml 842 ml Output Total 1225 ml 1050 ml Balance 526 ml -348 ml -208 ml medications Current Medications Medications Dose Ordered Sig/Greg Route Start Time Stop Time Status Last Admin Dose Admin Ondansetron HCl 4 mg Q4HP PRN IV 11/01/24 21:15 Midazolam HCl 50 ml @ 1 mls/hr Q24H IV 11/02/24 01:15 11/07/24 23:55 2 MLS/HR Fentanyl Citrate 250 ml @ 2.5 mls/hr Q24H IV 11/02/24 01:15 11/07/24 16:19 5 MLS/HR Thiamine HCl 100 mg DAILY IV 11/03/24 10:00 11/13/24 09:47 100 MG Norepinephrine Bitartrate 32 mg/ Sodium Chloride 250 ml @ 0.938 mls/ hr Q24H IV 11/03/24 14:45 11/10/24 05:50 2.813 MLS/HR Diagnostic Test (Pha) 1 strip Q6HR 11/04/24 00:00 11/13/24 05:24 1 STRIP Insulin Human Regular FOLLOW SLIDING SCALE Q6HR SC 11/04/24 00:00 11/12/24 12:00 2 UNITS Dextrose 50 ml UD IV 11/04/24 00:00 Pantoprazole Sodium 40 mg BID IV 11/04/24 09:15 11/13/24 09:47 40 MG Artificial Tears 1 drop Q6HP PRN EACHEYE 11/05/24 12:30 11/09/24 07:48 1 DROP Meropenem 50 ml @ 17 mls/hr Q8H IV 11/08/24 16:00 11/13/24 15:42 17 MLS/HR Enteral Nutritional Formula 1,000 ml 20ML/HR GT 11/09/24 11:30 Metoclopramide HCl 5 mg Q8H IV 11/10/24 15:30 11/13/24 15:42 5 MG Acetaminophen 650 mg Q4HP PRN PO 11/13/24 11:30 11/13/24 17:46 650 MG objective The patient is well-nourished and well-developed with no distress. MENTAL STATUS: Subjective CRANIAL NERVES: Pupils are equal, round and reactive. Normal conjugated eye movement, normal sensory and motor in the bilateral trigeminal distribution,. No signs of facial weakness. SENSATION: Okay to pinprick and light touch MOTOR: Normal tone in the upper and lower extremity. Normal muscle bulk. No fasciculations. She can move the arms and legs REFLEXES: Deep tendon reflexes are symmetrical. No pathological reflexes. CEREBELLAR/COORDINATION: Deferred GAIT/STATION: deferred. laboratory and microbiology Laboratory Tests 11/13/24 03:02 Test 11/13/24 03:02 Range/Units Serum Glucose 105 74-106 mg/dL Problem List Altered mental status Metabolic encephalopathy Toxic encephalopathy Hypoxic encephalopathy Sepsis Septic shock Peritonitis Viscus perforation Acute respiratory failure Pneumonia Acute kidney failure Different thrombosis Assessment/Plan Monitoring Supportive treatment ICU care EEG Follow-up labs Stabilize vitals Respiratory support Oxygen Thiamine supplementation GI prophylaxis/Protonix TPN More recommendation per clinical course This medical document was created using an electronic medical record system with [employer] dictation system. Although this document has been carefully reviewed, there may still be some phonetic and typographical errors. These areas are purely typographical due to imperfections of the software programs, and do not reflect any compromise in the patient's medical care. Prognosis poor Dietary Evaluation Review Comments: 1) If patient remains NPO > 7 days, consider EN/TPN to meet at least 75% of estimated energy needs 2) If gut is preferred, consider Jevity 1.2 @ 40 mL/hr goal rate as tolerated. Flush with 200 mL free H2O Q6H. TF regimen will provide 1152 kcals, 53g Pro, and 1575 mL free H2O (including flushes) per 24 hrs. Goal rate matias meet ~90% estimated daily energy needs and ~65% estimated daily protein needs. 3) Advance to 2g Na diet when medically feasible, pending ST approval 4) Follow-up with cardiology and pulmonology 5) Continue to monitor I&O, labs, and skin integrity Expected Outcomes/Goals: 1) patient to receive nutritional support within 7 days of NPO status 2) labs to improve 3) diet to advance 4) f/u in 2-3 dayas Plan discussed with: Other HOLLY BENSON MD Nov 13, 2024 19:11
[2024-11-13] MEDS ORDERED: POTASSIUM ACETATE IV NR (22:00)
[2024-11-13] MEDS ORDERED: [UNRECOGNIZED DRUG - OTHER] IV NR (22:00)
[2024-11-13] MEDS ORDERED: FAT EMULSION IV NR (22:00)
[2024-11-13] MEDS ORDERED: POTASSIUM PHOSPHATE IV NR (22:00)
[2024-11-14] VITALS (89 sets, daily range): BP systolic 60–112; BP diastolic 44–73; PULSE 75–123; RESP 20–41; TEMP 99–100.4; O2SAT 91–100
[2024-11-14 03:50] LABS: Hematocrit 24.5 % (36.0-46.0); Hemoglobin 8.3 g/dL (12.2-16.2); Mean Corpuscular Hemoglobin 26.6 pg (28.0-32.0); Mean Corpuscular Volume 78.6 fL (80.0-100.0); Nucleated Red Blood Cells % 0.1 %
[2024-11-14 03:51] LABS: Anion Gap 9 (5-15); Carbon Dioxide 28 mmol/L (20-31)
[2024-11-14 03:57] LABS: BUN/Creatinine Ratio 87.5 (10.0-20.0); Glucose 83 mg/dL (74-106)
[2024-11-14 03:59] LABS: Blood Urea Nitrogen 28 mg/dL (9-23); Calcium 8.5 mg/dL (8.7-10.4); Chloride 108 mmol/L (98-107); Potassium 3.2 mmol/L (3.5-5.1); Sodium 145 mmol/L (136-145)
--- NOTE | 2024-11-14 05:44 | DVH ---
CHEST RADIOGRAPH Indication: s/p extubation Technique: Single frontal view of the chest was obtained COMPARISON: XY CHEST PORTABLE on DOS: 11/13/24, XY CHEST PORTABLE on DOS: 11/12/24, XY CHEST PORTABLE o n DOS: 11/11/24, XY CHEST PORTABLE on DOS: 11/10/24, XY CHEST PORTABLE on DOS: 11/09/24 FINDINGS: Lines and Tubes: Status post interval extubation. Remaining lines and tubes unchanged. Lungs: Stable appearing small left pleural effusion. New right basilar atelectasis and mild diffuse increased prominence of the pulmonary vasculature. No pneumothorax. Cardiomediastinal contours: Unremarkable Bones: Unremarkable IMPRESSION: 1. Status post interval extubation. Remaining lines and tubes unchanged. 2. New right basilar atelectasis and mild diffuse increased prominence of the pulmonary vasculature. 3. Stable small left pleural effusion.
[2024-11-14] MEDS: POTASSIUM CHL 20MEQ/100ML 100 ML IV SCH (07:57)
--- NOTE | 2024-11-14 12:42 | DVHPN2 ---
Progress Note - Dictate Date Seen: Nov 14, 2024 Medical Necessity Reason Pt with a Central, PICC or Fol: Yes The following are medically ne: PICC Line vital signs Vital Sign Date Time Temp Pulse Resp B/P (MAP) Pulse Ox O2 Delivery O2 Flow Rate FiO2 11/14/24 11:00 100.0 11/14/24 06:41 91 28 86/54 (65) 100 11/14/24 06:00 Nasal Cannula* 2 28 Total Intake and Output 11/13/24 11/13/24 11/14/24 15:00 23:00 07:00 Intake Total 496 ml 310 ml 183 ml Output Total 510 ml 250 ml Balance 496 ml -200 ml -67 ml medications Current Medications Medications Dose Ordered Sig/Greg Route Start Time Stop Time Status Last Admin Dose Admin Ondansetron HCl 4 mg Q4HP PRN IV 11/01/24 21:15 Midazolam HCl 50 ml @ 1 mls/hr Q24H IV 11/02/24 01:15 11/07/24 23:55 2 MLS/HR Thiamine HCl 100 mg DAILY IV 11/03/24 10:00 11/14/24 10:52 100 MG Norepinephrine Bitartrate 32 mg/ Sodium Chloride 250 ml @ 0.938 mls/ hr Q24H IV 11/03/24 14:45 11/10/24 05:50 2.813 MLS/HR Pantoprazole Sodium 40 mg BID IV 11/04/24 09:15 11/14/24 10:52 40 MG Artificial Tears 1 drop Q6HP PRN EACHEYE 11/05/24 12:30 11/09/24 07:48 1 DROP Meropenem 50 ml @ 17 mls/hr Q8H IV 11/08/24 16:00 11/14/24 08:15 17 MLS/HR Enteral Nutritional Formula 1,000 ml 20ML/HR GT 11/09/24 11:30 Metoclopramide HCl 5 mg Q8H IV 11/10/24 15:30 11/14/24 08:05 5 MG Acetaminophen 650 mg Q4HP PRN PO 11/13/24 11:30 11/14/24 11:00 650 MG laboratory and microbiology Laboratory Tests 11/14/24 03:05 Test 11/14/24 03:05 Range/Units Serum Glucose 83 74-106 mg/dL Assessment/Plan Covering for Dr. Coe Impression Acute hypoxemic respiratory failure S/p exploratory laparotomy Perforated bowel S/p colostomy Patient seen and examined in ICU Events s/p extubation S/p ex lap and colostomy Labs and imaging reviewed ABG reviewed Management suppl 02 titrate nutrition PT Continue antibiotics F/u cultures Bronchodilators Monitor renal function Monitor electrolytes Supplement as needed Pressors as needed for hemodynamic support To maintain a mean arterial pressure of 65 mmHg DVT prophylaxis Critical care time 35 minutes Dietary Evaluation Review Comments: 1) If patient remains NPO > 7 days, consider EN/TPN to meet at least 75% of estimated energy needs 2) If gut is preferred, consider Jevity 1.2 @ 40 mL/hr goal rate as tolerated. Flush with 200 mL free H2O Q6H. TF regimen will provide 1152 kcals, 53g Pro, and 1575 mL free H2O (including flushes) per 24 hrs. Goal rate matias meet ~90% estimated daily energy needs and ~65% estimated daily protein needs. 3) Advance to 2g Na diet when medically feasible, pending ST approval 4) Follow-up with cardiology and pulmonology 5) Continue to monitor I&O, labs, and skin integrity Expected Outcomes/Goals: 1) patient to receive nutritional support within 7 days of NPO status 2) labs to improve 3) diet to advance 4) f/u in 2-3 dayas Plan discussed with: Patient MICHAEL TOMPKINS MD Nov 14, 2024 12:42
--- NOTE | 2024-11-14 14:39 | DVHPN2 ---
Subjective The patient seen and examined at bedside. Remained intubate. No change overnight. Reviewed: Care Plan, H&P, Labs, Medications, Previous Orders, Radiology Changes from previous H/P or p: No Changes Objective Vitals Vital Signs Date Time Temp Pulse Resp B/P (MAP) Pulse Ox O2 Delivery O2 Flow Rate FiO2 11/14/24 14:00 33 97 Nasal Cannula* 2 28 11/14/24 14:00 123 11/14/24 11:45 100.2 212.4 Intake/Output Intake and Output 11/14/24 06:59 Intake Total 1051 ml Output Total 760 ml Balance 291 ml Intake Oral 60 ml IV Total 868 ml Tube Feeding 123 ml Output Urine Total 750 ml Other 10 ml General Appearance: Other (Intubate, on vent) HEENT: Atraumatic Neck: Supple Cardiovascular: Regular rate, Normal S1, Normal S2, No murmurs, Gallops, Rubs Abdomen: Normal bowel sounds, Soft, No tenderness Neuro: Other (intubate, on vent) Medications Current Medications Medications Dose Ordered Sig/Greg Route Start Time Stop Time Status Last Admin Dose Admin Ondansetron HCl 4 mg Q4HP PRN IV 11/01/24 21:15 Midazolam HCl 50 ml @ 1 mls/hr Q24H IV 11/02/24 01:15 11/07/24 23:55 2 MLS/HR Thiamine HCl 100 mg DAILY IV 11/03/24 10:00 11/14/24 10:52 100 MG Norepinephrine Bitartrate 32 mg/ Sodium Chloride 250 ml @ 0.938 mls/ hr Q24H IV 11/03/24 14:45 11/10/24 05:50 2.813 MLS/HR Pantoprazole Sodium 40 mg BID IV 11/04/24 09:15 11/14/24 10:52 40 MG Artificial Tears 1 drop Q6HP PRN EACHEYE 11/05/24 12:30 11/09/24 07:48 1 DROP Meropenem 50 ml @ 17 mls/hr Q8H IV 11/08/24 16:00 11/14/24 08:15 17 MLS/HR Enteral Nutritional Formula 1,000 ml 20ML/HR GT 11/09/24 11:30 Metoclopramide HCl 5 mg Q8H IV 11/10/24 15:30 11/14/24 08:05 5 MG Acetaminophen 650 mg Q4HP PRN PO 11/13/24 11:30 11/14/24 11:00 650 MG Laboratory Results Laboratory Tests 11/14/24 03:05 Chemistry Test 11/14/24 03:05 Calcium Level 8.5 mg/dL (8.7-10.4) L Urinalysis Test 11/03/24 09:50 Urine Color [place] (Yellow) H Urine Clarity Ex.turbid (Clear) Urine pH 6.0 (5.0-9.0) Urine Specific [place] 1.017 (1.001-1.035) Urine Protein 2+ (Negative) H Urine Ketones Negative (Negative) Urine Blood 3+ /uL (Negative) H Urine Nitrite Negative (Negative) Urine Bilirubin Negative (Negative) Urine Urobilinogen Normal mg/dL (Negative) Urine Leukocyte Esterase 3+ /uL (Negative) Urine RBC 676 /hpf (0 - 4) Urine WBC Clumps Present /hpf (None Seen) Urine Microscopic WBC 2141 /HPF (0-5) H Urine Squamous Epithelial Cells Few /hpf (<5) Urine Bacteria None seen /hpf (None Seen) Urine Mucus Few (None Seen) Urine Yeast (Budding) Many /hpf (None Seen) Urine Creatinine 78.12 mg/dL (30.0-125.0) Urine Protein/Creatinine Ratio 5.90 Urine Sodium 83 mmol/L (40-220) Urine Glucose Normal mg/dL (Normal) Urine Total Protein 460.8 mg/dL (1-14) H Microbiology Microbiology Date/Time Source Procedure Growth Status 11/13/24 09:51 Sputum Gram Stain - Final Resulted 11/13/24 09:51 Sputum Respiratory Culture - Preliminary Resulted 11/03/24 14:05 Blood Blood Culture - Final NO GROWTH AFTER 5 DAYS OF INCUBATION. Complete 11/02/24 01:14 Trachea Gram Stain - Final Complete 11/02/24 01:14 Respiratory Culture - Final Staphylococcus aureus Presumptive Cherelle albicans Complete Labs and/or images reviewed: Labs reviewed by me Assessment/Plan Assessment/Plan NEURO: Acute metabolic encephalopathy secondary to septic shock Status post intubation RASS score: -1 CARDIOVASCULAR: Septic shock secondary to perforation of the hollow viscus Sinus tachycardia secondary to pain versus withdrawal Bilateral peripheral arterial disease - Patient is on Levophed - EKG demonstrated sinus tachycardia - echo showed EF 60%, echo density in RV suggestive of large papillary muscle, can not rule out vegetation. - Duplex scan of the lower extremity revealed bilateral hemodynamically significant stenosis in left dorsalis pedis and right popliteal artery PULMONARY: Possible right lower lobe pneumonia Mild bilateral pleural effusion. - Chest x-ray showed atelectasis in bilateral lung bases - Blood culture showed Bacteroides and respiratory cultures Staph aureus and presumptive Cherelle albicans - Follow up blood culture revealed no growth in 24 hours of incubation. - continue IV vancomycin and IV meropenem GASTROINTESTINAL: Septic shock secondary to perforation of the hollow viscus, status post exploratory laparotomy Rule out colonic malignancy Transaminitis and coagulopathy secondary to hepatic steatosis Rule out cirrhosis Enlarged CBD, rule out choledocholithiasis or biliary stenosis Alcohol abuse disorder Colon cancer - Histopathology of the resected bowel showed moderately differentiated adenocarcinoma of the ileum, rectum and rectosigmoid junction. - TPN as per pharmacy - IV thiamine 100 mg daily - CT abdomen pelvis without contrast showed large amount of intraperitoneal free air . [id number] stool burden. Indeterminate possible portal venous gas versus marginal gas along the liver - U/S of the abdomen showed The liver is diffusely echogenic which may be secondary to steatosis or another diffuse hepatic process. Enlargement of the common bile duct measuring up to 15 mm. Gallbladder sludge. Small amount of free fluid in the abdomen. - Patient underwent Exploratory laparotomy with rectosigmoid resection with colostomy, Extensive lysis of adhesions and Ileal resection with a primary anastomosis. - Abdominal fluid culture demonstrated, prevotella, Pseudomonas, E coli, Streptococcus mitis - continue IV vancomycin and IV meropenem GENITOURINARY: FLORIN secondary to septic shock/ VMN Acute complicated cystitis - U/A was consistent with UTI ENDOCRINE: Hypoglycemia METABOLIC: Moderate protein calorie malnutrition Hypocalcemia metabolic acidosis with respiratory compensation HEME: Acute on chronic microcytic hypochromic anemia Thrombocytopenia improving Coagulopathy Acute DVT of left upper arm - Hold Lovenox - 3 unit PRBC and 1 FFP given since surgery - monitor H&H INFECTIOUS DISEASE: Sepsis with septic shock secondary to perforation of the hollow viscus, status post exploratory laparotomy Possible right lower lobe pneumonia Acute complicated cystitis - Blood culture showed Gram-negative rods, other cultures are pending - continue IV vancomycin and IV meropenem DIET: TPN, tube feeding DVT prophylax: Hold lovenox GI prophylaxis: Protonix Bowel regimen: Code status: Full Code LINES/DRAINS/ACCESS: ETT: Intubated on 11/01/2024 IV access: Right IJ placed on 04/12/2024 Drips: Levophed Grajeda catheter: Placed on 11/01/2024 Continuing current management. Waiting for transfer to [facility] when bed available. Critical care time spent for this case is 45 mins. This medical document was created using an electronic medical record system with [employer] computerized dictation system. Although this document has been carefully reviewed, there may still be some phonetic and typographical errors. These areas are purely typographical due to imperfections of the software programs, and do not reflect any compromise in the patient's medical care. Plan discussed with: Other (Rn) Date of Service: Nov 14, 2024 Billing Provider: LAUREN RENTERIA MD Common Visit Codes: 83599-[id number] INP/OBS CARE(HIGH) LAUREN RENTERIA MD Nov 14, 2024 14:39
[2024-11-15] VITALS (93 sets, daily range): BP systolic 79–117; BP diastolic 41–73; PULSE 87–124; RESP 22–36; TEMP 98.1–100; O2SAT 89–100
[2024-11-15 03:31] LABS: Mean Corpuscular Volume 80.0 fL (80.0-100.0)
[2024-11-15 03:34] LABS: Hematocrit 25.4 % (36.0-46.0); Hemoglobin 8.5 g/dL (12.2-16.2); Mean Corpuscular Hemoglobin 26.8 pg (28.0-32.0); Nucleated Red Blood Cells % 0.0 %
[2024-11-15 03:35] LABS: Alanine Aminotransferase 39 U/L (7-40); Anion Gap 12 (5-15); BUN/Creatinine Ratio 63.6 (10.0-20.0); Blood Urea Nitrogen 21 mg/dL (9-23); Carbon Dioxide 24 mmol/L (20-31); Magnesium 1.7 mg/dL (1.6-2.6); Potassium 3.8 mmol/L (3.5-5.1)
[2024-11-15 04:04] LABS: Albumin 2.2 g/dL (3.2-4.8); Alkaline Phosphatase 170 U/L (46-116); Bilirubin, Total 0.2 mg/dL (0.2-1.0); Calcium 8.5 mg/dL (8.7-10.4); Chloride 111 mmol/L (98-107); Glucose 57 mg/dL (74-106); Sodium 147 mmol/L (136-145); Total Protein 4.6 g/dL (5.7-8.2)
[2024-11-15] MEDS: MAGNESIUM SULFATE 1GM/100ML 100 ML IV ONE (05:00)
[2024-11-15] MEDS: DEXTROSE 50% SYRINGE 50 ML IV ONE (05:00)
[2024-11-15] MEDS: MAGNESIUM SULFATE 1GM/100ML 100 ML IV SCH (05:02)
[2024-11-15] MEDS: ACCU-CHEK COMFORT CURVE STRIP VI SCH (05:05)
[2024-11-15] MEDS: DEXTROSE (50%) 50ML SYRG IV PRN (05:05)
--- NOTE | 2024-11-15 05:58 | DVH ---
CHEST RADIOGRAPH Indication: COPIOUS SECRETIONS Technique: Single frontal view of the chest was obtained Comparison: XY CHEST PORTABLE on DOS: 11/14/24, XY CHEST PORTABLE on DOS: 11/13/24, XY CHEST PORTABLE o n DOS: 11/12/24 IMPRESSION: Right IJ catheter tip in the expected location of the right atrium. Enteric tube tip in the region o f the stomach. Increased patchy airspace opacity in the right lower lung. Possible patchy airspace op acity in the left lower lung with small left effusion. No pneumothorax.
[2024-11-15 06:18] LABS: Anisocytosis Slight
--- NOTE | 2024-11-15 10:50 | MEDREC ---
[facility] Intervention Section I [facility] Intervention: Review courses of therapy (SPUTUM CULTURE POSITIVE FOR PRESUMPTIVE ERICA ALBICANS - PLEASE CONSIDER ADDING ANTIFUNGAL IF CLINICALLY RELEVANT ) SHONNA HAIRSTON PHARMACIST Nov 15, 2024 10:50
--- NOTE | 2024-11-15 13:57 | DVHPN2 ---
Progress Note - Dictate Date Seen: Nov 15, 2024 Medical Necessity Reason Pt with a Central, PICC or Fol: Yes The following are medically ne: PICC Line vital signs Vital Sign Date Time Temp Pulse Resp B/P (MAP) Pulse Ox O2 Delivery O2 Flow Rate FiO2 11/15/24 11:15 98.2 106 30 93/54 (67) 95 208.8 11/15/24 10:00 Nasal Cannula* 1 24 Total Intake and Output 11/14/24 11/14/24 11/15/24 15:00 23:00 07:00 Intake Total 250 ml 465 ml 251 ml Output Total 1240 ml 1315 ml Balance 250 ml -775 ml -1064 ml medications Current Medications Medications Dose Ordered Sig/Greg Route Start Time Stop Time Status Last Admin Dose Admin Ondansetron HCl 4 mg Q4HP PRN IV 11/01/24 21:15 Midazolam HCl 50 ml @ 1 mls/hr Q24H IV 11/02/24 01:15 11/07/24 23:55 2 MLS/HR Thiamine HCl 100 mg DAILY IV 11/03/24 10:00 11/15/24 10:16 100 MG Norepinephrine Bitartrate 32 mg/ Sodium Chloride 250 ml @ 0.938 mls/ hr Q24H IV 11/03/24 14:45 11/10/24 05:50 2.813 MLS/HR Pantoprazole Sodium 40 mg BID IV 11/04/24 09:15 11/15/24 10:16 40 MG Artificial Tears 1 drop Q6HP PRN EACHEYE 11/05/24 12:30 11/09/24 07:48 1 DROP Meropenem 50 ml @ 17 mls/hr Q8H IV 11/08/24 16:00 11/15/24 08:20 17 MLS/HR Enteral Nutritional Formula 1,000 ml 20ML/HR GT 11/09/24 11:30 Metoclopramide HCl 5 mg Q8H IV 11/10/24 15:30 11/15/24 06:22 5 MG Acetaminophen 650 mg Q4HP PRN PO 11/13/24 11:30 11/15/24 01:26 650 MG Diagnostic Test (Pha) 1 strip Q4H 11/15/24 04:45 11/15/24 08:20 1 STRIP Dextrose 50 ml UD PRN IV 11/15/24 04:45 11/15/24 05:05 50 ML laboratory and microbiology Laboratory Tests 11/15/24 02:50 Test 11/15/24 02:50 Range/Units Serum Glucose 57 L 74-106 mg/dL Assessment/Plan Covering for Dr. Coe Impression Acute hypoxemic respiratory failure S/p exploratory laparotomy Perforated bowel S/p colostomy Patient seen and examined in ICU Events s/p extubation Low oxygen requirements NG tube in place S/p ex lap and colostomy Labs and imaging reviewed ABG reviewed Management suppl 02 titrate nutrition PT Continue antibiotics F/u cultures Bronchodilators Monitor renal function Monitor electrolytes Supplement as needed Okay to downgrade from pulmonary standpoint DVT prophylaxis Critical care time 35 minutes Dietary Evaluation Review Comments: 1) If patient remains NPO > 7 days, consider EN/TPN to meet at least 75% of estimated energy needs 2) If gut is preferred, consider Jevity 1.2 @ 40 mL/hr goal rate as tolerated. Flush with 200 mL free H2O Q6H. TF regimen will provide 1152 kcals, 53g Pro, and 1575 mL free H2O (including flushes) per 24 hrs. Goal rate matias meet ~90% estimated daily energy needs and ~65% estimated daily protein needs. 3) Advance to 2g Na diet when medically feasible, pending ST approval 4) Follow-up with cardiology and pulmonology 5) Continue to monitor I&O, labs, and skin integrity Expected Outcomes/Goals: 1) patient to receive nutritional support within 7 days of NPO status 2) labs to improve 3) diet to advance 4) f/u in 2-3 dayas Plan discussed with: Patient MICHAEL TOMPKINS MD Nov 15, 2024 13:57
--- NOTE | 2024-11-15 22:07 | DVHPN2 ---
Progress Note - Dictate Date Seen: Nov 15, 2024 Medical Necessity Reason Pt with a Central, PICC or Fol: Yes The following are medically ne: PICC Line Subjective Ms. Osei is a 49 years old female with a history of hypertension, GERD, she was admitted to the [facility] on 11/01/2024 with a chief company of general weakness for six months of time, according to ER note, the patient was alert oriented x3 when she came to the hospital, but in the hospital, the patient was found to have perforated viscus, metabolic acidosis, sepsis, septic shock, peritonitis, on 11/02/2024, she went through 1. Exploratory laparotomy with rectosigmoid resection with colostomy 2. Extensive lysis of adhesions 3. Ileal resection with a primary anastomosis. Since then the patient has been intubated, mentally altered. I have seen and examined the patient, discussed with her nurse. She is extubated, awake, she talks a little bit, she follows verbal commands, her voice is soft. Oriented to person only Blood culture, 11/01/24: Bacteroides fragilis Hepatitis panel, 11/02/2024: Hepatitis-A antibody, HbsAg Urinalysis, 11/01/2024: WBC: 522, WBC clumps: Present, urine leukocyte esterase: 3+ ABG 11/02/2024: Metabolic acidosis, 11/03/2024: Metabolic acidosis, 11/04/2024: Metabolic acidosis WBC/HB/PLT/MCV, 11/11/2024: 11.6/7.8/200/87.4 PT/INR/PTT, 11/04/2024: 14/1.36/81.6, 11/06/2024: 13.3/1.29/48.7 BUN/CR, 11/11/2024: 33/0.68 TBI/AST/ALT/AP, 11/11/2024: 0.2/67/22/169 Extremity venous study, 11/03/2024: Left upper extremity DVT Chest x-ray, 11/01/24: LUNGS: No pleural effusion, consolidation, or pneumothorax . Atelectasis in bilateral lung bases. Sequelae of fluid administration. MEDIASTINUM: Unremarkable BONES: No acute osseous abnormality OTHER: Enteric tube extending into the stomach. Intraperitoneal free air Chest x-ray, 11/02/2024: 1. Interval progression in right basilar pulmonary airspace disease. 2. Interval resolution of pneumoperitoneum. 3. Endotracheal tube and enteric catheter as above. CT head, 11/11/2024: No evidence of acute intracranial abnormality MRI, headache, 11/11/2024: No acute infarct, intracranial hemorrhage, mass effect, or hydrocephalus. vital signs Vital Sign Date Time Temp Pulse Resp B/P (MAP) Pulse Ox O2 Delivery O2 Flow Rate FiO2 11/15/24 20:57 98.6 113 27 89/51 (64) 97 209.5 11/15/24 20:00 Nasal Cannula* 1 24 Total Intake and Output 11/14/24 11/14/24 11/15/24 15:00 23:00 07:00 Intake Total 250 ml 465 ml 251 ml Output Total 1240 ml 1315 ml Balance 250 ml -775 ml -1064 ml medications Current Medications Medications Dose Ordered Sig/Greg Route Start Time Stop Time Status Last Admin Dose Admin Ondansetron HCl 4 mg Q4HP PRN IV 11/01/24 21:15 Midazolam HCl 50 ml @ 1 mls/hr Q24H IV 11/02/24 01:15 11/07/24 23:55 2 MLS/HR Thiamine HCl 100 mg DAILY IV 11/03/24 10:00 11/15/24 10:16 100 MG Norepinephrine Bitartrate 32 mg/ Sodium Chloride 250 ml @ 0.938 mls/ hr Q24H IV 11/03/24 14:45 11/10/24 05:50 2.813 MLS/HR Pantoprazole Sodium 40 mg BID IV 11/04/24 09:15 11/15/24 21:40 40 MG Artificial Tears 1 drop Q6HP PRN EACHEYE 11/05/24 12:30 11/09/24 07:48 1 DROP Meropenem 50 ml @ 17 mls/hr Q8H IV 11/08/24 16:00 11/15/24 16:31 17 MLS/HR Enteral Nutritional Formula 1,000 ml 20ML/HR GT 11/09/24 11:30 Metoclopramide HCl 5 mg Q8H IV 11/10/24 15:30 11/15/24 16:31 5 MG Acetaminophen 650 mg Q4HP PRN PO 11/13/24 11:30 11/15/24 01:26 650 MG Diagnostic Test (Pha) 1 strip Q4H 11/15/24 04:45 11/15/24 20:45 1 STRIP Dextrose 50 ml UD PRN IV 11/15/24 04:45 11/15/24 05:05 50 ML objective The patient is well-nourished and well-developed with no distress. MENTAL STATUS: Subjective CRANIAL NERVES: Pupils are equal, round and reactive. Normal conjugated eye movement, normal sensory and motor in the bilateral trigeminal distribution,. No signs of facial weakness. SENSATION: Okay to pinprick and light touch MOTOR: Normal tone in the upper and lower extremity. Normal muscle bulk. No fasciculations. Muscle power, upper extremity: 3-4/5. Lower extremities: Right: 1-2/5, left: 1/5 REFLEXES: Deep tendon reflexes are symmetrical. No pathological reflexes. CEREBELLAR/COORDINATION: Deferred GAIT/STATION: deferred. laboratory and microbiology Laboratory Tests 11/15/24 02:50 Test 11/15/24 02:50 Range/Units Serum Glucose 57 L 74-106 mg/dL Problem List Altered mental status Metabolic encephalopathy Toxic encephalopathy Hypoxic encephalopathy Sepsis Septic shock Peritonitis Viscus perforation Acute respiratory failure Pneumonia Acute kidney failure Different thrombosis Assessment/Plan Monitoring Supportive treatment ICU care EEG Follow-up labs Stabilize vitals Respiratory support Oxygen Thiamine supplementation GI prophylaxis/Protonix More recommendation per clinical course This medical document was created using an electronic medical record system with [employer] dictation system. Although this document has been carefully reviewed, there may still be some phonetic and typographical errors. These areas are purely typographical due to imperfections of the software programs, and do not reflect any compromise in the patient's medical care. Prognosis poor Dietary Evaluation Review Comments: 1) If patient remains NPO > 7 days, consider EN/TPN to meet at least 75% of estimated energy needs 2) If gut is preferred, consider Jevity 1.2 @ 40 mL/hr goal rate as tolerated. Flush with 200 mL free H2O Q6H. TF regimen will provide 1152 kcals, 53g Pro, and 1575 mL free H2O (including flushes) per 24 hrs. Goal rate matias meet ~90% estimated daily energy needs and ~65% estimated daily protein needs. 3) Advance to 2g Na diet when medically feasible, pending ST approval 4) Follow-up with cardiology and pulmonology 5) Continue to monitor I&O, labs, and skin integrity Expected Outcomes/Goals: 1) patient to receive nutritional support within 7 days of NPO status 2) labs to improve 3) diet to advance 4) f/u in 2-3 dayas Plan discussed with: Other HOLLY BENSON MD Nov 15, 2024 22:07
--- NOTE | 2024-11-15 22:26 | DVHPN2 ---
Subjective The patient seen and examined at bedside. Remained intubate. No change overnight. Reviewed: Care Plan, H&P, Labs, Medications, Previous Orders, Radiology Changes from previous H/P or p: No Changes Objective Vitals Vital Signs Date Time Temp Pulse Resp B/P (MAP) Pulse Ox O2 Delivery O2 Flow Rate FiO2 11/15/24 20:57 98.6 113 27 89/51 (64) 97 209.5 11/15/24 20:00 Nasal Cannula* 1 24 Intake/Output Intake and Output 11/15/24 07:00 Intake Total 966 ml Output Total 2555 ml Balance -1589 ml Intake Oral 240 ml IV Total 326 ml Tube Feeding 400 ml Output Urine Total 875 ml Gastric Drainage Total 900 ml Drainage Total 140 ml Other 640 ml # Voids 1 General Appearance: Other (Intubate, on vent) HEENT: Atraumatic Neck: Supple Cardiovascular: Regular rate, Normal S1, Normal S2, No murmurs, Gallops, Rubs Abdomen: Normal bowel sounds, Soft, No tenderness Neuro: Other (intubate, on vent) Medications Current Medications Medications Dose Ordered Sig/Greg Route Start Time Stop Time Status Last Admin Dose Admin Ondansetron HCl 4 mg Q4HP PRN IV 11/01/24 21:15 Midazolam HCl 50 ml @ 1 mls/hr Q24H IV 11/02/24 01:15 11/07/24 23:55 2 MLS/HR Thiamine HCl 100 mg DAILY IV 11/03/24 10:00 11/15/24 10:16 100 MG Norepinephrine Bitartrate 32 mg/ Sodium Chloride 250 ml @ 0.938 mls/ hr Q24H IV 11/03/24 14:45 11/10/24 05:50 2.813 MLS/HR Pantoprazole Sodium 40 mg BID IV 11/04/24 09:15 11/15/24 21:40 40 MG Artificial Tears 1 drop Q6HP PRN EACHEYE 11/05/24 12:30 11/09/24 07:48 1 DROP Meropenem 50 ml @ 17 mls/hr Q8H IV 11/08/24 16:00 11/15/24 16:31 17 MLS/HR Enteral Nutritional Formula 1,000 ml 20ML/HR GT 11/09/24 11:30 Metoclopramide HCl 5 mg Q8H IV 11/10/24 15:30 11/15/24 16:31 5 MG Acetaminophen 650 mg Q4HP PRN PO 11/13/24 11:30 11/15/24 01:26 650 MG Diagnostic Test (Pha) 1 strip Q4H 11/15/24 04:45 11/15/24 20:45 1 STRIP Dextrose 50 ml UD PRN IV 11/15/24 04:45 11/15/24 05:05 50 ML Laboratory Results Laboratory Tests 11/15/24 02:50 Chemistry Test 11/15/24 02:50 Albumin 2.2 g/dL (3.2-4.8) L Calcium Level 8.5 mg/dL (8.7-10.4) L Magnesium Level 1.7 mg/dL (1.6-2.6) Phosphorus Level 3.8 mg/dL (2.4-5.1) Total Protein 4.6 g/dL (5.7-8.2) L LFT Test 11/15/24 02:50 Alanine Aminotransferase (ALT) 39 U/L (7-40) Alkaline Phosphatase 170 U/L (46-116) H Aspartate Amino Transferase (AST) 57 U/L (13-40) H Total Bilirubin 0.2 mg/dL (0.2-1.0) Urinalysis Test 11/03/24 09:50 Urine Color [place] (Yellow) H Urine Clarity Ex.turbid (Clear) Urine pH 6.0 (5.0-9.0) Urine Specific [place] 1.017 (1.001-1.035) Urine Protein 2+ (Negative) H Urine Ketones Negative (Negative) Urine Blood 3+ /uL (Negative) H Urine Nitrite Negative (Negative) Urine Bilirubin Negative (Negative) Urine Urobilinogen Normal mg/dL (Negative) Urine Leukocyte Esterase 3+ /uL (Negative) Urine RBC 676 /hpf (0 - 4) Urine WBC Clumps Present /hpf (None Seen) Urine Microscopic WBC 2141 /HPF (0-5) H Urine Squamous Epithelial Cells Few /hpf (<5) Urine Bacteria None seen /hpf (None Seen) Urine Mucus Few (None Seen) Urine Yeast (Budding) Many /hpf (None Seen) Urine Creatinine 78.12 mg/dL (30.0-125.0) Urine Protein/Creatinine Ratio 5.90 Urine Sodium 83 mmol/L (40-220) Urine Glucose Normal mg/dL (Normal) Urine Total Protein 460.8 mg/dL (1-14) H Microbiology Microbiology Date/Time Source Procedure Growth Status 11/13/24 09:51 Sputum Gram Stain - Final Resulted 11/13/24 09:51 Respiratory Culture - Preliminary Presumptive Cherelle albicans Resulted 11/03/24 14:05 Blood Blood Culture - Final NO GROWTH AFTER 5 DAYS OF INCUBATION. Complete 11/02/24 01:14 Trachea Gram Stain - Final Complete 11/02/24 01:14 Respiratory Culture - Final Staphylococcus aureus Presumptive Cherelle albicans Complete Labs and/or images reviewed: Labs reviewed by me Assessment/Plan Assessment/Plan NEURO: Acute metabolic encephalopathy secondary to septic shock Status post intubation RASS score: -1 CARDIOVASCULAR: Septic shock secondary to perforation of the hollow viscus Sinus tachycardia secondary to pain versus withdrawal Bilateral peripheral arterial disease - Patient is on Levophed - EKG demonstrated sinus tachycardia - echo showed EF 60%, echo density in RV suggestive of large papillary muscle, can not rule out vegetation. - Duplex scan of the lower extremity revealed bilateral hemodynamically significant stenosis in left dorsalis pedis and right popliteal artery PULMONARY: Possible right lower lobe pneumonia Mild bilateral pleural effusion. - Chest x-ray showed atelectasis in bilateral lung bases - Blood culture showed Bacteroides and respiratory cultures Staph aureus and presumptive Cherelle albicans - Follow up blood culture revealed no growth in 24 hours of incubation. - continue IV vancomycin and IV meropenem GASTROINTESTINAL: Septic shock secondary to perforation of the hollow viscus, status post exploratory laparotomy Rule out colonic malignancy Transaminitis and coagulopathy secondary to hepatic steatosis Rule out cirrhosis Enlarged CBD, rule out choledocholithiasis or biliary stenosis Alcohol abuse disorder Colon cancer - Histopathology of the resected bowel showed moderately differentiated adenocarcinoma of the ileum, rectum and rectosigmoid junction. - TPN as per pharmacy - IV thiamine 100 mg daily - CT abdomen pelvis without contrast showed large amount of intraperitoneal free air . [id number] stool burden. Indeterminate possible portal venous gas versus marginal gas along the liver - U/S of the abdomen showed The liver is diffusely echogenic which may be secondary to steatosis or another diffuse hepatic process. Enlargement of the common bile duct measuring up to 15 mm. Gallbladder sludge. Small amount of free fluid in the abdomen. - Patient underwent Exploratory laparotomy with rectosigmoid resection with colostomy, Extensive lysis of adhesions and Ileal resection with a primary anastomosis. - Abdominal fluid culture demonstrated, prevotella, Pseudomonas, E coli, Streptococcus mitis - continue IV vancomycin and IV meropenem GENITOURINARY: FLORIN secondary to septic shock/ VMN Acute complicated cystitis - U/A was consistent with UTI ENDOCRINE: Hypoglycemia METABOLIC: Moderate protein calorie malnutrition Hypocalcemia metabolic acidosis with respiratory compensation HEME: Acute on chronic microcytic hypochromic anemia Thrombocytopenia improving Coagulopathy Acute DVT of left upper arm - Hold Lovenox - 3 unit PRBC and 1 FFP given since surgery - monitor H&H INFECTIOUS DISEASE: Sepsis with septic shock secondary to perforation of the hollow viscus, status post exploratory laparotomy Possible right lower lobe pneumonia Acute complicated cystitis - Blood culture showed Gram-negative rods, other cultures are pending - continue IV vancomycin and IV meropenem DIET: TPN, tube feeding DVT prophylax: Hold lovenox GI prophylaxis: Protonix Bowel regimen: Code status: Full Code LINES/DRAINS/ACCESS: ETT: Intubated on 11/01/2024 IV access: Right IJ placed on 04/12/2024 Drips: Levophed Grajeda catheter: Placed on 11/01/2024 Continuing current management. Waiting for transfer to [facility] when bed available. 11/15: [facility] hospitalist of [facility], per [facility] hospitalist the [facility] surgeon is not comfortable to take the patient until she is down grade from ICU. Today her BP still remain borderline at 90s/50s. Still keep in ICU in case we have to restart vasopressor. Critical care time spent for this case is 47 mins. This medical document was created using an electronic medical record system with [employer] computerized dictation system. Although this document has been carefully reviewed, there may still be some phonetic and typographical errors. These areas are purely typographical due to imperfections of the software programs, and do not reflect any compromise in the patient's medical care. Plan discussed with: Patient, Spouse Date of Service: Nov 15, 2024 Billing Provider: LAUREN RENTERIA MD Common Visit Codes: 03140-WATICJZG CARE 30-74 MIN LAUREN RENTERIA MD Nov 15, 2024 22:26
[2024-11-16] VITALS (92 sets, daily range): BP systolic 85–130; BP diastolic 49–77; PULSE 103–138; RESP 23–38; TEMP 99.1–100.4; O2SAT 89–100
--- NOTE | 2024-11-16 00:56 | DVHEEG2 ---
Neurology EEG Procedural Note Procedural Note EXAM DATE: 11/12/24 REFERRING DOCTOR: Dr. Benson TECHNIQUE: Eighteen channels of EEG, 2 channels of EOG, and 1 channel of EKG were recorded using the [employer] 10/20 system. CLINICAL DATA: The patient was referred for an EEG evaluation for the evidence of seizure disorder. MEDICATIONS: See the chart BACKGROUND ACTIVITY: There was significant amount of environmental artifacts blocking the brain waves ACTIVATION: Hyperventilation: Not done Photic Stimulation: Not done Sleep: Nonresponsiveness IMPRESSION: This is a nondiagnostic EEG because of above described difficulties, please obtain follow up EEG if a seizure disorder is clinically indicated to rule out . The EKG channel showed a regular heart rate of 105/min[place] [address] HOLLY BENSON MD Nov 16, 2024 00:55
[2024-11-16 04:36] LABS: Hematocrit 26.0 % (36.0-46.0); Hemoglobin 8.5 g/dL (12.2-16.2); Mean Corpuscular Hemoglobin 26.2 pg (28.0-32.0); Mean Corpuscular Volume 80.4 fL (80.0-100.0); Nucleated Red Blood Cells % 0.1 %
[2024-11-16 04:41] LABS: Calcium 8.7 mg/dL (8.7-10.4); Potassium 3.7 mmol/L (3.5-5.1)
[2024-11-16 04:42] LABS: Anion Gap 14 (5-15); Carbon Dioxide 24 mmol/L (20-31)
[2024-11-16 04:47] LABS: BUN/Creatinine Ratio 51.4 (10.0-20.0); Blood Urea Nitrogen 19 mg/dL (9-23)
[2024-11-16 04:51] LABS: Chloride 112 mmol/L (98-107); Glucose 70 mg/dL (74-106); Sodium 150 mmol/L (136-145)
--- NOTE | 2024-11-16 08:44 | DVH ---
EXAM: XY CHEST PORTABLE Indication: s/p extubation Technique: Single frontal view of the chest was obtained Comparison: XY CHEST PORTABLE on DOS: 11/15/24, XY CHEST PORTABLE on DOS: 11/14/24, XY CHEST PORTABLE o n DOS: 11/13/24, XY CHEST PORTABLE on DOS: 11/12/24, XY CHEST PORTABLE on DOS: 11/11/24 FINDINGS: Lines and Tubes: Right internal jugular central venous catheter tip projects over cavoatrial junction . Enteric tube tip projects over the expected region Lungs: Trace bilateral pleural effusions. Multifocal consolidative opacities. No pneumothorax. Cardiomediastinal contours: Unremarkable Bones: No acute osseous abnormality. IMPRESSION: Trace bilateral pleural effusions. Multifocal consolidative opacities. Lines and tubes as above.
[2024-11-16 08:55] LABS: INR 1.07 (0.9-1.15); Partial Thromboplastin Time 32.0 SEC (24.5-34.5); Prothrombin Time 11.3 sec (9.3-11.8)
[2024-11-16] MEDS: IPRATROPIUM BROM 0.5 MG/2.5ML INH SOL NEB SCH (10:00)
--- NOTE | 2024-11-16 10:08 | DVHPN2 ---
Progress Note - Dictate Date Seen: Nov 16, 2024 Medical Necessity Reason Pt with a Central, PICC or Fol: Yes The following are medically ne: PICC Line Subjective Ms. Osei is a 49 years old female with a history of hypertension, GERD, she was admitted to the [facility] on 11/01/2024 with a chief company of general weakness for six months of time, according to ER note, the patient was alert oriented x3 when she came to the hospital, but in the hospital, the patient was found to have perforated viscus, metabolic acidosis, sepsis, septic shock, peritonitis, on 11/02/2024, she went through 1. Exploratory laparotomy with rectosigmoid resection with colostomy 2. Extensive lysis of adhesions 3. Ileal resection with a primary anastomosis. Since then the patient has been intubated, mentally altered. I have seen and examined the patient, discussed with her nurse. She is extubated, awake, she talks a little bit, she follows verbal commands, her voice is soft. She may only oriented to herself Blood culture, 11/01/24: Bacteroides fragilis Hepatitis panel, 11/02/2024: Hepatitis-A antibody, HbsAg Urinalysis, 11/01/2024: WBC: 522, WBC clumps: Present, urine leukocyte esterase: 3+ ABG 11/02/2024: Metabolic acidosis, 11/03/2024: Metabolic acidosis, 11/04/2024: Metabolic acidosis WBC/HB/PLT/MCV, 11/11/2024: 11.6/7.8/200/87.4 PT/INR/PTT, 11/04/2024: 14/1.36/81.6, 11/06/2024: 13.3/1.29/48.7 Na, 11/14/24: 145, 11/15/2024: 147, 11/16/2024: 150 BUN/CR, 11/11/2024: 33/0.68 TBI/AST/ALT/AP, 11/11/2024: 0.2/67/22/169 EEG, 11/12/2024: Nondiagnostic EEG because of artifacts Extremity venous study, 11/03/2024: Left upper extremity DVT Chest x-ray, 11/01/24: LUNGS: No pleural effusion, consolidation, or pneumothorax . Atelectasis in bilateral lung bases. Sequelae of fluid administration. MEDIASTINUM: Unremarkable BONES: No acute osseous abnormality OTHER: Enteric tube extending into the stomach. Intraperitoneal free air Chest x-ray, 11/02/2024: 1. Interval progression in right basilar pulmonary airspace disease. 2. Interval resolution of pneumoperitoneum. 3. Endotracheal tube and enteric catheter as above. CT head, 11/11/2024: No evidence of acute intracranial abnormality MRI, headache, 11/11/2024: No acute infarct, intracranial hemorrhage, mass effect, or hydrocephalus. vital signs Vital Sign Date Time Temp Pulse Resp B/P (MAP) Pulse Ox O2 Delivery O2 Flow Rate FiO2 11/16/24 08:00 108 24 95 Nasal Cannula* 1 24 11/16/24 07:58 99.5 87/54 (65) 211.1 Total Intake and Output 11/15/24 11/15/24 11/16/24 15:00 23:00 07:00 Intake Total 50 ml 150 ml 230 ml Output Total 525 ml 420 ml Balance 50 ml -375 ml -190 ml medications Current Medications Medications Dose Ordered Sig/Greg Route Start Time Stop Time Status Last Admin Dose Admin Ondansetron HCl 4 mg Q4HP PRN IV 11/01/24 21:15 Midazolam HCl 50 ml @ 1 mls/hr Q24H IV 11/02/24 01:15 11/07/24 23:55 2 MLS/HR Thiamine HCl 100 mg DAILY IV 11/03/24 10:00 11/15/24 10:16 100 MG Norepinephrine Bitartrate 32 mg/ Sodium Chloride 250 ml @ 0.938 mls/ hr Q24H IV 11/03/24 14:45 11/10/24 05:50 2.813 MLS/HR Pantoprazole Sodium 40 mg BID IV 11/04/24 09:15 11/15/24 21:40 40 MG Artificial Tears 1 drop Q6HP PRN EACHEYE 11/05/24 12:30 11/09/24 07:48 1 DROP Meropenem 50 ml @ 17 mls/hr Q8H IV 11/08/24 16:00 11/15/24 23:48 17 MLS/HR Enteral Nutritional Formula 1,000 ml 20ML/HR GT 11/09/24 11:30 Metoclopramide HCl 5 mg Q8H IV 11/10/24 15:30 11/16/24 07:15 5 MG Acetaminophen 650 mg Q4HP PRN PO 11/13/24 11:30 11/15/24 01:26 650 MG Diagnostic Test (Pha) 1 strip Q4H 11/15/24 04:45 11/16/24 04:44 1 STRIP Dextrose 50 ml UD PRN IV 11/15/24 04:45 11/15/24 05:05 50 ML Levalbuterol HCl 0.625 mg Q4HR NEB 11/16/24 10:00 Ipratropium [place] 0.5 mg Q4HR NEB 11/16/24 10:00 Purified Water 200 ml Q4HR GT 11/16/24 10:00 objective The patient is well-nourished and well-developed with no distress. MENTAL STATUS: Subjective CRANIAL NERVES: Pupils are equal, round and reactive. Normal conjugated eye movement, normal sensory and motor in the bilateral trigeminal distribution,. No signs of facial weakness. SENSATION: Okay to pinprick and light touch MOTOR: Normal tone in the upper and lower extremity. Normal muscle bulk. No fasciculations. Muscle power, upper extremity: Shoulders: 2/5, elbow: 2-3/5, grippin-3/5. Lower extremities: Right: 2/5 except for 3-4/5 in the ankles and toes REFLEXES: Deep tendon reflexes are symmetrical. No pathological reflexes. CEREBELLAR/COORDINATION: Deferred GAIT/STATION: deferred. laboratory and microbiology Laboratory Tests 11/16/24 03:10 Test 11/16/24 03:10 Range/Units Serum Glucose 70 L 74-106 mg/dL Problem List Altered mental status Metabolic encephalopathy Toxic encephalopathy Hypoxic encephalopathy Sepsis Septic shock Peritonitis Viscus perforation Acute respiratory failure Pneumonia Acute kidney failure Different thrombosis ICU myopathy Assessment/Plan Monitoring Supportive treatment ICU care Follow-up labs Stabilize vitals Respiratory support Oxygen Thiamine supplementation GI prophylaxis/Protonix More recommendation per clinical course This medical document was created using an electronic medical record system with [employer] dictation system. Although this document has been carefully reviewed, there may still be some phonetic and typographical errors. These areas are purely typographical due to imperfections of the software programs, and do not reflect any compromise in the patient's medical care. Prognosis Poor Dietary Evaluation Review Comments: 1) If patient remains NPO > 7 days, consider EN/TPN to meet at least 75% of estimated energy needs 2) If gut is preferred, consider Jevity 1.2 @ 40 mL/hr goal rate as tolerated. Flush with 200 mL free H2O Q6H. TF regimen will provide 1152 kcals, 53g Pro, and 1575 mL free H2O (including flushes) per 24 hrs. Goal rate matias meet ~90% estimated daily energy needs and ~65% estimated daily protein needs. 3) Advance to 2g Na diet when medically feasible, pending ST approval 4) Follow-up with cardiology and pulmonology 5) Continue to monitor I&O, labs, and skin integrity Expected Outcomes/Goals: 1) patient to receive nutritional support within 7 days of NPO status 2) labs to improve 3) diet to advance 4) f/u in 2-3 dayas Plan discussed with: HOLLY Tidwell MD Nov 16, 2024 10:08
[2024-11-16] MEDS: LEVALBUTEROL HCL 1.25 MG/3 ML NEB NEB SCH (10:28)
[2024-11-16] MEDS: FREE WATER GT SCH (10:28)
[2024-11-16] MEDS: LEVALBUTEROL HCL 1.25 MG/3 ML NEB ONE ×2 (10:29→13:38)
--- NOTE | 2024-11-16 13:14 | DVHPN2 ---
Progress Note Date Seen: Nov 16, 2024 Medical Necessity Reason Pt with a Central, PICC or Fol: No The following are medically ne: PICC Line Objective vital signs Vital Sign Date Time Temp Pulse Resp B/P (MAP) Pulse Ox O2 Delivery O2 Flow Rate FiO2 11/16/24 12:30 99.7 118 31 94/57 (69) 93 211.5 11/16/24 12:00 Nasal Cannula* 1 24 Total Intake and Output 11/15/24 11/15/24 11/16/24 14:59 22:59 06:59 Intake Total 50 ml 150 ml 230 ml Output Total 525 ml 420 ml Balance 50 ml -375 ml -190 ml medications Current Medications Medications Dose Ordered Sig/Greg Route Start Time Stop Time Status Last Admin Dose Admin Ondansetron HCl 4 mg Q4HP PRN IV 11/01/24 21:15 Midazolam HCl 50 ml @ 1 mls/hr Q24H IV 11/02/24 01:15 11/07/24 23:55 2 MLS/HR Thiamine HCl 100 mg DAILY IV 11/03/24 10:00 11/16/24 10:27 100 MG Norepinephrine Bitartrate 32 mg/ Sodium Chloride 250 ml @ 0.938 mls/ hr Q24H IV 11/03/24 14:45 11/10/24 05:50 2.813 MLS/HR Pantoprazole Sodium 40 mg BID IV 11/04/24 09:15 11/16/24 10:28 40 MG Artificial Tears 1 drop Q6HP PRN EACHEYE 11/05/24 12:30 11/09/24 07:48 1 DROP Meropenem 50 ml @ 17 mls/hr Q8H IV 11/08/24 16:00 11/16/24 10:25 17 MLS/HR Enteral Nutritional Formula 1,000 ml 20ML/HR GT 11/09/24 11:30 Metoclopramide HCl 5 mg Q8H IV 11/10/24 15:30 11/16/24 07:15 5 MG Acetaminophen 650 mg Q4HP PRN PO 11/13/24 11:30 11/15/24 01:26 650 MG Diagnostic Test (Pha) 1 strip Q4H 11/15/24 04:45 11/16/24 10:28 1 STRIP Dextrose 50 ml UD PRN IV 11/15/24 04:45 11/15/24 05:05 50 ML Levalbuterol HCl 0.625 mg Q4HR NEB 11/16/24 10:00 11/16/24 10:28 0.625 MG Ipratropium [place] 0.5 mg Q4HR NEB 11/16/24 10:00 Purified Water 200 ml Q4HR GT 11/16/24 10:00 11/16/24 10:28 200 ML Micafungin Sodium 100 mg/Sodium Chloride 100 ml @ 100 mls/hr DAILY IV 11/17/24 10:00 laboratory and microbiology Laboratory Tests 11/16/24 03:10 Test 11/16/24 03:10 Range/Units Serum Glucose 70 L 74-106 mg/dL Problem List/Assessment/Plan Problem List/Assessment/Plan 11/04/[address] CLEMENS, COLOSTOMY VIABLE AND WITHOUT FUNCTION, WOUND CLEAN AND WELL APPROXIMATED, RAMBO DRAINAGE SEROUS, ANEMIC, ABDOMEN NON DISTENDED, 11/05/24 family members at bedside, wound clean and well approximated, stoma viable without function, drain clear serous, husbands questions answered. remains sedated and intubated on levophed and is tachycardic, ordered bolus of LR over next hour, needs more IV fluid 11/06/24 wound clean and well approximated, abdomen non distended soft, drainage clear serous. colostomy viable with flatus present in appliance. remains intubated and sedated 11/07/24 unchanged clinically, remains intubated and sedated wound ok, drainage clear, stoma viable no stool.discussed with tax consultant to initiate weaning, stop sedation, 11/09/24 hemodynamically stable, sedation was stopped yesterday, abdomen non distended, soft, RAMBO drainage clear, OK to wean off ventilator 11/12/24 some voluntary movements, moved leg and head on command, wound clean and well approximated, abdomen soft and non distended, drainage per RAMBO drain clear serous. Sister and brother in law at bedside: questions answered 11.13.24 awake,cooperative, appears ready to be extubated, sister at bedside 11/16/24 aweake, cooperative, no respiratory distress, denies nausea, abdomen soft, non tender, stoma functioning Plan discussed with: Patient, Spouse Dietary Evaluation Review Comments: 1) If patient remains NPO > 7 days, consider EN/TPN to meet at least 75% of estimated energy needs 2) If gut is preferred, consider Jevity 1.2 @ 40 mL/hr goal rate as tolerated. Flush with 200 mL free H2O Q6H. TF regimen will provide 1152 kcals, 53g Pro, and 1575 mL free H2O (including flushes) per 24 hrs. Goal rate matias meet ~90% estimated daily energy needs and ~65% estimated daily protein needs. 3) Advance to 2g Na diet when medically feasible, pending ST approval 4) Follow-up with cardiology and pulmonology 5) Continue to monitor I&O, labs, and skin integrity Expected Outcomes/Goals: 1) patient to receive nutritional support within 7 days of NPO status 2) labs to improve 3) diet to advance 4) f/u in 2-3 dayCIRO Lopes MD Nov 16, 2024 13:14
[2024-11-16] MEDS: MICAFUNGIN SODIUM 100 MG in SODIUM CHL 0.9% 100 ML IV ONE (15:30)
--- NOTE | 2024-11-16 18:42 | DVHPNRES ---
Progress Note Date Seen: Nov 16, 2024 Resident Creating Document: THIAGO NEGRON RESIDENT Medical Necessity Reason Pt with a Central, PICC or Fol: No The following are medically ne: PICC Line Subjective Review of Systems Patient was seen and examined on the bedside ICU. She is on mechanical ventilation with FiO2 30%, tidal volume 450 mL, peep 5 and respiratory rate 16. Overnight T-max is 98.6, and patient is on Levophed , Versed and fentanyl. Last 12 hours urine output is 900 mL, minimal gastric drainage, drainage total 20 ml and serosanguineous. H&H is stable . Dr. Martinez started tube feeding at 20 mL/hours today but the patient was not able to tolerate tube feeding, started scheduled dose of Reglan. Patient is off sedation since last 2 days but still not ready for CPAP trial just opening eyes not following any commands, breathing exercise done today. scheduled for CPAP trial again tomorrow. If the patient is not waking up by tomorrow we will do CT head without contrast to rule out acute intracranial pathology. Patient is unstable for transfer to [facility]. Patient was seen and examined on the bedside ICU. status post extubation and on nasal cannula 1 L. Patient is running low-grade fever . passed bedside swallow evaluation, stoma is functioning. Surgery recommended clear liquid diet. downgraded to ESEQUIEL and started pureed diet with thick nectar. blood pressure is soft but map above 65. Patient is stable for transfer to [facility]. Objective vital signs Vital Sign Date Time Temp Pulse Resp B/P (MAP) Pulse Ox O2 Delivery O2 Flow Rate FiO2 11/16/24 15:30 100.0 131 32 97/53 (68) 93 212.0 11/16/24 14:00 Nasal Cannula* 1 24 Total Intake and Output 11/15/24 11/15/24 11/16/24 14:59 22:59 06:59 Intake Total 50 ml 150 ml 230 ml Output Total 525 ml 420 ml Balance 50 ml -375 ml -190 ml medications Current Medications Medications Dose Ordered Sig/Greg Route Start Time Stop Time Status Last Admin Dose Admin Ondansetron HCl 4 mg Q4HP PRN IV 11/01/24 21:15 Thiamine HCl 100 mg DAILY IV 11/03/24 10:00 11/16/24 10:27 100 MG Norepinephrine Bitartrate 32 mg/ Sodium Chloride 250 ml @ 0.938 mls/ hr Q24H IV 11/03/24 14:45 11/10/24 05:50 2.813 MLS/HR Pantoprazole Sodium 40 mg BID IV 11/04/24 09:15 11/16/24 10:28 40 MG Artificial Tears 1 drop Q6HP PRN EACHEYE 11/05/24 12:30 11/09/24 07:48 1 DROP Meropenem 50 ml @ 17 mls/hr Q8H IV 11/08/24 16:00 11/16/24 15:39 17 MLS/HR Enteral Nutritional Formula 1,000 ml 20ML/HR GT 11/09/24 11:30 Metoclopramide HCl 5 mg Q8H IV 11/10/24 15:30 11/16/24 15:39 5 MG Acetaminophen 650 mg Q4HP PRN PO 11/13/24 11:30 11/15/24 01:26 650 MG Diagnostic Test (Pha) 1 strip Q4H 11/15/24 04:45 11/16/24 15:30 1 STRIP Dextrose 50 ml UD PRN IV 11/15/24 04:45 11/15/24 05:05 50 ML Levalbuterol HCl 0.625 mg Q4HR NEB 11/16/24 10:00 11/16/24 13:41 0.625 MG Ipratropium [place] 0.5 mg Q4HR NEB 11/16/24 10:00 Purified Water 200 ml Q4HR GT 11/16/24 10:00 11/16/24 14:00 200 ML Micafungin Sodium 100 mg/Sodium Chloride 100 ml @ 100 mls/hr DAILY IV 11/17/24 10:00 Sertraline HCl 50 mg DAILY PO 11/17/24 10:00 UNV Examination Physical examination: General Appearance: Alert, Oriented X3, Cooperative, No acute distress HEENT: Atraumatic, PERRLA, EOMI, Mucous membrane moist/pink Respiratory: bilateral fine crackles. .Cardiovascular: Regular rate, Normal S1, Normal S2, No murmurs, no chest wall tenderness Abdominal: Normal bowel sounds, Soft, No tenderness, Midline surgical wound and colostomy on the left side, left RAMBO drain Extremities: bilateral pedal edema 1+, ischemic toes, No clubbing, No cyanosis, Normal pulses, No tenderness/swelling Skin: No rashes, No breakdown, No significant lesion Neuro: Normal speech, Strength at 4/5 X4 ext, Normal tone, Sensation intact, Cranial nerves 3-12 NL, Reflexes 2+ Psych/Mental Status: Mental status NL, Mood NL laboratory and microbiology Laboratory Tests 11/16/24 03:10 Test 11/16/24 03:10 Range/Units Serum Glucose 70 L 74-106 mg/dL Microbiology Date/Time Source Procedure Growth Status 11/13/24 09:51 Sputum Gram Stain - Final Complete 11/13/24 09:51 Respiratory Culture - Final Presumptive Cherelle albicans Complete 11/03/24 14:05 Blood Blood Culture - Final NO GROWTH AFTER 5 DAYS OF INCUBATION. Complete 11/02/24 01:14 Trachea Gram Stain - Final Complete 11/02/24 01:14 Respiratory Culture - Final Staphylococcus aureus Presumptive Cherelle albicans Complete Labs and/or images reviewed: Labs reviewed by me, Image(s) reviewed by me Problem List/Assessment/Plan Problem List/Assessment/Plan Assessment and plan: NEURO: Acute metabolic encephalopathy secondary to septic shock Status post extubation on nasal canula 1 L CARDIOVASCULAR: Septic shock secondary to perforation of the hollow viscus Sinus tachycardia secondary to pain versus withdrawal Bilateral peripheral arterial disease - EKG demonstrated sinus tachycardia - echo showed EF 60%, echo density in RV suggestive of large papillary muscle, can not rule out vegetation. - Duplex scan of the lower extremity revealed bilateral hemodynamically significant stenosis in left dorsalis pedis and right popliteal artery PULMONARY: Possible right lower lobe pneumonia Mild bilateral pleural effusion. - Chest x-ray showed atelectasis in bilateral lung bases - Blood culture showed Bacteroides and respiratory cultures Staph aureus and presumptive Cherelle albicans - Follow up blood culture revealed no growth in 24 hours of incubation. - continue IV vancomycin and IV meropenem GASTROINTESTINAL: Septic shock secondary to perforation of the hollow viscus, status post exploratory laparotomy Rule out colonic malignancy Transaminitis and coagulopathy secondary to hepatic steatosis Rule out cirrhosis Enlarged CBD, rule out choledocholithiasis or biliary stenosis Alcohol abuse disorder Colon cancer - Histopathology of the resected bowel showed moderately differentiated adenocarcinoma of the ileum, rectum and rectosigmoid junction. - TPN as per pharmacy - IV thiamine 100 mg daily - CT abdomen pelvis without contrast showed large amount of intraperitoneal free air . [id number] stool burden. Indeterminate possible portal venous gas versus marginal gas along the liver - U/S of the abdomen showed The liver is diffusely echogenic which may be secondary to steatosis or another diffuse hepatic process. Enlargement of the common bile duct measuring up to 15 mm. Gallbladder sludge. Small amount of free fluid in the abdomen. - Patient underwent Exploratory laparotomy with rectosigmoid resection with colostomy, Extensive lysis of adhesions and Ileal resection with a primary anastomosis. - Abdominal fluid culture demonstrated, prevotella, Pseudomonas, E coli, Streptococcus mitis - continue IV meropenem and micafungin GENITOURINARY: FLORIN secondary to septic shock/ VMN Acute complicated cystitis - U/A was consistent with UTI ENDOCRINE: Hypoglycemia METABOLIC: Moderate protein calorie malnutrition Hypocalcemia metabolic acidosis with respiratory compensation HEME: Acute on chronic microcytic hypochromic anemia Thrombocytopenia improving Coagulopathy Acute DVT of left upper arm - Hold Lovenox - 3 unit PRBC and 1 FFP given since surgery - monitor H&H INFECTIOUS DISEASE: Sepsis with septic shock secondary to perforation of the hollow viscus, status post exploratory laparotomy Possible right lower lobe pneumonia Acute complicated cystitis - Blood culture showed Gram-negative rods, peritoneal fluid culture Pseudomonas, E coli, Cherelle albicans and resp culture Cherelle albicans - continue IV meropenem and micafungin DIET: TPN- dced, tube feeding DVT prophylax: Hold lovenox GI prophylaxis: Protonix Bowel regimen: Code status: Full Code LINES/DRAINS/ACCESS: IV access: Right IJ placed on 04/12/2024 Grajeda catheter: Placed on 11/01/2024 DISPOSITION: ESEQUIEL Patient's status discussed with Critical care time spent more than 81 minutes, including patient care, chart review, and updating the family. Excluding any procedures. Case discussed with Dr. Armas Plan discussed with: Patient, Spouse, Other (RN) My Orders My Orders Orders - THIAGO NEGRON RESIDENT Procedure Category Date Status Time Levalbuterol Hcl PHA 11/16/24 In Process (Xopenex [facility]) 10:00 Ipratropium [facility] PHA 11/16/24 In Process (Atrovent [facility]) 10:00 D/C Triple Lumen ORDERS 11/16/24 Transmitted 07:28 Free Water PHA 11/16/24 In Process 10:00 Chest Portable XY 11/16/24 Resulted 07:39 Abg W/ Co-Ox RT 11/16/24 Logged 10:14 Micafungin Sodium PHA 11/17/24 In Process (Mycamine) 10:00 Transfer Orders XFER 11/16/24 Transmitted 13:19 Pureed DIET 11/16/24 Transmitted Dinner Sertraline Hcl PHA 11/17/24 Logged (Zoloft) 10:00 Dietary Evaluation Review Comments: 1) If patient remains NPO > 7 days, consider EN/TPN to meet at least 75% of estimated energy needs 2) If gut is preferred, consider Jevity 1.2 @ 40 mL/hr goal rate as tolerated. Flush with 200 mL free H2O Q6H. TF regimen will provide 1152 kcals, 53g Pro, and 1575 mL free H2O (including flushes) per 24 hrs. Goal rate matias meet ~90% estimated daily energy needs and ~65% estimated daily protein needs. 3) Advance to 2g Na diet when medically feasible, pending ST approval 4) Follow-up with cardiology and pulmonology 5) Continue to monitor I&O, labs, and skin integrity Expected Outcomes/Goals: 1) patient to receive nutritional support within 7 days of NPO status 2) labs to improve 3) diet to advance 4) f/u in 2-3 dayas Date of Service: Nov 16, 2024 Billing Provider: BERNARD ARMAS MD Common Visit Codes: 64557-BNXRFTAF CARE 30-74 MIN, 16963-[id number] CARE-EACH +30MIN THIAGO NEGRON RESIDENT Nov 16, 2024 18:42 BERNARD ARMAS MD Nov 17, 2024 15:02
[2024-11-17] VITALS (82 sets, daily range): BP systolic 93–130; BP diastolic 51–76; PULSE 100–134; RESP 19–33; TEMP 98.2–98.9; O2SAT 66–100
[2024-11-17] MEDS: ONDANSETRON HCL 4 MG/2 ML VIAL IV PRN (02:36)
[2024-11-17 03:42] LABS: Hemoglobin 8.4 g/dL (12.2-16.2); Mean Corpuscular Hemoglobin 25.9 pg (28.0-32.0)
[2024-11-17 03:45] LABS: Hematocrit 25.8 % (36.0-46.0); Mean Corpuscular Volume 79.5 fL (80.0-100.0)
[2024-11-17 03:54] LABS: Potassium 3.7 mmol/L (3.5-5.1)
[2024-11-17 03:55] LABS: Anion Gap 12 (5-15); Carbon Dioxide 25 mmol/L (20-31)
[2024-11-17 04:00] LABS: BUN/Creatinine Ratio 36.4 (10.0-20.0); Blood Urea Nitrogen 16 mg/dL (9-23); Glucose 85 mg/dL (74-106)
[2024-11-17 04:01] LABS: Calcium 8.4 mg/dL (8.7-10.4); Chloride 112 mmol/L (98-107); Sodium 149 mmol/L (136-145)
[2024-11-17 05:29] LABS: Anisocytosis Slight; Total Cells Counted 100.0 (100)
--- NOTE | 2024-11-17 06:01 | DVH ---
CHEST RADIOGRAPH Indication: s/p extubation Technique: Single frontal view of the chest was obtained Comparison: XY CHEST PORTABLE on DOS: 11/16/24 FINDINGS: Lines and Tubes: The enteric tube terminates in the stomach. Right central venous catheter terminates has been removed. Lungs: Patchy bibasilar airspace disease similar to prior study. Pleura: No effusion. No pneumothorax. Cardiomediastinal contours: Stable cardiac silhouette. Bones: No acute osseous abnormality. IMPRESSION: 1. Interval removal of the right central venous catheter. 2. Stable patchy bibasilar airspace disease.
[2024-11-17] MEDS: PANTOPRAZOLE 40 MG TAB PO ONE (09:00)
--- NOTE | 2024-11-17 09:16 | DVHPN2 ---
Progress Note Date Seen: Nov 17, 2024 Medical Necessity Reason Pt with a Central, PICC or Fol: No The following are medically ne: PICC Line Objective vital signs Vital Sign Date Time Temp Pulse Resp B/P (MAP) Pulse Ox O2 Delivery O2 Flow Rate FiO2 11/17/24 08:45 116 24 107/52 95 21 11/17/24 06:41 Nasal Cannula 3.0 11/17/24 04:00 98.5 98.5 Total Intake and Output 11/16/24 11/16/24 11/17/24 15:00 23:00 07:00 Intake Total 50 ml 710 ml 650 ml Output Total 375 ml 220 ml Balance 50 ml 335 ml 430 ml medications Current Medications Medications Dose Ordered Sig/Greg Route Start Time Stop Time Status Last Admin Dose Admin Ondansetron HCl 4 mg Q4HP PRN IV 11/01/24 21:15 11/17/24 02:36 4 MG Norepinephrine Bitartrate 32 mg/ Sodium Chloride 250 ml @ 0.938 mls/ hr Q24H IV 11/03/24 14:45 11/10/24 05:50 2.813 MLS/HR Artificial Tears 1 drop Q6HP PRN EACHEYE 11/05/24 12:30 11/09/24 07:48 1 DROP Meropenem 50 ml @ 17 mls/hr Q8H IV 11/08/24 16:00 11/17/24 09:01 17 MLS/HR Enteral Nutritional Formula 1,000 ml 20ML/HR GT 11/09/24 11:30 Metoclopramide HCl 5 mg Q8H IV 11/10/24 15:30 11/17/24 06:21 5 MG Acetaminophen 650 mg Q4HP PRN PO 11/13/24 11:30 11/16/24 22:50 650 MG Diagnostic Test (Pha) 1 strip Q4H 11/15/24 04:45 11/17/24 04:29 1 STRIP Dextrose 50 ml UD PRN IV 11/15/24 04:45 11/15/24 05:05 50 ML Levalbuterol HCl 0.625 mg Q4HR NEB 11/16/24 10:00 11/17/24 06:41 0.625 MG Ipratropium [place] 0.5 mg Q4HR NEB 11/16/24 10:00 11/17/24 06:41 0.5 MG Purified Water 200 ml Q4HR GT 11/16/24 10:00 11/17/24 06:08 200 ML Micafungin Sodium 100 mg/Sodium Chloride 100 ml @ 100 mls/hr DAILY IV 11/17/24 10:00 Sertraline HCl 50 mg DAILY PO 11/17/24 10:00 Pantoprazole Sodium 40 mg DAILY@0600 PO 11/18/24 06:00 Thiamine HCl 100 mg DAILY PO 11/17/24 10:00 laboratory and microbiology Laboratory Tests 11/17/24 02:40 Test 11/17/24 02:40 Range/Units Serum Glucose 85 74-106 mg/dL Problem List/Assessment/Plan Problem List/Assessment/Plan 11/04/[address] CLEMENS, COLOSTOMY VIABLE AND WITHOUT FUNCTION, WOUND CLEAN AND WELL APPROXIMATED, RAMBO DRAINAGE SEROUS, ANEMIC, ABDOMEN NON DISTENDED, 11/05/24 family members at bedside, wound clean and well approximated, stoma viable without function, drain clear serous, husbands questions answered. remains sedated and intubated on levophed and is tachycardic, ordered bolus of LR over next hour, needs more IV fluid 11/06/24 wound clean and well approximated, abdomen non distended soft, drainage clear serous. colostomy viable with flatus present in appliance. remains intubated and sedated 11/07/24 unchanged clinically, remains intubated and sedated wound ok, drainage clear, stoma viable no stool.discussed with oracle database architect to initiate weaning, stop sedation, 11/09/24 hemodynamically stable, sedation was stopped yesterday, abdomen non distended, soft, RAMBO drainage clear, OK to wean off ventilator 11/12/24 some voluntary movements, moved leg and head on command, wound clean and well approximated, abdomen soft and non distended, drainage per RAMBO drain clear serous. Sister and brother in law at bedside: questions answered 11.13.24 awake,cooperative, appears ready to be extubated, sister at bedside 11/16/24 aweake, cooperative, no respiratory distress, denies nausea, abdomen soft, non tender, stoma functioning 11/17/24 awake, appropriate, oriented, tolerating po intake( NGT was not removed as ordered yesterday) I will sign off as the patient is awaiting transfer [facility], please recall if needed Plan discussed with: Patient, Other Dietary Evaluation Review Comments: 1) If patient remains NPO > 7 days, consider EN/TPN to meet at least 75% of estimated energy needs 2) If gut is preferred, consider Jevity 1.2 @ 40 mL/hr goal rate as tolerated. Flush with 200 mL free H2O Q6H. TF regimen will provide 1152 kcals, 53g Pro, and 1575 mL free H2O (including flushes) per 24 hrs. Goal rate matias meet ~90% estimated daily energy needs and ~65% estimated daily protein needs. 3) Advance to 2g Na diet when medically feasible, pending ST approval 4) Follow-up with cardiology and pulmonology 5) Continue to monitor I&O, labs, and skin integrity Expected Outcomes/Goals: 1) patient to receive nutritional support within 7 days of NPO status 2) labs to improve 3) diet to advance 4) f/u in 2-3 dayCIRO Lopes MD Nov 17, 2024 09:16
[2024-11-17] MEDS: THIAMINE HCL 100 MG TAB PO SCH (10:00)
[2024-11-17] MEDS: SERTRALINE HCL 50 MG TAB PO SCH (10:00)
--- NOTE | 2024-11-17 10:46 | DVHPN2 ---
Progress Note - Dictate Date Seen: Nov 17, 2024 Medical Necessity Reason Pt with a Central, PICC or Fol: No The following are medically ne: PICC Line Subjective Ms. Osei is a 49 years old female with a history of hypertension, GERD, she was admitted to the [facility] on 11/01/2024 with a chief company of general weakness for six months of time, according to ER note, the patient was alert oriented x3 when she came to the hospital, but in the hospital, the patient was found to have perforated viscus, metabolic acidosis, sepsis, septic shock, peritonitis, on 11/02/2024, she went through 1. Exploratory laparotomy with rectosigmoid resection with colostomy 2. Extensive lysis of adhesions 3. Ileal resection with a primary anastomosis. Since then the patient has been intubated, mentally altered. I have seen and examined the patient, discussed with her nurse. Her is in the room. She keeps improving, speech is still soft and the low, she is oriented to person, place, she knows the year, she follows verbal commands, socially appropriate Blood culture, 11/01/24: Bacteroides fragilis Hepatitis panel, 11/02/2024: Hepatitis-A antibody, HbsAg Urinalysis, 11/01/2024: WBC: 522, WBC clumps: Present, urine leukocyte esterase: 3+ ABG 11/02/2024: Metabolic acidosis, 11/03/2024: Metabolic acidosis, 11/04/2024: Metabolic acidosis WBC/HB/PLT/MCV, 11/11/2024: 11.6/7.8/200/87.4 PT/INR/PTT, 11/04/2024: 14/1.36/81.6, 11/06/2024: 13.3/1.29/48.7 Na, 11/14/24: 145, 11/15/2024: 147, 11/16/2024: 150 BUN/CR, 11/11/2024: 33/0.68 TBI/AST/ALT/AP, 11/11/2024: 0.2/67/22/169 EEG, 11/12/2024: Nondiagnostic EEG because of artifacts Extremity venous study, 11/03/2024: Left upper extremity DVT Chest x-ray, 11/01/24: LUNGS: No pleural effusion, consolidation, or pneumothorax . Atelectasis in bilateral lung bases. Sequelae of fluid administration. MEDIASTINUM: Unremarkable BONES: No acute osseous abnormality OTHER: Enteric tube extending into the stomach. Intraperitoneal free air Chest x-ray, 11/02/2024: 1. Interval progression in right basilar pulmonary airspace disease. 2. Interval resolution of pneumoperitoneum. 3. Endotracheal tube and enteric catheter as above. CT head, 11/11/2024: No evidence of acute intracranial abnormality MRI, headache, 11/11/2024: No acute infarct, intracranial hemorrhage, mass effect, or hydrocephalus. vital signs Vital Sign Date Time Temp Pulse Resp B/P (MAP) Pulse Ox O2 Delivery O2 Flow Rate FiO2 11/17/24 10:04 119 28 100 11/17/24 09:55 Nasal Cannula 2.0 11/17/24 09:55 32 11/17/24 08:45 107/52 11/17/24 04:00 98.5 98.5 Total Intake and Output 11/16/24 11/16/24 11/17/24 15:00 23:00 07:00 Intake Total 50 ml 710 ml 650 ml Output Total 375 ml 220 ml Balance 50 ml 335 ml 430 ml medications Current Medications Medications Dose Ordered Sig/Greg Route Start Time Stop Time Status Last Admin Dose Admin Ondansetron HCl 4 mg Q4HP PRN IV 11/01/24 21:15 11/17/24 02:36 4 MG Norepinephrine Bitartrate 32 mg/ Sodium Chloride 250 ml @ 0.938 mls/ hr Q24H IV 11/03/24 14:45 11/10/24 05:50 2.813 MLS/HR Artificial Tears 1 drop Q6HP PRN EACHEYE 11/05/24 12:30 11/09/24 07:48 1 DROP Meropenem 50 ml @ 17 mls/hr Q8H IV 11/08/24 16:00 11/17/24 09:01 17 MLS/HR Enteral Nutritional Formula 1,000 ml 20ML/HR GT 11/09/24 11:30 Metoclopramide HCl 5 mg Q8H IV 11/10/24 15:30 11/17/24 06:21 5 MG Acetaminophen 650 mg Q4HP PRN PO 11/13/24 11:30 11/16/24 22:50 650 MG Diagnostic Test (Pha) 1 strip Q4H 11/15/24 04:45 11/17/24 04:29 1 STRIP Dextrose 50 ml UD PRN IV 11/15/24 04:45 11/15/24 05:05 50 ML Levalbuterol HCl 0.625 mg Q4HR NEB 11/16/24 10:00 11/17/24 09:53 0.625 MG Ipratropium [place] 0.5 mg Q4HR NEB 11/16/24 10:00 11/17/24 09:53 0.5 MG Purified Water 200 ml Q4HR GT 11/16/24 10:00 11/17/24 06:08 200 ML Micafungin Sodium 100 mg/Sodium Chloride 100 ml @ 100 mls/hr DAILY IV 11/17/24 10:00 Sertraline HCl 50 mg DAILY PO 11/17/24 10:00 Pantoprazole Sodium 40 mg DAILY@0600 PO 11/18/24 06:00 Thiamine HCl 100 mg DAILY PO 11/17/24 10:00 objective The patient is well-nourished and well-developed with no distress. MENTAL STATUS: Subjective CRANIAL NERVES: Pupils are equal, round and reactive. Normal conjugated eye movement, normal sensory and motor in the bilateral trigeminal distribution,. No signs of facial weakness. SENSATION: Okay to pinprick and light touch MOTOR: Normal tone in the upper and lower extremity. Normal muscle bulk. No fasciculations. Muscle power, upper extremity: Shoulders: 2-3/5, elbow: 3/5, grippin/5. Lower extremities: Right: 2-3/5 except for 3-4/5 in the ankles and toes REFLEXES: Deep tendon reflexes are symmetrical. No pathological reflexes. CEREBELLAR/COORDINATION: Deferred GAIT/STATION: deferred. laboratory and microbiology Laboratory Tests 11/17/24 02:40 Test 11/17/24 02:40 Range/Units Serum Glucose 85 74-106 mg/dL Problem List Altered mental status Metabolic encephalopathy Toxic encephalopathy Hypoxic encephalopathy Sepsis Septic shock Peritonitis Viscus perforation Acute respiratory failure Pneumonia Acute kidney failure Different thrombosis ICU myopathy Assessment/Plan Monitoring Supportive treatment ESEQUIEL care Follow-up labs Stabilize vitals Respiratory support Oxygen Thiamine supplementation GI prophylaxis/Protonix More recommendation per clinical course This medical document was created using an electronic medical record system with [employer] dictation system. Although this document has been carefully reviewed, there may still be some phonetic and typographical errors. These areas are purely typographical due to imperfections of the software programs, and do not reflect any compromise in the patient's medical care. Prognosis poor Dietary Evaluation Review Comments: 1) If patient remains NPO > 7 days, consider EN/TPN to meet at least 75% of estimated energy needs 2) If gut is preferred, consider Jevity 1.2 @ 40 mL/hr goal rate as tolerated. Flush with 200 mL free H2O Q6H. TF regimen will provide 1152 kcals, 53g Pro, and 1575 mL free H2O (including flushes) per 24 hrs. Goal rate matias meet ~90% estimated daily energy needs and ~65% estimated daily protein needs. 3) Advance to 2g Na diet when medically feasible, pending ST approval 4) Follow-up with cardiology and pulmonology 5) Continue to monitor I&O, labs, and skin integrity Expected Outcomes/Goals: 1) patient to receive nutritional support within 7 days of NPO status 2) labs to improve 3) diet to advance 4) f/u in 2-3 dayas Plan discussed with: Spouse, Other HOLLY BENSON MD Nov 17, 2024 10:46
[2024-11-17] MEDS: GASTROGRAFIN 30 ML SOL ONE (11:06)
--- NOTE | 2024-11-17 14:28 | DVH ---
CT CT AB PEL WITH ORAL CON ONLY INDICATION: poss leak EXAM DATE: 11/17/2024 01:17 PM COMPARISON: US ABDOMEN COMPLETE SONOGRAM on DOS: 11/02/24, CT CT AB PEL WO CON-NO ORAL OR IV on DOS: RADIATION DOSE: CTDIvol: 11.48 mGy, DLP: 652.95 mGy*cm PROCEDURE: Helical CT images were obtained of the abdomen and pelvis without IV contrast Sagittal and coronal reconstructions are provided. ORAL CONTRAST: Yes ADDITIONAL IMAGES / REFORMATS: None All CT scans at this medical facility are performed using dose modulation techniques as appropriate to a per formed exam including the following: Automated exposure control was utilized; adjustment of the MA an d/or KV according to patient size; and use of iterative reconstruction technique. FINDINGS: LUNG BASE: Bibasilar atelectasis with small bilateral pleural effusion. LIVER: Normal. GALLBLADDER AND BILIARY TREE: No calcified gallstones. Normal caliber wall. No intra- or extrahepatic biliary ductal dilation. PANCREAS: Normal. SPLEEN: Normal. BOWEL: Post surgical changes from bowel resection with a LLQ end colostomy. Oral contr ast material r eaches the ostomy. No oral contrast material extravasation seen . ADRENALS: Normal. KIDNEYS AND URETER: Normal. BLADDER: A Grajeda is seen in the bladder. REPRODUCTIVE ORGANS: Normal. LYMPH NODES:No lymphadenopathy. PERITONEUM: Moderate ascites with locules of gas in the left paracolic gutters. Mildly prominent bhaskar toneum thickening, peritonitis is a consideration. Irregular density along the left anterior hemipelv is is incompletely evaluated without IV contrast. VESSELS: Scattered atherosclerotic calcifications are noted. RETROPERITONEUM: Locule of gas in the left ilacus muscle is nonspecific but decreased from prior. ABDOMINAL WALL: Anasarca. Midline abdominal wall surgical incision visualized. BONES: Scattered osseous degenerative changes are noted. IMPRESSION: Post surgical changes from bowel resection with a LLQ end colostomy. Oral contrast material reaches t he ostomy. No oral contrast material extravasation seen . Moderate ascites with locules of gas in the left paracolic gutters could be post surgical in nature. Mildly prominent peritoneum thickening is nonspecific but peritonitis is a consideration and incomple tely evaluated without IV contrast. Irregular density along the left anterior hemipelvis is incompletely evaluated without IV contrast.
[2024-11-17 16:22] LABS: Urine Protein, UAD 2+ (Negative); Urine WBC Clumps PRESENT /hpf (None Seen)
--- NOTE | 2024-11-17 18:20 | DVHPNRES ---
Progress Note Date Seen: Nov 17, 2024 Resident Creating Document: THIAGO NEGRON RESIDENT Medical Necessity Reason Pt with a Central, PICC or Fol: No The following are medically ne: PICC Line Subjective Review of Systems Patient was seen and examined on the bedside ICU. She is on mechanical ventilation with FiO2 30%, tidal volume 450 mL, peep 5 and respiratory rate 16. Overnight T-max is 98.6, and patient is on Levophed , Versed and fentanyl. Last 12 hours urine output is 900 mL, minimal gastric drainage, drainage total 20 ml and serosanguineous. H&H is stable . Dr. Martinez started tube feeding at 20 mL/hours today but the patient was not able to tolerate tube feeding, started scheduled dose of Reglan. Patient is off sedation since last 2 days but still not ready for CPAP trial just opening eyes not following any commands, breathing exercise done today. scheduled for CPAP trial again tomorrow. If the patient is not waking up by tomorrow we will do CT head without contrast to rule out acute intracranial pathology. Patient is unstable for transfer to [place]. Patient was seen and examined on the bedside ICU. status post extubation and on nasal cannula 1 L. Patient is running low-grade fever . passed bedside swallow evaluation, stoma is functioning. Surgery recommended clear liquid diet. downgraded to ESEQUIEL and started pureed diet with thick nectar. blood pressure is soft but map above 65. CT abdomen pelvis with gastrograffin showed Moderate ascites with locules of gas in the left paracolic gutters could be post surgical in nature. Mildly prominent peritoneum thickening is nonspecific but peritonitis is a consideration. Irregular density along the left anterior hemipelvis. PER FLAQUITO FROM [facility] WHO VERBALIZED THAT THE [facility] GENERAL SURGEON SAYS THE PT IS NOT AN APPROPRIATE TRANSFER CANDIDATE DUE TO PTS EXTENSIVE SURGERY THAT SHE HAD DURING THIS VISIT, ALSO DUE TO THE CT ADB FLUID COLLECTION RESULTS, AND PTS OSTOMY NOT PRODUCING ACCURATE STOOL AMOUNT FROM STOMA. PER THAT GENERAL SURGEON PATIENT IS STILL IN ACUTE POST OP PHASE. ONCE PATIENT IS MORE STABLE AND PASSED THIS ACUTE POST OP PHASE THEY WILL BE WILLING TO ACCEPT THE PT. Patient is stable for transfer to [place] Objective vital signs Vital Sign Date Time Temp Pulse Resp B/P (MAP) Pulse Ox O2 Delivery O2 Flow Rate FiO2 11/17/24 18:00 21 100 Nasal Cannula* 1 24 11/17/24 18:00 131 113/67 (82) 9/16/25 16:00 98.2 98.2 Total Intake and Output 11/16/24 11/16/24 11/17/24 15:00 23:00 07:00 Intake Total 50 ml 710 ml 650 ml Output Total 375 ml 220 ml Balance 50 ml 335 ml 430 ml medications Current Medications Medications Dose Ordered Sig/Greg Route Start Time Stop Time Status Last Admin Dose Admin Ondansetron HCl 4 mg Q4HP PRN IV 11/01/24 21:15 11/17/24 02:36 4 MG Artificial Tears 1 drop Q6HP PRN EACHEYE 11/05/24 12:30 11/09/24 07:48 1 DROP Meropenem 50 ml @ 17 mls/hr Q8H IV 11/08/24 16:00 11/17/24 09:01 17 MLS/HR Enteral Nutritional Formula 1,000 ml 20ML/HR GT 11/09/24 11:30 Metoclopramide HCl 5 mg Q8H IV 11/10/24 15:30 11/17/24 06:21 5 MG Acetaminophen 650 mg Q4HP PRN PO 11/13/24 11:30 11/16/24 22:50 650 MG Diagnostic Test (Pha) 1 strip Q4H 11/15/24 04:45 11/17/24 08:45 1 STRIP Dextrose 50 ml UD PRN IV 11/15/24 04:45 11/15/24 05:05 50 ML Levalbuterol HCl 0.625 mg Q4HR NEB 11/16/24 10:00 11/17/24 18:16 0.625 MG Ipratropium [facility] 0.5 mg Q4HR NEB 11/16/24 10:00 11/17/24 18:16 0.5 MG Purified Water 200 ml Q4HR GT 11/16/24 10:00 11/17/24 06:08 200 ML Micafungin Sodium 100 mg/Sodium Chloride 100 ml @ 100 mls/hr DAILY IV 11/17/24 10:00 Sertraline HCl 50 mg DAILY PO 11/17/24 10:00 Pantoprazole Sodium 40 mg DAILY@0600 PO 11/18/24 06:00 Thiamine HCl 100 mg DAILY PO 11/17/24 10:00 Apixaban 5 mg BID PO 11/17/24 22:00 Examination Physical examination: General Appearance: Alert, Oriented X3, Cooperative, No acute distress HEENT: Atraumatic, PERRLA, EOMI, Mucous membrane moist/pink Respiratory: bilateral fine crackles. .Cardiovascular: Regular rate, Normal S1, Normal S2, No murmurs, no chest wall tenderness Abdominal: Normal bowel sounds, Soft, No tenderness, Midline surgical wound and colostomy on the left side, left RAMBO drain Extremities: bilateral pedal edema 1+, ischemic toes, No clubbing, No cyanosis, Normal pulses, No tenderness/swelling Skin: No rashes, No breakdown, No significant lesion Neuro: Normal speech, Strength at 4/5 X4 ext, Normal tone, Sensation intact, Cranial nerves 3-12 NL, Reflexes 2+ Psych/Mental Status: Mental status NL, Mood NL laboratory and microbiology Laboratory Tests 11/17/24 02:40 Test 11/17/24 02:40 Range/Units Serum Glucose 85 74-106 mg/dL Microbiology Date/Time Source Procedure Growth Status 11/13/24 09:51 Sputum Gram Stain - Final Complete 11/13/24 09:51 Respiratory Culture - Final Presumptive Cherelle albicans Complete 11/03/24 14:05 Blood Blood Culture - Final NO GROWTH AFTER 5 DAYS OF INCUBATION. Complete 11/02/24 01:14 Trachea Gram Stain - Final Complete 11/02/24 01:14 Respiratory Culture - Final Staphylococcus aureus Presumptive Cherelle albicans Complete Labs and/or images reviewed: Labs reviewed by me, Image(s) reviewed by me Problem List/Assessment/Plan Problem List/Assessment/Plan Assessment and plan: NEURO: Acute metabolic encephalopathy secondary to septic shock Status post extubation on nasal canula 1 L CARDIOVASCULAR: Septic shock secondary to perforation of the hollow viscus Sinus tachycardia secondary to pain versus withdrawal Bilateral peripheral arterial disease - EKG demonstrated sinus tachycardia - echo showed EF 60%, echo density in RV suggestive of large papillary muscle, can not rule out vegetation. - Duplex scan of the lower extremity revealed bilateral hemodynamically significant stenosis in left dorsalis pedis and right popliteal artery PULMONARY: Possible right lower lobe pneumonia Mild bilateral pleural effusion. - Chest x-ray showed atelectasis in bilateral lung bases - Blood culture showed Bacteroides and respiratory cultures Staph aureus and presumptive Cherelle albicans - Follow up blood culture revealed no growth in 24 hours of incubation. - continue IV vancomycin and IV meropenem GASTROINTESTINAL: Septic shock secondary to perforation of the hollow viscus, status post exploratory laparotomy Rule out colonic malignancy Transaminitis and coagulopathy secondary to hepatic steatosis Rule out cirrhosis Enlarged CBD, rule out choledocholithiasis or biliary stenosis Alcohol abuse disorder Colon cancer - Histopathology of the resected bowel showed moderately differentiated adenocarcinoma of the ileum, rectum and rectosigmoid junction. - TPN as per pharmacy - IV thiamine 100 mg daily - CT abdomen pelvis without contrast showed large amount of intraperitoneal free air . [id number] stool burden. Indeterminate possible portal venous gas versus marginal gas along the liver - U/S of the abdomen showed The liver is diffusely echogenic which may be secondary to steatosis or another diffuse hepatic process. Enlargement of the common bile duct measuring up to 15 mm. Gallbladder sludge. Small amount of free fluid in the abdomen. - Patient underwent Exploratory laparotomy with rectosigmoid resection with colostomy, Extensive lysis of adhesions and Ileal resection with a primary anastomosis. - Abdominal fluid culture demonstrated, prevotella, Pseudomonas, E coli, Streptococcus mitis - continue IV meropenem and micafungin - CT abdomen pelvis with gastrograffin showed Moderate ascites with locules of gas in the left paracolic gutters could be post surgical in nature. Mildly prominent peritoneum thickening is nonspecific but peritonitis is a consideration. Irregular density along the left anterior hemipelvis. - Consulted IR for paracentesis and the sent the fluid for study GENITOURINARY: FLORIN secondary to septic shock/ VMN Acute complicated cystitis - U/A was consistent with UTI ENDOCRINE: Hypoglycemia METABOLIC: Moderate protein calorie malnutrition Hypocalcemia metabolic acidosis with respiratory compensation HEME: Acute on chronic microcytic hypochromic anemia Thrombocytopenia improving Coagulopathy Acute DVT of left upper arm - Hold Lovenox - 3 unit PRBC and 1 FFP given since surgery - monitor H&H - Eloquis 5 mg bid. INFECTIOUS DISEASE: Sepsis with septic shock secondary to perforation of the hollow viscus, status post exploratory laparotomy Possible right lower lobe pneumonia Acute complicated cystitis - Blood culture showed Gram-negative rods, peritoneal fluid culture Pseudomonas, E coli, Cherelle albicans and resp culture Cherelle albicans - continue IV meropenem and micafungin DIET: Tube feeding, pureed diet DVT prophylax: Eloquis GI prophylaxis: Protonix Bowel regimen: Code status: Full Code LINES/DRAINS/ACCESS: IV access: Midline Grajeda catheter: Placed on 11/17/24 DISPOSITION: ESEQUIEL Patient's status discussed with Critical care time spent more than 66 minutes, including patient care, chart review, and updating the family. Excluding any procedures. Case discussed with Dr. Armas Plan discussed with: Patient, Spouse (RN) My Orders My Orders Orders - THIAGO NEGRON Procedure Category Date Status Time Chest Portable XY 11/17/24 Resulted 04:00 * Auction Clerk CONS 11/17/24 Transmitted Consult Discharge DISCHARGE 11/17/24 Transmitted 07:05 Pantoprazole Tablet PHA 11/18/24 In Process (Protonix Tablet) 06:00 Thiamine Tab PHA 11/17/24 In Process 10:00 Apixaban (Eliquis) PHA 11/17/24 In Process 22:00 Dietary Evaluation Review Comments: 1) If patient remains NPO > 7 days, consider EN/TPN to meet at least 75% of estimated energy needs 2) If gut is preferred, consider Jevity 1.2 @ 40 mL/hr goal rate as tolerated. Flush with 200 mL free H2O Q6H. TF regimen will provide 1152 kcals, 53g Pro, and 1575 mL free H2O (including flushes) per 24 hrs. Goal rate matias meet ~90% estimated daily energy needs and ~65% estimated daily protein needs. 3) Advance to 2g Na diet when medically feasible, pending ST approval 4) Follow-up with cardiology and pulmonology 5) Continue to monitor I&O, labs, and skin integrity Expected Outcomes/Goals: 1) patient to receive nutritional support within 7 days of NPO status 2) labs to improve 3) diet to advance 4) f/u in 2-3 dayas Date of Service: Nov 18, 2024 Billing Provider: BERNARD ARMAS MD Common Visit Codes: [id number] CARE 30-74 MIN THIAGO NEGRON Nov 17, 2024 18:20 BERNARD ARMAS MD Nov 18, 2024 16:52
[2024-11-17] MEDS: MICAFUNGIN SODIUM 100 MG in SODIUM CHL 0.9% 100 ML IV SCH (18:49)
[2024-11-17] MEDS ORDERED: APIXABAN 5 MG TAB PO SCH (22:00)
[2024-11-17] MEDS: APIXABAN 5 MG TAB PO SCH (22:06)
[2024-11-17] MEDS: ACCU-CHEK COMFORT CURVE STRIP VI SCH (23:01)
[2024-11-18] VITALS (50 sets, daily range): BP systolic 92–137; BP diastolic 51–79; PULSE 90–128; RESP 18–39; TEMP 98.3–99.7; O2SAT 91–100
[2024-11-18 04:08] LABS: Sodium 145 mmol/L (136-145)
[2024-11-18 04:09] LABS: Anion Gap 12 (5-15); Carbon Dioxide 24 mmol/L (20-31)
[2024-11-18 04:15] LABS: BUN/Creatinine Ratio 31.3 (10.0-20.0); Blood Urea Nitrogen 15 mg/dL (9-23); Glucose 75 mg/dL (74-106)
[2024-11-18 04:16] LABS: Calcium 8.4 mg/dL (8.7-10.4); Chloride 109 mmol/L (98-107); Hematocrit 27.0 % (36.0-46.0); Hemoglobin 8.8 g/dL (12.2-16.2); Mean Corpuscular Hemoglobin 26.0 pg (28.0-32.0); Mean Corpuscular Volume 79.7 fL (80.0-100.0); Potassium 3.3 mmol/L (3.5-5.1)
[2024-11-18 05:51] LABS: Anisocytosis Slight; Total Cells Counted 100.0 (100)
[2024-11-18] MEDS: PANTOPRAZOLE 40 MG TAB PO SCH (06:17)
[2024-11-18] MEDS: POTASSIUM EFFERVESENT TAB 25 MEQ PO ONE (08:41)
--- NOTE | 2024-11-18 11:01 | DVH ---
US PARACENTESIS, HISTORY: ASCITES PROCEDURE: Informed consent was obtained. The patient was placed in supine position. A limited locali zation ultrasound of the abdomen was obtained, and the skin site over the largest pocket of fluid was marked and entry site was prepped with chlorhexidine which was allowed to dry and draped in the usua l sterile fashion. Time out was performed. Following administration of 1% lidocaine local anesthetic, a 5 Malian centesis needle catheter was percutaneously inserted into the peritoneal collection until fluid was aspirated. The catheter was advanced into the fluid collection and the needle removed. Abo ut 8 cc of fluid was aspirated and specimen sent for appropriate cultures/cytology/cultures and cytol ogy. The catheter was then removed and a sterile dressing applied. No immediate complication was maria isabel ntified. FINDINGS: Limited ultrasound imaging demonstrates mild ascites that was severely septated. Aspirated fluid was cloudy. IMPRESSION: US-guided paracentesis with 8 mL cloudy thick fluid aspirated for culture and sensitivity laboratory analysis.
--- NOTE | 2024-11-18 17:27 | DVHPNRES ---
Progress Note Date Seen: Nov 18, 2024 Resident Creating Document: THIAGO NEGRON RESIDENT Medical Necessity Reason Pt with a Central, PICC or Fol: No The following are medically ne: PICC Line Subjective Review of Systems Patient was seen and examined on the bedside. status post extubation and on nasal cannula 1 L. Patient is on regular diet and tube feeding. Patient underwent paracentesis today and 8 ml thick fluid was aspirated and sent for study. Patient is stable for transfer to [place] Objective vital signs Vital Sign Date Time Temp Pulse Resp B/P (MAP) Pulse Ox O2 Delivery O2 Flow Rate FiO2 11/18/24 16:00 98.4 121 35 137/67 (90) 95 98.4 11/18/24 15:31 Room Air* 0 21 Total Intake and Output 11/17/24 11/17/24 11/18/24 15:00 23:00 07:00 Intake Total 121 ml 850 ml 100 ml Output Total 520 ml 350 ml Balance 121 ml 330 ml -250 ml medications Current Medications Medications Dose Ordered Sig/Greg Route Start Time Stop Time Status Last Admin Dose Admin Ondansetron HCl 4 mg Q4HP PRN IV 11/01/24 21:15 11/17/24 18:51 4 MG Artificial Tears 1 drop Q6HP PRN EACHEYE 11/05/24 12:30 11/09/24 07:48 1 DROP Meropenem 50 ml @ 17 mls/hr Q8H IV 11/08/24 16:00 11/18/24 14:17 17 MLS/HR Enteral Nutritional Formula 1,000 ml 20ML/HR GT 11/09/24 11:30 Metoclopramide HCl 5 mg Q8H IV 11/10/24 15:30 11/18/24 08:03 5 MG Acetaminophen 650 mg Q4HP PRN PO 11/13/24 11:30 11/16/24 22:50 650 MG Dextrose 50 ml UD PRN IV 11/15/24 04:45 11/15/24 05:05 50 ML Levalbuterol HCl 0.625 mg Q4HR NEB 11/16/24 10:00 11/18/24 09:27 0.625 MG Ipratropium [place] 0.5 mg Q4HR NEB 11/16/24 10:00 11/18/24 09:27 0.5 MG Purified Water 200 ml Q4HR GT 11/16/24 10:00 11/18/24 13:33 200 ML Micafungin Sodium 100 mg/Sodium Chloride 100 ml @ 100 mls/hr DAILY IV 11/17/24 10:00 11/18/24 08:42 100 MLS/HR Sertraline HCl 50 mg DAILY PO 11/17/24 10:00 11/18/24 08:03 50 MG Pantoprazole Sodium 40 mg DAILY@0600 PO 11/18/24 06:00 11/18/24 06:17 40 MG Thiamine HCl 100 mg DAILY PO 11/17/24 10:00 11/18/24 08:25 100 MG Apixaban 5 mg BID PO 11/17/24 22:00 11/17/24 22:06 5 MG Diagnostic Test (Pha) 1 strip Q6HR 11/18/24 00:00 11/18/24 16:55 1 STRIP Examination Physical examination: General Appearance: Alert, Oriented X3, Cooperative, No acute distress HEENT: Atraumatic, PERRLA, EOMI, Mucous membrane moist/pink Respiratory: bilateral fine crackles. .Cardiovascular: Regular rate, Normal S1, Normal S2, No murmurs, no chest wall tenderness Abdominal: Normal bowel sounds, Soft, No tenderness, Midline surgical wound and colostomy on the left side, left RAMBO drain Extremities: bilateral pedal edema 1+, ischemic toes, No clubbing, No cyanosis, Normal pulses, No tenderness/swelling Skin: No rashes, No breakdown, No significant lesion Neuro: Normal speech, Strength at 4/5 X4 ext, Normal tone, Sensation intact, Cranial nerves 3-12 NL, Reflexes 2+ Psych/Mental Status: Mental status NL, Mood NL laboratory and microbiology Laboratory Tests 11/18/24 02:54 Test 11/18/24 02:54 Range/Units Serum Glucose 75 74-106 mg/dL Microbiology Date/Time Source Procedure Growth Status 11/17/24 15:20 Catheter Tip Other Aerobic Culture - Preliminary Resulted 11/13/24 09:51 Sputum Gram Stain - Final Complete 11/13/24 09:51 Respiratory Culture - Final Presumptive Cherelle albicans Complete 11/03/24 14:05 Blood Blood Culture - Final NO GROWTH AFTER 5 DAYS OF INCUBATION. Complete Labs and/or images reviewed: Labs reviewed by me, Image(s) reviewed by me Problem List/Assessment/Plan Problem List/Assessment/Plan Assessment and plan: NEURO: Acute metabolic encephalopathy secondary to septic shock Status post extubation on nasal canula 1 L CARDIOVASCULAR: Septic shock secondary to perforation of the hollow viscus Sinus tachycardia secondary to pain versus withdrawal Bilateral peripheral arterial disease - EKG demonstrated sinus tachycardia - echo showed EF 60%, echo density in RV suggestive of large papillary muscle, can not rule out vegetation. - Duplex scan of the lower extremity revealed bilateral hemodynamically significant stenosis in left dorsalis pedis and right popliteal artery PULMONARY: Possible right lower lobe pneumonia Mild bilateral pleural effusion. - Chest x-ray showed atelectasis in bilateral lung bases - Blood culture showed Bacteroides and respiratory cultures Staph aureus and presumptive Cherelle albicans - Follow up blood culture revealed no growth in 24 hours of incubation. - continue IV meropenem and micafungin GASTROINTESTINAL: Septic shock secondary to perforation of the hollow viscus, status post exploratory laparotomy Rule out colonic malignancy Transaminitis and coagulopathy secondary to hepatic steatosis Rule out cirrhosis Enlarged CBD, rule out choledocholithiasis or biliary stenosis Alcohol abuse disorder Colon cancer - Histopathology of the resected bowel showed moderately differentiated adenocarcinoma of the ileum, rectum and rectosigmoid junction. - TPN as per pharmacy - IV thiamine 100 mg daily - CT abdomen pelvis without contrast showed large amount of intraperitoneal free air . [id number] stool burden. Indeterminate possible portal venous gas versus marginal gas along the liver - U/S of the abdomen showed The liver is diffusely echogenic which may be secondary to steatosis or another diffuse hepatic process. Enlargement of the common bile duct measuring up to 15 mm. Gallbladder sludge. Small amount of free fluid in the abdomen. - Patient underwent Exploratory laparotomy with rectosigmoid resection with colostomy, Extensive lysis of adhesions and Ileal resection with a primary anastomosis. - Abdominal fluid culture demonstrated, prevotella, Pseudomonas, E coli, Streptococcus mitis - continue IV meropenem and micafungin - CT abdomen pelvis with gastrograffin showed Moderate ascites with locules of gas in the left paracolic gutters could be post surgical in nature. Mildly prominent peritoneum thickening is nonspecific but peritonitis is a consideration. Irregular density along the left anterior hemipelvis. - Underwent paracentesis and the sent the fluid for study GENITOURINARY: FLORIN secondary to septic shock/ VMN Acute complicated cystitis - U/A was consistent with UTI - Pending urine bacterial culture ENDOCRINE: Hypoglycemia METABOLIC: Moderate protein calorie malnutrition Hypocalcemia metabolic acidosis with respiratory compensation HEME: Acute on chronic microcytic hypochromic anemia Thrombocytopenia improving Coagulopathy Acute DVT of left upper arm - Hold Lovenox - 3 unit PRBC and 1 FFP given since surgery - monitor H&H - Eloquis 5 mg bid. INFECTIOUS DISEASE: Sepsis with septic shock secondary to perforation of the hollow viscus, status post exploratory laparotomy Possible right lower lobe pneumonia Acute complicated cystitis - Blood culture showed Gram-negative rods, peritoneal fluid culture Pseudomonas, E coli, Cherelle albicans and resp culture Cherelle albicans - continue IV meropenem and micafungin DIET: Tube feeding, pureed diet DVT prophylax: Eloquis GI prophylaxis: Protonix Bowel regimen: Code status: Full Code LINES/DRAINS/ACCESS: IV access: Midline Grajeda catheter: Placed on 11/17/24 DISPOSITION: ESEQUIEL Patient's status discussed with Critical care time spent more than 66 minutes, including patient care, chart review, and updating the family. Excluding any procedures. Case discussed with Dr. Armas Plan discussed with: Patient, Spouse, Other (RN) My Orders My Orders Orders - THIAGO NEGRON RESIDENT Procedure Category Date Status Time Glucose Blood PHA 11/18/24 In Process (Accu-Chek Comfort 00:00 Paracentesis US 11/18/24 Resulted 10:04 Urine Bacterial ZAFAR 11/18/24 Uncollected Culture 17:11 Dietary Evaluation Review Comments: 1) If patient remains NPO > 7 days, consider EN/TPN to meet at least 75% of estimated energy needs 2) If gut is preferred, consider Jevity 1.2 @ 40 mL/hr goal rate as tolerated. Flush with 200 mL free H2O Q6H. TF regimen will provide 1152 kcals, 53g Pro, and 1575 mL free H2O (including flushes) per 24 hrs. Goal rate matias meet ~90% estimated daily energy needs and ~65% estimated daily protein needs. 3) Advance to 2g Na diet when medically feasible, pending ST approval 4) Follow-up with cardiology and pulmonology 5) Continue to monitor I&O, labs, and skin integrity Expected Outcomes/Goals: 1) patient to receive nutritional support within 7 days of NPO status 2) labs to improve 3) diet to advance 4) f/u in 2-3 dayas Date of Service: Nov 18, 2024 Billing Provider: BERNARD ARMAS MD Common Visit Codes: [id number] CARE 30-74 MIN THIAGO NEGRON RESIDENT Nov 18, 2024 17:27 BERNARD ARMAS MD Nov 19, 2024 12:35
[2024-11-18] MEDS: Jevity 1.2 Cal/Fiber 1 Liter GT SCH (23:55)
[2024-11-19] VITALS (30 sets, daily range): BP systolic 96–124; BP diastolic 46–69; PULSE 87–112; RESP 12–32; TEMP 98.3–99.6; O2SAT 88–100
[2024-11-19 06:37] LABS: Anion Gap 9 (5-15); Carbon Dioxide 28 mmol/L (20-31); Sodium 145 mmol/L (136-145)
[2024-11-19 06:40] LABS: Hematocrit 25.7 % (36.0-46.0); Hemoglobin 8.4 g/dL (12.2-16.2); Mean Corpuscular Hemoglobin 26.0 pg (28.0-32.0); Mean Corpuscular Volume 79.9 fL (80.0-100.0); Nucleated Red Blood Cells % 0.0 %
[2024-11-19 06:43] LABS: BUN/Creatinine Ratio 23.9 (10.0-20.0); Blood Urea Nitrogen 11 mg/dL (9-23)
[2024-11-19 06:46] LABS: Calcium 7.8 mg/dL (8.7-10.4); Chloride 108 mmol/L (98-107); Glucose 109 mg/dL (74-106); Potassium 3.2 mmol/L (3.5-5.1)
[2024-11-19] MEDS: POTASSIUM EFFERVESENT TAB 25 MEQ PO ONE (10:45)
--- NOTE | 2024-11-19 17:32 | DVHPNRES ---
Progress Note Date Seen: Nov 19, 2024 Resident Creating Document: THIAGO NEGRON RESIDENT Medical Necessity Reason Pt with a Central, PICC or Fol: No The following are medically ne: PICC Line Subjective Review of Systems Patient was seen and examined on the bedside. status post extubation and on nasal cannula 1 L. Patient is on regular diet and tube feeding. Patient underwent paracentesis and 8 ml thick fluid was aspirated and sent for study. Colostomy tube output is more than 500 ml and watery, discontinued metoclopramide. Patient is stable for transfer to [place]. Objective vital signs Vital Sign Date Time Temp Pulse Resp B/P (MAP) Pulse Ox O2 Delivery O2 Flow Rate FiO2 11/19/24 17:00 99 26 124/63 (83) 98 11/19/24 16:00 Nasal Cannula* 1 24 11/19/24 16:00 98.6 98.6 Total Intake and Output 11/18/24 11/18/24 11/19/24 15:00 23:00 07:00 Intake Total 10 ml 240 ml 399 ml Output Total 1950 ml 575 ml Balance 10 ml -1710 ml -176 ml medications Current Medications Medications Dose Ordered Sig/Greg Route Start Time Stop Time Status Last Admin Dose Admin Ondansetron HCl 4 mg Q4HP PRN IV 11/01/24 21:15 11/17/24 18:51 4 MG Artificial Tears 1 drop Q6HP PRN EACHEYE 11/05/24 12:30 11/09/24 07:48 1 DROP Meropenem 50 ml @ 17 mls/hr Q8H IV 11/08/24 16:00 11/19/24 15:33 17 MLS/HR Enteral Nutritional Formula 1,000 ml 20ML/HR GT 11/09/24 11:30 11/18/24 23:55 1,000 ML Acetaminophen 650 mg Q4HP PRN PO 11/13/24 11:30 11/19/24 10:55 650 MG Dextrose 50 ml UD PRN IV 11/15/24 04:45 11/15/24 05:05 50 ML Levalbuterol HCl 0.625 mg Q4HR NEB 11/16/24 10:00 11/19/24 14:13 0.625 MG Ipratropium [place] 0.5 mg Q4HR NEB 11/16/24 10:00 11/19/24 14:14 0.5 MG Purified Water 200 ml Q4HR GT 11/16/24 10:00 11/19/24 14:26 200 ML Micafungin Sodium 100 mg/Sodium Chloride 100 ml @ 100 mls/hr DAILY IV 11/17/24 10:00 11/19/24 09:54 100 MLS/HR Sertraline HCl 50 mg DAILY PO 11/17/24 10:00 11/19/24 09:52 50 MG Pantoprazole Sodium 40 mg DAILY@0600 PO 11/18/24 06:00 11/19/24 05:40 40 MG Thiamine HCl 100 mg DAILY PO 11/17/24 10:00 11/19/24 09:52 100 MG Apixaban 5 mg BID PO 11/17/24 22:00 11/19/24 09:52 5 MG Diagnostic Test (Pha) 1 strip Q6HR 11/18/24 00:00 11/19/24 11:32 1 STRIP Examination Physical examination: General Appearance: Alert, Oriented X3, Cooperative, No acute distress HEENT: Atraumatic, PERRLA, EOMI, Mucous membrane moist/pink Respiratory: bilateral fine crackles. .Cardiovascular: Regular rate, Normal S1, Normal S2, No murmurs, no chest wall tenderness Abdominal: Normal bowel sounds, Soft, No tenderness, Midline surgical wound and colostomy on the left side, left RAMBO drain Extremities: bilateral pedal edema 1+, ischemic toes, No clubbing, No cyanosis, Normal pulses, No tenderness/swelling Skin: No rashes, No breakdown, No significant lesion Neuro: Normal speech, Strength at 4/5 X4 ext, Normal tone, Sensation intact, Cranial nerves 3-12 NL, Reflexes 2+ Psych/Mental Status: Mental status NL, Mood NL laboratory and microbiology Laboratory Tests 11/19/24 05:59 Test 11/19/24 05:59 Range/Units Serum Glucose 109 H 74-106 mg/dL Microbiology Date/Time Source Procedure Growth Status 11/18/24 17:37 Voided Urine Urine Culture - Preliminary Resulted 11/17/24 15:20 Catheter Tip Other Aerobic Culture - Preliminary Presumptive Cherelle albicans Resulted 11/13/24 09:51 Sputum Gram Stain - Final Complete 11/13/24 09:51 Respiratory Culture - Final Presumptive Cherelle albicans Complete 11/03/24 14:05 Blood Blood Culture - Final NO GROWTH AFTER 5 DAYS OF INCUBATION. Complete Labs and/or images reviewed: Labs reviewed by me, Image(s) reviewed by me Problem List/Assessment/Plan Problem List/Assessment/Plan Assessment and plan: NEURO: Acute metabolic encephalopathy secondary to septic shock Status post extubation on nasal canula 1 L CARDIOVASCULAR: Septic shock secondary to perforation of the hollow viscus Sinus tachycardia secondary to pain versus withdrawal Bilateral peripheral arterial disease - EKG demonstrated sinus tachycardia - echo showed EF 60%, echo density in RV suggestive of large papillary muscle, can not rule out vegetation. - Duplex scan of the lower extremity revealed bilateral hemodynamically significant stenosis in left dorsalis pedis and right popliteal artery PULMONARY: Possible right lower lobe pneumonia Mild bilateral pleural effusion. - Chest x-ray showed atelectasis in bilateral lung bases - Blood culture showed Bacteroides and respiratory cultures Staph aureus and presumptive Cherelle albicans - Follow up blood culture revealed no growth in 24 hours of incubation. - continue IV meropenem and micafungin GASTROINTESTINAL: Septic shock secondary to perforation of the hollow viscus, status post exploratory laparotomy Rule out colonic malignancy Transaminitis and coagulopathy secondary to hepatic steatosis Rule out cirrhosis Enlarged CBD, rule out choledocholithiasis or biliary stenosis Alcohol abuse disorder Colon cancer - Histopathology of the resected bowel showed moderately differentiated adenocarcinoma of the ileum, rectum and rectosigmoid junction. - TPN as per pharmacy - IV thiamine 100 mg daily - CT abdomen pelvis without contrast showed large amount of intraperitoneal free air . [id number] stool burden. Indeterminate possible portal venous gas versus marginal gas along the liver - U/S of the abdomen showed The liver is diffusely echogenic which may be secondary to steatosis or another diffuse hepatic process. Enlargement of the common bile duct measuring up to 15 mm. Gallbladder sludge. Small amount of free fluid in the abdomen. - Patient underwent Exploratory laparotomy with rectosigmoid resection with colostomy, Extensive lysis of adhesions and Ileal resection with a primary anastomosis. - Abdominal fluid culture demonstrated, prevotella, Pseudomonas, E coli, Streptococcus mitis - continue IV meropenem and micafungin - CT abdomen pelvis with gastrograffin showed Moderate ascites with locules of gas in the left paracolic gutters could be post surgical in nature. Mildly prominent peritoneum thickening is nonspecific but peritonitis is a consideration. Irregular density along the left anterior hemipelvis. - Underwent paracentesis and the sent the fluid for study GENITOURINARY: FLORIN secondary to septic shock/ VMN Acute complicated cystitis - U/A was consistent with UTI - Pending urine bacterial culture ENDOCRINE: Hypoglycemia METABOLIC: Moderate protein calorie malnutrition Hypocalcemia metabolic acidosis with respiratory compensation HEME: Acute on chronic microcytic hypochromic anemia Thrombocytopenia improving Coagulopathy Acute DVT of left upper arm - Hold Lovenox - 3 unit PRBC and 1 FFP given since surgery - monitor H&H - Eloquis 5 mg bid. INFECTIOUS DISEASE: Sepsis with septic shock secondary to perforation of the hollow viscus, status post exploratory laparotomy Possible right lower lobe pneumonia Acute complicated cystitis - Blood culture showed Gram-negative rods, peritoneal fluid culture Pseudomonas, E coli, Cherelle albicans and resp culture Cherelle albicans - continue IV meropenem and micafungin DIET: Tube feeding, pureed diet DVT prophylax: Eloquis GI prophylaxis: Protonix Bowel regimen: Code status: Full Code LINES/DRAINS/ACCESS: IV access: Midline Grajeda catheter: Placed on 11/17/24 DISPOSITION: ESEQUIEL Patient's status discussed with Critical care time spent more than 66 minutes, including patient care, chart review, and updating the family. Excluding any procedures. Case discussed with Dr. Armas Plan discussed with: Patient, Spouse, Other (RN) My Orders My Orders Orders - THIAGO NEGRON RESIDENT Procedure Category Date Status Time * Television Tube Inspector CONS 11/19/24 Transmitted Consult Wound Culture W/ Gs ZAFAR 11/19/24 Logged 15:06 Dietary Evaluation Review Comments: 1) If patient remains NPO > 7 days, consider EN/TPN to meet at least 75% of estimated energy needs 2) If gut is preferred, consider Jevity 1.2 @ 40 mL/hr goal rate as tolerated. Flush with 200 mL free H2O Q6H. TF regimen will provide 1152 kcals, 53g Pro, and 1575 mL free H2O (including flushes) per 24 hrs. Goal rate matias meet ~90% estimated daily energy needs and ~65% estimated daily protein needs. 3) Advance to 2g Na diet when medically feasible, pending ST approval 4) Follow-up with cardiology and pulmonology 5) Continue to monitor I&O, labs, and skin integrity Expected Outcomes/Goals: 1) patient to receive nutritional support within 7 days of NPO status 2) labs to improve 3) diet to advance 4) f/u in 2-3 dayas Date of Service: Nov 19, 2024 Billing Provider: BERNARD ARMAS MD Common Visit Codes: [id number] CARE 30-74 MIN THIAGO NEGRON RESIDENT Nov 19, 2024 17:32 BERNARD ARMAS MD Nov 21, 2024 12:36
--- NOTE | 2024-11-19 22:58 | DVHPN2 ---
Progress Note - Dictate Date Seen: Nov 19, 2024 Medical Necessity Reason Pt with a Central, PICC or Fol: No The following are medically ne: PICC Line Subjective Ms. Osei is a 49 years old female with a history of hypertension, GERD, she was admitted to the [facility] on 11/01/2024 with a chief company of general weakness for six months of time, according to ER note, the patient was alert oriented x3 when she came to the hospital, but in the hospital, the patient was found to have perforated viscus, metabolic acidosis, sepsis, septic shock, peritonitis, on 11/02/2024, she went through 1. Exploratory laparotomy with rectosigmoid resection with colostomy 2. Extensive lysis of adhesions 3. Ileal resection with a primary anastomosis. Since then the patient has been intubated, mentally altered. I have seen and examined the patient, discussed with her nurse. She keeps improving, speech is stronger,, she is oriented to person, place, she knows the year, and month, she follows verbal commands, socially appropriate Overall she is still weak Blood culture, 11/01/24: Bacteroides fragilis Hepatitis panel, 11/02/2024: Hepatitis-A antibody, HbsAg Urinalysis, 11/01/2024: WBC: 522, WBC clumps: Present, urine leukocyte esterase: 3+ ABG 11/02/2024: Metabolic acidosis, 11/03/2024: Metabolic acidosis, 11/04/2024: Metabolic acidosis WBC/HB/PLT/MCV, 11/11/2024: 11.6/7.8/200/87.4 PT/INR/PTT, 11/04/2024: 14/1.36/81.6, 11/06/2024: 13.3/1.29/48.7 Na, 11/14/24: 145, 11/15/2024: 147, 11/16/2024: 150 BUN/CR, 11/11/2024: 33/0.68 TBI/AST/ALT/AP, 11/11/2024: 0.2/67/22/169 EEG, 11/12/2024: Nondiagnostic EEG because of artifacts Extremity venous study, 11/03/2024: Left upper extremity DVT Chest x-ray, 11/01/24: LUNGS: No pleural effusion, consolidation, or pneumothorax . Atelectasis in bilateral lung bases. Sequelae of fluid administration. MEDIASTINUM: Unremarkable BONES: No acute osseous abnormality OTHER: Enteric tube extending into the stomach. Intraperitoneal free air Chest x-ray, 11/02/2024: 1. Interval progression in right basilar pulmonary airspace disease. 2. Interval resolution of pneumoperitoneum. 3. Endotracheal tube and enteric catheter as above. CT head, 11/11/2024: No evidence of acute intracranial abnormality MRI, headache, 11/11/2024: No acute infarct, intracranial hemorrhage, mass effect, or hydrocephalus. vital signs Vital Sign Date Time Temp Pulse Resp B/P (MAP) Pulse Ox O2 Delivery O2 Flow Rate FiO2 11/19/24 22:00 92 11/19/24 22:00 18 94 Nasal Cannula* 1 24 11/19/24 22:00 118/61 (80) 11/19/24 20:00 99.1 99.1 Total Intake and Output 11/18/24 11/18/24 11/19/24 15:00 23:00 07:00 Intake Total 10 ml 240 ml 399 ml Output Total 1950 ml 575 ml Balance 10 ml -1710 ml -176 ml medications Current Medications Medications Dose Ordered Sig/Greg Route Start Time Stop Time Status Last Admin Dose Admin Ondansetron HCl 4 mg Q4HP PRN IV 11/01/24 21:15 11/17/24 18:51 4 MG Artificial Tears 1 drop Q6HP PRN EACHEYE 11/05/24 12:30 11/09/24 07:48 1 DROP Meropenem 50 ml @ 17 mls/hr Q8H IV 11/08/24 16:00 11/19/24 15:33 17 MLS/HR Enteral Nutritional Formula 1,000 ml 20ML/HR GT 11/09/24 11:30 11/18/24 23:55 1,000 ML Acetaminophen 650 mg Q4HP PRN PO 11/13/24 11:30 11/19/24 10:55 650 MG Dextrose 50 ml UD PRN IV 11/15/24 04:45 11/15/24 05:05 50 ML Levalbuterol HCl 0.625 mg Q4HR NEB 11/16/24 10:00 11/19/24 14:13 0.625 MG Ipratropium [place] 0.5 mg Q4HR NEB 11/16/24 10:00 11/19/24 14:14 0.5 MG Purified Water 200 ml Q4HR GT 11/16/24 10:00 11/19/24 21:29 200 ML Micafungin Sodium 100 mg/Sodium Chloride 100 ml @ 100 mls/hr DAILY IV 11/17/24 10:00 11/19/24 09:54 100 MLS/HR Sertraline HCl 50 mg DAILY PO 11/17/24 10:00 11/19/24 09:52 50 MG Pantoprazole Sodium 40 mg DAILY@0600 PO 11/18/24 06:00 11/19/24 05:40 40 MG Thiamine HCl 100 mg DAILY PO 11/17/24 10:00 11/19/24 09:52 100 MG Apixaban 5 mg BID PO 11/17/24 22:00 11/19/24 21:28 5 MG Diagnostic Test (Pha) 1 strip Q6HR 11/18/24 00:00 11/19/24 17:32 1 STRIP objective The patient is well-nourished and well-developed with no distress. MENTAL STATUS: Subjective CRANIAL NERVES: Pupils are equal, round and reactive. Normal conjugated eye movement, normal sensory and motor in the bilateral trigeminal distribution,. No signs of facial weakness. SENSATION: Okay to pinprick and light touch MOTOR: Normal tone in the upper and lower extremity. Normal muscle bulk. No fasciculations. Muscle power, upper extremity: Shoulders: 3/5, elbow: 3/5, grippin/5. Lower extremities: Right: 2-3/5 except for 3-4/5 in the ankles and toes REFLEXES: Deep tendon reflexes are symmetrical. No pathological reflexes. CEREBELLAR/COORDINATION: Deferred GAIT/STATION: deferred. laboratory and microbiology Laboratory Tests 11/19/24 05:59 Test 11/19/24 05:59 Range/Units Serum Glucose 109 H 74-106 mg/dL Problem List Altered mental status Metabolic encephalopathy Toxic encephalopathy Hypoxic encephalopathy Sepsis Septic shock Peritonitis Viscus perforation Acute respiratory failure Pneumonia Acute kidney failure Different thrombosis ICU myopathy Assessment/Plan Monitoring Supportive treatment ESEQUIEL care Follow-up labs Stabilize vitals Respiratory support Oxygen Thiamine supplementation GI prophylaxis/Protonix More recommendation per clinical course This medical document was created using an electronic medical record system with [employer] dictation system. Although this document has been carefully reviewed, there may still be some phonetic and typographical errors. These areas are purely typographical due to imperfections of the software programs, and do not reflect any compromise in the patient's medical care. Prognosis poor Dietary Evaluation Review Comments: 1) If patient remains NPO > 7 days, consider EN/TPN to meet at least 75% of estimated energy needs 2) If gut is preferred, consider Jevity 1.2 @ 40 mL/hr goal rate as tolerated. Flush with 200 mL free H2O Q6H. TF regimen will provide 1152 kcals, 53g Pro, and 1575 mL free H2O (including flushes) per 24 hrs. Goal rate matais meet ~90% estimated daily energy needs and ~65% estimated daily protein needs. 3) Advance to 2g Na diet when medically feasible, pending ST approval 4) Follow-up with cardiology and pulmonology 5) Continue to monitor I&O, labs, and skin integrity Expected Outcomes/Goals: 1) patient to receive nutritional support within 7 days of NPO status 2) labs to improve 3) diet to advance 4) f/u in 2-3 dayas Plan discussed with: Other HOLLY BENSON MD Nov 19, 2024 22:57
[2024-11-20] VITALS (33 sets, daily range): BP systolic 103–122; BP diastolic 56–72; PULSE 74–125; RESP 16–34; TEMP 98.3–100.4; O2SAT 91–100
[2024-11-20 07:09] LABS: Hemoglobin 8.1 g/dL (12.2-16.2)
[2024-11-20 07:13] LABS: Hematocrit 25.1 % (36.0-46.0); Mean Corpuscular Hemoglobin 25.6 pg (28.0-32.0); Mean Corpuscular Volume 79.3 fL (80.0-100.0)
[2024-11-20 07:20] LABS: Anion Gap 8 (5-15); Carbon Dioxide 28 mmol/L (20-31); Potassium 3.9 mmol/L (3.5-5.1); Sodium 143 mmol/L (136-145)
[2024-11-20 07:26] LABS: BUN/Creatinine Ratio 23.8 (10.0-20.0); Blood Urea Nitrogen 10 mg/dL (9-23); Glucose 97 mg/dL (74-106)
[2024-11-20 07:28] LABS: Calcium 7.7 mg/dL (8.7-10.4); Chloride 107 mmol/L (98-107)
[2024-11-20 07:58] LABS: Anisocytosis Slight; Total Cells Counted 100.0 (100)
--- NOTE | 2024-11-20 13:21 | DVHPNRES ---
Progress Note Date Seen: Nov 20, 2024 Resident Creating Document: THIAGO NEGRON RESIDENT Medical Necessity Reason Pt with a Central, PICC or Fol: No The following are medically ne: PICC Line Subjective Review of Systems Patient was seen and examined on the bedside. status post extubation and on nasal cannula 1 L. Patient is on regular diet and tube feeding. Patient underwent paracentesis and 8 ml thick fluid was aspirated and sent for study. Colostomy tube output is more than 200 ml and watery, discontinued metoclopramide. Patient is draining significantly from the lower abdominal incision and started having rectal output as well. Dr. Martinez was informed regarding the finding and ordered hepatic panel, albumin, prealbumin. Consulted on-call surgeon Dr. Espinoza for further evaluation and management. Patient is stable for transfer to [place]. Objective vital signs Vital Sign Date Time Temp Pulse Resp B/P (MAP) Pulse Ox O2 Delivery O2 Flow Rate FiO2 11/20/24 12:00 98.4 101 25 113/56 (75) 94 98.4 11/20/24 11:47 Nasal Cannula* 1 24 Total Intake and Output 11/19/24 11/19/24 11/20/24 15:00 23:00 07:00 Intake Total 150 ml 472 ml 826 ml Output Total 1000 ml 400 ml Balance 150 ml -528 ml 426 ml medications Current Medications Medications Dose Ordered Sig/Greg Route Start Time Stop Time Status Last Admin Dose Admin Ondansetron HCl 4 mg Q4HP PRN IV 11/01/24 21:15 11/17/24 18:51 4 MG Artificial Tears 1 drop Q6HP PRN EACHEYE 11/05/24 12:30 11/09/24 07:48 1 DROP Meropenem 50 ml @ 17 mls/hr Q8H IV 11/08/24 16:00 11/20/24 08:00 17 MLS/HR Enteral Nutritional Formula 1,000 ml 20ML/HR GT 11/09/24 11:30 11/20/24 00:51 1,000 ML Acetaminophen 650 mg Q4HP PRN PO 11/13/24 11:30 11/19/24 10:55 650 MG Dextrose 50 ml UD PRN IV 11/15/24 04:45 11/15/24 05:05 50 ML Levalbuterol HCl 0.625 mg Q4HR NEB 11/16/24 10:00 11/20/24 07:09 0.625 MG Ipratropium [place] 0.5 mg Q4HR NEB 11/16/24 10:00 11/20/24 07:09 0.5 MG Micafungin Sodium 100 mg/Sodium Chloride 100 ml @ 100 mls/hr DAILY IV 11/17/24 10:00 11/20/24 11:27 100 MLS/HR Sertraline HCl 50 mg DAILY PO 11/17/24 10:00 11/20/24 08:00 50 MG Pantoprazole Sodium 40 mg DAILY@0600 PO 11/18/24 06:00 11/20/24 05:31 40 MG Thiamine HCl 100 mg DAILY PO 11/17/24 10:00 11/20/24 08:00 100 MG Apixaban 5 mg BID PO 11/17/24 22:00 11/20/24 08:00 5 MG Diagnostic Test (Pha) 1 strip Q6HR 11/18/24 00:00 11/20/24 12:27 1 STRIP Examination Physical examination: General Appearance: Alert, Oriented X3, Cooperative, No acute distress HEENT: Atraumatic, PERRLA, EOMI, Mucous membrane moist/pink Respiratory: bilateral fine crackles. .Cardiovascular: Regular rate, Normal S1, Normal S2, No murmurs, no chest wall tenderness Abdominal: Normal bowel sounds, Soft, No tenderness, Midline surgical wound and leaking from lower incision site and colostomy on the left side. Extremities: bilateral pedal edema 1+, ischemic toes, No clubbing, No cyanosis, Normal pulses, No tenderness/swelling Skin: No rashes, No breakdown, No significant lesion Neuro: Normal speech, Strength at 4/5 X4 ext, Normal tone, Sensation intact, Cranial nerves 3-12 NL, Reflexes 2+ Psych/Mental Status: Mental status NL, Mood NL laboratory and microbiology Laboratory Tests 11/20/24 06:04 Test 11/20/24 06:04 Range/Units Serum Glucose 97 74-106 mg/dL Microbiology Date/Time Source Procedure Growth Status 11/19/24 13:45 Abdomen Gram Stain - Final Resulted 11/19/24 13:45 Abdomen Wound Culture - Preliminary Resulted 11/18/24 17:37 Voided Urine Urine Culture - Preliminary Resulted 11/13/24 09:51 Sputum Gram Stain - Final Complete 11/13/24 09:51 Respiratory Culture - Final Presumptive Cherelle albicans Complete 11/03/24 14:05 Blood Blood Culture - Final NO GROWTH AFTER 5 DAYS OF INCUBATION. Complete Labs and/or images reviewed: Labs reviewed by me, Image(s) reviewed by me Problem List/Assessment/Plan Problem List/Assessment/Plan Assessment and plan: NEURO: Acute metabolic encephalopathy secondary to septic shock Status post extubation on nasal canula 1 L CARDIOVASCULAR: Septic shock secondary to perforation of the hollow viscus Sinus tachycardia secondary to pain versus withdrawal Bilateral peripheral arterial disease - EKG demonstrated sinus tachycardia - echo showed EF 60%, echo density in RV suggestive of large papillary muscle, can not rule out vegetation. - Duplex scan of the lower extremity revealed bilateral hemodynamically significant stenosis in left dorsalis pedis and right popliteal artery PULMONARY: Possible right lower lobe pneumonia Mild bilateral pleural effusion. - Chest x-ray showed atelectasis in bilateral lung bases - Blood culture showed Bacteroides and respiratory cultures Staph aureus and presumptive Cherelle albicans - Follow up blood culture revealed no growth in 24 hours of incubation. - continue IV meropenem and micafungin GASTROINTESTINAL: Septic shock secondary to perforation of the hollow viscus, status post exploratory laparotomy Rule out colonic malignancy Transaminitis and coagulopathy secondary to hepatic steatosis Rule out cirrhosis Enlarged CBD, rule out choledocholithiasis or biliary stenosis Alcohol abuse disorder Colon cancer - Histopathology of the resected bowel showed moderately differentiated adenocarcinoma of the ileum, rectum and rectosigmoid junction. - TPN as per pharmacy - IV thiamine 100 mg daily - CT abdomen pelvis without contrast showed large amount of intraperitoneal free air . [id number] stool burden. Indeterminate possible portal venous gas versus marginal gas along the liver - U/S of the abdomen showed The liver is diffusely echogenic which may be secondary to steatosis or another diffuse hepatic process. Enlargement of the common bile duct measuring up to 15 mm. Gallbladder sludge. Small amount of free fluid in the abdomen. - Patient underwent Exploratory laparotomy with rectosigmoid resection with colostomy, Extensive lysis of adhesions and Ileal resection with a primary anastomosis. - Abdominal fluid culture demonstrated, prevotella, Pseudomonas, E coli, Streptococcus mitis - continue IV meropenem and micafungin - CT abdomen pelvis with gastrograffin showed Moderate ascites with locules of gas in the left paracolic gutters could be post surgical in nature. Mildly prominent peritoneum thickening is nonspecific but peritonitis is a consideration. Irregular density along the left anterior hemipelvis. - Underwent paracentesis and the sent the fluid for study GENITOURINARY: FLORIN secondary to septic shock/ VMN Acute complicated cystitis - U/A was consistent with UTI - Pending urine bacterial culture ENDOCRINE: Hypoglycemia METABOLIC: Moderate protein calorie malnutrition Hypocalcemia metabolic acidosis with respiratory compensation HEME: Acute on chronic microcytic hypochromic anemia Thrombocytopenia improving Coagulopathy Acute DVT of left upper arm - Hold Lovenox - 3 unit PRBC and 1 FFP given since surgery - monitor H&H - Eloquis 5 mg bid. INFECTIOUS DISEASE: Sepsis with septic shock secondary to perforation of the hollow viscus, status post exploratory laparotomy Possible right lower lobe pneumonia Acute complicated cystitis - Blood culture showed Gram-negative rods, peritoneal fluid culture Pseudomonas, E coli, Cherelle albicans and resp culture Cherelle albicans - continue IV meropenem and micafungin DIET: Tube feeding, pureed diet DVT prophylax: Eloquis GI prophylaxis: Protonix Bowel regimen: Code status: Full Code LINES/DRAINS/ACCESS: IV access: Midline Grajeda catheter: Placed on 11/17/24 DISPOSITION: ESEQUIEL Patient's status discussed with Critical care time spent more than 76 minutes, including patient care, chart review, and updating the family. Excluding any procedures. Case discussed with Dr. Hart Plan discussed with: Patient, Spouse, Other (RN) My Orders My Orders Orders - THIAGO NEGRON RESIDENT Procedure Category Date Status Time Wound Culture W/ Gs ZAFAR 11/19/24 In Process 15:06 Dietary Evaluation Review Comments: 1) If patient remains NPO > 7 days, consider EN/TPN to meet at least 75% of estimated energy needs 2) If gut is preferred, consider Jevity 1.2 @ 40 mL/hr goal rate as tolerated. Flush with 200 mL free H2O Q6H. TF regimen will provide 1152 kcals, 53g Pro, and 1575 mL free H2O (including flushes) per 24 hrs. Goal rate matias meet ~90% estimated daily energy needs and ~65% estimated daily protein needs. 3) Advance to 2g Na diet when medically feasible, pending ST approval 4) Follow-up with cardiology and pulmonology 5) Continue to monitor I&O, labs, and skin integrity Expected Outcomes/Goals: 1) patient to receive nutritional support within 7 days of NPO status 2) labs to improve 3) diet to advance 4) f/u in 2-3 dayas THIAGO NEGRON RESIDENT Nov 20, 2024 13:21
[2024-11-20 15:30] LABS: Alanine Aminotransferase 25 U/L (7-40); Alkaline Phosphatase 104 U/L (46-116)
[2024-11-20 15:31] LABS: Albumin 1.9 g/dL (3.2-4.8); Bilirubin, Direct < 0.1 mg/dL (<0.3); Bilirubin, Total 0.2 mg/dL (0.2-1.0); Total Protein 4.4 g/dL (5.7-8.2)
--- NOTE | 2024-11-20 16:56 | DVHINCON2 ---
Consultation - Surgical Date Seen: Nov 20, 2024 Referring Physician Reason for Consultation Leakage from midline wound History of Present Illness History of Present Illness Mrs. Osei is a 49-year-old female who has been in the hospital since November 01. On November 04 Dr. Martinez perform an ex lap on the patient due to sigmoid perforation. During the surgery he also had to resect terminal ileum as it was stuck to the perforated area. He performed a primary stapled anastomosis of the ileum he resected the perforated area and brought up a end colostomy. I am consulted today due to leakage from the midline wound. Nursing noticed the liquids for several days now. Past Medical/Surgical History Past Medical/Surgical History PMH GERD, hypertension, constipation PSH exploratory laparotomy sigmoid resection, ileum resection, primary stapled anastomosis of the ileum, and colostomy on November 04 Allergies and medications Allergies: Coded Allergies: Iodine (Verified Allergy, Unknown, 11/01/24) Penicillins (Verified Allergy, Unknown, 11/01/24) Sulfa Antibiotics (Verified Allergy, Unknown, 11/01/24) Home Meds No Active Prescriptions or Reported Meds Review of systems Review of Systems: Deferred Examination Vital signs Vital Signs Date Time Temp Pulse Resp B/P (MAP) Pulse Ox O2 Delivery O2 Flow Rate FiO2 11/20/24 12:00 98.4 101 25 113/56 (75) 94 98.4 11/20/24 11:47 Nasal Cannula* 1 24 Laboratory Labs Test 11/20/24 12:25 11/20/24 06:04 11/19/24 05:59 11/17/24 15:20 Range/Units POC Glucose 102 70-106 mg/dl White Blood Count 9.3 4.4-10.8 10^3/uL Red Blood Count 3.16 L 4.0-5.20 10^6/uL Hemoglobin 8.1 L 12.2-16.2 g/dL Hematocrit 25.1 L 36.0-46.0 % Mean Corpuscular Volume 79.3 L 80.0-100.0 fL Mean Corpuscular Hemoglobin 25.6 L 28.0-32.0 pg Mean Corpuscular Hemoglobin Concent 32.3 32.0-36.0 g/dL Red Cell Distribution Width 23.4 H 11.8-14.3 % Platelet Count 468 H 140-450 10^3/uL Mean Platelet Volume 8.9 6.9-10.8 fL Neutrophils (%) (Auto) 37.0-80.0 % Lymphocytes (%) (Auto) 10.0-50.0 % Monocytes (%) (Auto) 0.0-12.0 % Eosinophils (%) (Auto) 0.0-7.0 % Basophils (%) (Auto) 0.0-2.0 % Neutrophils # (Auto) 1.6-8.6 10 ^3/uL Lymphocytes # (Auto) 0.4-5.4 10 ^3/uL Monocytes # (Auto) 0-1.3 10 ^3/uL Differential Total Cells Counted 100.0 100 Neutrophils % (Manual) 53 37.0-80.0 Band Neutrophils % (Manual) 1 Lymphocytes % (Manual) 15 10.0-50.0 Monocytes % (Manual) 1 0-12 Eosinophils % (Manual) 29 H 0-7 Basophils % (Manual) 0 0.0-2.0 Metamyelocytes % (manual) 0 Myelocytes % (Manual) 1 Promyelocytes % (Manual) 0 Blast Cells % (Manual) 0 Reactive Lymphocytes 0 Platelet Estimate Adequate Anisocytosis (manual) Slight Microcytosis Slight Sodium Level 143 136-145 mmol/L Potassium Level 3.9 3.5-5.1 mmol/L Chloride Level 107 98-107 mmol/L Carbon Dioxide Level 28 20-31 mmol/L Anion Gap 8 5-15 Blood Urea Nitrogen 10 9-23 mg/dL Creatinine 0.42 L 0.550-1.02 mg/dL Glomerular Filtration Rate Calc 118 >90 mL/min BUN/Creatinine Ratio 23.8 H 10.0-20.0 Serum Glucose 97 74-106 mg/dL Calcium Level 7.7 L 8.7-10.4 mg/dL Total Bilirubin 0.2 0.2-1.0 mg/dL Direct Bilirubin < 0.1 <0.3 mg/dL Aspartate Amino Transferase (AST) 39 13-40 U/L Alanine Aminotransferase (ALT) 25 7-40 U/L Alkaline Phosphatase 104 46-116 U/L Total Protein 4.4 L 5.7-8.2 g/dL Albumin 1.9 L 3.2-4.8 g/dL Prealbumin 4.0 L 10.0-40.0 md/dL Eosinophils # (Auto) 3.2 H 0-0.8 10 ^3/uL Basophils # (Auto) 0.1 0-0.2 10 ^3/uL Nucleated Red Blood Cells 0.0 % Magnesium Level 1.3 L 1.6-2.6 mg/dL Urine Color Light-brown Yellow Urine Clarity Ex.turbid Clear Urine pH 6.5 5.0-9.0 Urine Specific [place] 1.019 1.001-1.035 Urine Protein 2+ H Negative Urine Ketones 1+ H Negative Urine Blood 3+ H Negative /uL Urine Nitrite Negative Negative Urine Bilirubin Negative Negative Urine Urobilinogen 2 H Negative mg/dL Urine Leukocyte Esterase 3+ Negative /uL Urine RBC 1383 0 - 4 /hpf Urine WBC Clumps Present None Seen /hpf Urine Microscopic WBC 1160 H 0-5 /HPF Urine Squamous Epithelial Cells Few <5 /hpf Urine Bacteria Few H None Seen /hpf Urine Mucus Few None Seen Urine Glucose Normal Normal mg/dL Test 11/16/24 08:26 11/15/24 02:50 11/13/24 08:55 11/13/24 03:02 Range/Units Prothrombin Time 11.3 9.3-11.8 sec Prothrombin Time INR 1.07 0.9-1.15 Activated Partial Thromboplast Time 32.0 24.5-34.5 SEC Phosphorus Level 3.8 2.4-5.1 mg/dL Blood Gas Specimen Type Arterial Blood Gas Sample Site Right radial Blood Gas Patient Temperature 37.0 Arterial Blood Date Drawn [id number] Arterial Blood pH 7.511 H 7.350-7.450 Arterial Blood Partial Pressure CO2 33.5 32.0-45.0 mmHg Arterial Blood Partial Pressure O2 93.5 83.0-108.0 mmHg Arterial Blood HCO3 26.2 21.0-28.0 mmol/L Arterial Blood Oxygen Saturation 96.9 94.0-98.0 % Arterial Blood Base Excess 3.3 H -2.0-3.0 mmol/L Arterial Blood Oxyhemoglobin 96.4 94.0-98.0 % Arterial Blood Carboxyhemoglobin 0.2 L 0.5-1.5 % Arterial Blood Methemoglobin 0.3 0.0-1.5 % Renard Test Modified Blood Gas Total Hemoglobin 9.80 L 12.0-16.0 g/dL Blood Gas Modality Vent - cpap Blood Gas Spontaneous Rate 28 FiO2 % 30.0 Blood Gas Spontaneous Tidal Volume 430 Blood Gas Pressure Support 8 Blood Gas PEEP or CPAP 5.0 Triglycerides Level 142 < 150 mg/dL Test 11/12/24 22:45 11/12/24 07:12 11/11/24 03:45 11/04/24 22:41 Range/Units Vancomycin Level Trough 12.9 H 5-10 ug/mL Blood Gas Set Respiration Rate 16.0 Blood Gas Tidal Volume 450.0 Large Platelets Few Basophilic Stippling Random Vancomycin Level 15.5 H 5-10 ug/mL Haptoglobin 166 33-346 mg/dL Fibrinogen 208 177-375 mg/dL D-Dimer, Quantitative 6.93 H 0.0-0.49 mg/L FEU Lactate Dehydrogenase 163 120-246 U/L Test 11/03/24 09:50 11/02/24 13:24 11/02/24 08:49 11/02/24 01:44 Range/Units Urine Yeast (Budding) Many None Seen /hpf Urine Creatinine 78.12 30.0-125.0 mg/dL Urine Protein/Creatinine Ratio 5.90 Urine Sodium 83 40-220 mmol/L Urine Total Protein 460.8 H 1-14 mg/dL CA 19-9 Antigen 36 H 0-35 U/mL CA 125 Antigen 24.2 0.0-38.1 U/mL Plasma/Serum Blood Alcohol 3.2 <10 mg/dL Hepatitis A Antibody Total Positive H Negative Hepatitis B Surface Antigen Negative Negative Hepatitis B Surface Antibody Positive H Negative Hepatitis B Core Total Antibody Negative Negative Hepatitis C Antibody Negative Negative Giant Platelets Few Hypochromasia (manual) Slight Carcinoembryonic Antigen 11.30 <=5.0 ng/mL Test 11/01/24 18:58 11/01/24 16:26 Range/Units Lactic Acid Level 4.2 *H 0.4-2.0 mmol/L Ammonia 13 11-32 umol/L Microbiology Date/Time Source Procedure Growth Status 11/19/24 13:45 Abdomen Gram Stain - Final Resulted 11/19/24 13:45 Abdomen Wound Culture - Preliminary Resulted 11/18/24 17:37 Voided Urine Urine Culture - Preliminary Resulted 11/13/24 09:51 Sputum Gram Stain - Final Complete 11/13/24 09:51 Respiratory Culture - Final Presumptive Cherelle albicans Complete 11/03/24 14:05 Blood Blood Culture - Final NO GROWTH AFTER 5 DAYS OF INCUBATION. Complete Examination: ABDOMEN:Abnormal (Nondistended, left-sided colostomy with pink mucosa, patent, stool in bag, midline wound with purulent drainage from the caudal aspect of it, no surrounding erythema, nontender) Problem List/Assessment/Plan Problems: (1) Surgical site infection Assessment and Plan Mrs. Osei is a 49-year-old female who underwent an (11/04/24) exploratory laparotomy with sigmoid resection due to perforation, also during the surgery a partial ileum resection was also performed due to the limb being stuck to the resected sigmoid, there was a primary stapled anastomosis of small bowel to small bowel and a end colostomy done. I am consulted today due to leakage coming from the midline wound. Patient has not SSI of the midline wound. Lower aspect of the wound was opened, copious amounts of purulent drainage emanated from the wound. Fascia is intact. Patient will need continue packing changes daily. I also reviewed the patient's CT from the contrast was done with o nly p.o. contrast. There is no contrast extravasation from the bowel lumen, and you can see the contrast exiting through the ostomy. On the CT patient does have infected intraperitoneal fluid, due to the presence of gas within the fluid collection in the left lower quadrant. Patient underwent a paracentesis on 11/18. 1. B.i.d. packing changes as ordered 2. Patient may need further opening of the midline wound. 3. We will re-evaluate tomorrow 4. Continue with the IV Merrem and micafungin Plan discussed with Plan discussed with: Patient, Spouse Visit Coding Surgery Date of Service if different f: Nov 20, 2024 Billing Provider: GERMÁN CARVAJAL MD Surgery Visit Codes: 44801 - INP CONSULT <110 MIN GREMÁN CARVAJAL MD Nov 20, 2024 16:56
[2024-11-21] VITALS (31 sets, daily range): BP systolic 95–143; BP diastolic 52–83; PULSE 75–117; RESP 13–33; TEMP 98.1–98.8; O2SAT 95–100
[2024-11-21 05:54] LABS: Hemoglobin 8.0 g/dL (12.2-16.2)
[2024-11-21 05:56] LABS: Hematocrit 24.1 % (36.0-46.0); Mean Corpuscular Hemoglobin 26.2 pg (28.0-32.0); Mean Corpuscular Volume 79.3 fL (80.0-100.0); Nucleated Red Blood Cells % 0.1 %
--- NOTE | 2024-11-21 06:43 | DVH ---
CHEST RADIOGRAPH Indication: sob Technique: Single frontal view of the chest was obtained COMPARISON: XY CHEST PORTABLE on DOS: 11/17/24, XY CHEST PORTABLE on DOS: 11/16/24, XY CHEST PORTABLE o n DOS: 11/15/24, XY CHEST PORTABLE on DOS: 11/14/24, XY CHEST PORTABLE on DOS: 11/13/24 FINDINGS: Lines and Tubes: Enteric catheter unchanged in position. Lungs: Slight interval increase in left pleural effusion with otherwise stable appearing bibasilar pu lmonary airspace disease. No pneumothorax. Cardiomediastinal contours: Unremarkable Bones: Unremarkable IMPRESSION: 1. Slight interval increase in left pleural effusion with otherwise stable appearing bibasilar pulmon armani airspace disease. 2. Enteric catheter unchanged.
--- NOTE | 2024-11-21 13:38 | DVHPN2 ---
Reviewed: Care Plan, H&P, Labs, Medications, Previous Orders, Radiology Changes from previous H/P or p: No Changes Objective Vitals Vital Signs Date Time Temp Pulse Resp B/P (MAP) Pulse Ox O2 Delivery O2 Flow Rate FiO2 11/21/24 12:00 16 96 Nasal Cannula* 1 24 11/21/24 11:00 81 117/60 (79) 11/21/24 08:00 98.4 98.4 Intake/Output Intake and Output 11/21/24 07:00 Intake Total 692 ml Output Total 1045 ml Balance -353 ml Intake Oral 100 ml IV Total 252 ml Tube Feeding 340 ml Output Urine Total 700 ml Stool Total 345 ml # Bowel Movements 3 General Appearance: Other (Intubate, on vent) HEENT: Atraumatic Neck: Supple Cardiovascular: Regular rate, Normal S1, Normal S2, No murmurs, Gallops, Rubs Abdomen: Normal bowel sounds, Soft, No tenderness Neuro: Other (intubate, on vent) Medications Current Medications Medications Dose Ordered Sig/Greg Route Start Time Stop Time Status Last Admin Dose Admin Ondansetron HCl 4 mg Q4HP PRN IV 11/01/24 21:15 11/17/24 18:51 4 MG Artificial Tears 1 drop Q6HP PRN EACHEYE 11/05/24 12:30 11/09/24 07:48 1 DROP Meropenem 50 ml @ 17 mls/hr Q8H IV 11/08/24 16:00 11/21/24 09:13 17 MLS/HR Enteral Nutritional Formula 1,000 ml 20ML/HR GT 11/09/24 11:30 11/20/24 00:51 1,000 ML Acetaminophen 650 mg Q4HP PRN PO 11/13/24 11:30 11/20/24 21:50 650 MG Dextrose 50 ml UD PRN IV 11/15/24 04:45 11/15/24 05:05 50 ML Levalbuterol HCl 0.625 mg Q4HR NEB 11/16/24 10:00 11/21/24 09:54 0.625 MG Ipratropium [place] 0.5 mg Q4HR NEB 11/16/24 10:00 11/21/24 09:54 0.5 MG Micafungin Sodium 100 mg/Sodium Chloride 100 ml @ 100 mls/hr DAILY IV 11/17/24 10:00 11/21/24 10:15 100 MLS/HR Sertraline HCl 50 mg DAILY PO 11/17/24 10:00 11/21/24 10:16 50 MG Pantoprazole Sodium 40 mg DAILY@0600 PO 11/18/24 06:00 11/21/24 05:35 40 MG Thiamine HCl 100 mg DAILY PO 11/17/24 10:00 11/21/24 10:16 100 MG Apixaban 5 mg BID PO 11/17/24 22:00 11/21/24 10:16 5 MG Diagnostic Test (Pha) 1 strip Q6HR 11/18/24 00:00 11/21/24 06:00 1 STRIP Laboratory Results Laboratory Tests 11/20/24 06:04 11/21/24 05:04 Urinalysis Test 11/03/24 09:50 11/17/24 15:20 Urine Yeast (Budding) Many /hpf (None Seen) Urine Creatinine 78.12 mg/dL (30.0-125.0) Urine Protein/Creatinine Ratio 5.90 Urine Sodium 83 mmol/L (40-220) Urine Total Protein 460.8 mg/dL (1-14) H Urine Color Light-brown (Yellow) Urine Clarity Ex.turbid (Clear) Urine pH 6.5 (5.0-9.0) Urine Specific [place] 1.019 (1.001-1.035) Urine Protein 2+ (Negative) H Urine Ketones 1+ (Negative) H Urine Blood 3+ /uL (Negative) H Urine Nitrite Negative (Negative) Urine Bilirubin Negative (Negative) Urine Urobilinogen 2 mg/dL (Negative) H Urine Leukocyte Esterase 3+ /uL (Negative) Urine RBC 1383 /hpf (0 - 4) Urine WBC Clumps Present /hpf (None Seen) Urine Microscopic WBC 1160 /HPF (0-5) H Urine Squamous Epithelial Cells Few /hpf (<5) Urine Bacteria Few /hpf (None Seen) H Urine Mucus Few (None Seen) Urine Glucose Normal mg/dL (Normal) Microbiology Microbiology Date/Time Source Procedure Growth Status 11/19/24 13:45 Abdomen Gram Stain - Final Resulted 11/19/24 13:45 Abdomen Wound Culture - Preliminary Resulted 11/18/24 17:37 Voided Urine Urine Culture - Preliminary Resulted 11/13/24 09:51 Sputum Gram Stain - Final Complete 11/13/24 09:51 Respiratory Culture - Final Presumptive Cherelle albicans Complete 11/03/24 14:05 Blood Blood Culture - Final NO GROWTH AFTER 5 DAYS OF INCUBATION. Complete Labs and/or images reviewed: Labs reviewed by me, Image(s) reviewed by me Assessment/Plan Assessment/Plan Covering for resident physician NEURO: Acute metabolic encephalopathy secondary to septic shock Status post extubation on nasal canula 1 L CARDIOVASCULAR: Septic shock secondary to perforation of the hollow viscus Sinus tachycardia secondary to pain versus withdrawal Bilateral peripheral arterial disease - EKG demonstrated sinus tachycardia - echo showed EF 60%, echo density in RV suggestive of large papillary muscle, can not rule out vegetation. - Duplex scan of the lower extremity revealed bilateral hemodynamically significant stenosis in left dorsalis pedis and right popliteal artery PULMONARY: Possible right lower lobe pneumonia Mild bilateral pleural effusion. - Chest x-ray showed atelectasis in bilateral lung bases - Blood culture showed Bacteroides and respiratory cultures Staph aureus and presumptive Cherelle albicans - Follow up blood culture revealed no growth in 24 hours of incubation. - continue IV meropenem and micafungin GASTROINTESTINAL: Septic shock secondary to perforation of the hollow viscus, status post exploratory laparotomy Rule out colonic malignancy Transaminitis and coagulopathy secondary to hepatic steatosis Rule out cirrhosis Enlarged CBD, rule out choledocholithiasis or biliary stenosis Alcohol abuse disorder Colon cancer - Histopathology of the resected bowel showed moderately differentiated adenocarcinoma of the ileum, rectum and rectosigmoid junction. - TPN as per pharmacy - IV thiamine 100 mg daily - CT abdomen pelvis without contrast showed large amount of intraperitoneal free air . [id number] stool burden. Indeterminate possible portal venous gas versus marginal gas along the liver - U/S of the abdomen showed The liver is diffusely echogenic which may be secondary to steatosis or another diffuse hepatic process. Enlargement of the common bile duct measuring up to 15 mm. Gallbladder sludge. Small amount of free fluid in the abdomen. - Patient underwent Exploratory laparotomy with rectosigmoid resection with colostomy, Extensive lysis of adhesions and Ileal resection with a primary anastomosis. - Abdominal fluid culture demonstrated, prevotella, Pseudomonas, E coli, Streptococcus mitis - continue IV meropenem and micafungin - CT abdomen pelvis with gastrograffin showed Moderate ascites with locules of gas in the left paracolic gutters could be post surgical in nature. Mildly prominent peritoneum thickening is nonspecific but peritonitis is a consideration. Irregular density along the left anterior hemipelvis. - Underwent paracentesis and the sent the fluid for study GENITOURINARY: FLORIN secondary to septic shock/ VMN Acute complicated cystitis - U/A was consistent with UTI - Pending urine bacterial culture ENDOCRINE: Hypoglycemia METABOLIC: Moderate protein calorie malnutrition Hypocalcemia metabolic acidosis with respiratory compensation HEME: Acute on chronic microcytic hypochromic anemia Thrombocytopenia improving Coagulopathy Acute DVT of left upper arm - Hold Lovenox - 3 unit PRBC and 1 FFP given since surgery - monitor H&H - Eloquis 5 mg bid. INFECTIOUS DISEASE: Sepsis with septic shock secondary to perforation of the hollow viscus, status post exploratory laparotomy Possible right lower lobe pneumonia Acute complicated cystitis - Blood culture showed Gram-negative rods, peritoneal fluid culture Pseudomonas, E coli, Cherelle albicans and resp culture Cherelle albicans - continue IV meropenem and micafungin Seen in [facility] Time spent 70 minutes Advanced care planning time 20 mts Not stable for transfer to [place] Plan discussed with: Patient Date of Service: Nov 21, 2024 Billing Provider: DIEGO GUTIÉRREZ MD Common Visit Codes: [id number] CARE 30-74 MIN DIEGO GUTIÉRREZ MD Nov 21, 2024 13:38
--- NOTE | 2024-11-21 17:13 | DVHPN2 ---
Progress Note - Surgical Date Seen: Nov 21, 2024 Post op day Post op day: 0 Subjective Patient reports: Feels better (Patient feels slightly better today, states that there is not much draining coming from the midline wound) Review of Systems: Deferred Objective Vital signs Vital Sign Date Time Temp Pulse Resp B/P (MAP) Pulse Ox O2 Delivery O2 Flow Rate FiO2 11/21/24 14:00 16 95 Nasal Cannula* 1 24 11/21/24 12:00 88 11/21/24 11:00 117/60 (79) 11/21/24 08:00 98.4 98.4 Total Intake and Output 11/20/24 11/20/24 11/21/24 15:00 23:00 07:00 Intake Total 150 ml 271 ml 271 ml Output Total 775 ml 270 ml Balance 150 ml -504 ml 1 ml Medications Current Medications Medications Dose Ordered Sig/Greg Route Start Time Stop Time Status Last Admin Dose Admin Ondansetron HCl 4 mg Q4HP PRN IV 11/01/24 21:15 11/17/24 18:51 4 MG Artificial Tears 1 drop Q6HP PRN EACHEYE 11/05/24 12:30 11/09/24 07:48 1 DROP Meropenem 50 ml @ 17 mls/hr Q8H IV 11/08/24 16:00 11/21/24 09:13 17 MLS/HR Enteral Nutritional Formula 1,000 ml 20ML/HR GT 11/09/24 11:30 11/20/24 00:51 1,000 ML Acetaminophen 650 mg Q4HP PRN PO 11/13/24 11:30 11/20/24 21:50 650 MG Dextrose 50 ml UD PRN IV 11/15/24 04:45 11/15/24 05:05 50 ML Levalbuterol HCl 0.625 mg Q4HR NEB 11/16/24 10:00 11/21/24 09:54 0.625 MG Ipratropium [place] 0.5 mg Q4HR NEB 11/16/24 10:00 11/21/24 09:54 0.5 MG Micafungin Sodium 100 mg/Sodium Chloride 100 ml @ 100 mls/hr DAILY IV 11/17/24 10:00 11/21/24 10:15 100 MLS/HR Sertraline HCl 50 mg DAILY PO 11/17/24 10:00 11/21/24 10:16 50 MG Pantoprazole Sodium 40 mg DAILY@0600 PO 11/18/24 06:00 11/21/24 05:35 40 MG Thiamine HCl 100 mg DAILY PO 11/17/24 10:00 11/21/24 10:16 100 MG Apixaban 5 mg BID PO 11/17/24 22:00 11/21/24 10:16 5 MG Diagnostic Test (Pha) 1 strip Q6HR 11/18/24 00:00 11/21/24 14:44 1 STRIP Laboratory Laboratory Tests 11/21/24 05:04 11/20/24 06:04 Test 11/20/24 06:04 Range/Units Serum Glucose 97 74-106 mg/dL Microbiology Date/Time Source Procedure Growth Status 11/19/24 13:45 Abdomen Gram Stain - Final Resulted 11/19/24 13:45 Abdomen Wound Culture - Preliminary Resulted 11/18/24 17:37 Voided Urine Urine Culture - Preliminary Resulted 11/13/24 09:51 Sputum Gram Stain - Final Complete 11/13/24 09:51 Respiratory Culture - Final Presumptive Cherelle albicans Complete 11/03/24 14:05 Blood Blood Culture - Final NO GROWTH AFTER 5 DAYS OF INCUBATION. Complete Examination: ABDOMEN:Abnormal (Soft, midline wound open at the inferior portion superior portion without erythema drainage pus, nontender, ostomy with stool in bag) Labs and/or images reviewed: Labs reviewed by me (No leukocytosis) Problem List/Assessment/Plan Problems: (1) Surgical site infection Assessment and Plan Mrs. Osei is a 49-year-old female who underwent an (11/04/24) exploratory laparotomy with sigmoid resection due to perforation, also during the surgery a partial ileum resection was also performed due to the limb being stuck to the resected sigmoid, there was a primary stapled anastomosis of small bowel to small bowel and a end colostomy done. I am consulted today due to leakage coming from the midline wound. Patient has an SSI of the midline wound. Lower aspect of the wound was opened, copious amounts of purulent drainage emanated from the wound. Fascia is intact. Patient will need continue packing changes daily. I also reviewed the patient's CT from the contrast was done with only p.o. contrast. There is no contrast extravasation from the bowel lumen, and you can see the contrast exiting through the ostomy. On the CT patient does have infected intraperitoneal fluid, due to the presence of gas within the fluid collection in the left lower quadrant. Patient underwent a paracentesis on 11/18. Interval: Midline wound with some purulent drainage today, fibrinous tissue in the base, she will benefit from Santyl application at the base and daily packing changes. If there is no central then continue with b.i.d. packing changes as ordered. The CT shows left lower quadrant intraperitoneal fluid with gas in likely infected, she might benefit from IR drain placement for drainage. 1. B.i.d. packing changes as ordered, unless there is Santyl (collagenase) in the pharmacy, I try ordering but I could not find it. If Santyl was applied then do daily dressing changes with dry Kerlix gauze as packing. 2. No need for additional opening of the wound 3. Consider IR consultation for intraperitoneal drain placement left lower quadrant fluid collection 4. Continue with the IV Merrem and micafungin 5. I will sign off, please call with any questions or concerns Plan discussed with Plan discussed with: Patient Visit Coding Surgery Date of Service if different f: Nov 21, 2024 Billing Provider: GERMÁN CARVAJAL MD Surgery Visit Codes: [id number] INP/OBS CARE(HIGH) GERMÁN CARVAJAL MD Nov 21, 2024 17:13
[2024-11-21] MEDS: IPRATROPIUM BROM 0.5 MG/2.5ML INH SOL ONE (18:42)
[2024-11-22] VITALS (27 sets, daily range): BP systolic 95–123; BP diastolic 53–73; PULSE 90–117; RESP 12–29; TEMP 98.4–98.9; O2SAT 87–100
--- NOTE | 2024-11-22 10:32 | DVHPN2 ---
Reviewed: Care Plan, H&P, Labs, Medications, Previous Orders, Radiology Changes from previous H/P or p: No Changes Objective Vitals Vital Signs Date Time Temp Pulse Resp B/P (MAP) Pulse Ox O2 Delivery O2 Flow Rate FiO2 11/22/24 08:00 101 11/22/24 08:00 98.4 22 108/62 (77) 87 98.4 11/22/24 08:00 Nasal Cannula* 1 24 Intake/Output Intake and Output 11/22/24 07:00 Intake Total 1083 ml Output Total 1350 ml Balance -267 ml Intake Oral 270 ml IV Total 253 ml Tube Feeding 560 ml Output Urine Total 850 ml Stool Total 500 ml # Bowel Movements 3 General Appearance: Other (Intubate, on vent) HEENT: Atraumatic Neck: Supple Cardiovascular: Regular rate, Normal S1, Normal S2, No murmurs, Gallops, Rubs Abdomen: Normal bowel sounds, Soft, No tenderness Neuro: Other (intubate, on vent) Medications Current Medications Medications Dose Ordered Sig/Greg Route Start Time Stop Time Status Last Admin Dose Admin Ondansetron HCl 4 mg Q4HP PRN IV 11/01/24 21:15 11/22/24 05:14 4 MG Artificial Tears 1 drop Q6HP PRN EACHEYE 11/05/24 12:30 11/09/24 07:48 1 DROP Meropenem 50 ml @ 17 mls/hr Q8H IV 11/08/24 16:00 11/22/24 07:37 17 MLS/HR Enteral Nutritional Formula 1,000 ml 20ML/HR GT 11/09/24 11:30 11/21/24 18:24 1,000 ML Acetaminophen 650 mg Q4HP PRN PO 11/13/24 11:30 11/20/24 21:50 650 MG Dextrose 50 ml UD PRN IV 11/15/24 04:45 11/15/24 05:05 50 ML Levalbuterol HCl 0.625 mg Q4HR NEB 11/16/24 10:00 11/22/24 06:17 0.625 MG Ipratropium [place] 0.5 mg Q4HR NEB 11/16/24 10:00 11/22/24 06:17 0.5 MG Micafungin Sodium 100 mg/Sodium Chloride 100 ml @ 100 mls/hr DAILY IV 11/17/24 10:00 11/21/24 10:15 100 MLS/HR Sertraline HCl 50 mg DAILY PO 11/17/24 10:00 11/21/24 10:16 50 MG Pantoprazole Sodium 40 mg DAILY@0600 PO 11/18/24 06:00 11/22/24 06:22 40 MG Thiamine HCl 100 mg DAILY PO 11/17/24 10:00 11/21/24 10:16 100 MG Apixaban 5 mg BID PO 11/17/24 22:00 11/21/24 22:00 5 MG Diagnostic Test (Pha) 1 strip Q6HR 11/18/24 00:00 11/22/24 06:22 1 STRIP Laboratory Results Laboratory Tests 11/20/24 06:04 11/21/24 05:04 Urinalysis Test 11/03/24 09:50 11/17/24 15:20 Urine Yeast (Budding) Many /hpf (None Seen) Urine Creatinine 78.12 mg/dL (30.0-125.0) Urine Protein/Creatinine Ratio 5.90 Urine Sodium 83 mmol/L (40-220) Urine Total Protein 460.8 mg/dL (1-14) H Urine Color Light-brown (Yellow) Urine Clarity Ex.turbid (Clear) Urine pH 6.5 (5.0-9.0) Urine Specific [place] 1.019 (1.001-1.035) Urine Protein 2+ (Negative) H Urine Ketones 1+ (Negative) H Urine Blood 3+ /uL (Negative) H Urine Nitrite Negative (Negative) Urine Bilirubin Negative (Negative) Urine Urobilinogen 2 mg/dL (Negative) H Urine Leukocyte Esterase 3+ /uL (Negative) Urine RBC 1383 /hpf (0 - 4) Urine WBC Clumps Present /hpf (None Seen) Urine Microscopic WBC 1160 /HPF (0-5) H Urine Squamous Epithelial Cells Few /hpf (<5) Urine Bacteria Few /hpf (None Seen) H Urine Mucus Few (None Seen) Urine Glucose Normal mg/dL (Normal) Microbiology Microbiology Date/Time Source Procedure Growth Status 11/19/24 13:45 Abdomen Gram Stain - Final Resulted 11/19/24 13:45 Abdomen Wound Culture - Preliminary Resulted 11/18/24 17:37 Voided Urine Urine Culture - Preliminary Resulted 11/13/24 09:51 Sputum Gram Stain - Final Complete 11/13/24 09:51 Respiratory Culture - Final Presumptive Cherelle albicans Complete 11/03/24 14:05 Blood Blood Culture - Final NO GROWTH AFTER 5 DAYS OF INCUBATION. Complete Labs and/or images reviewed: Labs reviewed by me, Image(s) reviewed by me Assessment/Plan Assessment/Plan Covering for resident physician NEURO: Acute metabolic encephalopathy secondary to septic shock Status post extubation on nasal canula 1 L CARDIOVASCULAR: Septic shock secondary to perforation of the hollow viscus Sinus tachycardia secondary to pain versus withdrawal Bilateral peripheral arterial disease - EKG demonstrated sinus tachycardia - echo showed EF 60%, echo density in RV suggestive of large papillary muscle, can not rule out vegetation. - Duplex scan of the lower extremity revealed bilateral hemodynamically significant stenosis in left dorsalis pedis and right popliteal artery PULMONARY: Possible right lower lobe pneumonia Mild bilateral pleural effusion. - Chest x-ray showed atelectasis in bilateral lung bases - Blood culture showed Bacteroides and respiratory cultures Staph aureus and presumptive Cherelle albicans - Follow up blood culture revealed no growth in 24 hours of incubation. - continue IV meropenem and micafungin GASTROINTESTINAL: Septic shock secondary to perforation of the hollow viscus, status post exploratory laparotomy Rule out colonic malignancy Transaminitis and coagulopathy secondary to hepatic steatosis Rule out cirrhosis Enlarged CBD, rule out choledocholithiasis or biliary stenosis Alcohol abuse disorder Colon cancer - Histopathology of the resected bowel showed moderately differentiated adenocarcinoma of the ileum, rectum and rectosigmoid junction. - TPN as per pharmacy - IV thiamine 100 mg daily - CT abdomen pelvis without contrast showed large amount of intraperitoneal free air . [id number] stool burden. Indeterminate possible portal venous gas versus marginal gas along the liver - U/S of the abdomen showed The liver is diffusely echogenic which may be secondary to steatosis or another diffuse hepatic process. Enlargement of the common bile duct measuring up to 15 mm. Gallbladder sludge. Small amount of free fluid in the abdomen. - Patient underwent Exploratory laparotomy with rectosigmoid resection with colostomy, Extensive lysis of adhesions and Ileal resection with a primary anastomosis. - Abdominal fluid culture demonstrated, prevotella, Pseudomonas, E coli, Streptococcus mitis - continue IV meropenem and micafungin - CT abdomen pelvis with gastrograffin showed Moderate ascites with locules of gas in the left paracolic gutters could be post surgical in nature. Mildly prominent peritoneum thickening is nonspecific but peritonitis is a consideration. Irregular density along the left anterior hemipelvis. - Underwent paracentesis and the sent the fluid for study GENITOURINARY: FLORIN secondary to septic shock/ VMN Acute complicated cystitis - U/A was consistent with UTI - Pending urine bacterial culture ENDOCRINE: Hypoglycemia METABOLIC: Moderate protein calorie malnutrition Hypocalcemia metabolic acidosis with respiratory compensation HEME: Acute on chronic microcytic hypochromic anemia Thrombocytopenia improving Coagulopathy Acute DVT of left upper arm - Hold Lovenox - 3 unit PRBC and 1 FFP given since surgery - monitor H&H - Eloquis 5 mg bid. INFECTIOUS DISEASE: Sepsis with septic shock secondary to perforation of the hollow viscus, status post exploratory laparotomy Possible right lower lobe pneumonia Acute complicated cystitis - Blood culture showed Gram-negative rods, peritoneal fluid culture Pseudomonas, E coli, Cherelle albicans and resp culture Cherelle albicans - continue IV meropenem and micafungin Seen in [facility] Time spent 70 minutes Advanced care planning time 20 mts Patient is feeling very weak: CBC CMP magnesium levels ordered Not stable for transfer to [place] Plan discussed with: Patient My Orders Orders - DIEGO GUTIÉRREZ MD Procedure Category Date Status Time * 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
[2024-11-22 11:27] LABS: Mean Corpuscular Volume 81.1 fL (80.0-100.0)
[2024-11-22 11:29] LABS: Hematocrit 25.6 % (36.0-46.0); Hemoglobin 8.2 g/dL (12.2-16.2); Mean Corpuscular Hemoglobin 26.0 pg (28.0-32.0); Nucleated Red Blood Cells % 0.2 %
[2024-11-22 11:46] LABS: Alanine Aminotransferase 17 U/L (7-40); Alkaline Phosphatase 91 U/L (46-116); Anion Gap 9 (5-15); BUN/Creatinine Ratio 32.4 (10.0-20.0); Blood Urea Nitrogen 12 mg/dL (9-23); Carbon Dioxide 26 mmol/L (20-31); Potassium 3.7 mmol/L (3.5-5.1); Sodium 144 mmol/L (136-145)
[2024-11-22 11:50] LABS: Albumin 1.7 g/dL (3.2-4.8); Bilirubin, Total < 0.2 mg/dL (0.2-1.0); Calcium 7.3 mg/dL (8.7-10.4); Chloride 109 mmol/L (98-107); Magnesium 1.5 mg/dL (1.6-2.6); Total Protein 4.0 g/dL (5.7-8.2)
[2024-11-22 12:16] LABS: Glucose 108 mg/dL (74-106)
[2024-11-22] MEDS: MAGNESIUM SULFATE 1GM/100ML 100 ML IV SCH (14:37)
[2024-11-23] VITALS (22 sets, daily range): BP systolic 108–132; BP diastolic 59–76; PULSE 74–125; RESP 13–95; TEMP 98–101.5; O2SAT 90–99
[2024-11-23] MEDS: LEVALBUTEROL HCL 1.25 MG/3 ML NEB ONE (03:07)
--- NOTE | 2024-11-23 08:23 | DVHPNRES ---
Progress Note Date Seen: Nov 23, 2024 Resident Creating Document: JODI CORRAL RESDIENT Medical Necessity Reason Pt with a Central, PICC or Fol: No The following are medically ne: PICC Line Subjective Review of Systems Patient seen examined at the bedside. Patient is complaining of mild abdominal pain. Objective vital signs Vital Sign Date Time Temp Pulse Resp B/P (MAP) Pulse Ox O2 Delivery O2 Flow Rate FiO2 11/23/24 06:13 94 23 96 11/23/24 06:07 Nasal Cannula 2.0 11/23/24 06:07 28 11/23/24 06:00 109/62 (78) 11/23/24 04:00 98.9 98.9 Total Intake and Output 11/22/24 11/22/24 11/23/24 15:00 23:00 07:00 Intake Total 150 ml 571 ml 326 ml Output Total 453 ml 400 ml Balance 150 ml 118 ml -74 ml medications Current Medications Medications Dose Ordered Sig/Greg Route Start Time Stop Time Status Last Admin Dose Admin Ondansetron HCl 4 mg Q4HP PRN IV 11/01/24 21:15 11/22/24 05:14 4 MG Artificial Tears 1 drop Q6HP PRN EACHEYE 11/05/24 12:30 11/09/24 07:48 1 DROP Meropenem 50 ml @ 17 mls/hr Q8H IV 11/08/24 16:00 11/23/24 07:17 17 MLS/HR Enteral Nutritional Formula 1,000 ml 20ML/HR GT 11/09/24 11:30 11/22/24 20:18 1,000 ML Acetaminophen 650 mg Q4HP PRN PO 11/13/24 11:30 11/20/24 21:50 650 MG Dextrose 50 ml UD PRN IV 11/15/24 04:45 11/15/24 05:05 50 ML Levalbuterol HCl 0.625 mg Q4HR NEB 11/16/24 10:00 11/23/24 06:07 0.625 MG Ipratropium [place] 0.5 mg Q4HR NEB 11/16/24 10:00 11/23/24 06:07 0.5 MG Micafungin Sodium 100 mg/Sodium Chloride 100 ml @ 100 mls/hr DAILY IV 11/17/24 10:00 11/22/24 10:12 100 MLS/HR Sertraline HCl 50 mg DAILY PO 11/17/24 10:00 11/22/24 10:11 50 MG Pantoprazole Sodium 40 mg DAILY@0600 PO 11/18/24 06:00 11/23/24 05:20 40 MG Thiamine HCl 100 mg DAILY PO 11/17/24 10:00 11/22/24 10:11 100 MG Apixaban 5 mg BID PO 11/17/24 22:00 11/22/24 21:29 5 MG Diagnostic Test (Pha) 1 strip Q6HR 11/18/24 00:00 11/23/24 05:55 1 STRIP Examination General Appearance: Alert, Oriented X3, Cooperative, No acute distress HEENT: Atraumatic, PERRLA, EOMI, Mucous membrane moist/pink Respiratory: Clear to auscultation, Normal air movement Cardiovascular: Regular rate, Normal S1, Normal S2, No murmurs, no chest wall tenderness Abdominal: Normal bowel sounds, Soft, mild tenderness, open lower surgical wound with scant amount of purulent discharge Extremities: No clubbing, No cyanosis, No edema, Normal pulses, No tenderness/swelling Skin: No rashes, No breakdown, No significant lesion Neuro: Normal gait, Normal speech, Strength at 5/5 X4 ext, Normal tone, Sensation intact, Cranial nerves 3-12 NL, Reflexes 2+ Psych/Mental Status: Mental status NL, Mood NL laboratory and microbiology Laboratory Tests 11/22/24 11:00 Test 11/22/24 11:00 Range/Units Serum Glucose 108 H 74-106 mg/dL Microbiology Date/Time Source Procedure Growth Status 11/19/24 13:45 Abdomen Gram Stain - Final Resulted 11/19/24 13:45 Abdomen Wound Culture - Preliminary Resulted 11/18/24 17:37 Voided Urine Urine Culture - Preliminary Presumptive Cherelle albicans Resulted 11/13/24 09:51 Sputum Gram Stain - Final Complete 11/13/24 09:51 Respiratory Culture - Final Presumptive Cherelle albicans Complete 11/03/24 14:05 Blood Blood Culture - Final NO GROWTH AFTER 5 DAYS OF INCUBATION. Complete Labs and/or images reviewed: Labs reviewed by me, Image(s) reviewed by me Problem List/Assessment/Plan Problem List/Assessment/Plan This is a 49-year-old lady with past medical history hypertension, GERD, alcohol use disorder, came to the hospital due to abdominal pain, nausea, and vomiting. Admitted on 11/01/24 (22 days back). Due to perforated bowel, underwent laparotomy with subsequent rectosigmoid resection with end colostomy and partial ileal resection with primary anastomosis. NEURO: Acute metabolic encephalopathy secondary to septic shock * Status post extubation on nasal canula 2 L CARDIOVASCULAR: Septic shock secondary to perforation of the hollow viscus Bilateral peripheral arterial disease * Echo showed EF 60%, echo density in RV suggestive of large papillary muscle, can not rule out vegetation. * Duplex scan of the lower extremity revealed bilateral hemodynamically significant stenosis in left dorsalis pedis and right popliteal artery PULMONARY: Possible right lower lobe pneumonia Mild bilateral pleural effusion. * Chest x-ray from 11/21, showed bilateral lower nonhomogeneous infiltration, possible atelectasis * Blood culture showed Bacteroides and respiratory cultures Staph aureus and presumptive Cherelle albicans * Follow up blood culture revealed no growth in 24 hours of incubation. * Discontinued IV meropenem and micafungin, started on Levaquin, Flagyl and fluconazole on 11/23 GASTROINTESTINAL: Septic shock secondary to perforation rectosigmoid colon Peritonitis, due to bowel perforation Status post rectosigmoid resection and colostomy, ileal resection with primary anastomosis Surgical site infection * Histopathology of the resected bowel showed moderately differentiated adenocarcinoma of the ileum, rectum and rectosigmoid junction. * CT scan on 11/17 showed, CT abdomen pelvis with gastrograffin showed Moderate ascites with locules of gas in the left paracolic gutters could be post surgical in nature., underwent paracentesis on 11/18, drained 8 mL, fluid culture shows no growth * On 11/21 surgery evaluated surgical site infection,, opened Lower aspect of the wound there was copious amounts of purulent drainage from the wound. Fascia is intact. fibrinous tissue in the base * On 11/23, patient reports bowel movement per rectum * Consulted wound nurse for VAC wound therapy GENITOURINARY: FLORIN secondary to septic shock/ VMN, resolved Possible complicated UTI ENDOCRINE: Had episodes hyperglycemia, currently normoglycemic METABOLIC: Moderate protein calorie malnutrition Hypocalcemia Metabolic acidosis with respiratory compensation HEME: Moderate Microcytic hypochromic anemia, Hb 8.2 Thrombocytopenia, possible h HIT improved DVT of left upper arm, cephalic vein, on Eliquis 5 mg b.i.d. Precipitous hemoglobin dropped, status post 3 unit PRBC and 1 FFP times. INFECTIOUS DISEASE: Septic shock, due to sepsis Sepsis Due to peritonitis Peritonitis due to perforated bowel * Ascitic fluid culture from 11/01 showed Pseudomonas aeruginosa, E coli, Streptococcus med is in presumptive Cherelle albicans * Blood culture on 11/03/2024, shows no growth after 5 days. * Urine culture from 11/18/2024 shows presumptive Cherelle albicans * Ascitic fluid culture from 11/19/2024 shows no growth * Flagyl, Levaquin and fluconazole DERMATOLOGY: Unstageable sacral bedsore (possible stage III) DIET: Tube feeding, puree diet DVT prophylax: On Eliquis GI prophylaxis: Protonix Bowel regimen: Code status: Full code LINES/DRAINS/ACCESS: IV access: Midline Grajeda catheter: Placed on 11/17 DISPOSITION: Med/surge Patient's status discussed with the patient and the patient's at the bedside. Critical care time spent more than 52 minutes, including patient care, chart review, and updating the family. Excluding any procedures. Case discussed with Dr. Armas Plan discussed with: Patient, Spouse Dietary Evaluation Review Comments: 1) If patient remains NPO > 7 days, consider EN/TPN to meet at least 75% of estimated energy needs 2) If gut is preferred, consider Jevity 1.2 @ 40 mL/hr goal rate as tolerated. Flush with 200 mL free H2O Q6H. TF regimen will provide 1152 kcals, 53g Pro, and 1575 mL free H2O (including flushes) per 24 hrs. Goal rate matias meet ~90% estimated daily energy needs and ~65% estimated daily protein needs. 3) Advance to 2g Na diet when medically feasible, pending ST approval 4) Follow-up with cardiology and pulmonology 5) Continue to monitor I&O, labs, and skin integrity Expected Outcomes/Goals: 1) patient to receive nutritional support within 7 days of NPO status 2) labs to improve 3) diet to advance 4) f/u in 2-3 dayas Date of Service: Nov 23, 2024 Billing Provider: BERNARD ARMAS MD Common Visit Codes: [id number] CARE 30-74 MIN ELLISARNELALFREDO RESDIENT Nov 23, 2024 08:23 BERNARD ARMAS MD Nov 24, 2024 15:58
[2024-11-23 10:03] LABS: Alanine Aminotransferase 17 U/L (7-40); Alkaline Phosphatase 92 U/L (46-116); Anion Gap 7 (5-15); BUN/Creatinine Ratio 20.9 (10.0-20.0); Carbon Dioxide 28 mmol/L (20-31); Glucose 102 mg/dL (74-106); Sodium 144 mmol/L (136-145)
[2024-11-23 10:10] LABS: Albumin 1.9 g/dL (3.2-4.8); Bilirubin, Total 0.2 mg/dL (0.2-1.0); Blood Urea Nitrogen 9 mg/dL (9-23); Calcium 7.4 mg/dL (8.7-10.4); Chloride 109 mmol/L (98-107); Potassium 3.3 mmol/L (3.5-5.1); Total Protein 4.3 g/dL (5.7-8.2)
[2024-11-23 18:28] LABS: Hematocrit 25.3 % (36.0-46.0); Hemoglobin 8.2 g/dL (12.2-16.2); Mean Corpuscular Hemoglobin 25.7 pg (28.0-32.0); Mean Corpuscular Volume 79.3 fL (80.0-100.0)
[2024-11-23 19:15] LABS: Anisocytosis Slight; Total Cells Counted 100.0 (100)
[2024-11-23] MEDS ORDERED: Jevity 1.2 Cal/Fiber 1 Liter GT SCH (19:15)
--- NOTE | 2024-11-23 21:03 | DVHPN2 ---
Progress Note - Dictate Date Seen: Nov 23, 2024 Medical Necessity Reason Pt with a Central, PICC or Fol: No The following are medically ne: PICC Line Subjective Ms. Osei is a 49 years old female with a history of hypertension, GERD, she was admitted to the [facility] on 11/01/2024 with a chief company of general weakness for six months of time, according to ER note, the patient was alert oriented x3 when she came to the hospital, but in the hospital, the patient was found to have perforated viscus, metabolic acidosis, sepsis, septic shock, peritonitis, on 11/02/2024, she went through 1. Exploratory laparotomy with rectosigmoid resection with colostomy 2. Extensive lysis of adhesions 3. Ileal resection with a primary anastomosis. Since then the patient has been intubated, mentally altered. I have seen and examined the patient, discussed with her nurse. She keeps improving, speech is clear enough, oriented x3, she moves the arms and legs better than before, but legs awake than the arms Blood culture, 11/01/24: Bacteroides fragilis Hepatitis panel, 11/02/2024: Hepatitis-A antibody, HbsAg Urinalysis, 11/01/2024: WBC: 522, WBC clumps: Present, urine leukocyte esterase: 3+ ABG 11/02/2024: Metabolic acidosis, 11/03/2024: Metabolic acidosis, 11/04/2024: Metabolic acidosis WBC/HB/PLT/MCV, 11/11/2024: 11.6/7.8/200/87.4 PT/INR/PTT, 11/04/2024: 14/1.36/81.6, 11/06/2024: 13.3/1.29/48.7 Na, 11/14/24: 145, 11/15/2024: 147, 11/16/2024: 150 BUN/CR, 11/11/2024: 33/0.68 TBI/AST/ALT/AP, 11/11/2024: 0.2/67/22/169 EEG, 11/12/2024: Nondiagnostic EEG because of artifacts Extremity venous study, 11/03/2024: Left upper extremity DVT Chest x-ray, 11/01/24: LUNGS: No pleural effusion, consolidation, or pneumothorax . Atelectasis in bilateral lung bases. Sequelae of fluid administration. MEDIASTINUM: Unremarkable BONES: No acute osseous abnormality OTHER: Enteric tube extending into the stomach. Intraperitoneal free air Chest x-ray, 11/02/2024: 1. Interval progression in right basilar pulmonary airspace disease. 2. Interval resolution of pneumoperitoneum. 3. Endotracheal tube and enteric catheter as above. CT head, 11/11/2024: No evidence of acute intracranial abnormality MRI, headache, 11/11/2024: No acute infarct, intracranial hemorrhage, mass effect, or hydrocephalus. vital signs Vital Sign Date Time Temp Pulse Resp B/P (MAP) Pulse Ox O2 Delivery O2 Flow Rate FiO2 11/23/24 18:59 91 Room Air 11/23/24 18:59 0 21 11/23/24 18:00 91 11/23/24 17:00 98.5 107 123/76 (92) 98.5 Total Intake and Output 11/22/24 11/22/24 11/23/24 14:59 22:59 06:59 Intake Total 150 ml 571 ml 326 ml Output Total 453 ml 400 ml Balance 150 ml 118 ml -74 ml medications Current Medications Medications Dose Ordered Sig/Greg Route Start Time Stop Time Status Last Admin Dose Admin Ondansetron HCl 4 mg Q4HP PRN IV 11/01/24 21:15 11/22/24 05:14 4 MG Artificial Tears 1 drop Q6HP PRN EACHEYE 11/05/24 12:30 11/09/24 07:48 1 DROP Acetaminophen 650 mg Q4HP PRN PO 11/13/24 11:30 11/20/24 21:50 650 MG Dextrose 50 ml UD PRN IV 11/15/24 04:45 11/15/24 05:05 50 ML Levalbuterol HCl 0.625 mg Q4HR NEB 11/16/24 10:00 11/23/24 06:07 0.625 MG Ipratropium [place] 0.5 mg Q4HR NEB 11/16/24 10:00 11/23/24 06:07 0.5 MG Sertraline HCl 50 mg DAILY PO 11/17/24 10:00 11/23/24 09:36 50 MG Pantoprazole Sodium 40 mg DAILY@0600 PO 11/18/24 06:00 11/23/24 05:20 40 MG Thiamine HCl 100 mg DAILY PO 11/17/24 10:00 11/23/24 09:36 100 MG Apixaban 5 mg BID PO 11/17/24 22:00 11/23/24 09:36 5 MG Diagnostic Test (Pha) 1 strip Q6HR 11/18/24 00:00 11/23/24 18:00 1 STRIP Fluconazole 100 ml @ 100 mls/hr DAILY IV 11/24/24 10:00 Metronidazole 100 ml @ 100 mls/hr Q8HR IV 11/23/24 22:00 Levofloxacin/ Dextrose 100 ml @ 100 mls/hr DAILY IV 11/24/24 10:00 Potassium Chloride 100 ml @ 50 mls/hr Q2H IV 11/23/24 18:00 11/23/24 21:59 Enteral Nutritional Formula 1,000 ml 40ML/HR GT 11/23/24 19:15 objective The patient is well-nourished and well-developed with no distress. MENTAL STATUS: Subjective CRANIAL NERVES: Pupils are equal, round and reactive. Normal conjugated eye movement, normal sensory and motor in the bilateral trigeminal distribution. No signs of facial weakness. SENSATION: Okay to pinprick and light touch MOTOR: Normal tone in the upper and lower extremity. Normal muscle bulk. No fasciculations. Muscle power, upper extremities: 4-5/5. Lower extremities: 3/5 REFLEXES: Deep tendon reflexes are symmetrical. No pathological reflexes. CEREBELLAR/COORDINATION: Deferred GAIT/STATION: deferred. laboratory and microbiology Laboratory Tests 11/23/24 09:17 Test 11/23/24 09:17 Range/Units Serum Glucose 102 74-106 mg/dL Problem List Altered mental status, resolved Metabolic encephalopathy Toxic encephalopathy Hypoxic encephalopathy Sepsis Septic shock Peritonitis Viscus perforation Acute respiratory failure Pneumonia Acute kidney failure Different thrombosis ICU myopathy Assessment/Plan Monitoring Supportive treatment ESEQUIEL care Follow-up labs Stabilize vitals Respiratory support Oxygen Thiamine supplementation GI prophylaxis/Protonix Physical therapy evaluation More recommendation per clinical course This medical document was created using an electronic medical record system with [employer] dictation system. Although this document has been carefully reviewed, there may still be some phonetic and typographical errors. These areas are purely typographical due to imperfections of the software programs, and do not reflect any compromise in the patient's medical care. Prognosis poor Dietary Evaluation Review Comments: 1) If patient remains NPO > 7 days, consider EN/TPN to meet at least 75% of estimated energy needs 2) If gut is preferred, consider Jevity 1.2 @ 40 mL/hr goal rate as tolerated. Flush with 200 mL free H2O Q6H. TF regimen will provide 1152 kcals, 53g Pro, and 1575 mL free H2O (including flushes) per 24 hrs. Goal rate matias meet ~90% estimated daily energy needs and ~65% estimated daily protein needs. 3) Advance to 2g Na diet when medically feasible, pending ST approval 4) Follow-up with cardiology and pulmonology 5) Continue to monitor I&O, labs, and skin integrity Expected Outcomes/Goals: 1) patient to receive nutritional support within 7 days of NPO status 2) labs to improve 3) diet to advance 4) f/u in 2-3 dayas Plan discussed with: Patient, Other HOLLY BENSON MD Nov 23, 2024 21:03
[2024-11-23] MEDS: POTASSIUM CHL 20MEQ/100ML 100 ML IV SCH (21:05)
[2024-11-23] MEDS: FLUCONAZOLE 200MG/100ML 100 ML IV ONE (23:16)
[2024-11-24] VITALS (7 sets, daily range): BP systolic 107–111; BP diastolic 65–66; PULSE 99–116; RESP 18–20; TEMP 98.4–99; O2SAT 96–98
[2024-11-24] MEDS: MAGNESIUM SULFATE 1GM/100ML 100 ML IV ONE (00:29)
[2024-11-24 06:26] LABS: Hemoglobin 7.4 g/dL (12.2-16.2)
[2024-11-24 06:30] LABS: Hematocrit 22.2 % (36.0-46.0); Mean Corpuscular Hemoglobin 25.9 pg (28.0-32.0); Mean Corpuscular Volume 77.8 fL (80.0-100.0)
[2024-11-24 06:39] LABS: Alanine Aminotransferase 17 U/L (7-40); Alkaline Phosphatase 92 U/L (46-116); Anion Gap 8 (5-15); BUN/Creatinine Ratio 25.0 (10.0-20.0); Blood Urea Nitrogen 10 mg/dL (9-23); Carbon Dioxide 27 mmol/L (20-31); Magnesium 1.8 mg/dL (1.6-2.6); Potassium 3.7 mmol/L (3.5-5.1); Sodium 144 mmol/L (136-145)
[2024-11-24 06:48] LABS: Albumin 1.8 g/dL (3.2-4.8); Bilirubin, Total 0.2 mg/dL (0.2-1.0); Calcium 7.2 mg/dL (8.7-10.4); Chloride 109 mmol/L (98-107); Glucose 121 mg/dL (74-106); Total Protein 4.0 g/dL (5.7-8.2)
[2024-11-24] MEDS: FLUCONAZOLE 200MG/100ML 100 ML IV SCH (09:08)
[2024-11-24 09:16] LABS: Anisocytosis Slight; Total Cells Counted 100.0 (100)
--- NOTE | 2024-11-24 17:40 | DVHPNRES ---
Progress Note Date Seen: Nov 24, 2024 Resident Creating Document: JODI CORRAL RESDIENT Medical Necessity Reason Pt with a Central, PICC or Fol: No The following are medically ne: PICC Line Subjective Review of Systems Patient seen examined at the bedside. Patient is complaining of mild abdominal pain. Objective vital signs Vital Sign Date Time Temp Pulse Resp B/P (MAP) Pulse Ox O2 Delivery O2 Flow Rate FiO2 11/24/24 09:25 97 Nasal Cannula 2.0 11/24/24 09:25 28 11/24/24 09:00 98.6 99 18 98.6 Total Intake and Output 11/23/24 11/23/24 11/24/24 15:00 23:00 07:00 Intake Total 150 ml 200 ml Balance 150 ml 200 ml Examination General Appearance: Alert, Oriented X3, Cooperative, No acute distress HEENT: Atraumatic, PERRLA, EOMI, Mucous membrane moist/pink Respiratory: Clear to auscultation, Normal air movement Cardiovascular: Regular rate, Normal S1, Normal S2, No murmurs, no chest wall tenderness Abdominal: Normal bowel sounds, Soft, mild tenderness, open lower surgical wound with scant amount of purulent discharge Extremities: No clubbing, No cyanosis, No edema, Normal pulses, No tenderness/swelling Skin: No rashes, No breakdown, No significant lesion Neuro: Normal gait, Normal speech, Strength at 5/5 X4 ext, Normal tone, Sensation intact, Cranial nerves 3-12 NL, Reflexes 2+ Psych/Mental Status: Mental status NL, Mood NL laboratory and microbiology Laboratory Tests 11/24/24 05:42 Test 11/24/24 05:42 Range/Units Serum Glucose 121 H 74-106 mg/dL Microbiology Date/Time Source Procedure Growth Status 11/19/24 13:45 Abdomen Gram Stain - Final Resulted 11/19/24 13:45 Abdomen Wound Culture - Preliminary Resulted 11/18/24 17:37 Voided Urine Urine Culture - Final Presumptive Cherelle albicans Complete 11/13/24 09:51 Sputum Gram Stain - Final Complete 11/13/24 09:51 Respiratory Culture - Final Presumptive Cherelle albicans Complete 11/03/24 14:05 Blood Blood Culture - Final NO GROWTH AFTER 5 DAYS OF INCUBATION. Complete Problem List/Assessment/Plan Problem List/Assessment/Plan This is a 49-year-old lady with past medical history hypertension, GERD, alcohol use disorder, came to the hospital due to abdominal pain, nausea, and vomiting. Admitted on 11/01/24 (22 days back). Due to perforated bowel, underwent laparotomy with subsequent rectosigmoid resection with end colostomy and partial ileal resection with primary anastomosis. NEURO: Acute metabolic encephalopathy secondary to septic shock * Status post extubation on nasal canula 2 L CARDIOVASCULAR: Septic shock secondary to perforation of the hollow viscus Bilateral peripheral arterial disease * Echo showed EF 60%, echo density in RV suggestive of large papillary muscle, can not rule out vegetation. * Duplex scan of the lower extremity revealed bilateral hemodynamically significant stenosis in left dorsalis pedis and right popliteal artery PULMONARY: Possible right lower lobe pneumonia Mild bilateral pleural effusion. * Chest x-ray from 11/21, showed bilateral lower nonhomogeneous infiltration, possible atelectasis * Blood culture showed Bacteroides and respiratory cultures Staph aureus and presumptive Cherelle albicans * Follow up blood culture revealed no growth in 24 hours of incubation. * Discontinued IV meropenem and micafungin, started on Levaquin, Flagyl and fluconazole on 11/23 GASTROINTESTINAL: Septic shock secondary to perforation rectosigmoid colon Peritonitis, due to bowel perforation Status post rectosigmoid resection and colostomy, ileal resection with primary anastomosis Surgical site infection * Histopathology of the resected bowel showed moderately differentiated adenocarcinoma of the ileum, rectum and rectosigmoid junction. * CT scan on 11/17 showed, CT abdomen pelvis with gastrograffin showed Moderate ascites with locules of gas in the left paracolic gutters could be post surgical in nature., underwent paracentesis on 11/18, drained 8 mL, fluid culture shows no growth * On 11/21 surgery evaluated surgical site infection,, opened Lower aspect of the wound there was copious amounts of purulent drainage from the wound. Fascia is intact. fibrinous tissue in the base * On 11/23, patient reports bowel movement per rectum * Consulted wound nurse for VAC wound therapy GENITOURINARY: FLORIN secondary to septic shock/ VMN, resolved Possible complicated UTI ENDOCRINE: Had episodes hyperglycemia, currently normoglycemic METABOLIC: Moderate protein calorie malnutrition Hypocalcemia Metabolic acidosis with respiratory compensation HEME: Moderate Microcytic hypochromic anemia, Hb 8.2 Thrombocytopenia, possible h HIT improved DVT of left upper arm, cephalic vein, on Eliquis 5 mg b.i.d. Precipitous hemoglobin dropped, status post 3 unit PRBC and 1 FFP times. INFECTIOUS DISEASE: Septic shock, due to sepsis Sepsis Due to peritonitis Peritonitis due to perforated bowel * Ascitic fluid culture from 11/01 showed Pseudomonas aeruginosa, E coli, Streptococcus med is in presumptive Cherelel albicans * Blood culture on 11/03/2024, shows no growth after 5 days. * Urine culture from 11/18/2024 shows presumptive Cherelle albicans * Ascitic fluid culture from 11/19/2024 shows no growth * Flagyl, Levaquin and fluconazole DERMATOLOGY: Unstageable sacral bedsore (possible stage III) DIET: Tube feeding, puree diet DVT prophylax: On Eliquis GI prophylaxis: Protonix Bowel regimen: Code status: Full code LINES/DRAINS/ACCESS: IV access: Midline Grajeda catheter: Placed on 11/17 DISPOSITION: Med/surge Patient's status discussed with the patient and the patient's at the bedside. Patient transferred to the [facility]. Critical care time spent more than 54 minutes, including patient care, chart review, and updating the family. Excluding any procedures. Case discussed with Dr. Armas Plan discussed with: Patient My Orders My Orders Orders - JODI CORRAL RESDIKAIN Procedure Category Date Status Time Communication Order ORDERS 11/23/24 Transmitted 17:56 * Wound Consult CONS 11/23/24 Transmitted * Landscape Architecture Teacher CONS 11/24/24 Transmitted Consult Dietary Evaluation Review Comments: 1) If patient remains NPO > 7 days, consider EN/TPN to meet at least 75% of estimated energy needs 2) If gut is preferred, consider Jevity 1.2 @ 40 mL/hr goal rate as tolerated. Flush with 200 mL free H2O Q6H. TF regimen will provide 1152 kcals, 53g Pro, and 1575 mL free H2O (including flushes) per 24 hrs. Goal rate matias meet ~90% estimated daily energy needs and ~65% estimated daily protein needs. 3) Advance to 2g Na diet when medically feasible, pending ST approval 4) Follow-up with cardiology and pulmonology 5) Continue to monitor I&O, labs, and skin integrity Expected Outcomes/Goals: 1) patient to receive nutritional support within 7 days of NPO status 2) labs to improve 3) diet to advance 4) f/u in 2-3 dayas Date of Service: Nov 24, 2024 Billing Provider: BERNARD ARMAS MD Common Visit Codes: [id number] CARE 30-74 MIN JODI CORRAL Nov 24, 2024 17:40 BERNARD ARMAS MD Nov 29, 2024 10:53
== END 2024-11-24 10:04 | disposition short-term general hospital (02) | DRG 853 ==
LOC: EDSEX 15:39 → ER 15:39 → EDBD 15:39 → OVERFLOW 19:58 → ICU WEST 23:51 → DOU 11-18 03:30 → EAST 11-23 15:40
PROVIDERS: ADMIT Internal Medicine; ATTEND Internal Medicine
PROC: 0DTN0ZZ Resection of Sigmoid Colon, Open Approach (ICD-10-PCS; 2024-11-01)
PROC: 30233L1 Transfusion of Nonautologous Fresh Plasma into Peripheral Vein, Percutaneous Approach (ICD-10-PCS; 2024-11-01)
PROC: 0D1M0Z4 Bypass Descending Colon to Cutaneous, Open Approach (ICD-10-PCS; 2024-11-01)
PROC: 0DBB0ZZ Excision of Ileum, Open Approach (ICD-10-PCS; 2024-11-01)
PROC: 0BH17EZ Insertion of Endotracheal Airway into Trachea, Via Natural or Artificial Opening (ICD-10-PCS; 2024-11-01)
PROC: 5A1955Z Respiratory Ventilation, Greater than 96 Consecutive Hours (ICD-10-PCS; 2024-11-01)
PROC: 30233N1 Transfusion of Nonautologous Red Blood Cells into Peripheral Vein, Percutaneous Approach (ICD-10-PCS; principal; 2024-11-02)
PROC: 02HV33Z Insertion of Infusion Device into Superior Vena Cava, Percutaneous Approach (ICD-10-PCS; 2024-11-03)
PROC: B548ZZA Ultrasonography of Superior Vena Cava, Guidance (ICD-10-PCS; 2024-11-03)
PROC: 0W9G3ZX Drainage of Peritoneal Cavity, Percutaneous Approach, Diagnostic (ICD-10-PCS; 2024-11-18)
DX: A41.9 Sepsis, unspecified organism (principal); G92.8 Other toxic encephalopathy; R65.21 Severe sepsis with septic shock; J96.01 Acute respiratory failure with hypoxia; K63.1 Perforation of intestine (nontraumatic); J15.69 Pneumonia due to other Gram-negative bacteria; J15.9 Unspecified bacterial pneumonia; N17.0 Acute kidney failure with tubular necrosis; K65.9 Peritonitis, unspecified; J90 Pleural effusion, not elsewhere classified; E44.0 Moderate protein-calorie malnutrition; E87.20 Acidosis, unspecified; N30.00 Acute cystitis without hematuria; E87.0 Hyperosmolality and hypernatremia; G93.1 Anoxic brain damage, not elsewhere classified; C18.9 Malignant neoplasm of colon, unspecified; C17.2 Malignant neoplasm of ileum; I82.622 Acute embolism and thrombosis of deep veins of left upper extremity; G72.81 Critical illness myopathy; T81.41XA Infection following a procedure, superficial incisional surgical site, initial encounter; R18.8 Other ascites; Z68.1 Body mass index [BMI] 19.9 or less, adult; E83.51 Hypocalcemia; E16.2 Hypoglycemia, unspecified; D50.9 Iron deficiency anemia, unspecified; E83.39 Other disorders of phosphorus metabolism; D69.6 Thrombocytopenia, unspecified; K21.9 Gastro-esophageal reflux disease without esophagitis; I10 Essential (primary) hypertension; D75.838 Other thrombocytosis; F17.200 Nicotine dependence, unspecified, uncomplicated; R74.01 Elevation of levels of liver transaminase levels; K76.0 Fatty (change of) liver, not elsewhere classified; K82.8 Other specified diseases of gallbladder; F10.10 Alcohol abuse, uncomplicated; Y90.9 Presence of alcohol in blood, level not specified; K66.0 Peritoneal adhesions (postprocedural) (postinfection); L08.9 Local infection of the skin and subcutaneous tissue, unspecified; Z88.0 Allergy status to penicillin; Z88.2 Allergy status to sulfonamides; Z79.899 Other long term (current) drug therapy; Z83.3 Family history of diabetes mellitus; Y83.2 Surgical operation with anastomosis, bypass or graft as the cause of abnormal reaction of the patient, or of later complication, without mention of misadventure at the time of the procedure; Y92.238 Other place in hospital as the place of occurrence of the external cause
CPT/HCPCS: 31720; 36415; 36430; 36556; 36600; 49083; 70450; 70551; 71045; 74018; 74176; 76700; 76942; 80048; 80053; 80076; 80202; 80320; 81001; 82040; 82140; 82378; 82570; 82805; 82962; 83010; 83605; 83615; 83735; 84100; 84132; 84156; 84300; 84478; 85007; 85014; 85018; 85025; 85027; 85379; 85384; 85610; 85730; 86301; 86304; 86704; 86706; 86708; 86803; 86850; 86900; 86901; 86920; 87040; 87070; 87075; 87076; 87077; 87081; 87086; 87088; 87186; 87205; 87340; 93005; 93306; 93925; 93970; 94002; 94003; 94640; 95819; 96365; 97110; 97116; 97163; 97530; 99291; G0378; J1450; J1815; J1956; J2185; J2248; J2250; J2405; J2470; J3430; J3480; J3490; P9047